=== PATIENT | male | born 1965 | race African-American/Black ===

== ENCOUNTER 2016-11-27 14:42 | Inpatient (IN) | payer SELFPAY ==
[2016-11-27 14:51] VITALS: BMI 27.3
[2016-11-27] MEDS ORDERED: KETOROLAC TROMETHAMINE 60 MG/2 ML VIAL IM ONE (16:33)
--- NOTE | 2016-11-27 16:37 | PDOC ---
History of Present Illness - General Chief Complaint: Pain Stated Complaint: PAIN Time Seen by Provider: 11/27/16 16:15 History Source: Patient Exam Limitations: No Limitations - History of Present Illness Initial Comments: 11/27/16 16:35 Patient is a 51-year-old male, history of GERD only takes occasional Zantac, presents with left flank pain. Patient reports he woke up with the pain on 11/22/2016, patient reports pain is stabbing, denies any urinary complaints, no bowel or bladder difficulty, no saddle anesthesia, no neurosensory deficits. Denies hematuria, no trauma. Past Medical History: GERD, Mother history renal disease. Allergies: No known allergies Medications: Zantac Family History: Non-contributory Social History: Denies smoking, alcohol use, or IVDU Vital signs on arrival are notable for pulse of 96. PCP: None, last seen 1 year prior, name unknown. Review of Systems GENERAL/CONSTITUTIONAL: No fever or chills. No weakness. No weight change. HEAD, EYES, EARS, NOSE AND THROAT: No change in vision. No ear pain or discharge. No sore throat. CARDIOVASCULAR: No chest pain or shortness of breath. RESPIRATORY: No cough, wheezing, or hemoptysis. GASTROINTESTINAL: No nausea, vomiting, diarrhea or constipation. No rectal bleeding. GENITOURINARY: No dysuria, frequency, or change in urination. MUSCULOSKELETAL: No joint or muscle swelling or pain. No neck or back pain. Left flank pain SKIN: No rash or easy bruising. NEUROLOGIC: No headache, vertigo, loss of consciousness, or loss of sensation. ENDOCRINE: No increased thirst. No abnormal weight change. HEMATOLOGIC/LYMPHATIC: No anemia, easy bleeding, or history of blood clots. ALLERGIC/IMMUNOLOGIC: No hives or skin allergy. No latex allergy. Physical Exam: GENERAL: The patient is awake, alert, and fully oriented, in no acute distress. EYES: Pupils equal, round and reactive to light, extraocular movements intact, sclera anicteric, conjunctiva clear. ENT: Ears normal, nares patent, oropharynx clear without exudates. Moist mucous membranes. No uvula deviation NECK: Normal range of motion, supple without lymphadenopathy, JVD, or masses. LUNGS: Breath sounds equal, clear to auscultation bilaterally. No wheezes, and no crackles. HEART: Regular rate and rhythm, normal S1 and S2 without murmur, rub or gallop. ABDOMEN: Soft, nontender, normoactive bowel sounds. No guarding, no rebound. No masses. No bruising or abrasions MUSCULOSKELETAL: Normal range of motion, no edema. No clubbing or cyanosis. No cords, erythema, or tenderness. Left CVA tenderness with fist palpation. NEUROLOGICAL: Cranial nerves II through XII grossly intact. Normal speech, normal gait. SKIN: Warm, Dry, normal turgor, no rashes or lesions noted. 11/27/16 18:53 11/27/16 19:30 Past History - Past Medical History Allergies/Adverse Reactions: Allergies Allergy/AdvReac Type Severity Reaction Status Date / Time No Known Allergies Allergy Verified 11/27/16 14:51 Home Medications: Ambulatory Orders Ranitidine HCl [Zantac] 150 mg PO DAILY 11/27/16 - Suicide/Smoking/Psychosocial Hx Smoking History: Never smoked Have you smoked in the past 12 months: No Information on smoking cessation initiated: No Substance Use Type: None *Physical Exam - Vital Signs Last Vital Signs Temp Pulse Resp BP Pulse Ox 99.0 F 99 H 18 92/64 100 11/27/16 14:49 11/27/16 14:49 11/27/16 14:49 11/27/16 14:49 11/27/16 14:49 ED Treatment Course - LABORATORY CBC & Chemistry Diagram: 12/01/16 18:30 12/01/16 06:10 Medical Decision Making - Medical Decision Making 11/27/16 19:31 A/P: Patient here for evaluation of left flank pain. Low-grade fever of 99, patient reports pain is increased in intensity in the last 24 hours. No nausea vomiting. No hematuria. Plan: CBC, CMP, urinalysis, urine culture Laboratory Results - last 24 hr 11/27/16 11/27/16 11/27/16 16:41 16:41 16:41 WBC 24.3 H RBC 5.05 Hgb 14.1 Hct 42.1 MCV 83.3 MCH 27.9 MCHC 33.5 RDW 14.3 Plt Count 222 MPV 9.4 Total Counted 100 Neutrophils % No Result Required. Neutrophils % (Manual) 81 Band Neuts % (Manual) 13 H Lymphocytes % No Result Required. Lymphocytes % (Manual) 3 L Monocytes % (Manual) 2 L Platelet Estimate Adequate RBC Morphology Appears normal Sodium 127 L Potassium 4.1 Chloride 83 L Carbon Dioxide 26 Anion Gap 18 H BUN 100 H Creatinine 6.7 H Creat Clearance w eGFR 8.77 Random Glucose 105 Calcium 9.2 Total Bilirubin 1.4 H AST 38 H ALT 39 Alkaline Phosphatase 70 Total Protein 7.6 Albumin 3.2 L Urine Color Yellow Urine Appearance Cloudy Urine pH 5.0 Urine Protein 1+ H Urine Glucose (UA) Negative Urine Ketones Negative Urine Blood 2+ H Urine Nitrite Negative Urine Bilirubin Negative Urine Urobilinogen Negative Urine RBC 2 Urine WBC 3 Urine Bacteria Rare Urine Mucus Rare Patient with elevated WBCs with a left shift. BUN and creatinine significantly elevated 100/6.7 , sodium is 127. Patient with blood +2 in urine. Renal spiral CT ordered. After reviewing labs, Patient sent to main emergency department for higher level of care report given to Dr. Barnes and Dr. Franklin. Patient transferred via wheelchair placed on stretcher with no difficulty. Patient found drinking soda told to maintain nothing by mouth status awaiting M.D. evaluation. 12/01/16 19:36 *DC/Admit/Observation/Transfer Diagnosis at time of Disposition: or with dr. gan, Perforated bowel
[2016-11-27] MEDS ORDERED: KETOROLAC TROMETHAMINE 60 MG/2 ML VIAL ONE (16:45)
[2016-11-27 17:07] LABS: MCH 27.9 pg (25.7-33.7); MCHC 33.5 g/dl (32.0-35.9); MEAN CELL VOLUME 83.3 fl (80-96); MEAN PLT VOLUME 9.4 fl (7.5-11.1); PLATELET COUNT 222 K/MM3 (134-434); RDW 14.3 % (11.9-15.9); WHITE BLOOD COUNT 24.3 K/mm3 (4.0-10.0)
[2016-11-27 17:25] LABS: URINE APPEARANCE CLOUDY; URINE BILIRUBIN NEGATIVE (NEGATIVE); URINE BLOOD 2+ (NEGATIVE); URINE COLOR YELLOW; URINE GLUCOSE (UA) NEGATIVE (NEGATIVE); URINE KETONE NEGATIVE (NEGATIVE); URINE NITRITE NEGATIVE (NEGATIVE); URINE UROBILINOGEN NEGATIVE mg/dL (0.2-1.0)
[2016-11-27 17:26] LABS: URINE PROTEIN 1+ (NEGATIVE)
[2016-11-27 17:27] LABS: URINE RBC 2 /hpf (0-3); URINE WBC 3 /hpf (3-5)
[2016-11-27 17:28] LABS: URINE BACTERIA RARE /hpf (NONE SEEN); URINE MUCUS RARE
[2016-11-27 17:36] LABS: ALBUMIN 3.2 g/dl (3.4-5.0); ALK PHOS 70 U/L (45-117); ANION GAP 18 (8-16); BILIRUBIN,TOTAL 1.4 mg/dL (0.2-1.0); CALCIUM 9.2 mg/dL (8.5-10.1); CO2 26 mmol/L (21-32); CREATININE 6.7 mg/dL (0.7-1.3); GLUCOSE,RANDOM 105 mg/dL (74-106); SGOT/AST 38 U/L (15-37); SGPT/ALT 39 U/L (12-78); TOT PROT 7.6 g/dl (6.4-8.2)
[2016-11-27 18:11] LABS: PLATELET ESTIMATE ADEQUATE (NORMAL)
[2016-11-27 18:12] LABS: METAMYELOCYTE 1 % (0-2); TOTAL CELLS COUNTED 100
[2016-11-27] MEDS ORDERED: SODIUM CHLORIDE 0.9% 1000 ML INFUS.BAG IV ONE (19:48)
--- NOTE | 2016-11-27 19:48 | PDOC ---
*Physical Exam - Vital Signs Last Vital Signs Temp Pulse Resp BP Pulse Ox 99.0 F 99 H 18 92/64 100 11/27/16 14:49 11/27/16 14:49 11/27/16 14:49 11/27/16 14:49 11/27/16 14:49 - Physical Exam General Appearance: Yes: Nourished, Appropriately Dressed. No: Apparent Distress HEENT: positive: Normal Voice, Hearing Grossly Normal Respiratory/Chest: positive: Lungs Clear, Normal Breath Sounds. negative: Chest Tender, Crackles, Rales, Rhonchi, Stridor, Wheezing Cardiovascular: positive: Regular Rhythm, Regular Rate, S1, S2. negative: Diastolic Murmur, Systolic Murmur Gastrointestinal/Abdominal: positive: Flat, Soft. negative: Tender, Distended, Guarding, Rebound, Tenderness Musculoskeletal: positive: CVA Tenderness, CVA Tenderness (L). negative: CVA Tenderness (R) Extremity: positive: Normal Inspection, Normal Range of Motion, Pelvis Stable. negative: Swelling, Calf Tenderness Integumentary: positive: Dry, Warm. negative: Clammy, Diaphoresis Neurologic: positive: Fully Oriented, Alert, Normal Mood/Affect, Normal Response , Motor Strength 5/5, Respond to painful stimul ED Treatment Course - LABORATORY CBC & Chemistry Diagram: 11/30/16 05:00 11/30/16 05:00 - ADDITIONAL ORDERS Additional order review: Laboratory Results 11/27/16 11/27/16 16:41 16:41 Sodium 127 L Potassium 4.1 Chloride 83 L Carbon Dioxide 26 Anion Gap 18 H BUN 100 H Creatinine 6.7 H Creat Clearance w eGFR 8.77 Random Glucose 105 Calcium 9.2 Total Bilirubin 1.4 H AST 38 H ALT 39 Alkaline Phosphatase 70 Total Protein 7.6 Albumin 3.2 L Urine Color Yellow Urine Appearance Cloudy Urine pH 5.0 Urine Protein 1+ H Urine Glucose (UA) Negative Urine Ketones Negative Urine Blood 2+ H Urine Nitrite Negative Urine Bilirubin Negative Urine Urobilinogen Negative Urine RBC 2 Urine WBC 3 Urine Bacteria Rare Urine Mucus Rare 11/27/16 16:41 RBC 5.05 MCV 83.3 MCHC 33.5 RDW 14.3 MPV 9.4 Neutrophils % No Result Required. Lymphocytes % No Result Required. - RADIOLOGY Radiology Studies Ordered: Category Date Time Status CHEST PA & LAT [RAD] Stat Radiology 11/27/16 19:36 Ordered - Medications Given in the ED: ED Medications Discontinued Medications Generic Name Dose Route Start Last Admin Trade Name Sadie PRN Reason Stop Dose Admin Ketorolac Tromethamine 60 mg 11/27/16 16:33 11/27/16 16:49 Toradol Injection - IM 11/27/16 16:34 60 mg ONCE ONE Administration Medical Decision Making - Medical Decision Making 11/27/16 19:43 Patient signed out from Maureen [email or web address] NP. The patient is a 51M with no PMH who presents with 5 days of L flank pain. The pain has gradually worsened, does not radiate, and has not gotten better or worse with anything. The patient states he had a bout of fever with severe diaphoresis a "few" days ago. He denies any current fever, chills, nausea, vomiting. 11/27/16 22:17 CT showed extraluminal air in L retroperitoneum. Dr. Gan, gen surg, seeing patient currently. ICU accepts admission. Hospitalist team paged. *DC/Admit/Observation/Transfer Diagnosis at time of Disposition: or with dr. gan, Perforation of intestine
[2016-11-27] MEDS ORDERED: PIPERACILLIN/TAZOB 2.25 GM/50 ML PREMIX BAG IVPB ONE (19:51)
[2016-11-27] MEDS ORDERED: VANCOMYCIN 1 GRAM (PRE-DOCKED) 250 ML IVPB ONE (20:20)
[2016-11-27 20:37] LABS: URINE LEUK ESTERASE Negative (NEGATIVE)
--- NOTE | 2016-11-27 21:25 | PDOC ---
*Physical Exam - Vital Signs Last Vital Signs Temp Pulse Resp BP Pulse Ox 99.0 F 82 18 101/69 98 11/27/16 14:49 11/27/16 21:21 11/27/16 21:21 11/27/16 21:21 11/27/16 21:21 - Physical Exam Comments: 11/27/16 21:35 The patient was examined by [[employer] Andolino] under my direct supervision. I personally evaluated the patient. I concur with the above findings and the plan of care. Patient's 51-year-old male who presented to the ER with atraumatic left -sided flank pain for the past 6 days. Initial evaluation patient was noted to be borderline hypotensive with mild to moderate left flank tenderness to palpation. Patient had received IM Toradol in [facility] prior to my evaluation. Physical exam reveals no scleral icterus, mucous membranes are dry; there is no JVD. Lungs are clear; heart exam reveals no murmurs rubs or gallops; abdominal exam reveals mild focal left upper quadrant tenderness and there is no guarding or rebound. Mild to moderate left CVA tenderness is noted. There is no petechial rash. CBC reveals significant leukocytosis with bandemia. CMP reveals moderate hyponatremia, with evidence of acute renal insufficiency with BUN of 100 and creatinine of 6.7. Urinalysis reveals no evidence of pyuria. CT of abdomen and pelvis reveals a large amount of trapped retroperitoneal air on the left likely related to a colonic diverticula perforation. A discussed the case with Dr. Powell of surgery. Patient will be taken to the OR for exploratory laparotomy and possible resection with colostomy. Blood and urine cultures been obtained. Broad-spectrum antibiotic therapy has been administered. Frankel catheter has been placed for measurements of ins and outs. Patient's currently fluid resuscitated. Will admit to the ICU. ED Treatment Course - LABORATORY CBC & Chemistry Diagram: 11/27/16 16:41 11/27/16 16:41 - ADDITIONAL ORDERS Additional order review: Laboratory Results 11/27/16 11/27/16 11/27/16 20:20 19:43 16:41 Sodium 127 L Potassium 4.1 Chloride 83 L Carbon Dioxide 26 Anion Gap 18 H BUN 100 H Creatinine 6.7 H Creat Clearance w eGFR 8.77 Random Glucose 105 Lactic Acid 1.1 Calcium 9.2 Total Bilirubin 1.4 H AST 38 H ALT 39 Alkaline Phosphatase 70 Total Protein 7.6 Albumin 3.2 L Lipase 70 L Urine Color Urine Appearance Urine pH Ur Specific [place] Urine Protein Urine Glucose (UA) Urine Ketones Urine Blood Urine Nitrite Urine Bilirubin Urine Urobilinogen Ur Leukocyte Esterase Urine RBC Urine WBC Urine Bacteria Urine Mucus 11/27/16 16:41 Sodium Potassium Chloride Carbon Dioxide Anion Gap BUN Creatinine Creat Clearance w eGFR Random Glucose Lactic Acid Calcium Total Bilirubin AST ALT Alkaline Phosphatase Total Protein Albumin Lipase Urine Color Yellow Urine Appearance Cloudy Urine pH 5.0 Ur Specific [place] 1.020 Urine Protein 1+ H Urine Glucose (UA) Negative Urine Ketones Negative Urine Blood 2+ H Urine Nitrite Negative Urine Bilirubin Negative Urine Urobilinogen Negative Ur Leukocyte Esterase Negative Urine RBC 2 Urine WBC 3 Urine Bacteria Rare Urine Mucus Rare 11/27/16 16:41 RBC 5.05 MCV 83.3 MCHC 33.5 RDW 14.3 MPV 9.4 Neutrophils % No Result Required. Lymphocytes % No Result Required. - RADIOLOGY Radiology Studies Ordered: Category Date Time Status CHEST X-RAY PORTABLE* [RAD] Stat Radiology 11/27/16 21:18 Ordered - Medications Given in the ED: ED Medications Discontinued Medications Generic Name Dose Route Start Last Admin Trade Name Freq PRN Reason Stop Dose Admin Ketorolac Tromethamine 60 mg 11/27/16 16:33 11/27/16 16:49 Toradol Injection - IM 11/27/16 16:34 60 mg ONCE ONE Administration Piperacillin/Tazobactam/Dextrose 2.25 gm 11/27/16 19:51 11/27/16 21:13 Zosyn 2.25gm Ivpb (Premix) IVPB 11/27/16 19:52 2.25 gm ONCE ONE Administration Sodium Chloride 500 ml 11/27/16 19:48 11/27/16 20:01 Normal Saline - IV 11/27/16 19:49 500 ml ONCE ONE Administration *DC/Admit/Observation/Transfer Diagnosis at time of Disposition: or with dr. gan
[2016-11-27 21:45] LABS: INR 1.28 (0.82-1.09); PROTHROMBIN TIME (PATIENT) 14.5 SEC (9.98-11.88)
[2016-11-27] MEDS ORDERED: VANCOMYCIN 1,000 MG in DEXTROSE 5%-WATER - 250 ML IVPB SCH (22:00)
[2016-11-27 22:12] LABS: HIV 1 & 2 AB NEGATIVE; HIV 1 AGp24 NEGATIVE
[2016-11-27] MEDS ORDERED: SODIUM CHLORIDE 1,000 ML IV STA (22:16)
[2016-11-27] MEDS ORDERED: DESFLURANE GAS 240 ML BOTTLE IH ONE (22:57)
--- NOTE | 2016-11-27 22:59 | CONSULT ---
Consult Consult Specialty:: Surgery Reason for Consultation:: Perforated viscus - History of Present Illness History of Present Illness: 51 male present for abdominal pain Greatest pain on left side/flank Pain x 1 week Denies fevers/chills WBC [address]- free air tracking along left side/retroperitoneum consistent with likely perforated colon - History Source History Provided By: Patient, Family Member, Medical Record Limitations to Obtaining History: No Limitations - Smoking History Smoking history: Never smoked Have you smoked in the past 12 months: No Home Medications - Allergies Allergies/Adverse Reactions: Allergies Allergy/AdvReac Type Severity Reaction Status Date / Time No Known Allergies Allergy Verified 11/27/16 14:51 - Home Medications Home Medications: Ambulatory Orders Ranitidine HCl [Zantac] 150 mg PO DAILY 11/27/16 Family Disease History - Family Disease History Family History: Denies Review of Systems - Review of Systems Constitutional: denies: Chills, Fever Neck: reports: No Symptoms Cardiovascular: denies: Chest Pain Respiratory: denies: Cough Gastrointestinal: reports: Abdominal Pain. denies: Melena, Vomiting Genitourinary: reports: No Symptoms Neurological: denies: Change in LOC Pain Intensity: 5 Physical Exam Vital Signs: Vital Signs Temperature 99.0 F 11/27/16 14:49 Pulse Rate 82 11/27/16 21:21 Respiratory Rate 18 11/27/16 21:21 Blood Pressure 101/69 11/27/16 21:21 O2 Sat by Pulse Oximetry (%) 98 11/27/16 21:21 Constitutional: Yes: Calm HENT: Yes: WNL Neck: Yes: Supple Cardiovascular: Yes: Regular Rate and Rhythm Respiratory: Yes: CTA Bilaterally Gastrointestinal: Yes: Soft, Tenderness, Tenderness, Rebound (Local left sided guarding). No: Distention Extremities: Yes: WNL Neurological: Yes: Alert, Oriented Labs: CBC, BMP 11/27/16 16:41 11/27/16 16:41 Imaging - Results Cat Scan: Image Reviewed Problem List - Problems (1) Perforated abdominal viscus Code(s): UGD8253 - (2) Septic shock Code(s): A41.9 - SEPSIS, UNSPECIFIED ORGANISM R65.21 - SEVERE SEPSIS WITH SEPTIC SHOCK (3) Acute renal failure Code(s): N17.9 - ACUTE KIDNEY FAILURE, UNSPECIFIED Qualifiers: Acute renal failure type: unspecified Qualified Code(s): N17.9 - Acute kidney failure, unspecified; N17.9 - Acute kidney failure, unspecified; N17.9 - Acute kidney failure, unspecified Assessment/Plan 51 male with likely perforated left sided colon diverticulitis In acute renal failure NPO IV fluids Antibiotics Discussed with him and his family Based on the findings, he will need and exploratory laparotomy, possible bowel resection possible ostomy Explained risks and benefits including sepsis, shock and Understands and agrees Will proceed emergently
[2016-11-27] MEDS ORDERED: LIDOCAINE HCL/PF 2% SDV 5ML VIAL ONE (23:00)
[2016-11-27] MEDS ORDERED: ROCURONIUM BROMIDE 50 MG/5 ML VIAL ONE (23:01)
[2016-11-27] MEDS ORDERED: SUCCINYLCHOLINE CHLORIDE 200 MG/10 ML VIAL ONE (23:01)
[2016-11-27] MEDS ORDERED: PROPOFOL 20 ML ONE (23:01)
[2016-11-27] MEDS ORDERED: AMPICILLIN NA/SULBACTAM NA 1.5 GM VIAL IVPB ONE (23:15)
[2016-11-27] MEDS ORDERED: DEXAMETHASONE SOD PHOSPHATE 4 MG/1 ML VIAL ONE (23:58)
[2016-11-27] MEDS ORDERED: KETOROLAC TROMETHAMINE 30 MG/1 ML VIAL ONE (23:58)
[2016-11-27] MEDS ORDERED: ONDANSETRON 4 MG/2 ML VIAL ONE (23:58)
[2016-11-27] MEDS ORDERED: NEOSTIGMINE METHYLSULFATE 0.5 MG/ML - 10 ML MDV ONE (23:58)
[2016-11-27] MEDS ORDERED: AMPICILLIN NA/SULBACTAM NA 1.5 GM VIAL ONE (23:59)
[2016-11-27] MEDS ORDERED: GLYCOPYRROLATE 0.2 MG/1 ML VIAL ONE ×2 (23:59)
[2016-11-28] MEDS ORDERED: ROCURONIUM BROMIDE 50 MG/5 ML VIAL ONE (00:20)
[2016-11-28] MEDS ORDERED: ONDANSETRON 4 MG/2 ML VIAL IVPUSH PRN (01:25)
[2016-11-28] MEDS ORDERED: PROMETHAZINE HCL 25 MG/1 ML VIAL IVPUSH PRN (01:25)
[2016-11-28] MEDS ORDERED: HYDROmorphone *PCA* 10MG/50ML DISP.SYRIN PCA SCH (01:30)
--- NOTE | 2016-11-28 01:33 | OP ---
Operative Note - Note: Operative Date: 11/28/16 Pre-Operative Diagnosis: Perforated viscus Operation: Exploratory laparotomy, splenic flexure mobilization, extended left hemicolectomy, diverting transverse colostomy, abdominal washout Findings: Perforated descending colon with retroperitoneal abscess cavity Post-Operative Diagnosis: Other (Perforated descending colon with abscess cavity ) Surgeon: Nolan Powell Anesthesia: General Specimens Removed: Left colon Estimated Blood Loss (mls): 50 Drains & Tubes with Location: KEYA, ostomy Operative Report Dictated: Yes
[2016-11-28] MEDS ORDERED: ONDANSETRON 4 MG/2 ML VIAL IVPB PRN ×2 (01:43→02:11)
[2016-11-28] MEDS ORDERED: SODIUM CHLORIDE 1,000 ML IV SCH ×3 (01:45→08:34)
[2016-11-28] MEDS ORDERED: HYDROmorphone *PCA* 10MG/50ML DISP.SYRIN PCA ONE (01:52)
[2016-11-28] MEDS ORDERED: METRONIDAZOLE 500 MG PREMIXED 100 ML IVPB SCH ×3 (02:00→10:00)
[2016-11-28 02:31] LABS: BASOPHIL 0.3 % (0-2.0); MCH 27.7 pg (25.7-33.7); MEAN CELL VOLUME 83.8 fl (80-96); MEAN PLT VOLUME 10.7 fl (7.5-11.1); NEUTROPHILS 92.5 % (42.8-82.8); PLATELET COUNT 173 K/MM3 (134-434); RDW 14.3 % (11.9-15.9); WHITE BLOOD COUNT 14.2 K/mm3 (4.0-10.0)
[2016-11-28 02:57] LABS: ANION GAP 17 (8-16); CALCIUM 7.6 mg/dL (8.5-10.1); CO2 22 mmol/L (21-32); CREATININE 6.3 mg/dL (0.7-1.3); GLUCOSE,RANDOM 124 mg/dL (74-106)
[2016-11-28] MEDS: HYDROmorphone *PCA* 10MG/50ML DISP.SYRIN PCA SCH (04:14)
--- NOTE | 2016-11-28 04:15 | CONSULT ---
Consult - text type - Consultation Consultation Note: PULM/CCM Pt seen and examined in the ICU CC:abd pain, s/p exlap with hemicoloectomy, colostomy HPI: 51 y/o man with minimal PMHX of GERD on OTC zantac p/w 48+ hr hx of L abd and flank pain without n/v/d, or other sick prodrome. In ED was normotensive, low grade temp. Labs notable for leukocytosis 24 with 13% bandemia, PAYAM w/ Cr 6/ 100. CTAP showed likely perforated colon. Taken for emergent surgery with Dr Powell now POD 0 after Exploratory laparotomy, splenic flexure mobilization, extended left hemicolectomy, diverting transverse colostomy, abdominal washout. Pt did well intra-operatively, was extubated in PACU and admitted to ICU for continued care. In ICU pt drowsy but arousable, in minimal pain, with good UOP. Repeat labs showing decreased WBC, slightly downtrending Cr, and slightly rising BUN. Hemodyamics stable, receiving IVF. On LVQ and Flagyl. Comfortable on MARKER SHIPMENTS. PMHX: Gerd PSH: none SOC: non contrib Family hx: Mother with Kidney disease Home meds: zantac Ambulatory Orders Ranitidine HCl [Zantac] 150 mg PO DAILY 11/27/16 Smoking History Smoking history Never smoked Active Medications Hydromorphone HCl (Dilaudid Nuclear Physicist -) 10 mg MARKER SHIPMENTS MARKER SHIPMENTS DIAN PRN Reason: Protocol Stop: 12/05/16 01:25 Last Admin: 11/28/16 04:14 Dose: Not Given Metronidazole (Flagyl 500mg Premixed Ivpb -) 100 mls @ 100 mls/hr IVPB Q8H-IV DIAN Levofloxacin (Levaquin 250 Mg Premixed Ivpb -) 50 mls @ 100 mls/hr IVPB Q2D@ 0800 DIAN Sodium Chloride (Normal Saline -) 1,000 mls @ 150 mls/hr IV ASDIR DIAN Last Admin: 11/28/16 04:15 Dose: Not Given Ondansetron HCl (Zofran Injection) 4 mg IVPB Q4H PRN PRN Reason: NAUSEA AND/OR VOMITING Vital Signs Temp 97.8 F 11/28/16 03:20 Pulse 102 H 11/28/16 04:00 Resp 24 11/28/16 04:00 BP 114/80 11/28/16 04:00 Pulse Ox 100 11/28/16 03:05 Intake & Output 11/27/16 11/27/16 11/28/16 11:59 23:59 11:59 Intake Total 3900 450 Output Total 2150 50 520 Balance -2150 3850 -70 Weight 79.379 kg Intake: IV 2000 450 Other 1900 Output: Gastric Drainage 200 Drainage 105 Urine 200 50 200 Frankel 50 Estimated Blood Loss 50 15 Other 190 Other: Height 5 ft 7 in Body Mass Index (BMI) 27.3 CBCD WBC 14.2 K/mm3 (4.0-10.0) H D 11/28/16 01:50 RBC 4.64 M/mm3 (4.00-5.60) 11/28/16 01:50 Hgb 12.8 GM/dL (11.7-16.9) 11/28/16 01:50 Hct 38.8 % (35.4-49) 11/28/16 01:50 MCV 83.8 fl (80-96) 11/28/16 01:50 MCHC 33.0 g/dl (32.0-35.9) 11/28/16 01:50 RDW 14.3 % (11.9-15.9) 11/28/16 01:50 Plt Count 173 K/MM3 (134-434) D 11/28/16 01:50 MPV 10.7 fl (7.5-11.1) D 11/28/16 01:50 CMP Sodium 134 mmol/L (136-145) L 11/28/16 01:50 Potassium 3.7 mmol/L (3.5-5.1) 11/28/16 01:50 Chloride 95 mmol/L (98-107) L D 11/28/16 01:50 Carbon Dioxide 22 mmol/L (21-32) 11/28/16 01:50 Anion Gap 17 (8-16) H 11/28/16 01:50 BUN 107 mg/dL (7-18) H* 11/28/16 01:50 Creatinine 6.3 mg/dL (0.7-1.3) H 11/28/16 01:50 Creat Clearance w eGFR 8.77 (>60) 11/27/16 16:41 Calcium 7.6 mg/dL (8.5-10.1) L 11/28/16 01:50 Total Bilirubin 1.4 mg/dL (0.2-1.0) H 11/27/16 16:41 AST 38 U/L (15-37) H 11/27/16 16:41 ALT 39 U/L (12-78) 11/27/16 16:41 Alkaline Phosphatase 70 U/L (45-117) 11/27/16 16:41 Total Protein 7.6 g/dl (6.4-8.2) 11/27/16 16:41 Albumin 3.2 g/dl (3.4-5.0) L 11/27/16 16:41 CTAP: image reviewed CXR: no focal infitrate ROS: 10 pt review of systems negative except as per HPI. PE: Gen: well nourished, non toxic appearing man sleeping HEENT: NCAT PULM: clear anterior CV: RRR, no m/r/g apppreciated ABD: midline surg wound dressed CDI, R KEYA with minimal out put, L colostomy minimal output mostly blood no stool. quiet abd pain EXT: w/w/p Neuro: arouse briefly, non focal exam A/ 51 y/o man p/w abd pain, PAYAM found to have free air in abd now POD #0 after Exploratory laparotomy, splenic flexure mobilization, extended left hemicolectomy, diverting transverse colostomy, abdominal washout with Dr Powell P/ -cont fluid resusitation with NS at 150 hr -cont broad spectrum abd coverage with LVQ and flagyl -monitor for indications for STAFFING MGR, is making adequate Urine and K wnl -pain control with MARKER SHIPMENTS -advance diet as per surgery -monitor output -SCD and PPI for prophylaxis Randall King ACNP [id number]
[2016-11-28 06:13] LABS: BASOPHIL 1.2 % (0-2.0); EOSINOPHIL 0.1 % (0-4.5); MCH 27.9 pg (25.7-33.7); MCHC 33.2 g/dl (32.0-35.9); MEAN CELL VOLUME 84.1 fl (80-96); MEAN PLT VOLUME 10.3 fl (7.5-11.1); NEUTROPHILS 89.9 % (42.8-82.8); PLATELET COUNT 198 K/MM3 (134-434); RDW 14.3 % (11.9-15.9); WHITE BLOOD COUNT 11.4 K/mm3 (4.0-10.0)
[2016-11-28 06:43] LABS: ALBUMIN 2.1 g/dl (3.4-5.0); ALK PHOS 51 U/L (45-117); ANION GAP 15 (8-16); BILIRUBIN,TOTAL 1.5 mg/dL (0.2-1.0); CALCIUM 7.7 mg/dL (8.5-10.1); CO2 22 mmol/L (21-32); CREATININE 6.5 mg/dL (0.7-1.3); GLUCOSE,RANDOM 133 mg/dL (74-106); SGOT/AST 27 U/L (15-37); SGPT/ALT 32 U/L (12-78); TOT PROT 5.3 g/dl (6.4-8.2)
[2016-11-28] MEDS ORDERED: LEVOFLOXACIN 500 MG IVPB 100 ML IVPB SCH (08:00)
--- NOTE | 2016-11-28 09:09 | HP ---
CHIEF COMPLAINT: left flank pain PCP: none HISTORY OF PRESENT ILLNESS: This is a 51 year old male with a a history of GERD, who presents to the emergency room with sharp, non radiating, left sided flank pain that started on Tuesday. Patient states that when the pain started last week, he was sitting in a wooden chair watching the game. He got up to walk around which aggravated this pain. Patient tried warm baths to relieve pain, which did not help. Last night the pain was 10/0 which provoked him coming to the ER. Denies any associated symptoms including fever, chills, n, v, d, dysuria, hematuria. In the ER patient was borderline hypotensive, tachycardic. CBC evident for leukocytosis , 24 wbc. Elevated BUN/Cr; 100/6.7. CT abdomen revealed free air left retroperitonem. Recent Travel: no PAST MEDICAL HISTORY: GERD PAST SURGICAL HISTORY: no Social History: Smoking:no Alcohol:no Drugs: no Family History: Allergies No Known Allergies Allergy (Verified 11/27/16 14:51) HOME MEDICATIONS: Home Medications Medication Instructions Recorded Ranitidine HCl [Zantac] 150 mg PO DAILY 11/27/16 REVIEW OF SYSTEMS CONSTITUTIONAL: Absent: fever, chills, diaphoresis, generalized weakness, malaise, loss of appetite, weight change HEENT: Absent: rhinorrhea, nasal congestion, throat pain, throat swelling, difficulty swallowing, mouth swelling, ear pain, eye pain, visual changes CARDIOVASCULAR: Absent: chest pain, syncope, palpitations, irregular heart rate, lightheadedness , peripheral edema RESPIRATORY: Absent: cough, shortness of breath, dyspnea with exertion, orthopnea, wheezing, stridor, hemoptysis GASTROINTESTINAL: Absent: abdominal pain, abdominal distension, nausea, vomiting, diarrhea, constipation, melena, hematochezia GENITOURINARY: Absent: dysuria, frequency, urgency, hesitancy, hematuria, flank pain, genital pain MUSCULOSKELETAL: Positive: left flank pain Absent: myalgia, arthralgia, joint swelling, back pain, neck pain SKIN: Absent: rash, itching, pallor HEMATOLOGIC/IMMUNOLOGIC: Absent: easy bleeding, easy bruising, lymphadenopathy, frequent infections ENDOCRINE: Absent: unexplained weight gain, unexplained weight loss, heat intolerance, cold intolerance NEUROLOGIC: Absent: headache, focal weakness or paresthesias, dizziness, unsteady gait, seizure, mental status changes, bladder or bowel incontinence PSYCHIATRIC: Absent: anxiety, depression, suicidal or homicidal ideation, hallucinations. PHYSICAL EXAMINATION Vital Signs - 24 hr 11/28/16 11/28/16 11/28/16 01:19 01:35 01:50 Temperature 98.5 F Pulse Rate 94 H 87 85 Respiratory 16 18 18 Rate Blood Pressure 144/66 137/78 126/76 O2 Sat by Pulse 100 100 100 Oximetry (%) 11/28/16 11/28/16 11/28/16 02:00 02:05 02:20 Temperature Pulse Rate 82 82 89 Respiratory 18 18 18 Rate Blood Pressure 129/79 129/79 134/76 O2 Sat by Pulse 99 99 Oximetry (%) 11/28/16 11/28/16 11/28/16 02:30 02:35 02:50 Temperature Pulse Rate 91 H 91 H 99 H Respiratory 18 18 18 Rate Blood Pressure 132/75 132/75 122/78 O2 Sat by Pulse 97 100 Oximetry (%) 11/28/16 11/28/16 11/28/16 03:00 03:05 03:20 Temperature 97.8 F Pulse Rate 94 H 94 H 89 Respiratory 18 18 18 Rate Blood Pressure 135/76 135/76 125/76 O2 Sat by Pulse 100 Oximetry (%) 11/28/16 11/28/16 11/28/16 04:00 04:30 05:00 Temperature 97.8 F Pulse Rate 100 H 100 H 104 H Respiratory 16 14 14 Rate Blood Pressure 114/70 117/78 108/74 O2 Sat by Pulse 100 Oximetry (%) 11/28/16 06:00 Temperature 97.4 F L Pulse Rate 104 H Respiratory 14 Rate Blood Pressure 98/45 O2 Sat by Pulse Oximetry (%) GENERAL: Awake, alert, and fully oriented, in no acute distress. HEAD: Normal with no signs of trauma. EYES: Pupils equal, round and reactive to light, extraocular movements intact, sclera anicteric, conjunctiva clear. No lid lag. EARS, NOSE, THROAT: Ears normal, nares patent, oropharynx clear without exudates. Moist mucous membranes. NECK: Normal range of motion, supple without lymphadenopathy, JVD, or masses. LUNGS: Breath sounds equal, clear to auscultation bilaterally. No wheezes, and no crackles. No accessory muscle use. HEART: Regular rate and rhythm, normal S1 and S2 without murmur, rub or gallop. ABDOMEN: Soft, nontender, not distended, normoactive bowel sounds, incision clean, dry, intact, no erythema, edema; drain, with serosangiunous fluid 50 ml MUSCULOSKELETAL: Normal range of motion at all joints. No bony deformities or tenderness. No CVA tenderness. UPPER EXTREMITIES: 2+ pulses, warm, well-perfused. No cyanosis. No clubbing. No peripheral edema. LOWER EXTREMITIES: 2+ pulses, warm, well-perfused. No calf tenderness. No peripheral edema. NEUROLOGICAL: Cranial nerves II-XII intact. Normal speech. PSYCHIATRIC: Cooperative. Good eye contact. Appropriate mood and affect. SKIN: Warm, dry, normal turgor, no rashes or lesions noted, normal capillary refill. Laboratory Results - last 24 hr 11/27/16 11/28/16 11/28/16 23:15 01:50 01:50 WBC 14.2 H D RBC 4.64 Hgb 12.8 Hct 38.8 MCV 83.8 MCH 27.7 MCHC 33.0 RDW 14.3 Plt Count 173 D MPV 10.7 D Neutrophils % 92.5 H Lymphocytes % 1.6 L Monocytes % 5.6 Eosinophils % 0.0 Basophils % 0.3 Sodium 134 L Potassium 3.7 Chloride 95 L D Carbon Dioxide 22 Anion Gap 17 H BUN 107 H* Creatinine 6.3 H Creat Clearance w eGFR Random Glucose 124 H Calcium 7.6 L Total Bilirubin AST ALT Alkaline Phosphatase Total Protein Albumin Blood Type O POSITIVE Antibody Screen Cancelled Crossmatch IS Only See Detail Spec Expiration Date Cancelled 11/28/16 11/28/16 05:10 05:10 WBC 11.4 H RBC 4.37 Hgb 12.2 Hct 36.7 MCV 84.1 MCH 27.9 MCHC 33.2 RDW 14.3 Plt Count 198 MPV 10.3 Neutrophils % 89.9 H Lymphocytes % 1.9 L Monocytes % 6.9 Eosinophils % 0.1 D Basophils % 1.2 D Sodium 132 L Potassium 4.5 D Chloride 95 L Carbon Dioxide 22 Anion Gap 15 BUN 108 H* Creatinine 6.5 H Creat Clearance w eGFR 9.08 Random Glucose 133 H Calcium 7.7 L Total Bilirubin 1.5 H AST 27 D ALT 32 Alkaline Phosphatase 51 D Total Protein 5.3 L D Albumin 2.1 L D Blood Type Antibody Screen Crossmatch IS Only Spec Expiration Date Current Medications Generic Name Dose Route Start Last Admin Trade Name Freq PRN Reason Stop Dose Admin Chlorhexidine Gluconate 1 applic 11/28/16 22:00 Hibiclens For Decolonization - TP HS DIAN Hydromorphone HCl 10 mg 11/28/16 02:11 11/28/16 04:14 Dilaudid Press Clipper - TRAFFIC MAINTENANCE SUPERVISOR 12/05/16 01:25 Not Given TRAFFIC MAINTENANCE SUPERVISOR DIAN Protocol Levofloxacin 50 mls @ 100 mls/hr 11/29/16 08:00 Levaquin 250 Mg Premixed Ivpb - IVPB Q2D@0800 DIAN Metronidazole 100 mls @ 100 mls/hr 11/28/16 06:45 11/28/16 07:22 Flagyl 500mg Premixed Ivpb - IVPB 100 mls/hr Q8H-IV DIAN Administration Sodium Chloride 1,000 mls @ 200 mls/hr 11/28/16 08:34 Normal Saline - IV 11/29/16 07:10 ASDIR DIAN Pantoprazole Sodium 100 mls @ 200 mls/hr 11/28/16 13:00 Protonix 40mg Ivpb (Pre-Docked) IVPB DAILY DIAN Mupirocin 1 applic 11/28/16 10:00 Bactroban Ointment (For Decolonization) - NS 12/03/16 09:59 BID DIAN Ondansetron HCl 4 mg 11/28/16 02:11 Zofran Injection IVPB Q4H PRN NAUSEA AND/OR VOMITING ASSESSMENT/PLAN: This is a 51 year old male with a past medical history of GERD presents with left flank pain admitted for abdominal perforation. #Septic shock secondary to Perforated descending colon with retroperitoneal abscess cavity -POD #1 left hemicolectomy ; with transverse colostomy -Pain control -Aggressive IVF hydration -IV antibiotics; -patient put on levo/flagyl; although due to kidney injury; will consult ID for broad spectrum antibiotics; less nephrotoxic #PAYAM: -Aggressive fluid hydration -trend creatinine; no HD for now -CT abdomen negative for hydro' acute etiology -avoid nephrotoxic agents FEN: Fluids: NS 150mlshr Electrolytes: corrected Ca 9.2 VTE prophylaxis: scds GI prophylaxis: protonix Disposition: cont ICU monitoring Visit type - Emergency Visit Emergency Visit: Yes ED Registration Date: 11/27/16 Care time: The patient presented to the Emergency Department on the above date and was hospitalized for further evaluation of their emergent condition. - New Patient This patient is new to me today: Yes Date on this admission: 11/28/16 - Critical Care Critical Care patient: Yes Total Critical Care Time (in minutes): 40 Critical Care Statement: The care of this patient involved high complexity decision making to prevent further life threatening deterioration of the patient 's condition and/or to evaluate & treat vital organ system(s) failure or risk of failure.
[2016-11-28] MEDS ORDERED: PANTOPRAZOLE 40 MG TABLET (FP) PO SCH (10:00)
[2016-11-28] MEDS ORDERED: FLU VACCINE QUAD 60 MCG/0.5 ML (MDV 17-18) IM ONE (10:00)
[2016-11-28] MEDS: MUPIROCIN 2% TOPICAL OINTMENT FOR DECOLONIZATION NS SCH ×2 (10:00→21:16)
--- NOTE | 2016-11-28 11:00 | OP ---
DATE OF OPERATION: 11/27/2016 SURGEON: Garrett Powell MD PREOPERATIVE DIAGNOSIS: Perforated viscus. POSTOPERATIVE DIAGNOSIS: Perforated descending colon with retroperitoneal abscess cavity. PROCEDURE PERFORMED: Exploratory laparotomy, splenic flexure mobilization, extended left hemicolectomy, diverting transverse colostomy, and abdominal washout. SPECIMEN: Left colon. ESTIMATED BLOOD LOSS: 50 mL. DRAINS: KEYA and ostomy. ANESTHESIA: GET. REASON FOR PROCEDURE: The patient is a 51-year-old gentleman who presented to the ER because of abdominal pain. He stated that he was having left-sided abdominal pain for approximately 1 week. He was found to have a white blood cell count which was elevated to 21, and was in acute renal failure, with a creatinine of 6.7. A CT of the abdomen was performed, which demonstrated air in the left retroperitoneum, which was likely consistent with a perforated left colon from diverticulitis, per the radiologist's report to the ER. Because of this, he was consented for an exploratory laparotomy, possible bowel resection, possible ostomy. RISKS AND BENEFITS: The risks and benefits of the procedure were explained. These included bleeding, infection, hernia, abscess cavity, injury to surrounding abdominal structures (including the ureter, small bowel, colon, kidney, liver, spleen, bladder), vessel injury, nerve injury, prolonged ostomy (including ostomy for life), staple line dehiscence, fascial dehiscence, wound dehiscence, evisceration, ID, DVT, PE, ostomy prolapse, sepsis and as some of the complications. He understood and signed informed consent. DESCRIPTION OF PROCEDURE: The patient was placed supine on the operating room table. The patient underwent general endotracheal intubation by Anesthesia. A Frankel catheter had been previously placed in the emergency room. An NG tube was also placed by Anesthesia. The abdomen was prepped and draped in the usual sterile fashion. A time-out was performed. A midline incision was made from above the umbilicus down to the level of the pubis. The skin and subcutaneous tissue was dissected down to the level of the fascia. The fascia was divided in its midline and opened. An umbilical hernia was also noted upon opening. Entrance into the abdominal cavity was obtained also through the hernia defect. The small bowel was eviscerated and the entirety of the abdominal cavity was inspected. The small bowel was noted to be fully intact. The right colon and transverse colon were noted to be fully intact. The descending colon was noted to have inflammatory changes, and there was a foul smell coming from the left pericolic gutter/retroperitoneal space. The splenic flexure was then mobilized along the white line of Toldt, freeing the splenic flexure medially. The white line of Toldt was dissected continuing in a distal fashion so that the remainder of the descending colon and sigmoid could be mobilized medially. On inspection of the colon, it was noted that an area in the descending colon had an area that appeared to have previously perforated. The colon was dissected beyond this point, making sure to keep the ureter within vision. Beyond the level of the perforation of the descending colon, the distal colon was mobilized and a window created in its mesentery. The colon at this level was stapled using a QUINCY stapler with blue load x2. Again, the ureter was noted to be within vision throughout the entirely of the dissection and noted to be fully intact throughout the surgery. The mesentery of the colon was then ligated using the LigaSure device, until a level beyond all inflammatory changes. This was in the level of the distal transverse colon. At this point a window was created in the mesentery of the transverse colon at this level and transected using a QUINCY stapler with blue load x2. The bowel was sent off the field. Again, the bowel was inspected and noted to have areas of inflammatory changes and perforation. The remainder of the bowel again was inspected and no other perforations were noted. The abdomen was copiously irrigated and suctioned until clear. In the retroperitoneal space, there were noted to be pockets of foul-smelling purulence, consistent with a left retroperitoneal abscess cavity. Because of this, after copious irrigation and suction was performed, a 19-Romansh round KEYA drain was placed within the left pericolic gutter. This was exteriorized in the left lower quadrant and sutured in place. The NG tube was palpated and noted to be within the stomach. Hemostasis was noted. The transverse colon was exteriorized in the left upper quadrant, after the skin was opened and the area dissected down through the anterior fascia, rectus muscle and posterior fascia. The bowel was exteriorized through that site. Again, further copious irrigation and suction were performed until clear. All bowel was then placed back within the abdominal cavity. The fascia was closed using two number 1 looped PDS sutures and secured. The wound was covered with a towel and the ostomy was matured. The staple line was excised using Bovie cautery. The ostomy was secured circumferentially using multiple 3-0 Vicryl sutures. An ostomy appliance was then placed. The midline wound was then packed with Iodoform dressing. Sterile dressings were applied. The patient tolerated the procedure well and was sent to the recovery room in guarded condition. Antibiotics were continued. The description of the procedure was explained to both the patient and his family. GARRETT POWELL M.D. SARIAH/[id number]
--- NOTE | 2016-11-28 11:04 | EKG ---
Test Reason : Blood Pressure : / mmHG Vent. Rate : 085 BPM Atrial Rate : 085 BPM P-R Int : 148 ms QRS Dur : 080 ms QT Int : 356 ms P-R-T Axes : 063 064 026 degrees QTc Int : 423 ms SINUS RHYTHM WITH PREMATURE ATRIAL COMPLEXES WITH ABERRANT CONDUCTION OTHERWISE NORMAL ECG NO PREVIOUS ECGS AVAILABLE Confirmed by LIBRA SAUCEDO MD ([id number]) on 11/28/2016 11:03:46 AM Referred By: Confirmed By:LIBRA SAUCEDO MD
[2016-11-28] MEDS: PANTOPRAZOLE SODIUM 100 ML IVPB SCH (13:00)
--- NOTE | 2016-11-28 15:29 | PN ---
Teaching Attending Note Name of Resident: Bri Delacruz ATTENDING PHYSICIAN STATEMENT I saw and evaluated the patient. I reviewed the resident's note and discussed the case with the resident. I agree with the resident's findings and plan as documented. SUBJECTIVE: OBJECTIVE: ASSESSMENT AND PLAN: 51 y/o male without any PMH admitted for perforated abdomen patient is s/p cholectomy, patient was noted to Have PAYAM plan: abdominal perforation s/p surgery - pain management - surgery follow up PAYAM: - aggressive fluid hydration - strict i/o renal evaluation if the teacher aide clerical is not trending down. sepsis: - c/w antibiotics - c/w fluids - patient is hemodynamically stable
--- NOTE | 2016-11-28 15:50 | CONSULT ---
Consult Consult Specialty:: Nephrology Reason for Consultation:: PAYAM - History of Present Illness Chief Complaint: left flank pain History of Present Illness: Pt is a 51 year old male who presented to the ER with left flank pain that lasted for about 5 days. He complained of decrease PO intake and loss of appetite. He was found to be hypotensive. He had a ct scan that showed air in the retroperitoneal area. He was taken to the OR for a perforated viscus. He is now awake and alert. I was called to evaluate him for PAYAM. He denies history of CKD. He says his mother has kidney disease. He denies nsaid use. He has a lang and is now starting to make urine. His blood pressure is improved. He denies shortness of breath or palpitations. He takes zantac at times for GERD. He does not follow with a PMD. - History Source History Provided By: Patient, Medical Record - Past Medical History Gastrointestinal: Yes: GERD - Smoking History Smoking history: Never smoked Have you smoked in the past 12 months: No Home Medications - Allergies Allergies/Adverse Reactions: Allergies Allergy/AdvReac Type Severity Reaction Status Date / Time No Known Allergies Allergy Verified 11/27/16 14:51 - Home Medications Home Medications: Ambulatory Orders Ranitidine HCl [Zantac] 150 mg PO DAILY 11/27/16 Family Disease History - Family Disease History Family Disease History: Other: Mother (kidney disease) Review of Systems - Review of Systems Constitutional: denies: Chills, Fever Eyes: reports: No Symptoms HENT: reports: No Symptoms Neck: reports: No Symptoms Cardiovascular: reports: No Symptoms Respiratory: reports: No Symptoms Gastrointestinal: reports: Other (s/p surgery) Genitourinary: reports: Other (lang placed) Integumentary: reports: No Symptoms Neurological: reports: No Symptoms Endocrine: reports: No Symptoms Hematology/Lymphatic: reports: No Symptoms Psychiatric: reports: No Symptoms Physical Exam Vital Signs: Vital Signs Temperature 97.4 F L 11/28/16 06:00 Pulse Rate 104 H 11/28/16 06:00 Respiratory Rate 14 11/28/16 06:00 Blood Pressure 98/45 11/28/16 06:00 O2 Sat by Pulse Oximetry (%) 100 11/28/16 04:00 Constitutional: Yes: Calm Eyes: Yes: Conjunctiva Clear HENT: Yes: Atraumatic Cardiovascular: Yes: S1, S2 Respiratory: Yes: CTA Bilaterally Gastrointestinal: Yes: Other (dressing in place) Renal/: Yes: Lang Present Musculoskeletal: Yes: WNL Edema: No Wound/Incision: Yes: Dressing Dry and Intact Neurological: Yes: Oriented Psychiatric: Yes: Oriented Labs: CBC, BMP 11/28/16 05:10 11/28/16 05:10 Laboratory Tests 11/27/16 11/27/16 11/27/16 16:41 16:41 16:41 WBC 24.3 H PT with INR INR Sodium Potassium Chloride Carbon Dioxide Anion Gap BUN 100 H Creatinine 6.7 H Creat Clearance w eGFR Lactic Acid Calcium Total Bilirubin Urine Protein 1+ H Urine Blood 2+ H HIV 1&2 Antibody Screen HIV P24 Antigen 11/27/16 11/27/16 11/27/16 19:43 21:15 21:15 WBC PT with INR 14.50 H INR 1.28 H Sodium Potassium Chloride Carbon Dioxide Anion Gap BUN Creatinine Creat Clearance w eGFR Lactic Acid 1.1 Calcium Total Bilirubin Urine Protein Urine Blood HIV 1&2 Antibody Screen Negative HIV P24 Antigen Negative 11/28/16 11/28/16 11/28/16 01:50 01:50 05:10 WBC 14.2 H D 11.4 H PT with INR INR Sodium 134 L Potassium 3.7 Chloride 95 L D Carbon Dioxide 22 Anion Gap 17 H BUN Creatinine 6.3 H Creat Clearance w eGFR Lactic Acid Calcium Total Bilirubin Urine Protein Urine Blood HIV 1&2 Antibody Screen HIV P24 Antigen 11/28/16 05:10 WBC PT with INR INR Sodium 132 L Potassium 4.5 D Chloride 95 L Carbon Dioxide 22 Anion Gap 15 BUN 108 H* Creatinine 6.5 H Creat Clearance w eGFR 9.08 Lactic Acid Calcium 7.7 L Total Bilirubin 1.5 H Urine Protein Urine Blood HIV 1&2 Antibody Screen HIV P24 Antigen Imaging - Results Chest X-ray: Report Reviewed Cat Scan: Report Reviewed Assessment/Plan Current Medications Generic Name Dose Route Start Last Admin Trade Name Freq PRN Reason Stop Dose Admin Chlorhexidine Gluconate 1 applic 11/28/16 22:00 Hibiclens For Decolonization - TP HS DIAN Hydromorphone HCl 10 mg 11/28/16 02:11 11/28/16 04:14 Dilaudid Radiology Asst - OPTICAL DESIGNER 12/05/16 01:25 Not Given OPTICAL DESIGNER DIAN Protocol Levofloxacin 50 mls @ 100 mls/hr 11/29/16 08:00 Levaquin 250 Mg Premixed Ivpb - IVPB Q2D@0800 DIAN Metronidazole 100 mls @ 100 mls/hr 11/28/16 06:45 11/28/16 07:22 Flagyl 500mg Premixed Ivpb - IVPB 100 mls/hr Q8H-IV DIAN Administration Sodium Chloride 1,000 mls @ 200 mls/hr 11/28/16 08:34 Normal Saline - IV 11/29/16 07:10 ASDIR DIAN Pantoprazole Sodium 100 mls @ 200 mls/hr 11/28/16 13:00 Protonix 40mg Ivpb (Pre-Docked) IVPB DAILY DIAN Mupirocin 1 applic 11/28/16 10:00 Bactroban Ointment (For Decolonization) - NS 12/03/16 09:59 BID DIAN Ondansetron HCl 4 mg 11/28/16 02:11 Zofran Injection IVPB Q4H PRN NAUSEA AND/OR VOMITING Impression 1. PAYAM 2. nephrolithiasis 3. perforated viscus 4. sepsis 5. hypotension Plan - bp is improved - cont with NS - check renal ultrasound - check urine lytes and purification supervisor - repeat ua - pt does not follow with a pmd and there are no outpt labs to review - target MAP 65 - will send prelim renal workup - likely ATN from hypotension and sepsis Dr Gardner
--- NOTE | 2016-11-28 17:57 | CON.ID ---
Consult Consult Specialty:: INFECTIOUS DISEASE Reason for Consultation:: Sepsis, perforated colon - History of Present Illness Chief Complaint: Lt sided abd pain History of Present Illness: Pt seen and examined. Chart/lab and imaging result reviewed. This is a 51 y.o. male with history of GERD for which he takes Zantac presented with c/o Lt sided abd/flank pain which began 6 days ago. Pt was taking Alleve for the pain but it became progressively worse. Had was having subjective fevers/sweating. In the ER he was found to be hypotensive with leukocytosis ([id number]) and with acute renal failure. CT of the abdomen revealed free air in the left peritoneum. Pt underwent an exploratory laparotomy, Lt hemicolectomy, diverting transverse colostomy for perforated descending colon. Noted to have a left retroperitoneal abscess cavity. KEYA drain was placed. Currently patient is in the ICU without distress. Leukocytosis resolved on empiric antibiotics. Currently denies pain, is afebrile and fully responsive. - History Source History Provided By: Patient Limitations to Obtaining History: No Limitations - Past Medical History SURGICAL TECHNOLOGY INSTRUCTOR: No: Alzheimer's, CVA, Dementia, Migraine, Multiple Sclerosis, Peripheral Neuropathy, Parkinson's, Seizure, Syncope, TIA, Vertigo, Other Cardio/Vascular: No: AFIB, Aneurysm, Aortic Insufficiency, Aortic Stenosis, CAD , CHF, Deep Vein Thrombosis, HTN, Hyperlipdemia, MD, Mitral Insufficiency, Mitral Stenosis, Murmur, Pulmonary Hypertension, Other Pulmonary: No: Asthma, Bronchitis, Cancer, COPD, O2 Dependent, Pneumonia, Previously Intubated, Pulmonary Embolus, Pulmonary Fibrosis, Sleep Apnea, Other Gastrointestinal: Yes: GERD Hepatobiliary: No: Cirrhosis, Cholelithiasis, Cholecystitis, Choledocholithiasis , Hepatitis A, Hepatitis B, Hepatitis C, Other Renal/: No: Renal Failure, Renal Inusuff, BPH, Cancer, Hematuria, Hemodialysis , Neurogenic Bladder, Renal Calculi, UTI, Other Heme/Onc: No: Anemia, B12 Deficiency, Bleeding Disorder, Cancer, Current Chemotherapy, Current Radiation Therapy, Hemochromatosis, Hypercoaguable State, Myeloproliferative Synd, Sickle Cell Disease, Sickle Cell Trait, Thrombocytopenia, Other Infectious Disease: No: AIDS, C-Diff, Herpes Zoster, HIV, MRSA, STD's, Tuberculosis, VREF, Other Psych: No: Addictions, Anxiety, Bipolar, Depression, Panic, Psychosis, Schizophrenia, Other Musculoskeletal: No: Bursitis, Chronic low back pain, Hemiparesis, Hemiplegia, Osteoarthritis, Paraplegia, Other Rheumatology: No: Fibromyalgia, Gout, Lupus, Rheumatoid Arthritis, Sarcoidosis, Vasculitis, Other Endocrine: No: [place]'s Disease, Fifi's Disease, Diabetes Insipidus, Diabetes Mellitus, Hyperparathyroidism, Hyperthyroidism, Hypothyroidism, Osteopenia, SIADH, Other Dermatology: No: Basal Cell, Cellulitis, Eczema, Melanoma, Psoriasis, Squamous Cell, Other - Past Surgical History Past Surgical History: No: None, AAA Repair, AICD, Amputation, Appendectomy, Arthrosocopy, AV Fistula/Graft, Bariatric Surgery, Breast Biopsy, Bypass, CABG, Carotid Endarterectomy, Cataract Removal, Cholecystectomy, Colectomy, Colonoscopy, Colostomy, Craniotomy, , Cystectomy, Hernia Repair, Hysterectomy, Ileal Conduit, Ileosotomy, Joint Replacement, Kidney Transplant, Laminectomy, Liver Transplant, Mastectomy, Nephrectomy, Oopherectomy, Orchiectomy, Permanent Pacemaker, Prostatectomy, Splenectomy, Stent, Thoracotomy , TURP, Tonsillectomy, Tubal Ligation, Upper Endoscopy, Valve Replacement, Vasectomy, Vein Stripping/Ligation - Alcohol/Substance Use Hx Alcohol Use: No (socially) History of Substance Use: reports: Marijuana (occasional) - Smoking History Smoking history: Never smoked Have you smoked in the past 12 months: No - Social History Usual Living Arrangement: Other (with brother) History of Recent Travel: No Home Medications - Allergies Allergies/Adverse Reactions: Allergies Allergy/AdvReac Type Severity Reaction Status Date / Time No Known Allergies Allergy Verified 11/27/16 14:51 - Home Medications Home Medications: Ambulatory Orders Ranitidine HCl [Zantac] 150 mg PO DAILY 11/27/16 Family Disease History - Family Disease History Family Disease History: Other: Mother (kidney disease) Review of Systems - Review of Systems Constitutional: reports: No Symptoms Eyes: reports: No Symptoms HENT: reports: No Symptoms Neck: reports: No Symptoms Cardiovascular: reports: No Symptoms Respiratory: reports: No Symptoms Gastrointestinal: reports: Abdominal Pain (prior to surgery) Genitourinary: reports: No Symptoms Musculoskeletal: reports: No Symptoms Integumentary: reports: No Symptoms Neurological: reports: No Symptoms Endocrine: reports: No Symptoms Hematology/Lymphatic: reports: No Symptoms Psychiatric: reports: No Symptoms Physical Exam Vital Signs: Vital Signs Temperature 97.4 F L 11/28/16 06:00 Pulse Rate 104 H 11/28/16 06:00 Respiratory Rate 14 11/28/16 06:00 Blood Pressure 98/45 11/28/16 06:00 O2 Sat by Pulse Oximetry (%) 100 11/28/16 04:00 Constitutional: Yes: No Distress, Calm Eyes: Yes: WNL HENT: Yes: Atraumatic Neck: Yes: Supple Cardiovascular: Yes: Regular Rate and Rhythm Respiratory: Yes: Regular Gastrointestinal: Yes: Other (Lt abd KEYA draining sanguinous fluid, + ostomy, dressing intact) Renal/: Yes: [place] Present Musculoskeletal: Yes: WNL Extremities: Yes: WNL Edema: No Integumentary: Yes: WNL Wound/Incision: Yes: Dressing Dry and Intact Neurological: Yes: Alert, Oriented Psychiatric: Yes: Alert, Oriented Labs: CBC, BMP 11/28/16 05:10 11/28/16 05:10 Microbiology 11/27/16 Unknown Peritoneal Fluid Gram Stain - Final Laboratory Tests 11/27/16 11/27/16 11/27/16 16:41 16:41 16:41 WBC 24.3 H RBC 5.05 Hgb 14.1 Hct 42.1 MCV 83.3 MCH 27.9 MCHC 33.5 RDW 14.3 Plt Count 222 MPV 9.4 Total Counted 100 Neutrophils % No Result Required. Neutrophils % (Manual) 81 Band Neuts % (Manual) 13 H Lymphocytes % No Result Required. Lymphocytes % (Manual) 3 L Monocytes % Monocytes % (Manual) 2 L Eosinophils % Basophils % Platelet Estimate Adequate RBC Morphology Appears normal PT with INR INR Sodium 127 L Potassium 4.1 Chloride 83 L Carbon Dioxide 26 Anion Gap 18 H BUN 100 H Creatinine 6.7 H Creat Clearance w eGFR 8.77 Random Glucose 105 Lactic Acid Calcium 9.2 Total Bilirubin 1.4 H AST 38 H ALT 39 Alkaline Phosphatase 70 Total Protein 7.6 Albumin 3.2 L Lipase Urine Color Yellow Urine Appearance Cloudy Urine pH 5.0 Ur Specific [place] 1.020 Urine Protein 1+ H Urine Glucose (UA) Negative Urine Ketones Negative Urine Blood 2+ H Urine Nitrite Negative Urine Bilirubin Negative Urine Urobilinogen Negative Ur Leukocyte Esterase Negative Urine RBC 2 Urine WBC 3 Urine Bacteria Rare Urine Mucus Rare HIV 1&2 Antibody Screen HIV P24 Antigen Blood Type Antibody Screen Crossmatch IS Only Spec Expiration Date 11/27/16 11/27/16 11/27/16 19:43 19:43 20:20 WBC RBC Hgb Hct MCV MCH MCHC RDW Plt Count MPV Total Counted Neutrophils % Neutrophils % (Manual) Band Neuts % (Manual) Lymphocytes % Lymphocytes % (Manual) Monocytes % Monocytes % (Manual) Eosinophils % Basophils % Platelet Estimate RBC Morphology PT with INR INR Sodium Potassium Chloride Carbon Dioxide Anion Gap BUN Creatinine Creat Clearance w eGFR Random Glucose Lactic Acid 1.1 Calcium Total Bilirubin AST ALT Alkaline Phosphatase Total Protein Albumin Lipase 70 L Urine Color Urine Appearance Urine pH Ur Specific [place] Urine Protein Urine Glucose (UA) Urine Ketones Urine Blood Urine Nitrite Urine Bilirubin Urine Urobilinogen Ur Leukocyte Esterase Urine RBC Urine WBC Urine Bacteria Urine Mucus HIV 1&2 Antibody Screen HIV P24 Antigen Blood Type O POSITIVE Antibody Screen Negative Crossmatch IS Only Spec Expiration Date 11/27/16 11/27/16 11/27/16 21:15 21:15 23:15 WBC RBC Hgb Hct MCV MCH MCHC RDW Plt Count MPV Total Counted Neutrophils % Neutrophils % (Manual) Band Neuts % (Manual) Lymphocytes % Lymphocytes % (Manual) Monocytes % Monocytes % (Manual) Eosinophils % Basophils % Platelet Estimate RBC Morphology PT with INR 14.50 H INR 1.28 H Sodium Potassium Chloride Carbon Dioxide Anion Gap BUN Creatinine Creat Clearance w eGFR Random Glucose Lactic Acid Calcium Total Bilirubin AST ALT Alkaline Phosphatase Total Protein Albumin Lipase Urine Color Urine Appearance Urine pH Ur Specific [place] Urine Protein Urine Glucose (UA) Urine Ketones Urine Blood Urine Nitrite Urine Bilirubin Urine Urobilinogen Ur Leukocyte Esterase Urine RBC Urine WBC Urine Bacteria Urine Mucus HIV 1&2 Antibody Screen Negative HIV P24 Antigen Negative Blood Type O POSITIVE Antibody Screen Cancelled Crossmatch IS Only See Detail Spec Expiration Date Cancelled 11/28/16 11/28/16 11/28/16 01:50 01:50 05:10 WBC 14.2 H D 11.4 H RBC 4.64 4.37 Hgb 12.8 12.2 Hct 38.8 36.7 MCV 83.8 84.1 MCH 27.7 27.9 MCHC 33.0 33.2 RDW 14.3 14.3 Plt Count 173 D 198 MPV 10.7 D 10.3 Total Counted Neutrophils % 92.5 H 89.9 H Neutrophils % (Manual) Band Neuts % (Manual) Lymphocytes % 1.6 L 1.9 L Lymphocytes % (Manual) Monocytes % 5.6 6.9 Monocytes % (Manual) Eosinophils % 0.0 0.1 D Basophils % 0.3 1.2 D Platelet Estimate RBC Morphology PT with INR INR Sodium 134 L Potassium 3.7 Chloride 95 L D Carbon Dioxide 22 Anion Gap 17 H BUN 107 H* Creatinine 6.3 H Creat Clearance w eGFR Random Glucose 124 H Lactic Acid Calcium 7.6 L Total Bilirubin AST ALT Alkaline Phosphatase Total Protein Albumin Lipase Urine Color Urine Appearance Urine pH Ur Specific [place] Urine Protein Urine Glucose (UA) Urine Ketones Urine Blood Urine Nitrite Urine Bilirubin Urine Urobilinogen Ur Leukocyte Esterase Urine RBC Urine WBC Urine Bacteria Urine Mucus HIV 1&2 Antibody Screen HIV P24 Antigen Blood Type Antibody Screen Crossmatch IS Only Spec Expiration Date 11/28/16 05:10 WBC RBC Hgb Hct MCV MCH MCHC RDW Plt Count MPV Total Counted Neutrophils % Neutrophils % (Manual) Band Neuts % (Manual) Lymphocytes % Lymphocytes % (Manual) Monocytes % Monocytes % (Manual) Eosinophils % Basophils % Platelet Estimate RBC Morphology PT with INR INR Sodium 132 L Potassium 4.5 D Chloride 95 L Carbon Dioxide 22 Anion Gap 15 BUN 108 H* Creatinine 6.5 H Creat Clearance w eGFR 9.08 Random Glucose 133 H Lactic Acid Calcium 7.7 L Total Bilirubin 1.5 H AST 27 D ALT 32 Alkaline Phosphatase 51 D Total Protein 5.3 L D Albumin 2.1 L D Lipase Urine Color Urine Appearance Urine pH Ur Specific [place] Urine Protein Urine Glucose (UA) Urine Ketones Urine Blood Urine Nitrite Urine Bilirubin Urine Urobilinogen Ur Leukocyte Esterase Urine RBC Urine WBC Urine Bacteria Urine Mucus HIV 1&2 Antibody Screen HIV P24 Antigen Blood Type Antibody Screen Crossmatch IS Only Spec Expiration Date Imaging - Results Cat Scan: Report Reviewed Problem List - Problems (1) Acute renal failure Code(s): N17.9 - ACUTE KIDNEY FAILURE, UNSPECIFIED Qualifiers: Acute renal failure type: unspecified Qualified Code(s): N17.9 - Acute kidney failure, unspecified; N17.9 - Acute kidney failure, unspecified; N17.9 - Acute kidney failure, unspecified (2) Perforated abdominal viscus Code(s): CAY7431 - (3) Septic shock Code(s): A41.9 - SEPSIS, UNSPECIFIED ORGANISM R65.21 - SEVERE SEPSIS WITH SEPTIC SHOCK (4) Intra-abdominal abscess Code(s): K65.1 - PERITONEAL ABSCESS Assessment/Plan Pt is s/p Ex-laparotomy, ostomy, KEYA drain placement -- start Zosyn 2.25G IV Q8h, d/c Levaquin/Flagyl -- follow up Blood, Urine and intra-abdominal culture results -- continue monitor vitals, cbc and renal function -- rest of care per ICU -- d/w surgery cc time: 40 min
[2016-11-28] MEDS: PIPERACILLIN/TAZOB 2.25 GM 50 ML IVPB SCH (19:00)
[2016-11-28 20:30] LABS: URINE APPEARANCE CLOUDY; URINE BILIRUBIN NEGATIVE (NEGATIVE); URINE BLOOD 2+ (NEGATIVE); URINE COLOR YELLOW; URINE GLUCOSE (UA) NEGATIVE (NEGATIVE); URINE KETONE NEGATIVE (NEGATIVE); URINE NITRITE NEGATIVE (NEGATIVE); URINE PROTEIN NEGATIVE (NEGATIVE)
[2016-11-28 20:32] LABS: URINE BACTERIA RARE /hpf (NONE SEEN); URINE MUCUS RARE; URINE RBC 2 /hpf (0-3); URINE WBC 5 /hpf (3-5)
--- NOTE | 2016-11-28 21:36 | PN ---
Progress Note (short form) - Note Progress Note: POD 1 Awake, alert, oriented Extubated post op Pain controlled Vital Signs Period Temp Pulse Resp BP Sys/[place] Pulse Ox Last 24 Hr 97.4 F-98.5 F 74-104 11-24 98-144/45-87 97-100 Abd soft, dressing in place, KEYA serosanguionous, ostomy viable CBC,CMP WBC 11.4 K/mm3 (4.0-10.0) H 11/28/16 05:10 RBC 4.37 M/mm3 (4.00-5.60) 11/28/16 05:10 Hgb 12.2 GM/dL (11.7-16.9) 11/28/16 05:10 Hct 36.7 % (35.4-49) 11/28/16 05:10 MCV 84.1 fl (80-96) 11/28/16 05:10 MCH 27.9 pg (25.7-33.7) 11/28/16 05:10 MCHC 33.2 g/dl (32.0-35.9) 11/28/16 05:10 RDW 14.3 % (11.9-15.9) 11/28/16 05:10 Plt Count 198 K/MM3 (134-434) 11/28/16 05:10 MPV 10.3 fl (7.5-11.1) 11/28/16 05:10 Total Counted 100 11/27/16 16:41 Neutrophils % 89.9 % (42.8-82.8) H 11/28/16 05:10 Neutrophils % (Manual) 81 % (42.8-82.8) 11/27/16 16:41 Band Neuts % (Manual) 13 % (0-10) H 11/27/16 16:41 Lymphocytes % 1.9 % (8-40) L 11/28/16 05:10 Lymphocytes % (Manual) 3 % (8-40) L 11/27/16 16:41 Monocytes % 6.9 % (3.8-10.2) 11/28/16 05:10 Monocytes % (Manual) 2 % (3.8-10.2) L 11/27/16 16:41 Eosinophils % 0.1 % (0-4.5) D 11/28/16 05:10 Basophils % 1.2 % (0-2.0) D 11/28/16 05:10 Platelet Estimate Adequate (NORMAL) 11/27/16 16:41 RBC Morphology Appears normal 11/27/16 16:41 Sodium 132 mmol/L (136-145) L 11/28/16 05:10 Potassium 4.5 mmol/L (3.5-5.1) D 11/28/16 05:10 Chloride 95 mmol/L (98-107) L 11/28/16 05:10 Carbon Dioxide 22 mmol/L (21-32) 11/28/16 05:10 Anion Gap 15 (8-16) 11/28/16 05:10 BUN 108 mg/dL (7-18) H* 11/28/16 05:10 Creatinine 6.5 mg/dL (0.7-1.3) H 11/28/16 05:10 Creat Clearance w eGFR 9.08 (>60) 11/28/16 05:10 Random Glucose 133 mg/dL (74-106) H 11/28/16 05:10 Lactic Acid 1.1 mmol/L (0.4-2.0) 11/27/16 19:43 Calcium 7.7 mg/dL (8.5-10.1) L 11/28/16 05:10 Total Bilirubin 1.5 mg/dL (0.2-1.0) H 11/28/16 05:10 AST 27 U/L (15-37) D 11/28/16 05:10 ALT 32 U/L (12-78) 11/28/16 05:10 Alkaline Phosphatase 51 U/L (45-117) D 11/28/16 05:10 Total Protein 5.3 g/dl (6.4-8.2) L D 11/28/16 05:10 Albumin 2.1 g/dl (3.4-5.0) L D 11/28/16 05:10 Lipase 70 U/L (73-393) L 11/27/16 20:20 WBC significantly improved Antibiotics per ID OOB NG tube to suction Nephrology following for elevated Cr Problem List - Problems (1) Perforated abdominal viscus Code(s): [id number] - (2) Septic shock Code(s): A41.9 - SEPSIS, UNSPECIFIED ORGANISM R65.21 - SEVERE SEPSIS WITH SEPTIC SHOCK (3) Acute renal failure Code(s): N17.9 - ACUTE KIDNEY FAILURE, UNSPECIFIED Qualifiers: Acute renal failure type: unspecified Qualified Code(s): N17.9 - Acute kidney failure, unspecified; N17.9 - Acute kidney failure, unspecified; N17.9 - Acute kidney failure, unspecified
[2016-11-28] MEDS ORDERED: CHLORHEXIDINE GLUCONATE 4% CLEANSER FOR DECOLONIZATION TP SCH (22:00)
[2016-11-28 22:09] LABS: URINE LEUK ESTERASE Negative (NEGATIVE)
[2016-11-29 00:44] LABS: SODIUM,RANDOM URINE 6 MMOL/L
[2016-11-29] MEDS: PIPERACILLIN/TAZOB 2.25 GM 50 ML IVPB SCH ×3 (02:32→18:42)
[2016-11-29] MEDS: HYDROmorphone *PCA* 10MG/50ML DISP.SYRIN PCA SCH (03:59)
[2016-11-29 06:03] LABS: BASOPHIL 0.1 % (0-2.0); EOSINOPHIL 0.1 % (0-4.5); MCHC 33.9 g/dl (32.0-35.9); MEAN CELL VOLUME 82.6 fl (80-96); MEAN PLT VOLUME 10.2 fl (7.5-11.1); NEUTROPHILS 85.6 % (42.8-82.8); PLATELET COUNT 169 K/MM3 (134-434); RDW 14.4 % (11.9-15.9); WHITE BLOOD COUNT 12.8 K/mm3 (4.0-10.0)
[2016-11-29 06:38] LABS: ALBUMIN 1.6 g/dl (3.4-5.0); ANION GAP 11 (8-16); CALCIUM 7.6 mg/dL (8.5-10.1); CO2 22 mmol/L (21-32); CREATININE 4.6 mg/dL (0.7-1.3); GLUCOSE,RANDOM 97 mg/dL (74-106); MAGNESIUM 2.8 mg/dL (1.8-2.4); PHOSPHOROUS 5.8 mg/dL (2.5-4.9); SGOT/AST 41 U/L (15-37); SGPT/ALT 49 U/L (12-78)
[2016-11-29 06:41] LABS: ALK PHOS 41 U/L (45-117); TOT PROT 4.5 g/dl (6.4-8.2)
--- NOTE | 2016-11-29 07:12 | PN ---
Physical Exam: SUBJECTIVE: Patient seen and examined by me this AM - POD2. No major overnight events. Pt hemodynamically stable, afebrile. No complaints. Pain well controlled on dilaudid CROOK OPERATOR - BUN/Cr markedly elevated on presentation 108/6.5 -> now 114/4.6. Fluids restarted at 100cc/hr d51/2ns. - HgB 12.2 -> 8.5 overnight. F/u PM CBC 8.6. Likely dilutional, however will trend CBCs and monitor for occult bleed. - Good UOP last 24 hrs (1280ml). - WBC increased from 11.4 -> 12.8 w/ left shift. Pt currently receiving zosyn for abx coverage. - OOB today to chair. Ostomy w/ minimal drainage, +flatus. Can remove NG tube and start on clears once feculent drainage noted. OBJECTIVE: Vital Signs Intake & Output 11/26/16 11/27/16 11/28/16 11/29/16 23:59 23:59 23:59 23:59 Intake Total 3900 800 2450 Output Total 2200 1280 1845 Balance 1700 -480 605 Weight 79.379 kg 76.476 kg 77.111 kg Period Temp Pulse Resp BP Sys/[place] Pulse Ox Last 24 Hr 97.6 F-98.7 F 74-97 11-25 97-120/49-87 100-100 GENERAL: The patient is awake, alert, and fully oriented, in no acute distress, laying in bed comfortably HEAD: Normal with no signs of trauma. NG tube noted, EYES: PERRL, extraocular movements intact, sclera anicteric, conjunctiva clear. No ptosis. ENT: Ears normal, nares patent, oropharynx clear without exudates, moist mucous membranes. NECK: Trachea midline, supple. LUNGS: Breath sounds equal, clear to auscultation bilaterally, no wheezes, no crackles, no accessory muscle use. HEART: Regular rate and rhythm, S1, S2 without murmur, rub or gallop. ABDOMEN: Midline laparotomy incision noted, dressing c/d/i w/ KEYA drain in place , draining serosanguinous fluid. No significant erythema, edema or purulent drainage noted. L-sided ostomy pink w/ slight herniated bowel, patent, w/ minimal drainage. Hypoactive bowel sounds. Non-distended, no rebound tenderness. EXTREMITIES: 2+ pulses, warm, well-perfused, no edema. NEUROLOGICAL: Cranial nerves II through XII grossly intact. Normal speech, gait not observed. Laboratory Results - last 24 hr CBC, BMP 11/29/16 05:00 11/29/16 05:00 11/28/16 11/28/16 11/28/16 19:00 19:00 19:00 WBC RBC Hgb Hct MCV MCH MCHC RDW Plt Count MPV Neutrophils % Lymphocytes % Monocytes % Eosinophils % Basophils % Sodium Potassium Chloride Carbon Dioxide Anion Gap BUN Creatinine Creat Clearance w eGFR Random Glucose Calcium Phosphorus Magnesium Total Bilirubin AST ALT Alkaline Phosphatase Total Protein Albumin Urine Color Yellow Urine Appearance Cloudy Urine pH 5.0 Ur Specific [place] 1.015 Urine Protein Negative Urine Glucose (UA) Negative Urine Ketones Negative Urine Blood 2+ H Urine Nitrite Negative Urine Bilirubin Negative Urine Urobilinogen 2.0 Ur Leukocyte Esterase Negative Urine RBC 2 Urine WBC 5 Ur Epithelial Cells Rare Urine Bacteria Rare Urine Mucus Rare Ur Random Sodium 6 Ur Random Potassium 39.0 Ur Random Chloride < 10 Urine Creatinine 120.0 11/29/16 11/29/16 05:00 05:00 WBC 12.8 H RBC 3.03 L D Hgb 8.5 L D Hct 25.0 L D MCV 82.6 MCH 28.0 MCHC 33.9 RDW 14.4 Plt Count 169 MPV 10.2 Neutrophils % 85.6 H Lymphocytes % 1.8 L Monocytes % 12.4 H Eosinophils % 0.1 Basophils % 0.1 Sodium 139 Potassium 4.1 Chloride 106 D Carbon Dioxide 22 Anion Gap 11 BUN 114 H* Creatinine 4.6 H D Creat Clearance w eGFR 13.54 Random Glucose 97 D Calcium 7.6 L Phosphorus 5.8 H Magnesium 2.8 H Total Bilirubin 1.0 D AST 41 H D ALT 49 D Alkaline Phosphatase 41 L Total Protein 4.5 L Albumin 1.6 L D Urine Color Urine Appearance Urine pH Ur Specific [place] Urine Protein Urine Glucose (UA) Urine Ketones Urine Blood Urine Nitrite Urine Bilirubin Urine Urobilinogen Ur Leukocyte Esterase Urine RBC Urine WBC Ur Epithelial Cells Urine Bacteria Urine Mucus Ur Random Sodium Ur Random Potassium Ur Random Chloride Urine Creatinine Active Medications Generic Name Dose Route Start Last Admin Trade Name Freq PRN Reason Stop Dose Admin Chlorhexidine Gluconate 1 applic 11/28/16 22:00 11/28/16 21:17 Hibiclens For Decolonization - TP 1 applic HS DIAN Administration Hydromorphone HCl 10 mg 11/28/16 02:11 11/29/16 03:59 Dilaudid Java Groovy Developer - CROOK OPERATOR 12/05/16 01:25 Not Given CROOK OPERATOR DIAN Protocol Pantoprazole Sodium 100 mls @ 200 mls/hr 11/28/16 13:00 11/28/16 13:00 Protonix 40mg Ivpb (Pre-Docked) IVPB 200 mls/hr DAILY DIAN Administration Piperacillin/Tazobactam/Dextrose 50 mls @ 100 mls/hr 11/28/16 18:00 11/29/16 02 :32 Zosyn 2.25gm Ivpb (Premix) IVPB 100 mls/hr Q8H-IV DIAN Administration Mupirocin 1 applic 11/28/16 10:00 11/28/16 21:16 Bactroban Ointment (For Decolonization) - NS 12/03/16 09:59 1 applic BID DIAN Administration Ondansetron HCl 4 mg 11/28/16 02:11 Zofran Injection IVPB Q4H PRN NAUSEA AND/OR VOMITING Microbiology 11/27/16 19:43 Blood - Peripheral Venous Blood Culture - Preliminary NO GROWTH OBTAINED AFTER 24 HOURS, INCUBATION TO CONTINUE FOR 4 DAYS. 11/27/16 19:43 Blood - Peripheral Venous Blood Culture - Preliminary NO GROWTH OBTAINED AFTER 24 HOURS, INCUBATION TO CONTINUE FOR 4 DAYS. 11/27/16 Unknown Peritoneal Fluid Gram Stain - Final Recent Imaging: CXR (11/27) - Clear lung patel, prominent mediastinum. No signs of pneumo, acute pathology. CT Abdomen/pelvis (11/27) - Notable findings included RP air in LUQ. BL nephrolithiasis. Renal U/S (11/28) - BL Echogenic cortex indicative of acute pathology. BL calculi. No evidence of hydronephrosis. Fatty liver vs. parenchyma dz/neoplasm noted. ASSESSMENT/PLAN: 51 yo man w/ pmh of GERD who presented with one week of progressive LLQ/L flank pain, now POD2 s/p left hemicolectomy and traverse diverting ostomy for acute bowel perforation. Pt is hemodynamically stable and afebrile, w/ good pain control and UOP, currently receiving Zosyn for abx coverage. BUN/Cr markedly elevated to 108/6.5 on admission, now 114/4.6 w/ IVF fluid support, most likely pre-renal due fluid loss/depletion of intravascular volume. Plan for continued IVF, continued abx coverage and transition to PO clears upon return of bowel function. Pt will go to floors today given clinical improvement. ID/Renal following. #Neuro - Pain control w/ dilaudid CROOK OPERATOR - Transition to PO pain meds per surgical team #Pulm -O2 2L NC PRN. Titrate to >94% - Incentive spirometry #ID - Zosyn for abx coverage per ID team - f/u all cultures - ID recs appreciated #Renal BUN/Cr 108/6.5 -> 114/4.6. Prerenal azotemia secondary to volume loss. Urine lytes 6 - Strict Is&Os. Maintain lang per surgical team - Daily BMPs, monitor lytes - IVFs #Heme 10/16 AM 8.5 HgB -> 8.6 PM Anemia likely dilutional w/ fluid loss from surgery - F/u FOBT - Trend H/H. Transfuse at <7 - Serial CBCs - Hold AC per surgical team #Endo -ACHS -ISS #GI - Continue NG tube - NPO - Monitor ostomy site for stool - Transition to clears and d/c NG tube once ostomy output noted. #FEN -Fluids: 100cc D5W1/2NS -Electrolytes: Daily BMPs, Trend BUN/Cr -Nutrition: NPO. Start clears once ostomy output noted. #PPX -SCDs for DVT ppx #Dispo - Dispo to floors given clinical improvement. Nadir Santos, PGY1 Plan discussed with attending, Dr. Chowdhury Visit type - Emergency Visit Emergency Visit: No - New Patient This patient is new to me today: Yes Date on this admission: 11/29/16 - Critical Care Critical Care patient: Yes Total Critical Care Time (in minutes): 35 Critical Care Statement: The care of this patient involved high complexity decision making to prevent further life threatening deterioration of the patient 's condition and/or to evaluate & treat vital organ system(s) failure or risk of failure.
--- NOTE | 2016-11-29 07:25 | PN ---
Progress Note, Physician Chief Complaint: SP EX LAP FOR PERFORATED BOWEL POST OP DAY ONE History of Present Illness: PATIENT RECEIVED GENERAL ANESTHESIA FOR THE SURGERY, WAS EXTUBATED AND IS NOW ON MEDICAL SCHEDULER FOR POST OP PAIN CONTROL - Current Medication List Current Medications: Active Medications Chlorhexidine Gluconate (Hibiclens For Decolonization -) 1 applic TP HS [facility] Last Admin: 11/28/16 21:17 Dose: 1 applic Hydromorphone HCl (Dilaudid Animal Keeper Head -) 10 mg MEDICAL SCHEDULER MEDICAL SCHEDULER DIAN PRN Reason: Protocol Stop: 12/05/16 01:25 Last Admin: 11/29/16 03:59 Dose: Not Given Pantoprazole Sodium (Protonix 40mg Ivpb (Pre-Docked)) 100 mls @ 200 mls/hr IVPB DAILY [facility] Last Admin: 11/28/16 13:00 Dose: 200 mls/hr Piperacillin/Tazobactam/Dextrose (Zosyn 2.25gm Ivpb (Premix)) 50 mls @ 100 mls/ hr IVPB Q8H-IV [facility] Last Admin: 11/29/16 02:32 Dose: 100 mls/hr Mupirocin (Bactroban Ointment (For Decolonization) -) 1 applic NS BID [facility] Stop: 12/03/16 09:59 Last Admin: 11/28/16 21:16 Dose: 1 applic Ondansetron HCl (Zofran Injection) 4 mg IVPB Q4H PRN PRN Reason: NAUSEA AND/OR VOMITING - Objective Vital Signs: Vital Signs Temperature 98.3 F 11/29/16 06:00 Pulse Rate 87 11/29/16 06:00 Respiratory Rate 25 H 11/29/16 06:00 Blood Pressure 120/74 11/29/16 06:00 O2 Sat by Pulse Oximetry (%) 100 11/28/16 19:59 Constitutional: Yes: Well Nourished Cardiovascular: Yes: WNL Respiratory: Yes: WNL Gastrointestinal: Yes: Distention Labs: CBC, BMP 11/29/16 05:00 11/29/16 05:00 INR, PTT INR 1.28 (0.82-1.09) H 11/27/16 21:15 Assessment/Plan PATIENT REPORTS NOT USING THE MEDICAL SCHEDULER MUCH BECAUSE OF MINIMAL PAIN. STILL HAS NG TUBE IN PLACE, WILL CONTINUE MEDICAL SCHEDULER UNTIL TUBE COMES OUT. DEPT OF ANESTHESIA WILL CONTINUE TO FOLLOW
[2016-11-29] MEDS ORDERED: LEVOFLOXACIN 250 MG IVPB 50 ML IVPB SCH (08:00)
[2016-11-29] MEDS ORDERED: PT OWN MED DRAWER 7, Y5N ONE (08:07)
[2016-11-29] MEDS: MUPIROCIN 2% TOPICAL OINTMENT FOR DECOLONIZATION NS SCH ×2 (10:30→21:19)
[2016-11-29] MEDS: PANTOPRAZOLE SODIUM 100 ML IVPB SCH (10:30)
[2016-11-29] MEDS ORDERED: DEXTROSE 5%-0.45% SALINE 1,000 ML IV SCH (11:30)
--- NOTE | 2016-11-29 11:59 | PN ---
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
[2016-11-29 13:15] LABS: MCH 27.1 pg (25.7-33.7); MCHC 32.6 g/dl (32.0-35.9); MEAN CELL VOLUME 83.2 fl (80-96); MEAN PLT VOLUME 9.4 fl (7.5-11.1); PLATELET COUNT 195 K/MM3 (134-434); RDW 14.5 % (11.9-15.9); WHITE BLOOD COUNT 14.5 K/mm3 (4.0-10.0)
--- NOTE | 2016-11-29 13:18 | PN ---
Teaching Attending Note Name of Resident: Nadir Santos ATTENDING PHYSICIAN STATEMENT I saw and evaluated the patient. I reviewed the resident's note and discussed the case with the resident. I agree with the resident's findings and plan as documented. SUBJECTIVE: Patient seen and examined in the ICU. Abdominal pain is better. No occult bleeding noted. No CP or SOB. Anemia noted. Intake & Output 11/26/16 11/27/16 11/28/16 11/29/16 23:59 23:59 23:59 23:59 Intake Total 3900 800 2450 Output Total 2200 1280 1845 Balance 1700 -480 605 Weight 175 lb 168 lb 9.6 oz 170 lb Last Vital Signs Temp Pulse Resp BP Pulse Ox 97.9 F 85 19 118/69 100 11/29/16 10:00 11/29/16 12:00 11/29/16 12:00 11/29/16 12:00 11/29/16 10:00 Active Medications Chlorhexidine Gluconate (Hibiclens For Decolonization -) 1 applic TP HS [facility] Last Admin: 11/28/16 21:17 Dose: 1 applic Hydromorphone HCl (Dilaudid Rehab Rn -) 10 mg LOG LOADER HELPER LOG LOADER HELPER DIAN PRN Reason: Protocol Stop: 12/05/16 01:25 Last Admin: 11/29/16 03:59 Dose: Not Given Pantoprazole Sodium (Protonix 40mg Ivpb (Pre-Docked)) 100 mls @ 200 mls/hr IVPB DAILY [facility] Last Admin: 11/29/16 10:30 Dose: 200 mls/hr Piperacillin/Tazobactam/Dextrose (Zosyn 2.25gm Ivpb (Premix)) 50 mls @ 100 mls/ hr IVPB Q8H-IV [facility] Last Admin: 11/29/16 10:29 Dose: 100 mls/hr Dextrose/Sodium Chloride (D5-1/2ns -) 1,000 mls @ 100 mls/hr IV ASDIR DIAN Mupirocin (Bactroban Ointment (For Decolonization) -) 1 applic NS BID [facility] Stop: 12/03/16 09:59 Last Admin: 11/29/16 10:30 Dose: 1 applic Ondansetron HCl (Zofran Injection) 4 mg IVPB Q4H PRN PRN Reason: NAUSEA AND/OR VOMITING GEN: Awake and alert, NAD HEENT: NCAT PULM: clear anterior CV: RRR, no m/r/g apppreciated ABD: midline surgical scar, Right KEYA with minimal output, Left colostomy minimal output mostly blood no stool. EXT: w/w/p Neuro: Awake and alert, non-focal Laboratory Results - last 24 hr 11/28/16 11/28/16 11/28/16 19:00 19:00 19:00 WBC RBC Hgb Hct MCV MCH MCHC RDW Plt Count MPV Neutrophils % Lymphocytes % Monocytes % Eosinophils % Basophils % Sodium Potassium Chloride Carbon Dioxide Anion Gap BUN Creatinine Creat Clearance w eGFR Random Glucose Calcium Phosphorus Magnesium Total Bilirubin AST ALT Alkaline Phosphatase Total Protein Albumin Urine Color Yellow Urine Appearance Cloudy Urine pH 5.0 Ur Specific [place] 1.015 Urine Protein Negative Urine Glucose (UA) Negative Urine Ketones Negative Urine Blood 2+ H Urine Nitrite Negative Urine Bilirubin Negative Urine Urobilinogen 2.0 Ur Leukocyte Esterase Negative Urine RBC 2 Urine WBC 5 Ur Epithelial Cells Rare Urine Bacteria Rare Urine Mucus Rare Ur Random Sodium 6 Ur Random Potassium 39.0 Ur Random Chloride < 10 Urine Creatinine 120.0 11/29/16 11/29/16 11/29/16 05:00 05:00 12:55 WBC 12.8 H 14.5 H RBC 3.03 L D 3.18 L Hgb 8.5 L D 8.6 L Hct 25.0 L D 26.4 L MCV 82.6 83.2 MCH 28.0 27.1 MCHC 33.9 32.6 RDW 14.4 14.5 Plt Count 169 195 MPV 10.2 9.4 Neutrophils % 85.6 H Lymphocytes % 1.8 L Monocytes % 12.4 H Eosinophils % 0.1 Basophils % 0.1 Sodium 139 Potassium 4.1 Chloride 106 D Carbon Dioxide 22 Anion Gap 11 BUN 114 H* Creatinine 4.6 H D Creat Clearance w eGFR 13.54 Random Glucose 97 D Calcium 7.6 L Phosphorus 5.8 H Magnesium 2.8 H Total Bilirubin 1.0 D AST 41 H D ALT 49 D Alkaline Phosphatase 41 L Total Protein 4.5 L Albumin 1.6 L D Urine Color Urine Appearance Urine pH Ur Specific [place] Urine Protein Urine Glucose (UA) Urine Ketones Urine Blood Urine Nitrite Urine Bilirubin Urine Urobilinogen Ur Leukocyte Esterase Urine RBC Urine WBC Ur Epithelial Cells Urine Bacteria Urine Mucus Ur Random Sodium Ur Random Potassium Ur Random Chloride Urine Creatinine IMP: POD #1 Exploratory laparotomy, splenic flexure mobilization, extended left hemicolectomy, diverting transverse colostomy, abdominal washout PAYAM Acute Anemia : likely due to surgery and aggressive volume resuscitation PLAN: IVF Strict I&O O2 as needed Incentive Spirometry Pain control PO when OK with surgery Follow CBC Mechanical VTE prophylaxis Dr Chowdhury Critical care time spent in reviewing chart, evaluating patient and formulating plan 35 minutes.
--- NOTE | 2016-11-29 13:30 | PN ---
Progress Note (short form) - Note Progress Note: In ICU Alert and oriented Pain controlled NG tube in place Vital Signs Period Temp Pulse Resp BP Sys/Medina Pulse Ox Last 24 Hr 97.9 F-98.7 F 74-88 11-25 97-127/49-87 100-100 Abd soft, dressing dry, ostomy pink, Pato serosanguinous CBC, BMP 11/29/16 12:55 11/29/16 05:00 Await ostomy output to remove NG and start clears Trend H/H; if continues to trend downward may require transfusion OOB Dressing care Antibiotics Problem List - Problems (1) Perforated abdominal viscus Code(s): KTM5794 - (2) Septic shock Code(s): A41.9 - SEPSIS, UNSPECIFIED ORGANISM R65.21 - SEVERE SEPSIS WITH SEPTIC SHOCK (3) Acute renal failure Code(s): N17.9 - ACUTE KIDNEY FAILURE, UNSPECIFIED Qualifiers: Acute renal failure type: unspecified Qualified Code(s): N17.9 - Acute kidney failure, unspecified; N17.9 - Acute kidney failure, unspecified; N17.9 - Acute kidney failure, unspecified
--- NOTE | 2016-11-29 13:45 | PN ---
Progress Note, Physician History of Present Illness: Pt seen and examined at bedside. He is awake and alert. He denies abdominal pain. He denies shortness of breath. - Current Medication List Current Medications: Active Medications Chlorhexidine Gluconate (Hibiclens For Decolonization -) 1 applic TP HS [facility] Last Admin: 11/28/16 21:17 Dose: 1 applic Hydromorphone HCl (Dilaudid Shipsmith -) 10 mg COLLEGE RECRUITER COLLEGE RECRUITER DIAN PRN Reason: Protocol Stop: 12/05/16 01:25 Last Admin: 11/29/16 03:59 Dose: Not Given Pantoprazole Sodium (Protonix 40mg Ivpb (Pre-Docked)) 100 mls @ 200 mls/hr IVPB DAILY [facility] Last Admin: 11/29/16 10:30 Dose: 200 mls/hr Piperacillin/Tazobactam/Dextrose (Zosyn 2.25gm Ivpb (Premix)) 50 mls @ 100 mls/ hr IVPB Q8H-IV [facility] Last Admin: 11/29/16 10:29 Dose: 100 mls/hr Dextrose/Sodium Chloride (D5-1/2ns -) 1,000 mls @ 100 mls/hr IV ASDIR DIAN Mupirocin (Bactroban Ointment (For Decolonization) -) 1 applic NS BID [facility] Stop: 12/03/16 09:59 Last Admin: 11/29/16 10:30 Dose: 1 applic Ondansetron HCl (Zofran Injection) 4 mg IVPB Q4H PRN PRN Reason: NAUSEA AND/OR VOMITING - Objective Vital Signs: Vital Signs Temperature 97.9 F 11/29/16 10:00 Pulse Rate 85 11/29/16 12:00 Respiratory Rate 19 11/29/16 12:00 Blood Pressure 118/69 11/29/16 12:00 O2 Sat by Pulse Oximetry (%) 100 11/29/16 10:00 Constitutional: Yes: Calm Eyes: Yes: Conjunctiva Clear HENT: Yes: Atraumatic Neck: Yes: Supple Cardiovascular: Yes: S1, S2 Respiratory: Yes: CTA Bilaterally Gastrointestinal: Yes: Other (dressing in place, dov drain, ng tube) Genitourinary: Yes: Frankel Present Musculoskeletal: Yes: WNL Edema: No Neurological: Yes: Oriented Psychiatric: Yes: Oriented Labs: CBC, BMP 11/29/16 12:55 11/29/16 05:00 INR, PTT INR 1.28 (0.82-1.09) H 11/27/16 21:15 - ....Imaging Ultrasound: Report Reviewed (echogenic kidneys) Problem List - Problems (1) Acute renal failure Code(s): N17.9 - ACUTE KIDNEY FAILURE, UNSPECIFIED Qualifiers: Acute renal failure type: unspecified Qualified Code(s): N17.9 - Acute kidney failure, unspecified; N17.9 - Acute kidney failure, unspecified; N17.9 - Acute kidney failure, unspecified (2) Perforated abdominal viscus Code(s): [id number] - (3) Septic shock Code(s): A41.9 - SEPSIS, UNSPECIFIED ORGANISM R65.21 - SEVERE SEPSIS WITH SEPTIC SHOCK Assessment/Plan Current Medications Generic Name Dose Route Start Last Admin Trade Name Freq PRN Reason Stop Dose Admin Chlorhexidine Gluconate 1 applic 11/28/16 22:00 11/28/16 21:17 Hibiclens For Decolonization - TP 1 applic HS [facility] Administration Hydromorphone HCl 10 mg 11/28/16 02:11 11/29/16 03:59 Dilaudid Shipsmith - COLLEGE RECRUITER 12/05/16 01:25 Not Given COLLEGE RECRUITER DIAN Protocol Pantoprazole Sodium 100 mls @ 200 mls/hr 11/28/16 13:00 11/29/16 10:30 Protonix 40mg Ivpb (Pre-Docked) IVPB 200 mls/hr DAILY [facility] Administration Piperacillin/Tazobactam/Dextrose 50 mls @ 100 mls/hr 11/28/16 18:00 11/29/16 10 :29 Zosyn 2.25gm Ivpb (Premix) IVPB 100 mls/hr Q8H-IV [facility] Administration Dextrose/Sodium Chloride 1,000 mls @ 100 mls/hr 11/29/16 11:30 D5-1/2ns - IV ASDIR DIAN Mupirocin 1 applic 11/28/16 10:00 11/29/16 10:30 Bactroban Ointment (For Decolonization) - NS 12/03/16 09:59 1 applic BID [facility] Administration Ondansetron HCl 4 mg 11/28/16 02:11 Zofran Injection IVPB Q4H PRN NAUSEA AND/OR VOMITING Impression 1. PAYAM 2. nephrolithiasis 3. perforated viscus 4. sepsis 5. hypotension 6. anemia 7. possible CKD Plan - renal function is improving - bun is rising and hg has fell by over 3 grams, evaluate for GI bleed - repeat labs in am - kidneys appears echogenic on ultrasound, will start renal workup - target MAP 65 - cont fluids - discussed with ICU team - discussed with medical team - likely ATN from hypotension and sepsis Dr Gardner
--- NOTE | 2016-11-29 14:32 | PN ---
Progress Note, Physician History of Present Illness: patient feels much bettert no complaints with ng tube colostomy in place - Current Medication List Current Medications: Active Medications Chlorhexidine Gluconate (Hibiclens For Decolonization -) 1 applic TP HS [facility] Last Admin: 11/28/16 21:17 Dose: 1 applic Hydromorphone HCl (Dilaudid Aircraft Dispatcher -) 10 mg TROMMEL TENDER TROMMEL TENDER DIAN PRN Reason: Protocol Stop: 12/05/16 01:25 Last Admin: 11/29/16 03:59 Dose: Not Given Pantoprazole Sodium (Protonix 40mg Ivpb (Pre-Docked)) 100 mls @ 200 mls/hr IVPB DAILY [facility] Last Admin: 11/29/16 10:30 Dose: 200 mls/hr Piperacillin/Tazobactam/Dextrose (Zosyn 2.25gm Ivpb (Premix)) 50 mls @ 100 mls/ hr IVPB Q8H-IV [facility] Last Admin: 11/29/16 10:29 Dose: 100 mls/hr Dextrose/Sodium Chloride (D5-1/2ns -) 1,000 mls @ 100 mls/hr IV ASDIR DIAN Mupirocin (Bactroban Ointment (For Decolonization) -) 1 applic NS BID [facility] Stop: 12/03/16 09:59 Last Admin: 11/29/16 10:30 Dose: 1 applic Ondansetron HCl (Zofran Injection) 4 mg IVPB Q4H PRN PRN Reason: NAUSEA AND/OR VOMITING - Objective Vital Signs: Vital Signs Temperature 97.9 F 11/29/16 10:00 Pulse Rate 85 11/29/16 12:00 Respiratory Rate 19 11/29/16 12:00 Blood Pressure 118/69 11/29/16 12:00 O2 Sat by Pulse Oximetry (%) 100 11/29/16 10:00 Constitutional: Yes: No Distress, Calm Eyes: Yes: Conjunctiva Clear Cardiovascular: Yes: Regular Rate and Rhythm Respiratory: Yes: Regular, CTA Bilaterally Gastrointestinal: Yes: Soft, Other (absent bowel sounds colostomy in place ng tube in place) Genitourinary: Yes: Frankel Present Musculoskeletal: Yes: WNL Extremities: Yes: WNL Neurological: Yes: Alert, Oriented Psychiatric: Yes: Alert, Oriented Labs: CBC, BMP 11/29/16 12:55 11/29/16 05:00 INR, PTT INR 1.28 (0.82-1.09) H 11/27/16 21:15 Assessment/Plan POD #1 Exploratory laparotomy, splenic flexure mobilization, extended left hemicolectomy, diverting transverse colostomy, abdominal washout PAYAM Problem List - Problems (1) Acute renal failure Code(s): N17.9 - ACUTE KIDNEY FAILURE, UNSPECIFIED Qualifiers: Acute renal failure type: unspecified Qualified Code(s): N17.9 - Acute kidney failure, unspecified; N17.9 - Acute kidney failure, unspecified; N17.9 - Acute kidney failure, unspecified (2) Perforated abdominal viscus Code(s): [id number] - (3) Septic shock Code(s): A41.9 - SEPSIS, UNSPECIFIED ORGANISM R65.21 - SEVERE SEPSIS WITH SEPTIC SHOCK plan continue hydration monitor i and o continue abx ng tube suction rest as per icu cc time 40 min
--- NOTE | 2016-11-29 15:27 | PN ---
Physical Exam: SUBJECTIVE: Patient seen and examined in ICU. He feels well, he has no acute complaints. Would like to sit in chair. Denies fever, dizziness, lightheadedness Events: - Acute drop hgb 12->8.5 - Passing gas, no stool - Cr improved, BUN rising OBJECTIVE: Vital Signs Period Temp Pulse Resp BP Sys/Medina Pulse Ox Last 24 Hr 97.9 F-98.7 F 74-88 11-25 97-127/49-87 100-100 PE Neuro: alert, awake, cn 2-12intact HEENT: NGT green output Pulm: CTA bilaterally CV: s1 s2 rrr no mrg Abd: + r colostomy with jose red outpt, left KEYA drain with serous outpt : lang with yellow urine, + sediment noted Ext: no le edema, warm Laboratory Results - last 24 hr 11/28/16 11/28/16 11/28/16 19:00 19:00 19:00 WBC RBC Hgb Hct MCV MCH MCHC RDW Plt Count MPV Neutrophils % Lymphocytes % Monocytes % Eosinophils % Basophils % Sodium Potassium Chloride Carbon Dioxide Anion Gap BUN Creatinine Creat Clearance w eGFR Random Glucose Calcium Phosphorus Magnesium Total Bilirubin AST ALT Alkaline Phosphatase Total Protein Albumin Urine Color Yellow Urine Appearance Cloudy Urine pH 5.0 Ur Specific [place] 1.015 Urine Protein Negative Urine Glucose (UA) Negative Urine Ketones Negative Urine Blood 2+ H Urine Nitrite Negative Urine Bilirubin Negative Urine Urobilinogen 2.0 Ur Leukocyte Esterase Negative Urine RBC 2 Urine WBC 5 Ur Epithelial Cells Rare Urine Bacteria Rare Urine Mucus Rare Ur Random Sodium 6 Ur Random Potassium 39.0 Ur Random Chloride < 10 Urine Creatinine 120.0 11/29/16 11/29/16 11/29/16 05:00 05:00 12:55 WBC 12.8 H 14.5 H RBC 3.03 L D 3.18 L Hgb 8.5 L D 8.6 L Hct 25.0 L D 26.4 L MCV 82.6 83.2 MCH 28.0 27.1 MCHC 33.9 32.6 RDW 14.4 14.5 Plt Count 169 195 MPV 10.2 9.4 Neutrophils % 85.6 H Lymphocytes % 1.8 L Monocytes % 12.4 H Eosinophils % 0.1 Basophils % 0.1 Sodium 139 Potassium 4.1 Chloride 106 D Carbon Dioxide 22 Anion Gap 11 BUN 114 H* Creatinine 4.6 H D Creat Clearance w eGFR 13.54 Random Glucose 97 D Calcium 7.6 L Phosphorus 5.8 H Magnesium 2.8 H Total Bilirubin 1.0 D AST 41 H D ALT 49 D Alkaline Phosphatase 41 L Total Protein 4.5 L Albumin 1.6 L D Urine Color Urine Appearance Urine pH Ur Specific [place] Urine Protein Urine Glucose (UA) Urine Ketones Urine Blood Urine Nitrite Urine Bilirubin Urine Urobilinogen Ur Leukocyte Esterase Urine RBC Urine WBC Ur Epithelial Cells Urine Bacteria Urine Mucus Ur Random Sodium Ur Random Potassium Ur Random Chloride Urine Creatinine Active Medications Generic Name Dose Route Start Last Admin Trade Name Freq PRN Reason Stop Dose Admin Chlorhexidine Gluconate 1 applic 11/28/16 22:00 11/28/16 21:17 Hibiclens For Decolonization - TP 1 applic HS [facility] Administration Hydromorphone HCl 10 mg 11/28/16 02:11 11/29/16 03:59 Dilaudid Healthcare Prof - [place] 12/05/16 01:25 Not Given [place] DIAN Protocol Pantoprazole Sodium 100 mls @ 200 mls/hr 11/28/16 13:00 11/29/16 10:30 Protonix 40mg Ivpb (Pre-Docked) IVPB 200 mls/hr DAILY [facility] Administration Piperacillin/Tazobactam/Dextrose 50 mls @ 100 mls/hr 11/28/16 18:00 11/29/16 10 :29 Zosyn 2.25gm Ivpb (Premix) IVPB 100 mls/hr Q8H-IV [facility] Administration Dextrose/Sodium Chloride 1,000 mls @ 100 mls/hr 11/29/16 11:30 D5-1/2ns - IV ASDIR DIAN Mupirocin 1 applic 11/28/16 10:00 11/29/16 10:30 Bactroban Ointment (For Decolonization) - NS 12/03/16 09:59 1 applic BID [facility] Administration Ondansetron HCl 4 mg 11/28/16 02:11 Zofran Injection IVPB Q4H PRN NAUSEA AND/OR VOMITING Assessment: 51 year old male with pmhx GERD admitted with left flank pain found to have abdominal perforation. Plan: 1. Septic shock d/t perforated descending colon with retroperitoneal abscess cavity - s/p Left hemicolectomy, with transverse colostomy abdominal washout - Continue zosyn (renal dose) - IVF d5 1/2 NS 100cc/hr 2. PAYAM on ?CKD - Cr improving - Likely due to shock vs CKD echogenic kidneys on US - Continue IVF as above - Renal work up sent - Avoid nephrotoxic agents - Maintain MAP >65 - No need for DRAPERY INSTALLER per nephrology 3. Acute blood loss anemia - Likely due to surgery and dilutional from volume resuscitation - Repeat PM hgb stable - Will monitor, if continues to drop will for transfuse hgb <8 - Discussed with surgery, no need for additional imaging at this time - When stool presents obtain FOB 4. Nutrition - NPO, once stool seen, can pull NGT and start clears 5. PPX - SCDs Visit type - Emergency Visit Emergency Visit: Yes ED Registration Date: 11/27/16 Care time: The patient presented to the Emergency Department on the above date and was hospitalized for further evaluation of their emergent condition. - New Patient This patient is new to me today: Yes Date on this admission: 11/29/16 - Critical Care Critical Care patient: No
[2016-11-29] MEDS ORDERED: oxyCODONE HCL 5 MG TABLET PO PRN (17:51)
[2016-11-29] MEDS ORDERED: ACETAMINOPHEN 325 MG TABLET (FP) PO PRN (17:51)
[2016-11-29] MEDS ORDERED: ONDANSETRON 4 MG/2 ML VIAL IVPB PRN (19:19)
[2016-11-29 20:00] LABS: MCH 27.7 pg (25.7-33.7); MCHC 33.6 g/dl (32.0-35.9); MEAN CELL VOLUME 82.4 fl (80-96); MEAN PLT VOLUME 9.5 fl (7.5-11.1); PLATELET COUNT 219 K/MM3 (134-434); RDW 14.7 % (11.9-15.9); WHITE BLOOD COUNT 14.6 K/mm3 (4.0-10.0)
[2016-11-29] MEDS: DEXTROSE 5%-0.45% SALINE 1,000 ML IV SCH (21:19)
[2016-11-29 21:35] LABS: PLATELET COMMENT2 NO CLOTTING DETECTED; PLATELET COMMENT3 FEW LARGE PLTS; PLATELET ESTIMATE ADEQUATE (NORMAL); TOTAL CELLS COUNTED 100
[2016-11-29 21:37] LABS: ANISOCYTOSIS 1+; HYPOCHROMIA 1+; SCHISTOCYTES 1+
[2016-11-29] MEDS ORDERED: CHLORHEXIDINE GLUCONATE 4% CLEANSER FOR DECOLONIZATION TP SCH (22:00)
[2016-11-30] MEDS: PIPERACILLIN/TAZOB 2.25 GM 50 ML IVPB SCH ×3 (01:04→18:18)
[2016-11-30] MEDS ORDERED: PIPERACILLIN/TAZOB 2.25 GM 50 ML IVPB SCH (02:00)
[2016-11-30 06:01] LABS: MCHC 33.9 g/dl (32.0-35.9); MEAN CELL VOLUME 82.7 fl (80-96); MEAN PLT VOLUME 9.6 fl (7.5-11.1); PLATELET COUNT 203 K/MM3 (134-434); RDW 14.6 % (11.9-15.9); WHITE BLOOD COUNT 15.1 K/mm3 (4.0-10.0)
[2016-11-30 06:37] LABS: ALBUMIN 1.7 g/dl (3.4-5.0); ANION GAP 8 (8-16); CALCIUM 7.3 mg/dL (8.5-10.1); CO2 25 mmol/L (21-32); GLUCOSE,RANDOM 108 mg/dL (74-106); MAGNESIUM 2.7 mg/dL (1.8-2.4)
[2016-11-30 06:41] LABS: ALK PHOS 54 U/L (45-117); BILIRUBIN,TOTAL 1.1 mg/dL (0.2-1.0); CREATININE 2.2 mg/dL (0.7-1.3); PHOSPHOROUS 2.1 mg/dL (2.5-4.9); SGOT/AST 40 U/L (15-37); SGPT/ALT 52 U/L (12-78); TOT PROT 4.6 g/dl (6.4-8.2)
--- NOTE | 2016-11-30 07:13 | PN ---
Physical Exam: SUBJECTIVE: Patient seen and examined by me this AM - No acute events overnight. Pt denies any fever/chills, N/V, CP, palpitations, SOB, peripheral edema - HgB continues to downtrend from 8.5 -> 7.4. KEYA drain with jose blood, oozing around incision site requiring multiple dressing changes. Still with blood from ostomy site. Pt ordered for 1 unit of pRBCs. Will require stat abdominal imaging to rule-out bleed/collection w/ possible return to OR for correction. - Cr downtrending from 4.6 to 2.2. - Peritoneal fluid + for lactose fermenting GNR. WBC uptrending 15.1 -> 18.5. Currently on Zosyn for coverage. OBJECTIVE: Vital Signs Intake & Output 11/27/16 11/28/16 11/29/16 11/30/16 23:59 23:59 23:59 23:59 Intake Total 3900 800 3000 2250 Output Total 2200 1280 3795 2320 Balance 1700 -480 -795 -70 Weight 79.379 kg 76.476 kg 77.111 kg Period Temp Pulse Resp BP Sys/Medina Pulse Ox Last 24 Hr 97.2 F-99.1 F 69-87 15-24 118-144/52-81 100-100 GENERAL: The patient is awake, alert, and fully oriented, in no acute distress, laying in bed comfortably HEAD: Normal with no signs of trauma. EYES: PERRL, extraocular movements intact, sclera anicteric, conjunctiva clear. No ptosis. ENT: Ears normal, nares patent, oropharynx clear without exudates, moist mucous membranes. NECK: Trachea midline, supple, No JVD noted. LUNGS: Breath sounds equal, clear to auscultation bilaterally, no wheezes, no crackles, no accessory muscle use. HEART: Regular rate and rhythm, S1, S2 without murmur, rub or gallop. ABDOMEN: Midline laparotomy incision noted, dressing c/d/i w/ KEYA drain in place , draining minimal jose blood. Still w/ no significant erythema, edema or purulent drainage noted. L-sided ostomy pink w/ slight herniated bowel, patent, w/ minimal drainage of dark red blood. Normoactive bowel sounds. Non-distended, no rebound tenderness. EXTREMITIES: 2+ pulses, warm, well-perfused, no edema. NEUROLOGICAL: Cranial nerves II through XII grossly intact. Normal speech, gait not observed. Laboratory Results - last 24 hr CBC, BMP 11/30/16 05:00 11/30/16 05:00 11/29/16 11/29/16 11/30/16 12:55 19:30 05:00 WBC 14.5 H 14.6 H 15.1 H RBC 3.18 L 3.06 L 2.63 L Hgb 8.6 L 8.5 L 7.4 L D Hct 26.4 L 25.2 L 21.7 L MCV 83.2 82.4 82.7 MCH 27.1 27.7 28.0 MCHC 32.6 33.6 33.9 RDW 14.5 14.7 14.6 Plt Count 195 219 203 MPV 9.4 9.5 9.6 Total Counted 100 Neutrophils % No Result Required. No Result Required. Neutrophils % (Manual) 73 Band Neuts % (Manual) 10 D Lymphocytes % No Result Required. No Result Required. Lymphocytes % (Manual) 4 L D Monocytes % (Manual) 13 H D Hypochromia 1+ Platelet Estimate Adequate Platelet Comment No clotting detected Anisocytosis 1+ Schistocytes 1+ Sodium Potassium Chloride Carbon Dioxide Anion Gap BUN Creatinine Creat Clearance w eGFR Random Glucose Calcium Phosphorus Magnesium Total Bilirubin AST ALT Alkaline Phosphatase Total Protein Albumin 11/30/16 05:00 WBC RBC Hgb Hct MCV MCH MCHC RDW Plt Count MPV Total Counted Neutrophils % Neutrophils % (Manual) Band Neuts % (Manual) Lymphocytes % Lymphocytes % (Manual) Monocytes % (Manual) Hypochromia Platelet Estimate Platelet Comment Anisocytosis Schistocytes Sodium 141 Potassium 3.7 Chloride 108 H Carbon Dioxide 25 Anion Gap 8 BUN 64 H D Creatinine 2.2 H D Creat Clearance w eGFR 31.71 Random Glucose 108 H Calcium 7.3 L Phosphorus 2.1 L D Magnesium 2.7 H Total Bilirubin 1.1 H AST 40 H ALT 52 Alkaline Phosphatase 54 D Total Protein 4.6 L Albumin 1.7 L Active Medications Generic Name Dose Route Start Last Admin Trade Name Freq PRN Reason Stop Dose Admin Acetaminophen 650 mg 11/29/16 17:51 Tylenol - PO 12/02/16 17:50 Q4H PRN PAIN Chlorhexidine Gluconate 1 applic 11/29/16 22:00 11/29/16 21:19 Hibiclens For Decolonization - TP 1 applic HS [facility] Administration Dextrose/Sodium Chloride 1,000 mls @ 100 mls/hr 11/29/16 19:19 11/29/16 21:19 D5-1/2ns - IV Not Given ASDIR DIAN Pantoprazole Sodium 100 mls @ 200 mls/hr 11/30/16 10:00 Protonix 40mg Ivpb (Pre-Docked) IVPB DAILY [facility] Piperacillin/Tazobactam/Dextrose 50 mls @ 100 mls/hr 11/30/16 02:00 11/30/16 01 :04 Zosyn 2.25gm Ivpb (Premix) IVPB 100 mls/hr Q8H-IV [facility] Administration Mupirocin 1 applic 11/29/16 22:00 11/29/16 21:19 Bactroban Ointment (For Decolonization) - NS 12/03/16 09:59 1 applic BID [facility] Administration Ondansetron HCl 4 mg 11/29/16 19:19 Zofran Injection IVPB Q4H PRN NAUSEA AND/OR VOMITING Oxycodone HCl 10 mg 11/29/16 17:51 Roxicodone - PO Q4H PRN PAIN Microbiology 11/27/16 19:43 Blood - Peripheral Venous Blood Culture - Preliminary NO GROWTH OBTAINED AFTER 48 HOURS, INCUBATION TO CONTINUE FOR 3 DAYS. 11/27/16 19:43 Blood - Peripheral Venous Blood Culture - Preliminary NO GROWTH OBTAINED AFTER 48 HOURS, INCUBATION TO CONTINUE FOR 3 DAYS. 11/27/16 Unknown Peritoneal Fluid Gram Stain - Final 11/27/16 Unknown Peritoneal Fluid Body Fluid Culture - Preliminary Lactose Fermenting Neg Bacilli Lactose Fermenting Neg Bacilli#2 11/27/16 16:41 Urine - Urine Clean Catch Urine Culture - Final NO GROWTH OBTAINED Recent Imaging: CXR (11/27) - Clear lung patel, prominent mediastinum. No signs of pneumo, acute pathology. CT Abdomen/pelvis (11/27) - Notable findings included RP air in LUQ. BL nephrolithiasis. Renal U/S (11/28) - BL Echogenic cortex indicative of acute pathology. BL calculi. No evidence of hydronephrosis. Fatty liver vs. parenchyma dz/neoplasm noted. ASSESSMENT/PLAN: 51 yo man w/ pmh of GERD who presented with one week of progressive LLQ/L flank pain, now POD2 s/p left hemicolectomy and traverse diverting ostomy for acute bowel perforation. Pt remains hemodynamically stable, afebrile, however now w/ increasing WBC count to 18.5. HgB continues to drop 7.4 and corrected to 8.6 after receiving one unit of blood in AM. BUN/Cr improving. Plan for abdominal imaging to rule out possible post-op intra-abdominal collection/bleed. Will continue current abx regimen for now, given peritoneal culture results. ID/ Renal following. #Neuro - Oxycodone 10mg q4h PO prn for pain control - Tylenol 650 mg PO for fever/pain #Pulm -O2 2L NC PRN. Titrate to >94% - Incentive spirometry #ID - WBC count uptrending 15.1-> 18.5 - Continue Zosyn for abx coverage per ID team for now - Peritoneal cultures w/ E.coli /Klebsiella - ID recs greatly appreciated #Renal BUN/Cr 114/4.6-> 64/2.2. Improving Prerenal azotemia secondary to volume loss. - HypoK, hypo mag this AM. Repleted - Possible platelet dysfunction given uremia. PM dose of DDAVP given - F/u AM coag panel - Strict Is&Os. Maintain lang per surgical team - Daily BMPs, monitor lytes - IVFs #Heme 10/17 AM 7.5 HgB -> 8.6 PM Possible post-surgical bleed given jose blood from ostomy, KEYA drain - DDAVP 20 mcg - Trend H/H. Transfuse at <7 - F/u abdominal CT w/ PO contrast - Serial CBCs - Hold AC per surgical team #Endo -ACHS -ISS #GI - Clears - Monitor ostomy site for stool - NG tube d/c'ed #FEN -Fluids: 100cc D5W1/2NS -Electrolytes: Daily BMPs, Trend BUN/Cr -Nutrition: Started on clears #PPX -SCDs for DVT ppx #Dispo - Can go to floors given clinical improvement. Nadir Santos, PGY1 Plan discussed with attending, Dr. Chowdhury Visit type - Emergency Visit Emergency Visit: No - New Patient This patient is new to me today: No - Critical Care Critical Care patient: Yes Total Critical Care Time (in minutes): 35 Critical Care Statement: The care of this patient involved high complexity decision making to prevent further life threatening deterioration of the patient 's condition and/or to evaluate & treat vital organ system(s) failure or risk of failure.
[2016-11-30] MEDS: MUPIROCIN 2% TOPICAL OINTMENT FOR DECOLONIZATION NS SCH ×2 (09:29→21:30)
--- NOTE | 2016-11-30 09:34 | PN ---
Progress Note (short form) - Note Progress Note: Anesthesia/Pain Pt seen and examined S:alert and awake,comfortable O: Vital Signs Temperature 98.8 F 11/30/16 08:00 Pulse Rate 88 11/30/16 08:00 Respiratory Rate 18 11/30/16 08:56 Blood Pressure 113/73 11/30/16 08:00 O2 Sat by Pulse Oximetry (%) 98 11/30/16 08:56 CBC, BMP 11/30/16 05:00 11/30/16 05:00 A/P: s/p exploratory laparotomy Anemia s/p transfusion [employer] d/renato Doing well post op Continue current care Roman Bentley MD
[2016-11-30 10:00] LABS: BASOPHIL (MANUAL) 1 % (0-2.0); METAMYELOCYTE 2 % (0-2); MYELOCYTE 2 % (0-2); PLATELET ESTIMATE ADEQUATE (NORMAL); TARGET CELLS 4+; TOTAL CELLS COUNTED 100; TOXIC GRANULATION 4+
[2016-11-30] MEDS ORDERED: NAPH,MB-DB/K PH,MBDB POWDER PACKET PO SCH (10:00)
[2016-11-30] MEDS ORDERED: PANTOPRAZOLE SODIUM 100 ML IVPB SCH (10:00)
[2016-11-30 10:01] LABS: TEAR DROP CELLS 1+
--- NOTE | 2016-11-30 10:06 | PN ---
Progress Note, Physician History of Present Illness: patient stable drop in h and h no complaints osteomy not fning receiving 1 unit of blood - Current Medication List Current Medications: Active Medications Acetaminophen (Tylenol -) 650 mg PO Q4H PRN PRN Reason: PAIN Stop: 12/02/16 17:50 Chlorhexidine Gluconate (Hibiclens For Decolonization -) 1 applic TP HS [facility] Last Admin: 11/29/16 21:19 Dose: 1 applic Dextrose/Sodium Chloride (D5-1/2ns -) 1,000 mls @ 100 mls/hr IV ASDIR [facility] Last Admin: 11/29/16 21:19 Dose: Not Given Pantoprazole Sodium (Protonix 40mg Ivpb (Pre-Docked)) 100 mls @ 200 mls/hr IVPB DAILY [facility] Last Admin: 11/30/16 09:33 Dose: 200 mls/hr Piperacillin/Tazobactam/Dextrose (Zosyn 2.25gm Ivpb (Premix)) 50 mls @ 100 mls/ hr IVPB Q8H-IV [facility] Last Admin: 11/30/16 09:27 Dose: 100 mls/hr Mupirocin (Bactroban Ointment (For Decolonization) -) 1 applic NS BID [facility] Stop: 12/03/16 09:59 Last Admin: 11/30/16 09:29 Dose: 1 applic Ondansetron HCl (Zofran Injection) 4 mg IVPB Q4H PRN PRN Reason: NAUSEA AND/OR VOMITING Oxycodone HCl (Roxicodone -) 10 mg PO Q4H PRN PRN Reason: PAIN Potassium Phos/Sodium Phos (Phos-Nak Packet -) 1 packet PO BID [facility] - Objective Vital Signs: Vital Signs Temperature 98.8 F 11/30/16 08:00 Pulse Rate 86 11/30/16 09:46 Respiratory Rate 18 11/30/16 09:46 Blood Pressure 104/56 11/30/16 09:46 O2 Sat by Pulse Oximetry (%) 98 11/30/16 08:56 Constitutional: Yes: No Distress, Calm Cardiovascular: Yes: Regular Rate and Rhythm Respiratory: Yes: Regular, CTA Bilaterally Gastrointestinal: Yes: Soft, Other (colostomy in place) Musculoskeletal: Yes: WNL Extremities: Yes: WNL Neurological: Yes: Alert, Oriented Psychiatric: Yes: Alert Labs: CBC, BMP 11/30/16 05:00 11/30/16 05:00 INR, PTT INR 1.28 (0.82-1.09) H 11/27/16 21:15 Assessment/Plan POD #1 Exploratory laparotomy, splenic flexure mobilization, extended left hemicolectomy, diverting transverse colostomy, abdominal washout PAYAM Problem List - Problems (1) Acute renal failure Code(s): N17.9 - ACUTE KIDNEY FAILURE, UNSPECIFIED Qualifiers: Acute renal failure type: unspecified Qualified Code(s): N17.9 - Acute kidney failure, unspecified; N17.9 - Acute kidney failure, unspecified; N17.9 - Acute kidney failure, unspecified (2) Perforated abdominal viscus Code(s): WSJ6306 - (3) Septic shock Code(s): A41.9 - SEPSIS, UNSPECIFIED ORGANISM R65.21 - SEVERE SEPSIS WITH SEPTIC SHOCK plan continue hydration monitor i and o continue abx ng tube suction ct scan to see if there is any bleeding monitor h and h rest as per icu cc time 40 min
--- NOTE | 2016-11-30 11:28 | PN ---
Progress Note (short form) - Note Progress Note: Awake Pain controlled On clears and tolerating Vital Signs Period Temp Pulse Resp BP Sys/Medina Pulse Ox Last 24 Hr 97.2 F-99.1 F 69-88 15-24 104-144/52-81 98-100 Abd soft, NT, ND, wound clean/packed; Pato serosanguinous; ostomy edematous, pink CBC, BMP 11/30/16 05:00 11/30/16 05:00 Being transfused PRBC for H/H 7.4/21.7 Serial H/H Antibiotics If WBC continues to increase may need CT A/P to look for a collection OOB/Ambulate Physical therapy ordered Dressing changes Problem List - Problems (1) Perforated abdominal viscus Code(s): [id number] - (2) Septic shock Code(s): A41.9 - SEPSIS, UNSPECIFIED ORGANISM R65.21 - SEVERE SEPSIS WITH SEPTIC SHOCK (3) Acute renal failure Code(s): N17.9 - ACUTE KIDNEY FAILURE, UNSPECIFIED Qualifiers: Acute renal failure type: unspecified Qualified Code(s): N17.9 - Acute kidney failure, unspecified; N17.9 - Acute kidney failure, unspecified; N17.9 - Acute kidney failure, unspecified
--- NOTE | 2016-11-30 11:39 | PN ---
Physical Exam: SUBJECTIVE: Patient seen and examined in ICU. He feels tired, however would really like to walk around Events: - Hgb 7.4, transfuse 1unit prbc - NGT pulled OBJECTIVE: Vital Signs Period Temp Pulse Resp BP Sys/Medina Pulse Ox Last 24 Hr 97.2 F-99.1 F 69-88 15-24 104-144/52-81 98-100 PE Neuro: alert, awake, cn 2-12intact HEENT: arcus senilis Pulm: CTA bilaterally CV: s1 s2 rrr no mrg Abd: + r colostomy with jose red outpt, left KEYA drain with jose red outpt, surrounding incision mild drainage, mid line incision packed : lang with yellow urine, + sediment noted Ext: no le edema, warm Laboratory Results - last 24 hr 11/30/16 11/30/16 11/30/16 05:00 05:00 05:00 WBC 15.1 H RBC 2.63 L Hgb 7.4 L D Hct 21.7 L MCV 82.7 MCH 28.0 MCHC 33.9 RDW 14.6 Plt Count 203 MPV 9.6 Total Counted 100 Neutrophils % No Result Required. Neutrophils % (Manual) 88 H D Band Neuts % (Manual) Lymphocytes % No Result Required. Lymphocytes % (Manual) 2 L D Monocytes % (Manual) 5 Basophils % (Manual) 1 Myelocytes % (Man) 2 Hypochromia Toxic Granulation 4+ Platelet Estimate Adequate Platelet Comment Anisocytosis Target Cells 4+ Tear Drop Cells 1+ Fragmented RBCs 2+ Schistocytes Sodium 141 Potassium 3.7 Chloride 108 H Carbon Dioxide 25 Anion Gap 8 BUN 64 H D Creatinine 2.2 H D Creat Clearance w eGFR 31.71 Random Glucose 108 H Hemoglobin A1c % 5.4 Calcium 7.3 L Phosphorus 2.1 L D Magnesium 2.7 H Total Bilirubin 1.1 H AST 40 H ALT 52 Alkaline Phosphatase 54 D Total Protein 4.6 L Albumin 1.7 L Blood Type Antibody Screen Crossmatch Crossmatch IS Only Spec Expiration Date Active Medications Generic Name Dose Route Start Last Admin Trade Name Freq PRN Reason Stop Dose Admin Acetaminophen 650 mg 11/29/16 17:51 Tylenol - PO 12/02/16 17:50 Q4H PRN PAIN Chlorhexidine Gluconate 1 applic 11/29/16 22:00 11/29/16 21:19 Hibiclens For Decolonization - TP 1 applic HS [facility] Administration Dextrose/Sodium Chloride 1,000 mls @ 100 mls/hr 11/29/16 19:19 11/29/16 21:19 D5-1/2ns - IV Not Given ASDIR [facility] Pantoprazole Sodium 100 mls @ 200 mls/hr 11/30/16 10:00 11/30/16 09:33 Protonix 40mg Ivpb (Pre-Docked) IVPB 200 mls/hr DAILY [facility] Administration Piperacillin/Tazobactam/Dextrose 50 mls @ 100 mls/hr 11/30/16 02:00 11/30/16 09 :27 Zosyn 2.25gm Ivpb (Premix) IVPB 100 mls/hr Q8H-IV [facility] Administration Mupirocin 1 applic 11/29/16 22:00 11/30/16 09:29 Bactroban Ointment (For Decolonization) - NS 12/03/16 09:59 1 applic BID [facility] Administration Ondansetron HCl 4 mg 11/29/16 19:19 Zofran Injection IVPB Q4H PRN NAUSEA AND/OR VOMITING Oxycodone HCl 10 mg 11/29/16 17:51 Roxicodone - PO Q4H PRN PAIN Potassium Phos/Sodium Phos 1 packet 11/30/16 10:00 11/30/16 10:47 Phos-Nak Packet - PO 1 packet BID [facility] Administration Assessment: 51 year old male with pmhx GERD admitted with left flank pain found to have abdominal perforation. Plan: 1. Septic shock d/t perforated descending colon with retroperitoneal abscess cavity - s/p Left hemicolectomy, with transverse colostomy abdominal washout - Continue zosyn (renal dose) - If wbc continues to drop repeat CTAP po contrast - IVF d5 1/2 NS 100cc/hr 2. PAYAM on ?CKD - Cr down trending - Likely due to shock vs CKD echogenic kidneys on US - Continue IVF as above - Renal work up sent - Avoid nephrotoxic agents - Maintain MAP >65 - No need for TRANSMISSION REPAIRER per nephrology 3. Acute blood loss anemia - Transfuse 1uprbc now - Check post infusion cbc - When stool presents obtain FOB 4. Nutrition - NPO for now, tolerated jello this AM 5. PPX - SCDs, hold chemical AC 6. Hypophosphatemia - Kphos pkts - Check phos level in AM Visit type - Emergency Visit Emergency Visit: Yes ED Registration Date: 11/27/16 Care time: The patient presented to the Emergency Department on the above date and was hospitalized for further evaluation of their emergent condition. - New Patient This patient is new to me today: No - Critical Care Critical Care patient: No
--- NOTE | 2016-11-30 12:12 | PN ---
Teaching Attending Note Name of Resident: Nadir Santos ATTENDING PHYSICIAN STATEMENT I saw and evaluated the patient. I reviewed the resident's note and discussed the case with the resident. I agree with the resident's findings and plan as documented. SUBJECTIVE: Patient seen and examined in the ICU. Abdominal pain is better. Oozing from the KEYA drain and Ostomy. No CP or SOB. Receiving 1 unit of pRBCs. Intake & Output 11/27/16 11/28/16 11/29/16 11/30/16 23:59 23:59 23:59 23:59 Intake Total 3900 800 3000 2250 Output Total 2200 1280 3795 2320 Balance 1700 -480 -795 -70 Weight 175 lb 168 lb 9.6 oz 170 lb Last Vital Signs Temp Pulse Resp BP Pulse Ox 98.4 F 86 18 104/56 98 11/30/16 09:46 11/30/16 09:46 11/30/16 09:46 11/30/16 09:46 11/30/16 08:56 Active Medications Acetaminophen (Tylenol -) 650 mg PO Q4H PRN PRN Reason: PAIN Stop: 12/02/16 17:50 Chlorhexidine Gluconate (Hibiclens For Decolonization -) 1 applic TP HS [facility] Last Admin: 11/29/16 21:19 Dose: 1 applic Dextrose/Sodium Chloride (D5-1/2ns -) 1,000 mls @ 100 mls/hr IV ASDIR [facility] Last Admin: 11/29/16 21:19 Dose: Not Given Pantoprazole Sodium (Protonix 40mg Ivpb (Pre-Docked)) 100 mls @ 200 mls/hr IVPB DAILY [facility] Last Admin: 11/30/16 09:33 Dose: 200 mls/hr Piperacillin/Tazobactam/Dextrose (Zosyn 2.25gm Ivpb (Premix)) 50 mls @ 100 mls/ hr IVPB Q8H-IV [facility] Last Admin: 11/30/16 09:27 Dose: 100 mls/hr Mupirocin (Bactroban Ointment (For Decolonization) -) 1 applic NS BID [facility] Stop: 12/03/16 09:59 Last Admin: 11/30/16 09:29 Dose: 1 applic Ondansetron HCl (Zofran Injection) 4 mg IVPB Q4H PRN PRN Reason: NAUSEA AND/OR VOMITING Oxycodone HCl (Roxicodone -) 10 mg PO Q4H PRN PRN Reason: PAIN Potassium Phos/Sodium Phos (Phos-Nak Packet -) 1 packet PO BID [facility] Last Admin: 11/30/16 10:47 Dose: 1 packet GEN: Awake and alert, NAD HEENT: NCAT PULM: clear anterior CV: RRR, no m/r/g apppreciated ABD: midline surgical scar, Right KEYA with minimal output, Left colostomy (+) sanguinous . EXT: w/w/p Neuro: Awake and alert, non-focal Laboratory Results - last 24 hr 11/27/16 11/29/16 11/29/16 23:15 12:55 19:30 WBC 14.5 H 14.6 H RBC 3.18 L 3.06 L Hgb 8.6 L 8.5 L Hct 26.4 L 25.2 L MCV 83.2 82.4 MCH 27.1 27.7 MCHC 32.6 33.6 RDW 14.5 14.7 Plt Count 195 219 MPV 9.4 9.5 Total Counted 100 Neutrophils % No Result Required. Neutrophils % (Manual) 73 Band Neuts % (Manual) 10 D Lymphocytes % No Result Required. Lymphocytes % (Manual) 4 L D Monocytes % (Manual) 13 H D Basophils % (Manual) Myelocytes % (Man) Hypochromia 1+ Toxic Granulation Platelet Estimate Adequate Platelet Comment No clotting detected Anisocytosis 1+ Target Cells Tear Drop Cells Fragmented RBCs Schistocytes 1+ Sodium Potassium Chloride Carbon Dioxide Anion Gap BUN Creatinine Creat Clearance w eGFR Random Glucose Hemoglobin A1c % Calcium Phosphorus Magnesium Total Bilirubin AST ALT Alkaline Phosphatase Total Protein Albumin Blood Type O POSITIVE Antibody Screen Cancelled Crossmatch See Detail Crossmatch IS Only See Detail Spec Expiration Date Cancelled 11/30/16 11/30/16 11/30/16 05:00 05:00 05:00 WBC 15.1 H RBC 2.63 L Hgb 7.4 L D Hct 21.7 L MCV 82.7 MCH 28.0 MCHC 33.9 RDW 14.6 Plt Count 203 MPV 9.6 Total Counted 100 Neutrophils % No Result Required. Neutrophils % (Manual) 88 H D Band Neuts % (Manual) Lymphocytes % No Result Required. Lymphocytes % (Manual) 2 L D Monocytes % (Manual) 5 Basophils % (Manual) 1 Myelocytes % (Man) 2 Hypochromia Toxic Granulation 4+ Platelet Estimate Adequate Platelet Comment Anisocytosis Target Cells 4+ Tear Drop Cells 1+ Fragmented RBCs 2+ Schistocytes Sodium 141 Potassium 3.7 Chloride 108 H Carbon Dioxide 25 Anion Gap 8 BUN 64 H D Creatinine 2.2 H D Creat Clearance w eGFR 31.71 Random Glucose 108 H Hemoglobin A1c % 5.4 Calcium 7.3 L Phosphorus 2.1 L D Magnesium 2.7 H Total Bilirubin 1.1 H AST 40 H ALT 52 Alkaline Phosphatase 54 D Total Protein 4.6 L Albumin 1.7 L Blood Type Antibody Screen Crossmatch Crossmatch IS Only Spec Expiration Date IMP: POD #2 Exploratory laparotomy, splenic flexure mobilization, extended left hemicolectomy, diverting transverse colostomy, abdominal washout PAYAM Acute Anemia : likely due to surgery and aggressive volume resuscitation (?) Platelet dysfunction from uremia PLAN: IVF Strict I&O O2 as needed Incentive Spirometry Pain control PO when OK with surgery Follow CBC Mechanical VTE prophylaxis Trial of DDAVP Dr Chowdhury Critical care time spent in reviewing chart, evaluating patient and formulating plan 35 minutes.
[2016-11-30] MEDS: DEXTROSE 5%-0.45% SALINE 1,000 ML IV SCH ×2 (12:36→19:30)
[2016-11-30 13:08] LABS: MCHC 33.5 g/dl (32.0-35.9); MEAN CELL VOLUME 83.5 fl (80-96); MEAN PLT VOLUME 9.4 fl (7.5-11.1); PLATELET COUNT 210 K/MM3 (134-434); RDW 14.8 % (11.9-15.9); WHITE BLOOD COUNT 18.5 K/mm3 (4.0-10.0)
[2016-11-30 13:39] LABS: INR 1.3 (0.82-1.09); PROTHROMBIN TIME (PATIENT) 14.7 SEC (9.98-11.88)
[2016-11-30 13:42] LABS: ACTIVATED PTT 25.4 SECONDS (26.9-34.4)
[2016-11-30] MEDS ORDERED: DESMOPRESSIN ACETATE 4 MCG/ML AMP IVPB ONE (14:30)
[2016-11-30 15:01] LABS: MYELOCYTE 1 % (0-2); PLATELET ESTIMATE ADEQUATE (NORMAL); TOTAL CELLS COUNTED 100
[2016-11-30] MEDS ORDERED: DESMOPRESSIN ACETATE 20 MCG in SODIUM CHLORIDE 50 ML IVPB ONE (15:15)
--- NOTE | 2016-11-30 17:14 | PN ---
Progress Note, Physician History of Present Illness: Pt seen and examined at bedside. NG tube removed. He is awake and alert. - Current Medication List Current Medications: Active Medications Acetaminophen (Tylenol -) 650 mg PO Q4H PRN PRN Reason: PAIN Stop: 12/02/16 17:50 Chlorhexidine Gluconate (Hibiclens For Decolonization -) 1 applic TP HS [facility] Last Admin: 11/29/16 21:19 Dose: 1 applic Dextrose/Sodium Chloride (D5-1/2ns -) 1,000 mls @ 100 mls/hr IV ASDIR [facility] Last Admin: 11/30/16 12:36 Dose: 100 mls/hr Pantoprazole Sodium (Protonix 40mg Ivpb (Pre-Docked)) 100 mls @ 200 mls/hr IVPB DAILY [facility] Last Admin: 11/30/16 09:33 Dose: 200 mls/hr Piperacillin/Tazobactam/Dextrose (Zosyn 2.25gm Ivpb (Premix)) 50 mls @ 100 mls/ hr IVPB Q8H-IV [facility] Last Admin: 11/30/16 09:27 Dose: 100 mls/hr Mupirocin (Bactroban Ointment (For Decolonization) -) 1 applic NS BID [facility] Stop: 12/03/16 09:59 Last Admin: 11/30/16 09:29 Dose: 1 applic Ondansetron HCl (Zofran Injection) 4 mg IVPB Q4H PRN PRN Reason: NAUSEA AND/OR VOMITING Oxycodone HCl (Roxicodone -) 10 mg PO Q4H PRN PRN Reason: PAIN Potassium Phos/Sodium Phos (Phos-Nak Packet -) 1 packet PO BID [facility] Last Admin: 11/30/16 10:47 Dose: 1 packet - Objective Vital Signs: Vital Signs Temperature 98.4 F 11/30/16 09:46 Pulse Rate 88 11/30/16 12:36 Respiratory Rate 18 11/30/16 12:36 Blood Pressure 136/87 11/30/16 12:36 O2 Sat by Pulse Oximetry (%) 98 11/30/16 08:56 Constitutional: Yes: Calm Eyes: Yes: Conjunctiva Clear HENT: Yes: Atraumatic Cardiovascular: Yes: S1, S2 Respiratory: Yes: CTA Bilaterally Gastrointestinal: Yes: Normal Bowel Sounds, Soft, Other (dressing in place) Genitourinary: Yes: Frankel Present Musculoskeletal: Yes: WNL Extremities: Yes: WNL Edema: No Neurological: Yes: Oriented Psychiatric: Yes: Oriented Labs: CBC, BMP 11/30/16 12:40 11/30/16 05:00 INR, PTT INR 1.30 (0.82-1.09) H 11/30/16 12:40 Problem List - Problems (1) Acute renal failure Code(s): N17.9 - ACUTE KIDNEY FAILURE, UNSPECIFIED Qualifiers: Acute renal failure type: unspecified Qualified Code(s): N17.9 - Acute kidney failure, unspecified; N17.9 - Acute kidney failure, unspecified; N17.9 - Acute kidney failure, unspecified (2) Perforated abdominal viscus Code(s): [id number] - (3) Septic shock Code(s): A41.9 - SEPSIS, UNSPECIFIED ORGANISM R65.21 - SEVERE SEPSIS WITH SEPTIC SHOCK Assessment/Plan Current Medications Generic Name Dose Route Start Last Admin Trade Name Freq PRN Reason Stop Dose Admin Acetaminophen 650 mg 11/29/16 17:51 Tylenol - PO 12/02/16 17:50 Q4H PRN PAIN Chlorhexidine Gluconate 1 applic 11/29/16 22:00 11/29/16 21:19 Hibiclens For Decolonization - TP 1 applic HS [facility] Administration Dextrose/Sodium Chloride 1,000 mls @ 100 mls/hr 11/29/16 19:19 11/30/16 12:36 D5-1/2ns - IV 100 mls/hr ASDIR [facility] Administration Pantoprazole Sodium 100 mls @ 200 mls/hr 11/30/16 10:00 11/30/16 09:33 Protonix 40mg Ivpb (Pre-Docked) IVPB 200 mls/hr DAILY [facility] Administration Piperacillin/Tazobactam/Dextrose 50 mls @ 100 mls/hr 11/30/16 02:00 11/30/16 09 :27 Zosyn 2.25gm Ivpb (Premix) IVPB 100 mls/hr Q8H-IV [facility] Administration Mupirocin 1 applic 11/29/16 22:00 11/30/16 09:29 Bactroban Ointment (For Decolonization) - NS 12/03/16 09:59 1 applic BID [facility] Administration Ondansetron HCl 4 mg 11/29/16 19:19 Zofran Injection IVPB Q4H PRN NAUSEA AND/OR VOMITING Oxycodone HCl 10 mg 11/29/16 17:51 Roxicodone - PO Q4H PRN PAIN Potassium Phos/Sodium Phos 1 packet 11/30/16 10:00 11/30/16 10:47 Phos-Nak Packet - PO 1 packet BID [facility] Administration Laboratory Tests 11/30/16 11/30/16 05:00 05:00 TAYLOR M-Celio Pending CALI Screen Pending c-ANCA Pending Proteinase 3 (PR3) Pending p-ANCA Pending Atypical p-ANCA Pending Myeloperoxidase Ab Pending Double Strand DNA Ab Pending Glomerular Base Memb Ab Pending Hepatitis A Ab Total Pending Hep Bs Antigen Pending Hep Bs Antibody Pending Hep B Core Total Ab Pending Hepatitis C Antibody Pending Impression 1. PAYAM 2. nephrolithiasis 3. perforated viscus 4. sepsis 5. hypotension 6. anemia 7. possible CKD Plan - renal workup in progress - renal function improving - likely resolving atn - cont fluids - can start voiding trial tomorrow - monitor hg - discussed with ICU team - discussed with medical team - likely ATN from hypotension and sepsis Dr Gardner
[2016-11-30] MEDS ORDERED: ONDANSETRON 4 MG/2 ML VIAL IVPB PRN (19:29)
[2016-11-30] MEDS: CHLORHEXIDINE GLUCONATE 4% CLEANSER FOR DECOLONIZATION TP SCH (21:29)
[2016-11-30] MEDS: NAPH,MB-DB/K PH,MBDB POWDER PACKET PO SCH (21:29)
[2016-11-30] MEDS: ACETAMINOPHEN 325 MG TABLET (FP) PO PRN (21:36)
[2016-11-30] MEDS: oxyCODONE HCL 5 MG TABLET PO PRN (21:37)
[2016-12-01] MEDS: PIPERACILLIN/TAZOB 2.25 GM 50 ML IVPB SCH ×3 (02:04→17:56)
[2016-12-01 06:26] LABS: MCH 28.4 pg (25.7-33.7); MCHC 34.2 g/dl (32.0-35.9); MEAN CELL VOLUME 83.2 fl (80-96); MEAN PLT VOLUME 8.7 fl (7.5-11.1); PLATELET COUNT 225 K/MM3 (134-434); RDW 14.4 % (11.9-15.9)
[2016-12-01 06:57] LABS: ALBUMIN 1.7 g/dl (3.4-5.0); ANION GAP 7 (8-16); CALCIUM 7.8 mg/dL (8.5-10.1); CO2 27 mmol/L (21-32); GLUCOSE,RANDOM 101 mg/dL (74-106); MAGNESIUM 2.3 mg/dL (1.8-2.4)
[2016-12-01 07:02] LABS: ALK PHOS 60 U/L (45-117); BILIRUBIN,TOTAL 1.6 mg/dL (0.2-1.0); CREATININE 1.3 mg/dL (0.7-1.3); PHOSPHOROUS 2.3 mg/dL (2.5-4.9); SGOT/AST 23 U/L (15-37); SGPT/ALT 42 U/L (12-78); TOT PROT 4.5 g/dl (6.4-8.2)
--- NOTE | 2016-12-01 07:35 | PN ---
Progress Note (short form) - Note Progress Note: POD #3 Alert. Sitting in chair at bedside. C/o mild incisional tenderness. Pain controlled well via prn meds. Ostomy bag full of stool. States he is hungry. Denies n/v/f/c, CP, palpitations, dizziness, weak or SOB. Last Vital Signs Temp Pulse Resp BP Pulse Ox 99.2 F 88 20 106/55 98 12/01/16 06:00 12/01/16 06:00 12/01/16 06:00 12/01/16 06:00 11/30/16 20:13 CBC, BMP 12/01/16 06:10 12/01/16 06:10 Gen: alert. nad ABD: midline incision open. Deep fascia intact. Wound is clean. LLQ ostomy is viable (pink, protruding, producing) LE: soft. no calf tenderness bilat Problem List - Problems (1) Perforated abdominal viscus Assessment/Plan: POD #3 s/p Ex-lap, splenic flexure mobilization, extended left hemicolectomy, diverting transverse colostomy, abdominal washout. Leukocytosis --> cont to monitor WBC 17(18.5) f/u Abd CT to r/o intrabd collection Frankel dc'd Start clear liquid diet OOB and ambulate Incentive spirometer Dressing changed on rounds Code(s): [id number] -
--- NOTE | 2016-12-01 07:48 | PN ---
Physical Exam: SUBJECTIVE: Patient seen and examined by me this AM - No major overnight events. Pt complaining only of mild surgical site pain. Denies GOYAL, CP, palpitations, N/V, cough, LE edema - Ostomy w/ feculent fluid drainage. Minimal dark SS drainage from KEYA drain. No further oozing around KEYA drain. - WBC downtrending (17 today). Afebrile. - HgB continues to downtrend from 8.6 -> 7.9 - BUN/Cr downtrending from 64/2.2 -> 32/1.3 w/ hydration. - Went for abdominal CT yesterday to r/o collection. OBJECTIVE: Vital Signs Intake & Output 11/28/16 11/29/16 11/30/16 12/01/16 23:59 23:59 23:59 23:59 Intake Total 800 3000 4700 1150 Output Total 1280 3795 5200 630 Balance -480 -795 -500 520 Weight 76.476 kg 77.111 kg 76.204 kg Period Temp Pulse Resp BP Sys/Medina Pulse Ox Last 24 Hr 98.4 F-99.2 F 83-90 17-25 104-136/55-87 98-98 GENERAL: The patient is awake, alert, and fully oriented, in no acute distress, laying in bed comfortably HEAD: Normal with no signs of trauma. EYES: PERRL, extraocular movements intact, sclera anicteric, conjunctiva clear. ENT: Ears normal, nares patent, oropharynx clear without exudates, moist mucous membranes. NECK: Trachea midline, supple, No JVD noted. LUNGS: Breath sounds equal, clear to auscultation bilaterally, no wheezes, no crackles, no accessory muscle use. HEART: Regular rate and rhythm, S1, S2 without murmur, rub or gallop. ABDOMEN: Midline laparotomy incision noted, dressing c/d/i w/ KEYA drain in place , w/ dark serosanguinous fluid drainage. Still w/ no significant erythema, edema or purulent drainage noted. L-sided ostomy pink w/ slight herniated bowel , patent, now w/ ~100cc feculent fluid. Normoactive bowel sounds. Non-distended , no rebound tenderness. EXTREMITIES: 2+ pulses, warm, well-perfused, no edema. NEUROLOGICAL: Cranial nerves II through XII grossly intact. Normal speech, gait not observed. Laboratory Results - last 24 hr CBC, BMP 12/01/16 06:10 12/01/16 06:10 11/27/16 11/30/16 11/30/16 23:15 05:00 05:00 WBC RBC Hgb Hct MCV MCH MCHC RDW Plt Count MPV Total Counted Neutrophils % Neutrophils % (Manual) Lymphocytes % Lymphocytes % (Manual) Monocytes % (Manual) Eosinophils % (Manual) Basophils % (Manual) Myelocytes % (Man) Toxic Granulation Platelet Estimate Target Cells Tear Drop Cells Fragmented RBCs PT with INR INR PTT (Actin FS) Sodium Potassium Chloride Carbon Dioxide Anion Gap BUN Creatinine Creat Clearance w eGFR Random Glucose Hemoglobin A1c % Calcium Phosphorus Magnesium Total Bilirubin AST ALT Alkaline Phosphatase Total Protein Albumin Hepatitis A Ab Total Negative Hep Bs Antigen Negative Hep Bs Antibody Reactive Hep B Core Total Ab Negative Hepatitis C Antibody <0.1 Blood Type O POSITIVE Antibody Screen Cancelled Crossmatch See Detail Crossmatch IS Only See Detail Spec Expiration Date Cancelled 11/30/16 11/30/16 11/30/16 05:00 05:00 12:40 WBC 15.1 H RBC 2.63 L Hgb 7.4 L D Hct 21.7 L MCV 82.7 MCH 28.0 MCHC 33.9 RDW 14.6 Plt Count 203 MPV 9.6 Total Counted 100 Neutrophils % Neutrophils % (Manual) 88 H D Lymphocytes % Lymphocytes % (Manual) 2 L D Monocytes % (Manual) 5 Eosinophils % (Manual) Basophils % (Manual) 1 Myelocytes % (Man) 2 Toxic Granulation 4+ Platelet Estimate Adequate Target Cells 4+ Tear Drop Cells 1+ Fragmented RBCs 2+ PT with INR 14.70 H INR 1.30 H PTT (Actin FS) 25.4 L Sodium Potassium Chloride Carbon Dioxide Anion Gap BUN Creatinine Creat Clearance w eGFR Random Glucose Hemoglobin A1c % 5.4 Calcium Phosphorus Magnesium Total Bilirubin AST ALT Alkaline Phosphatase Total Protein Albumin Hepatitis A Ab Total Hep Bs Antigen Hep Bs Antibody Hep B Core Total Ab Hepatitis C Antibody Blood Type Antibody Screen Crossmatch Crossmatch IS Only Spec Expiration Date 11/30/16 12/01/16 12/01/16 12:40 06:10 06:10 WBC 18.5 H 17.0 H RBC 3.08 L 2.77 L Hgb 8.6 L D 7.9 L Hct 25.7 L D 23.0 L MCV 83.5 83.2 MCH 28.0 28.4 MCHC 33.5 34.2 RDW 14.8 14.4 Plt Count 210 225 MPV 9.4 8.7 Total Counted 100 Neutrophils % No Result Required. Neutrophils % (Manual) 94 H* Lymphocytes % No Result Required. Lymphocytes % (Manual) 3 L D Monocytes % (Manual) 1 L Eosinophils % (Manual) 1 Basophils % (Manual) Myelocytes % (Man) 1 D Toxic Granulation Platelet Estimate Adequate Target Cells Tear Drop Cells Fragmented RBCs PT with INR INR PTT (Actin FS) Sodium 142 Potassium 3.5 Chloride 108 H Carbon Dioxide 27 Anion Gap 7 L BUN 32 H D Creatinine 1.3 D Creat Clearance w eGFR 58.20 Random Glucose 101 Hemoglobin A1c % Calcium 7.8 L Phosphorus 2.3 L Magnesium 2.3 Total Bilirubin 1.6 H D AST 23 D ALT 42 Alkaline Phosphatase 60 Total Protein 4.5 L Albumin 1.7 L Hepatitis A Ab Total Hep Bs Antigen Hep Bs Antibody Hep B Core Total Ab Hepatitis C Antibody Blood Type Antibody Screen Crossmatch Crossmatch IS Only Spec Expiration Date Active Medications Generic Name Dose Route Start Last Admin Trade Name Freq PRN Reason Stop Dose Admin Acetaminophen 650 mg 11/30/16 19:29 11/30/16 21:36 Tylenol - PO 12/02/16 17:50 650 mg Q4H PRN Administration PAIN Chlorhexidine Gluconate 1 applic 11/30/16 22:00 11/30/16 21:29 Hibiclens For Decolonization - TP 1 applic HS DIAN Administration Dextrose/Sodium Chloride 1,000 mls @ 100 mls/hr 11/30/16 19:29 12/01/16 00:00 D5-1/2ns - IV 100 mls/hr ASDIR DIAN Administration Pantoprazole Sodium 100 mls @ 200 mls/hr 12/01/16 10:00 Protonix 40mg Ivpb (Pre-Docked) IVPB DAILY DIAN Piperacillin/Tazobactam/Dextrose 50 mls @ 100 mls/hr 12/01/16 02:00 12/01/16 02 :04 Zosyn 2.25gm Ivpb (Premix) IVPB 100 mls/hr Q8H-IV DIAN Administration Mupirocin 1 applic 11/30/16 22:00 11/30/16 21:30 Bactroban Ointment (For Decolonization) - NS 12/03/16 09:59 1 applic BID DIAN Administration Ondansetron HCl 4 mg 11/30/16 19:29 Zofran Injection IVPB Q4H PRN NAUSEA AND/OR VOMITING Oxycodone HCl 10 mg 11/30/16 19:29 11/30/16 21:37 Roxicodone - PO 10 mg Q4H PRN Administration PAIN Potassium Phos/Sodium Phos 1 packet 11/30/16 22:00 11/30/16 21:29 Phos-Nak Packet - PO 1 packet BID DIAN Administration Microbiology 11/27/16 19:43 Blood - Peripheral Venous Blood Culture - Preliminary NO GROWTH OBTAINED AFTER 72 HOURS, INCUBATION TO CONTINUE FOR 2 DAYS. 11/27/16 19:43 Blood - Peripheral Venous Blood Culture - Preliminary NO GROWTH OBTAINED AFTER 72 HOURS, INCUBATION TO CONTINUE FOR 2 DAYS. 11/27/16 Unknown Peritoneal Fluid Gram Stain - Final 11/27/16 Unknown Peritoneal Fluid Body Fluid Culture - Final Escherichia Coli Klebsiella Pneumoniae 11/27/16 Unknown Peritoneal Fluid Anaerobic Culture - Final NO ANAEROBES WERE ISOLATED 11/27/16 16:41 Urine - Urine Clean Catch Urine Culture - Final NO GROWTH OBTAINED Recent Imaging: CXR (11/27) - Clear lung patel, prominent mediastinum. No signs of pneumo, acute pathology. CT Abdomen/pelvis (11/27) - Notable findings included RP air in LUQ. BL nephrolithiasis. Renal U/S (11/28) - BL Echogenic cortex indicative of acute pathology. BL calculi. No evidence of hydronephrosis. Fatty liver vs. parenchyma dz/neoplasm noted. CT abdomen/pelvis (11/30) - Bibasilar atelectasis. No evidence of obstruction, abscess or fluid collection. ASSESSMENT/PLAN: 51 yo man w/ pmh of GERD who presented with one week of progressive LLQ/L flank pain, now POD2 s/p left hemicolectomy and traverse diverting ostomy for acute bowel perforation. Pt remains hemodynamically stable, afebrile, WBC downtrending from 18.5 -> 17. HgB continues downtrending from 8.6 -> 7.9. CT abdomen/pelvis yesterday negative for abscess/fluid collection. Plan for serial CBCs w/ standard transfusion thresholds and continue on Zosyn for abx coverage. Will transfer to floors today given clinical improvement. #Neuro - Oxycodone 10mg q4h PO prn for pain control - Tylenol 650 mg PO for fever/pain #Pulm -O2 2L NC PRN. Titrate to >94% - Incentive spirometry #ID - CT abdomen/pelvis negative for abscess/fluid collection - WBC count downtrending 18.5 -> 17 - Continue Zosyn for abx coverage per ID team for now - Peritoneal cultures w/ E.coli /Klebsiella - f/u stool cultures - ID rec appreciated #Renal Improving Prerenal azotemia secondary to volume loss. - BUN/CR 64/2.2 -> 32/1.3 - PM dose of DDAVP given yesterday - UOP ~5L yesterday - D/c lang. TOV - Daily BMPs, monitor lytes - PO fluids #Heme Possible post-surgical bleed given jose blood from ostomy, KEYA drain, now w/ SS drainage from KEYA - HgB 7.9 this AM. - INR 1.3, PTT 25 this AM - DDAVP 20 mcg - Trend H/H. Transfuse at <7 - Serial CBCs - Hold AC per surgical team #GI - Clears - Liquid stool from ostomy - Zofran 4mg PRN for N/V #FEN -Fluids: 65cc D5W1/2NS -Electrolytes: Daily BMPs, Trend BUN/Cr -Nutrition: Regular diet for dinner #PPX -SCDs for DVT ppx - PPI for GI ppx #Dispo - Transfer to floors today. Nadir Santos, PGY1 Plan discussed with attending, Dr. Chowdhury Visit type - Emergency Visit Emergency Visit: No - New Patient This patient is new to me today: No - Critical Care Critical Care patient: Yes Total Critical Care Time (in minutes): 35 Critical Care Statement: The care of this patient involved high complexity decision making to prevent further life threatening deterioration of the patient 's condition and/or to evaluate & treat vital organ system(s) failure or risk of failure.
[2016-12-01] MEDS ORDERED: PANTOPRAZOLE SODIUM 100 ML IVPB SCH (10:00)
[2016-12-01] MEDS: NAPH,MB-DB/K PH,MBDB POWDER PACKET PO SCH ×2 (10:18→21:47)
[2016-12-01] MEDS ORDERED: PT OWN MED DRAWER 7, Y5N ONE (10:22)
[2016-12-01] MEDS: oxyCODONE HCL 5 MG TABLET PO PRN (10:22)
[2016-12-01] MEDS: ACETAMINOPHEN 325 MG TABLET (FP) PO PRN (10:23)
[2016-12-01] MEDS: DEXTROSE 5%-0.45% SALINE 1,000 ML IV SCH ×2 (10:24)
[2016-12-01] MEDS: MUPIROCIN 2% TOPICAL OINTMENT FOR DECOLONIZATION NS SCH ×2 (10:34→21:43)
--- NOTE | 2016-12-01 11:06 | PN ---
Physical Exam: SUBJECTIVE: Patient seen and examined in ICU. He feels tired today but still wants to be active. Denies fever, chills. Hes tolerating clears. Events: - Frankel removed this AM OBJECTIVE: Vital Signs Period Temp Pulse Resp BP Sys/Mednia Pulse Ox Last 24 Hr 98.6 F-99.4 F 80-90 17-25 106-136/50-87 98 PE Neuro: alert, awake, cn 2-12intact HEENT: arcus senilis Pulm: basilar crackles otherwise clear CV: s1 s2 rrr no mrg Abd: + r colostomy, pink stoma now with feculent output and blood, left KEYA drain with sanguinous output, midline incision packed Ext: no le edema, warm Laboratory Results - last 24 hr 11/30/16 11/30/16 11/30/16 05:00 05:00 12:40 WBC RBC Hgb Hct MCV MCH MCHC RDW Plt Count MPV Total Counted Neutrophils % Neutrophils % (Manual) Lymphocytes % Lymphocytes % (Manual) Monocytes % (Manual) Eosinophils % (Manual) Myelocytes % (Man) Platelet Estimate PT with INR 14.70 H INR 1.30 H PTT (Actin FS) 25.4 L Sodium Potassium Chloride Carbon Dioxide Anion Gap BUN Creatinine Creat Clearance w eGFR Random Glucose Calcium Phosphorus Magnesium Total Bilirubin AST ALT Alkaline Phosphatase Total Protein Albumin Hepatitis A Ab Total Negative Hep Bs Antigen Negative Hep Bs Antibody Reactive Hep B Core Total Ab Negative Hepatitis C Antibody <0.1 11/30/16 12/01/16 12/01/16 12:40 06:10 06:10 WBC 18.5 H 17.0 H RBC 3.08 L 2.77 L Hgb 8.6 L D 7.9 L Hct 25.7 L D 23.0 L MCV 83.5 83.2 MCH 28.0 28.4 MCHC 33.5 34.2 RDW 14.8 14.4 Plt Count 210 225 MPV 9.4 8.7 Total Counted 100 Neutrophils % No Result Required. Neutrophils % (Manual) 94 H* Lymphocytes % No Result Required. Lymphocytes % (Manual) 3 L D Monocytes % (Manual) 1 L Eosinophils % (Manual) 1 Myelocytes % (Man) 1 D Platelet Estimate Adequate PT with INR INR PTT (Actin FS) Sodium 142 Potassium 3.5 Chloride 108 H Carbon Dioxide 27 Anion Gap 7 L BUN 32 H D Creatinine 1.3 D Creat Clearance w eGFR 58.20 Random Glucose 101 Calcium 7.8 L Phosphorus 2.3 L Magnesium 2.3 Total Bilirubin 1.6 H D AST 23 D ALT 42 Alkaline Phosphatase 60 Total Protein 4.5 L Albumin 1.7 L Hepatitis A Ab Total Hep Bs Antigen Hep Bs Antibody Hep B Core Total Ab Hepatitis C Antibody Active Medications Generic Name Dose Route Start Last Admin Trade Name Freq PRN Reason Stop Dose Admin Acetaminophen 650 mg 11/30/16 19:29 12/01/16 10:23 Tylenol - PO 12/02/16 17:50 650 mg Q4H PRN Administration PAIN Chlorhexidine Gluconate 1 applic 11/30/16 22:00 11/30/16 21:29 Hibiclens For Decolonization - TP 1 applic HS DIAN Administration Dextrose/Sodium Chloride 1,000 mls @ 100 mls/hr 11/30/16 19:29 12/01/16 10:24 D5-1/2ns - IV 100 mls/hr ASDIR DIAN Administration Pantoprazole Sodium 100 mls @ 200 mls/hr 12/01/16 10:00 12/01/16 10:17 Protonix 40mg Ivpb (Pre-Docked) IVPB 200 mls/hr DAILY DIAN Administration Piperacillin/Tazobactam/Dextrose 50 mls @ 100 mls/hr 12/01/16 02:00 12/01/16 10 :31 Zosyn 2.25gm Ivpb (Premix) IVPB 100 mls/hr Q8H-IV DIAN Administration Mupirocin 1 applic 11/30/16 22:00 12/01/16 10:34 Bactroban Ointment (For Decolonization) - NS 12/03/16 09:59 1 applic BID DIAN Administration Ondansetron HCl 4 mg 11/30/16 19:29 Zofran Injection IVPB Q4H PRN NAUSEA AND/OR VOMITING Oxycodone HCl 10 mg 11/30/16 19:29 12/01/16 10:22 Roxicodone - PO 10 mg Q4H PRN Administration PAIN Potassium Phos/Sodium Phos 1 packet 11/30/16 22:00 12/01/16 10:18 Phos-Nak Packet - PO 1 packet BID DIAN Administration Assessment: 51 year old male with pmhx GERD admitted with left flank pain found to have abdominal perforation. Plan: 1. Septic shock d/t perforated descending colon with retroperitoneal abscess cavity - s/p Left hemicolectomy, with transverse colostomy abdominal washout - Continue zosyn (renal dose) - CTAP shows no abscess or obstruction - Start clears 2. PAYAM on ?CKD - Cr wnl - Likely due to shock vs CKD echogenic kidneys on US - Decrease rate of fluids - Renal work up pending 3. Acute blood loss anemia - Mild drop in hgb today, serial cbc's - Transfused for hgb <8 - Transfused 1uprbc 11/30 - Check stool occult blood 4. Nutrition - Clears 5. PPX - SCDs, hold chemical AC for anemia 6. Hypophosphatemia - Improving - Continue Kphos pkts Visit type - Emergency Visit Emergency Visit: Yes ED Registration Date: 11/27/16 Care time: The patient presented to the Emergency Department on the above date and was hospitalized for further evaluation of their emergent condition. - New Patient This patient is new to me today: No - Critical Care Critical Care patient: No
--- NOTE | 2016-12-01 11:08 | PN ---
Teaching Attending Note Name of Resident: Nadir Santos ATTENDING PHYSICIAN STATEMENT I saw and evaluated the patient. I reviewed the resident's note and discussed the case with the resident. I agree with the resident's findings and plan as documented. SUBJECTIVE: Pt seen and examined in the ICU. Pain controlled. Denies nausea or vomiting. No fevers or chills. OBJECTIVE: Last Vital Signs Temp Pulse Resp BP Pulse Ox 99.4 F 80 20 134/81 98 12/01/16 10:00 12/01/16 10:00 12/01/16 10:00 12/01/16 10:00 11/30/16 20:13 Intake & Output 11/28/16 11/29/16 11/30/16 12/01/16 23:59 23:59 23:59 23:59 Intake Total 800 3000 4700 1550 Output Total 1280 3795 5200 1330 Balance -480 -795 -500 220 Weight 168 lb 9.6 oz 170 lb 168 lb Gen: NAD at rest Heart: RRR Lung: bibasilar rales Abd: soft, nontender, +ostomy pink, +KEYA drain with serosanguinous drainage Ext: no edema CBC, BMP 12/01/16 06:10 12/01/16 06:10 Active Medications Acetaminophen (Tylenol -) 650 mg PO Q4H PRN PRN Reason: PAIN Stop: 12/02/16 17:50 Last Admin: 12/01/16 10:23 Dose: 650 mg Chlorhexidine Gluconate (Hibiclens For Decolonization -) 1 applic TP HS [facility] Last Admin: 11/30/16 21:29 Dose: 1 applic Dextrose/Sodium Chloride (D5-1/2ns -) 1,000 mls @ 100 mls/hr IV ASDIR DIAN Last Admin: 12/01/16 10:24 Dose: 100 mls/hr Pantoprazole Sodium (Protonix 40mg Ivpb (Pre-Docked)) 100 mls @ 200 mls/hr IVPB DAILY [facility] Last Admin: 12/01/16 10:17 Dose: 200 mls/hr Piperacillin/Tazobactam/Dextrose (Zosyn 2.25gm Ivpb (Premix)) 50 mls @ 100 mls/ hr IVPB Q8H-IV DIAN Last Admin: 12/01/16 10:31 Dose: 100 mls/hr Mupirocin (Bactroban Ointment (For Decolonization) -) 1 applic NS BID DIAN Stop: 12/03/16 09:59 Last Admin: 12/01/16 10:34 Dose: 1 applic Ondansetron HCl (Zofran Injection) 4 mg IVPB Q4H PRN PRN Reason: NAUSEA AND/OR VOMITING Oxycodone HCl (Roxicodone -) 10 mg PO Q4H PRN PRN Reason: PAIN Last Admin: 12/01/16 10:22 Dose: 10 mg Potassium Phos/Sodium Phos (Phos-Nak Packet -) 1 packet PO BID [facility] Last Admin: 12/01/16 10:18 Dose: 1 packet ASSESSMENT AND PLAN: Perforated Descending Colon/Retroperitoneal Abscess s/p ex-lap/extended left hemicolectomy/diverting transverse colostomy/washout Septic Shock resolved Acute Kidney Injury improving Acute Blood Loss Anemia - pain control - incentive spirometry - continue antibiotics - IVF - monitor urine output, creatinine - monitor H/H - replete lytes - DVT prophylaxis - can monitor on floor
--- NOTE | 2016-12-01 12:39 | PN ---
Progress Note, Physician History of Present Illness: Pt seen and examined at bedside. He is awake and alert. Frankel was removed however he has not voided yet. - Current Medication List Current Medications: Active Medications Acetaminophen (Tylenol -) 650 mg PO Q4H PRN PRN Reason: PAIN Stop: 12/02/16 17:50 Last Admin: 12/01/16 10:23 Dose: 650 mg Chlorhexidine Gluconate (Hibiclens For Decolonization -) 1 applic TP HS DIAN Last Admin: 11/30/16 21:29 Dose: 1 applic Dextrose/Sodium Chloride (D5-1/2ns -) 1,000 mls @ 100 mls/hr IV ASDIR DIAN Last Admin: 12/01/16 10:24 Dose: 100 mls/hr Piperacillin/Tazobactam/Dextrose (Zosyn 2.25gm Ivpb (Premix)) 50 mls @ 100 mls/ hr IVPB Q8H-IV DIAN Last Admin: 12/01/16 10:31 Dose: 100 mls/hr Mupirocin (Bactroban Ointment (For Decolonization) -) 1 applic NS BID DIAN Stop: 12/03/16 09:59 Last Admin: 12/01/16 10:34 Dose: 1 applic Ondansetron HCl (Zofran Injection) 4 mg IVPB Q4H PRN PRN Reason: NAUSEA AND/OR VOMITING Oxycodone HCl (Roxicodone -) 10 mg PO Q4H PRN PRN Reason: PAIN Last Admin: 12/01/16 10:22 Dose: 10 mg Pantoprazole Sodium (Protonix Iv) 40 mg IVPUSH DAILY [facility] Potassium Phos/Sodium Phos (Phos-Nak Packet -) 1 packet PO BID [facility] Last Admin: 12/01/16 10:18 Dose: 1 packet - Objective Vital Signs: Vital Signs Temperature 99.4 F 12/01/16 10:00 Pulse Rate 80 12/01/16 10:00 Respiratory Rate 20 12/01/16 10:00 Blood Pressure 134/81 12/01/16 10:00 O2 Sat by Pulse Oximetry (%) 97 12/01/16 09:00 Constitutional: Yes: Calm Eyes: Yes: Conjunctiva Clear HENT: Yes: Atraumatic Neck: Yes: Supple Cardiovascular: Yes: S1, S2 Respiratory: Yes: CTA Bilaterally Gastrointestinal: Yes: Other (dov drain) Musculoskeletal: Yes: WNL Edema: No Neurological: Yes: Oriented Psychiatric: Yes: Oriented Labs: CBC, BMP 12/01/16 06:10 12/01/16 06:10 INR, PTT INR 1.30 (0.82-1.09) H 11/30/16 12:40 Problem List - Problems (1) Acute renal failure Code(s): N17.9 - ACUTE KIDNEY FAILURE, UNSPECIFIED Qualifiers: Acute renal failure type: unspecified Qualified Code(s): N17.9 - Acute kidney failure, unspecified; N17.9 - Acute kidney failure, unspecified; N17.9 - Acute kidney failure, unspecified (2) Perforated abdominal viscus Code(s): [id number] - (3) Septic shock Code(s): A41.9 - SEPSIS, UNSPECIFIED ORGANISM R65.21 - SEVERE SEPSIS WITH SEPTIC SHOCK Assessment/Plan Current Medications Generic Name Dose Route Start Last Admin Trade Name Freq PRN Reason Stop Dose Admin Acetaminophen 650 mg 11/30/16 19:29 12/01/16 10:23 Tylenol - PO 12/02/16 17:50 650 mg Q4H PRN Administration PAIN Chlorhexidine Gluconate 1 applic 11/30/16 22:00 11/30/16 21:29 Hibiclens For Decolonization - TP 1 applic HS DIAN Administration Dextrose/Sodium Chloride 1,000 mls @ 100 mls/hr 11/30/16 19:29 12/01/16 10:24 D5-1/2ns - IV 100 mls/hr ASDIR DIAN Administration Piperacillin/Tazobactam/Dextrose 50 mls @ 100 mls/hr 12/01/16 02:00 12/01/16 10 :31 Zosyn 2.25gm Ivpb (Premix) IVPB 100 mls/hr Q8H-IV DIAN Administration Mupirocin 1 applic 11/30/16 22:00 12/01/16 10:34 Bactroban Ointment (For Decolonization) - NS 12/03/16 09:59 1 applic BID DIAN Administration Ondansetron HCl 4 mg 11/30/16 19:29 Zofran Injection IVPB Q4H PRN NAUSEA AND/OR VOMITING Oxycodone HCl 10 mg 11/30/16 19:29 10/18/17 10:22 Roxicodone - PO 10 mg Q4H PRN Administration PAIN Pantoprazole Sodium 40 mg 12/02/16 10:00 Protonix Iv IVPUSH DAILY DIAN Potassium Phos/Sodium Phos 1 packet 11/30/16 22:00 12/01/16 10:18 Phos-Nak Packet - PO 1 packet BID DIAN Administration Laboratory Tests 11/30/16 11/30/16 05:00 05:00 TAYLOR M-Celio Pending CALI Screen Pending c-ANCA Pending Proteinase 3 (PR3) Pending p-ANCA Pending Atypical p-ANCA Pending Myeloperoxidase Ab Pending Double Strand DNA Ab Pending Glomerular Base Memb Ab Pending Hepatitis A Ab Total Negative Hep Bs Antigen Negative Hep Bs Antibody Reactive Hep B Core Total Ab Negative Hepatitis C Antibody <0.1 Impression 1. PAYAM 2. nephrolithiasis 3. perforated viscus 4. sepsis 5. hypotension 6. anemia 7. possible CKD Plan - renal function is improving - can decrease rate of fluids - repeat labs in am - renal workup in progress - voiding trial - monitor hg - discussed with medical team - likely ATN from hypotension and sepsis Dr Gardner
[2016-12-01] MEDS ORDERED: DEXTROSE 5%-0.45% SALINE 1,000 ML IV SCH (12:41)
--- NOTE | 2016-12-01 15:06 | PN ---
Progress Note, Physician History of Present Illness: patient stable still drop in h and h clinically patient stable - Current Medication List Current Medications: Active Medications Acetaminophen (Tylenol -) 650 mg PO Q4H PRN PRN Reason: PAIN Stop: 12/02/16 17:50 Last Admin: 12/01/16 10:23 Dose: 650 mg Chlorhexidine Gluconate (Hibiclens For Decolonization -) 1 applic TP HS DIAN Last Admin: 11/30/16 21:29 Dose: 1 applic Piperacillin/Tazobactam/Dextrose (Zosyn 2.25gm Ivpb (Premix)) 50 mls @ 100 mls/ hr IVPB Q8H-IV DIAN Last Admin: 12/01/16 10:31 Dose: 100 mls/hr Dextrose/Sodium Chloride (D5-1/2ns -) 1,000 mls @ 65 mls/hr IV ASDIR DIAN Mupirocin (Bactroban Ointment (For Decolonization) -) 1 applic NS BID DIAN Stop: 12/03/16 09:59 Last Admin: 12/01/16 10:34 Dose: 1 applic Ondansetron HCl (Zofran Injection) 4 mg IVPB Q4H PRN PRN Reason: NAUSEA AND/OR VOMITING Oxycodone HCl (Roxicodone -) 10 mg PO Q4H PRN PRN Reason: PAIN Last Admin: 12/01/16 10:22 Dose: 10 mg Pantoprazole Sodium (Protonix Iv) 40 mg IVPUSH DAILY DIAN Potassium Phos/Sodium Phos (Phos-Nak Packet -) 1 packet PO BID DIAN Last Admin: 12/01/16 10:18 Dose: 1 packet - Objective Vital Signs: Vital Signs Temperature 99.4 F 12/01/16 10:00 Pulse Rate 82 12/01/16 12:00 Respiratory Rate 20 12/01/16 12:00 Blood Pressure 129/78 12/01/16 12:00 O2 Sat by Pulse Oximetry (%) 97 12/01/16 09:00 Constitutional: Yes: No Distress, Calm Cardiovascular: Yes: Regular Rate and Rhythm Respiratory: Yes: Regular, CTA Bilaterally Gastrointestinal: Yes: Soft, Other (colostomy in place) Musculoskeletal: Yes: WNL Extremities: Yes: WNL Neurological: Yes: Alert, Oriented Psychiatric: Yes: Alert, Oriented Labs: CBC, BMP 12/01/16 06:10 12/01/16 06:10 INR, PTT INR 1.30 (0.82-1.09) H 11/30/16 12:40 Assessment/Plan POD #1 Exploratory laparotomy, splenic flexure mobilization, extended left hemicolectomy, diverting transverse colostomy, abdominal washout PAYAM Problem List - Problems (1) Acute renal failure Code(s): N17.9 - ACUTE KIDNEY FAILURE, UNSPECIFIED Qualifiers: Acute renal failure type: unspecified Qualified Code(s): N17.9 - Acute kidney failure, unspecified; N17.9 - Acute kidney failure, unspecified; N17.9 - Acute kidney failure, unspecified (2) Perforated abdominal viscus Code(s): [id number] - (3) Septic shock Code(s): A41.9 - SEPSIS, UNSPECIFIED ORGANISM R65.21 - SEVERE SEPSIS WITH SEPTIC SHOCK plan continue hydration continue abx ct scan results noted monitor h and h rest as per icu cc time 40 min
--- NOTE | 2016-12-01 18:37 | PN ---
Progress Note (short form) - Note Progress Note: No complaints CT A/P showed no collection Pain controlled Vital Signs Period Temp Pulse Resp BP Sys/Medina Pulse Ox Last 24 Hr 98.3 F-99.4 F 76-89 15-25 106-139/50-86 97-98 Abd soft, wound granulating, KEYA serosanguinous Ostomy pink with stool in bag CBC, BMP 12/01/16 06:10 12/01/16 06:10 Antibiotics Ambulate Regular diet Wound care Transfuse if needed Dr Em to cover while I am away until December 06 Patient made aware Problem List - Problems (1) Perforated abdominal viscus Code(s): [id number] - (2) Septic shock Code(s): A41.9 - SEPSIS, UNSPECIFIED ORGANISM R65.21 - SEVERE SEPSIS WITH SEPTIC SHOCK (3) Acute renal failure Code(s): N17.9 - ACUTE KIDNEY FAILURE, UNSPECIFIED Qualifiers: Acute renal failure type: unspecified Qualified Code(s): N17.9 - Acute kidney failure, unspecified; N17.9 - Acute kidney failure, unspecified; N17.9 - Acute kidney failure, unspecified
[2016-12-01 18:54] LABS: MCH 28.2 pg (25.7-33.7); MCHC 33.8 g/dl (32.0-35.9); MEAN CELL VOLUME 83.4 fl (80-96); MEAN PLT VOLUME 8.7 fl (7.5-11.1); PLATELET COUNT 269 K/MM3 (134-434); RDW 14.7 % (11.9-15.9); WHITE BLOOD COUNT 19.5 K/mm3 (4.0-10.0)
[2016-12-01] MEDS: CHLORHEXIDINE GLUCONATE 4% CLEANSER FOR DECOLONIZATION TP SCH (21:44)
[2016-12-02 00:06] LABS: A/G RATIO 0.9 (0.7-1.7); ALBUMIN 2.1 g/dL (2.9-4.4); GLOBULIN, TOTAL 2.4 g/dL (2.2-3.9); M-SPIKE Not Observed g/dL (Not Observed); TOTAL PROTEIN 4.5 g/dL (6.0-8.5)
[2016-12-02] MEDS: PIPERACILLIN/TAZOB 2.25 GM 50 ML IVPB SCH (03:11)
[2016-12-02 06:20] LABS: MCH 27.6 pg (25.7-33.7); MCHC 32.8 g/dl (32.0-35.9); MEAN CELL VOLUME 84.1 fl (80-96); MEAN PLT VOLUME 9.2 fl (7.5-11.1); PLATELET COUNT 276 K/MM3 (134-434); RDW 15.1 % (11.9-15.9); WHITE BLOOD COUNT 21.1 K/mm3 (4.0-10.0)
[2016-12-02 06:56] LABS: ANION GAP 9 (8-16); CALCIUM 7.6 mg/dL (8.5-10.1); CO2 27 mmol/L (21-32); CREATININE 1.2 mg/dL (0.7-1.3); GLUCOSE,RANDOM 105 mg/dL (74-106); PHOSPHOROUS 2.1 mg/dL (2.5-4.9)
--- NOTE | 2016-12-02 07:30 | PN ---
Physical Exam: SUBJECTIVE: Patient seen and examined by me this AM -No major overnight events. Pt complaining of abdominal distension. Significant stool output from ostomy site. Trace serosanguinous drainage from KEYA drain. Pt ambulating well, tolerating regular diet. Denies GOYAL/dizziness, CP, palpitations , N/V, cough, LE edema - WBC uptrending 19.5 -> 21. Afebrile. May require reculture and abx adjustment per ID. - Good UOP 2.5L yesterday. BUN/Cr normalized. HgB stable 8.5 -> 8.1 - Still for transfer to [facility] [place] OBJECTIVE: Vital Signs Intake & Output 11/29/16 11/30/16 12/01/16 12/02/16 23:59 23:59 23:59 23:59 Intake Total 3000 4700 1950 765 Output Total 3795 5200 2555 500 Balance -795 -500 -605 265 Weight 77.111 kg 76.204 kg 73.164 kg Period Temp Pulse Resp BP Sys/Medina Pulse Ox Last 24 Hr 98.2 F-99.4 F 76-93 15-25 113-151/50-86 97 GENERAL: The patient is awake, alert, and fully oriented, in no acute distress, laying in bed comfortably HEAD: Normal with no signs of trauma. EYES: PERRL, extraocular movements intact, sclera anicteric, conjunctiva clear. ENT: Ears normal, nares patent, oropharynx clear without exudates, moist mucous membranes. NECK: Trachea midline, supple, No JVD noted. LUNGS: Decreased lung sounds at bases, no wheezes, no crackles, no accessory muscle use. HEART: Regular rate and rhythm, S1, S2 without murmur, rub or gallop. ABDOMEN: Midline laparotomy incision noted, dressing c/d/i w/ KEYA drain in place , trace . Still w/ no significant erythema, edema or purulent drainage noted. L- sided ostomy pink w/ slight herniated bowel, patent, now copious stool output. Normoactive bowel sounds. Non-distended, no rebound tenderness. EXTREMITIES: 2+ pulses, warm, well-perfused, no edema. NEUROLOGICAL: Cranial nerves II through XII grossly intact. Normal speech, gait not observed. Laboratory Results - last 24 hr CBC, BMP 12/02/16 05:10 12/02/16 05:10 11/27/16 11/30/16 12/01/16 23:15 05:00 18:30 WBC 19.5 H RBC 3.02 L Hgb 8.5 L Hct 25.2 L MCV 83.4 MCH 28.2 MCHC 33.8 RDW 14.7 Plt Count 269 MPV 8.7 Neutrophils % Lymphocytes % Sodium Potassium Chloride Carbon Dioxide Anion Gap BUN Creatinine Random Glucose Calcium Phosphorus Magnesium Prot Electrophoresis Serum Total Protein 4.5 L Albumin 2.1 L Globulin 2.4 Albumin/Globulin Ratio 0.9 Oslln-3-Gbocnomkw 0.4 Crgxi-2-Rnsxhbpcz 1.0 Beta Globulins 0.7 Gamma Globulins 0.4 TAYLOR M-Celio Not observed CALI Screen Negative Double Strand DNA Ab <1 Hepatitis A Ab Total Negative Hep Bs Antigen Negative Hep Bs Antibody Reactive Hep B Core Total Ab Negative Blood Type O POSITIVE Crossmatch IS Only See Detail 12/02/16 12/02/16 05:10 05:10 WBC 21.1 H RBC 2.95 L Hgb 8.1 L Hct 24.8 L MCV 84.1 MCH 27.6 MCHC 32.8 RDW 15.1 Plt Count 276 MPV 9.2 Neutrophils % No Result Required. Lymphocytes % No Result Required. Sodium 139 Potassium 3.4 L Chloride 103 Carbon Dioxide 27 Anion Gap 9 BUN 20 H D Creatinine 1.2 Random Glucose 105 Calcium 7.6 L Phosphorus 2.1 L Magnesium 2.0 Prot Electrophoresis Serum Total Protein Albumin Globulin Albumin/Globulin Ratio Joqyo-5-Dxhkuzoxo Nlprd-3-Utpfslsyx Beta Globulins Gamma Globulins TAYLOR M-Celio CALI Screen Double Strand DNA Ab Hepatitis A Ab Total Hep Bs Antigen Hep Bs Antibody Hep B Core Total Ab Blood Type Crossmatch IS Only Active Medications Generic Name Dose Route Start Last Admin Trade Name Freq PRN Reason Stop Dose Admin Acetaminophen 650 mg 11/30/16 19:29 12/02/16 00:00 Tylenol - PO 12/02/16 17:50 650 mg Q4H PRN Administration PAIN Chlorhexidine Gluconate 1 applic 11/30/16 22:00 12/01/16 21:44 Hibiclens For Decolonization - TP 1 applic HS DIAN Administration Piperacillin/Tazobactam/Dextrose 50 mls @ 100 mls/hr 12/01/16 02:00 12/02/16 03 :11 Zosyn 2.25gm Ivpb (Premix) IVPB 100 mls/hr Q8H-IV DIAN Administration Dextrose/Sodium Chloride 1,000 mls @ 65 mls/hr 12/01/16 12:41 12/01/16 14:00 D5-1/2ns - IV 65 mls/hr ASDIR DIAN Administration Mupirocin 1 applic 11/30/16 22:00 12/01/16 21:43 Bactroban Ointment (For Decolonization) - NS 12/03/16 09:59 1 applic BID DIAN Administration Ondansetron HCl 4 mg 11/30/16 19:29 Zofran Injection IVPB Q4H PRN NAUSEA AND/OR VOMITING Oxycodone HCl 10 mg 11/30/16 19:29 12/02/16 00:00 Roxicodone - PO 10 mg Q4H PRN Administration PAIN Pantoprazole Sodium 40 mg 12/02/16 10:00 Protonix Iv IVPUSH DAILY DIAN Potassium Phos/Sodium Phos 1 packet 11/30/16 22:00 12/01/16 21:47 Phos-Nak Packet - PO 1 packet BID DIAN Administration Microbiology 11/27/16 19:43 Blood - Peripheral Venous Blood Culture - Preliminary NO GROWTH OBTAINED AFTER 96 HOURS, INCUBATION TO CONTINUE FOR 1 DAYS. 11/27/16 19:43 Blood - Peripheral Venous Blood Culture - Preliminary NO GROWTH OBTAINED AFTER 96 HOURS, INCUBATION TO CONTINUE FOR 1 DAYS. 11/27/16 Unknown Peritoneal Fluid Gram Stain - Final 11/27/16 Unknown Peritoneal Fluid Body Fluid Culture - Final Escherichia Coli Klebsiella Pneumoniae 11/27/16 Unknown Peritoneal Fluid Anaerobic Culture - Final NO ANAEROBES WERE ISOLATED 11/27/16 16:41 Urine - Urine Clean Catch Urine Culture - Final NO GROWTH OBTAINED Recent Imaging: CXR (11/27) - Clear lung patel, prominent mediastinum. No signs of pneumo, acute pathology. CT Abdomen/pelvis (11/27) - Notable findings included RP air in LUQ. BL nephrolithiasis. Renal U/S (11/28) - BL Echogenic cortex indicative of acute pathology. BL calculi. No evidence of hydronephrosis. Fatty liver vs. parenchyma dz/neoplasm noted. CT abdomen/pelvis (11/30) - Bibasilar atelectasis. No evidence of obstruction, abscess or fluid collection. ASSESSMENT/PLAN: 51 yo man w/ pmh of GERD who presented with one week of progressive LLQ/L flank pain, now POD2 s/p left hemicolectomy and traverse diverting ostomy for acute bowel perforation. Pt remains hemodynamically stable, afebrile, w/ good ostomy output and no further significant sanguinous drainage from KEYA drain. WBC count uptrending from 19.5 -> 21.1, currently receiving zosyn per ID team for peritoneal coverage. May require freed culture and adjustment of abx course per sensitivities. Still for transfer to floors. #Neuro - Oxycodone 10mg q4h PO prn for pain control - Tylenol 650 mg PO for fever/pain #Pulm -O2 2L NC PRN. Titrate to >94% - Incentive spirometry #ID - CT abdomen/pelvis negative for abscess/fluid collection - WBC count uptrending 19.5 -> 21 - Freed-culture - Consider expanding abx coverage per sensitivities. Currently receiving zosyn. - Peritoneal cultures w/ E.coli /Klebsiella - f/u stool cultures - ID rec appreciated #Renal Improving Prerenal azotemia secondary to volume loss. - BUN/CR normalized to 15/1.1 - UOP ~2.5L. Frankel d/c'ed - Daily BMPs, monitor lytes - PO fluids #Heme - HgB 8.1 this AM - Trend H/H. Transfuse at <7 - Serial CBCs - Hold AC per surgical team #GI - Regular diet - Copious stool output from ostomy - Zofran 4mg PRN for N/V #FEN -Fluids: 65cc D5W1/2NS -Electrolytes: Daily BMPs, Trend BUN/Cr -Nutrition: Regular diet #PPX -SCDs for DVT ppx - PPI for GI ppx #Dispo - Still for transfer to floors today. Nadir Santos, PGY1 Plan discussed with attending, Dr. Chowdhury Visit type - Emergency Visit Emergency Visit: No - New Patient This patient is new to me today: Yes Date on this admission: 12/02/16 - Critical Care Critical Care patient: Yes Total Critical Care Time (in minutes): 35 Critical Care Statement: The care of this patient involved high complexity decision making to prevent further life threatening deterioration of the patient 's condition and/or to evaluate & treat vital organ system(s) failure or risk of failure.
[2016-12-02] MEDS: oxyCODONE HCL 5 MG TABLET PO PRN ×4 (08:01→20:36)
[2016-12-02] MEDS: ACETAMINOPHEN 325 MG TABLET (FP) PO PRN ×2 (08:03)
[2016-12-02] MEDS: KCL 10 MEQ IVPB 100 ML IVPB SCH ×2 (08:05→12:33)
[2016-12-02] MEDS ORDERED: oxyCODONE HCL 5 MG TABLET PO PRN (08:07)
[2016-12-02] MEDS ORDERED: ACETAMINOPHEN 325 MG TABLET (FP) PO PRN ×2 (08:07→13:35)
[2016-12-02] MEDS ORDERED: ONDANSETRON 4 MG/2 ML VIAL IVPB PRN ×2 (08:07→13:35)
[2016-12-02] MEDS ORDERED: DEXTROSE 5%-0.45% SALINE 1,000 ML IV SCH ×3 (08:07→15:17)
[2016-12-02 08:38] LABS: METAMYELOCYTE 1 % (0-2); MYELOCYTE 1 % (0-2); TOTAL CELLS COUNTED 100
[2016-12-02 08:39] LABS: PLATELET ESTIMATE ADEQUATE (NORMAL)
[2016-12-02] MEDS ORDERED: POTASSIUM CHLORIDE ORAL LIQUID 20 MEQ/15 ML PO ONE (09:00)
[2016-12-02] MEDS ORDERED: NAPH,MB-DB/K PH,MBDB POWDER PACKET PO SCH ×2 (10:00→22:00)
[2016-12-02] MEDS ORDERED: PIPERACILLIN/TAZOB 2.25 GM 50 ML IVPB SCH ×2 (10:00→18:00)
[2016-12-02] MEDS ORDERED: MUPIROCIN 2% TOPICAL OINTMENT FOR DECOLONIZATION NS SCH (10:00)
[2016-12-02] MEDS ORDERED: PANTOPRAZOLE SODIUM 40 MG VIAL IVPUSH SCH ×2 (10:00)
--- NOTE | 2016-12-02 10:21 | PATH ---
Surgical Pathology Report Patient Name: SOFIA JUÁREZ [facility]. Rec. #: [id number] /Age/Gender: 1965 (Age: 51) / M Account: [id number] Location: ICU [facility] Taken: 11/27/2016 Received: 11/29/2016 Reported: 12/02/2016 Physicians: Nolan Powell M.D. Specimen(s) Received A: TRANSVERSE DESCENDING COLON B: COLOSTOMY STAPLE LINE Clinical History Perforated viscus Final Diagnosis A. COLON, TRANSVERSE AND DESCENDING, SEGMENTAL RESECTION: DIVERTICULOSIS AND DIVERTICULITIS WITH PERFORATION AND ASSOCIATED SEROSAL INFLAMMATION. B. COLON, STAPLE LINE, EXCISION: PORTIONS OF UNREMARKABLE COLONIC WALL WITH ATTACHED STAPLE LINE. Electronically Signed Raman Pizarro M.D. Gross Description A. Received in formalin labeled "transverse and descending colon," is a 16 cm in length colon with 2 stapled mucosal margins and moderate attached pericolonic adipose tissue. The serosa is pedersen-castro with focal exudate. No definite rupture site is identified grossly. The mucosa is pedersen with normal folds. No mucosal masses are identified. Sectioning reveals multifocal diverticula. Flag Decorator sections are submitted in 7 cassettes as follows: 0-6-sulwdveyowzu stapled mucosal margin; 0-8-cvkydqyxtzk B. Received in formalin labeled "colostomy staple line," is a 4.3 x 0.5 x 0.3 cm staple line with minimal attached soft tissue. Flag Decorator tissue is submitted in one cassette. 11/30/201611/30/2016
--- NOTE | 2016-12-02 12:18 | PN ---
Progress Note (short form) - Note Progress Note: Subjective: The patient was seen and examined at the bedside, he has no complaints at this time. Current Medications Generic Name Dose Route Start Last Admin Trade Name Freq PRN Reason Stop Dose Admin Acetaminophen 650 mg 12/02/16 08:07 Tylenol - PO 12/02/16 17:50 Q4H PRN PAIN Chlorhexidine Gluconate 1 applic 12/02/16 22:00 Hibiclens For Decolonization - TP HS DIAN Dextrose/Sodium Chloride 1,000 mls @ 65 mls/hr 12/02/16 08:07 D5-1/2ns - IV ASDIR DIAN Piperacillin/Tazobactam/Dextrose 50 mls @ 100 mls/hr 12/02/16 10:00 12/02/16 09 :18 Zosyn 2.25gm Ivpb (Premix) IVPB 100 mls/hr Q8H-IV DIAN Administration Mupirocin 1 applic 12/02/16 10:00 12/02/16 09:19 Bactroban Ointment (For Decolonization) - NS 12/03/16 09:59 1 applic BID DIAN Administration Ondansetron HCl 4 mg 12/02/16 08:07 Zofran Injection IVPB Q4H PRN NAUSEA AND/OR VOMITING Oxycodone HCl 10 mg 12/02/16 08:07 Roxicodone - PO Q4H PRN PAIN Pantoprazole Sodium 40 mg 12/02/16 10:00 12/02/16 09:17 Protonix Iv IVPUSH 40 mg DAILY DIAN Administration Objective: Vital Signs Period Temp Pulse Resp BP Sys/Medina Pulse Ox Last 24 Hr 98.2 F-99.2 F 76-93 16-25 123-151/77-86 99 Physical Exam: General: NAD, A&Ox3 Lungs: CTA bilaterally Heart: RRR, S1S2 Abd: Midline dressing with dried serosangenous fluid. LUQ ostomy with brown watery fecal content Ext: Warm, well-perfused. 2+ DP/PT bilaterally Neuro: CN 2-12 intact CBCD WBC 21.1 K/mm3 (4.0-10.0) H 12/02/16 05:10 RBC 2.95 M/mm3 (4.00-5.60) L 12/02/16 05:10 Hgb 8.1 GM/dL (11.7-16.9) L 12/02/16 05:10 Hct 24.8 % (35.4-49) L 12/02/16 05:10 MCV 84.1 fl (80-96) 12/02/16 05:10 MCHC 32.8 g/dl (32.0-35.9) 12/02/16 05:10 RDW 15.1 % (11.9-15.9) 12/02/16 05:10 Plt Count 276 K/MM3 (134-434) 12/02/16 05:10 MPV 9.2 fl (7.5-11.1) 12/02/16 05:10 CMP Sodium 139 mmol/L (136-145) 12/02/16 05:10 Potassium 3.4 mmol/L (3.5-5.1) L 12/02/16 05:10 Chloride 103 mmol/L (98-107) 12/02/16 05:10 Carbon Dioxide 27 mmol/L (21-32) 12/02/16 05:10 Anion Gap 9 (8-16) 12/02/16 05:10 BUN 20 mg/dL (7-18) H D 12/02/16 05:10 Creatinine 1.2 mg/dL (0.7-1.3) 12/02/16 05:10 Creat Clearance w eGFR 58.20 (>60) 12/01/16 06:10 Random Glucose 105 mg/dL (74-106) 12/02/16 05:10 Calcium 7.6 mg/dL (8.5-10.1) L 12/02/16 05:10 Total Bilirubin 1.6 mg/dL (0.2-1.0) H D 12/01/16 06:10 AST 23 U/L (15-37) D 12/01/16 06:10 ALT 42 U/L (12-78) 12/01/16 06:10 Alkaline Phosphatase 60 U/L (45-117) 12/01/16 06:10 Total Protein 4.5 g/dl (6.4-8.2) L 12/01/16 06:10 Albumin 1.7 g/dl (3.4-5.0) L 12/01/16 06:10 Microbiology 11/27/16 19:43 Blood - Peripheral Venous Blood Culture - Preliminary NO GROWTH OBTAINED AFTER 96 HOURS, INCUBATION TO CONTINUE FOR 1 DAYS. 11/27/16 19:43 Blood - Peripheral Venous Blood Culture - Preliminary NO GROWTH OBTAINED AFTER 96 HOURS, INCUBATION TO CONTINUE FOR 1 DAYS. 11/27/16 Unknown Peritoneal Fluid Gram Stain - Final 11/27/16 Unknown Peritoneal Fluid Body Fluid Culture - Final Escherichia Coli Klebsiella Pneumoniae 11/27/16 Unknown Peritoneal Fluid Anaerobic Culture - Final NO ANAEROBES WERE ISOLATED 11/27/16 16:41 Urine - Urine Clean Catch Urine Culture - Final NO GROWTH OBTAINED Assessment: Thi sis a 51 year old male with PMHx of GERD who presented to the ED with left flank pain and was found to have an abdominal perforation. Plan: 1. Septic shock d/t perforated descending colon with retroperitoneal abscess cavity - S/p Left hemicolectomy, with diverting transverse colostomy, abdominal washout on 11/28/16 - Continue zosyn (renal dose) (11/17- ) - WBC trending up, CTAP 11/30 shows no abscess or obstruction - Diet advanced, tolerating regular - Appreciate surgery consult - Appreciate ID consult 2. PAYAM on ?CKD - Cr wnl - Decreased rate of fluids - Voiding well, lang removed yesterday - Appreciate nephrology consult 3. Acute blood loss anemia - Hgb stable, 8.1 today - Transfused for hgb <8 - Transfused 1uprbc 11/30 - Check stool occult blood 4. F/E/N: - Hypophosphatemia: replete - Hypokalemia: replete - Regular diet - Monitor electrolytes 5. Prophylaxis: - SCDs bilaterally 6. Dispo: - Requires continued inpatient care CODE STATUS: FULL CODE Visit type - Emergency Visit Emergency Visit: Yes ED Registration Date: 11/27/16 Care time: The patient presented to the Emergency Department on the above date and was hospitalized for further evaluation of their emergent condition. - New Patient This patient is new to me today: Yes Date on this admission: 12/02/16 - Critical Care Critical Care patient: No
[2016-12-02 12:33] LABS: ANION GAP 7 (8-16); CALCIUM 7.9 mg/dL (8.5-10.1); CO2 27 mmol/L (21-32); CREATININE 1.1 mg/dL (0.7-1.3); GLUCOSE,RANDOM 96 mg/dL (74-106)
--- NOTE | 2016-12-02 12:47 | PN ---
Teaching Attending Note Name of Resident: Nadir Santos ATTENDING PHYSICIAN STATEMENT I saw and evaluated the patient. I reviewed the resident's note and discussed the case with the resident. I agree with the resident's findings and plan as documented. SUBJECTIVE: Patient seen and examined in the ICU. Pain controlled. Denies nausea or vomiting. No fevers or chills. Tolerating some PO intake. OBJECTIVE: Intake & Output 11/29/16 11/30/16 12/01/16 12/02/16 23:59 23:59 23:59 23:59 Intake Total 3000 4700 1950 765 Output Total 3795 5200 2555 500 Balance -795 -500 -605 265 Weight 170 lb 168 lb 161 lb 4.8 oz Last Vital Signs Temp Pulse Resp BP Pulse Ox 98.2 F 78 20 123/85 99 12/02/16 10:00 12/02/16 10:00 12/02/16 10:00 12/02/16 10:00 12/02/16 09:00 Active Medications Acetaminophen (Tylenol -) 650 mg PO Q4H PRN PRN Reason: PAIN Stop: 12/02/16 17:50 Chlorhexidine Gluconate (Hibiclens For Decolonization -) 1 applic TP HS DIAN Dextrose/Sodium Chloride (D5-1/2ns -) 1,000 mls @ 65 mls/hr IV ASDIR DIAN Piperacillin/Tazobactam/Dextrose (Zosyn 2.25gm Ivpb (Premix)) 50 mls @ 100 mls/ hr IVPB Q8H-IV DIAN Last Admin: 12/02/16 09:18 Dose: 100 mls/hr Mupirocin (Bactroban Ointment (For Decolonization) -) 1 applic NS BID [facility] Stop: 12/03/16 09:59 Last Admin: 12/02/16 09:19 Dose: 1 applic Ondansetron HCl (Zofran Injection) 4 mg IVPB Q4H PRN PRN Reason: NAUSEA AND/OR VOMITING Oxycodone HCl (Roxicodone -) 10 mg PO Q4H PRN PRN Reason: PAIN Pantoprazole Sodium (Protonix Iv) 40 mg IVPUSH DAILY [facility] Last Admin: 12/02/16 09:17 Dose: 40 mg Potassium Phos/Sodium Phos (Phos-Nak Packet -) 1 packet PO BID DIAN Gen: NAD at rest Heart: RRR Lung: bibasilar rales Abd: soft, nontender, +ostomy pink, +KEYA drain with serosanguinous drainage Ext: no edema Laboratory Results - last 24 hr 11/27/16 11/30/16 12/01/16 23:15 05:00 18:30 WBC 19.5 H RBC 3.02 L Hgb 8.5 L Hct 25.2 L MCV 83.4 MCH 28.2 MCHC 33.8 RDW 14.7 Plt Count 269 MPV 8.7 Total Counted Neutrophils % Neutrophils % (Manual) Lymphocytes % Lymphocytes % (Manual) Monocytes % (Manual) Myelocytes % (Man) Platelet Estimate Sodium Potassium Chloride Carbon Dioxide Anion Gap BUN Creatinine Random Glucose Calcium Phosphorus Magnesium Prot Electrophoresis Serum Total Protein 4.5 L Albumin 2.1 L Globulin 2.4 Albumin/Globulin Ratio 0.9 Uugbv-4-Cxztdsgrg 0.4 Prxft-8-Gmvwpdmcv 1.0 Beta Globulins 0.7 Gamma Globulins 0.4 Stool Occult Blood TAYLOR M-Celio Not observed CALI Screen Negative Double Strand DNA Ab <1 Glomerular Base Memb Ab 3 Hepatitis A Ab Total Negative Hep Bs Antigen Negative Hep Bs Antibody Reactive Hep B Core Total Ab Negative Blood Type O POSITIVE Crossmatch IS Only See Detail 12/02/16 12/02/16 12/02/16 05:10 05:10 09:57 WBC 21.1 H RBC 2.95 L Hgb 8.1 L Hct 24.8 L MCV 84.1 MCH 27.6 MCHC 32.8 RDW 15.1 Plt Count 276 MPV 9.2 Total Counted 100 Neutrophils % No Result Required. Neutrophils % (Manual) 86 H Lymphocytes % No Result Required. Lymphocytes % (Manual) 5 L D Monocytes % (Manual) 7 D Myelocytes % (Man) 1 Platelet Estimate Adequate Sodium 139 Potassium 3.4 L Chloride 103 Carbon Dioxide 27 Anion Gap 9 BUN 20 H D Creatinine 1.2 Random Glucose 105 Calcium 7.6 L Phosphorus 2.1 L Magnesium 2.0 Prot Electrophoresis Serum Total Protein Albumin Globulin Albumin/Globulin Ratio Uoxdv-2-Nqapzthly Awisv-1-Sycimcvnn Beta Globulins Gamma Globulins Stool Occult Blood Positive TAYLOR M-Celio CALI Screen Double Strand DNA Ab Glomerular Base Memb Ab Hepatitis A Ab Total Hep Bs Antigen Hep Bs Antibody Hep B Core Total Ab Blood Type Crossmatch IS Only 12/02/16 11:58 WBC RBC Hgb Hct MCV MCH MCHC RDW Plt Count MPV Total Counted Neutrophils % Neutrophils % (Manual) Lymphocytes % Lymphocytes % (Manual) Monocytes % (Manual) Myelocytes % (Man) Platelet Estimate Sodium 137 Potassium 3.4 L Chloride 103 Carbon Dioxide 27 Anion Gap 7 L BUN 15 D Creatinine 1.1 Random Glucose 96 Calcium 7.9 L Phosphorus Magnesium Prot Electrophoresis Serum Total Protein Albumin Globulin Albumin/Globulin Ratio Lgjyr-6-Pbtepiqgm Hkcfz-9-Zqcczxoka Beta Globulins Gamma Globulins Stool Occult Blood TAYLOR M-Celio CALI Screen Double Strand DNA Ab Glomerular Base Memb Ab Hepatitis A Ab Total Hep Bs Antigen Hep Bs Antibody Hep B Core Total Ab Blood Type Crossmatch IS Only ASSESSMENT AND PLAN: Perforated Descending Colon/Retroperitoneal Abscess s/p ex-lap/extended left hemicolectomy/diverting transverse colostomy/washout Septic Shock resolved Acute Kidney Injury improving Acute Blood Loss Anemia - pain control - incentive spirometry - ABX - PO as tolerated - monitor urine output, creatinine - monitor H/H - replete lytes - DVT prophylaxis - Floor Dr Chowdhury
--- NOTE | 2016-12-02 15:17 | PN ---
Progress Note, Physician History of Present Illness: Pt seen and examined at bedside. He is awake and alert. He is tolerating his diet so far. - Current Medication List Current Medications: Active Medications Acetaminophen (Tylenol -) 650 mg PO Q4H PRN PRN Reason: PAIN Stop: 12/02/16 17:50 Last Admin: 12/02/16 14:46 Dose: 650 mg Chlorhexidine Gluconate (Hibiclens For Decolonization -) 1 applic TP HS DIAN Dextrose/Sodium Chloride (D5-1/2ns -) 1,000 mls @ 65 mls/hr IV ASDIR DIAN Piperacillin/Tazobactam/Dextrose (Zosyn 2.25gm Ivpb (Premix)) 50 mls @ 100 mls/ hr IVPB Q8H-IV DIAN Mupirocin (Bactroban Ointment (For Decolonization) -) 1 applic NS BID DIAN Stop: 12/03/16 09:59 Ondansetron HCl (Zofran Injection) 4 mg IVPB Q4H PRN PRN Reason: NAUSEA AND/OR VOMITING Oxycodone HCl (Roxicodone -) 10 mg PO Q4H PRN PRN Reason: PAIN Last Admin: 12/02/16 14:45 Dose: 10 mg Pantoprazole Sodium (Protonix Iv) 40 mg IVPUSH DAILY DIAN Potassium Phos/Sodium Phos (Phos-Nak Packet -) 1 packet PO BID DIAN - Objective Vital Signs: Vital Signs Temperature 98.2 F 12/02/16 10:00 Pulse Rate 75 12/02/16 12:00 Respiratory Rate 20 12/02/16 12:00 Blood Pressure 146/87 12/02/16 12:00 O2 Sat by Pulse Oximetry (%) 99 12/02/16 09:00 Constitutional: Yes: Calm Eyes: Yes: Conjunctiva Clear HENT: Yes: Atraumatic Neck: Yes: Supple Cardiovascular: Yes: S1, S2 Respiratory: Yes: CTA Bilaterally Gastrointestinal: Yes: Normal Bowel Sounds, Soft, Other (dressing in place) Genitourinary: Yes: WNL Musculoskeletal: Yes: WNL Edema: No Neurological: Yes: Oriented Psychiatric: Yes: Oriented Labs: CBC, BMP 12/02/16 05:10 12/02/16 11:58 INR, PTT INR 1.30 (0.82-1.09) H 11/30/16 12:40 Problem List - Problems (1) Acute renal failure Code(s): N17.9 - ACUTE KIDNEY FAILURE, UNSPECIFIED Qualifiers: Acute renal failure type: unspecified Qualified Code(s): N17.9 - Acute kidney failure, unspecified; N17.9 - Acute kidney failure, unspecified; N17.9 - Acute kidney failure, unspecified (2) Perforated abdominal viscus Code(s): ISH8057 - (3) Septic shock Code(s): A41.9 - SEPSIS, UNSPECIFIED ORGANISM R65.21 - SEVERE SEPSIS WITH SEPTIC SHOCK Assessment/Plan Current Medications Generic Name Dose Route Start Last Admin Trade Name Freq PRN Reason Stop Dose Admin Acetaminophen 650 mg 12/02/16 13:35 12/02/16 14:46 Tylenol - PO 12/02/16 17:50 650 mg Q4H PRN Administration PAIN Chlorhexidine Gluconate 1 applic 12/02/16 22:00 Hibiclens For Decolonization - TP HS DIAN Dextrose/Sodium Chloride 1,000 mls @ 65 mls/hr 12/02/16 13:35 D5-1/2ns - IV ASDIR DIAN Piperacillin/Tazobactam/Dextrose 50 mls @ 100 mls/hr 12/02/16 18:00 Zosyn 2.25gm Ivpb (Premix) IVPB Q8H-IV DIAN Mupirocin 1 applic 12/02/16 22:00 Bactroban Ointment (For Decolonization) - NS 12/03/16 09:59 BID DIAN Ondansetron HCl 4 mg 12/02/16 13:35 Zofran Injection IVPB Q4H PRN NAUSEA AND/OR VOMITING Oxycodone HCl 10 mg 12/02/16 13:35 12/02/16 14:45 Roxicodone - PO 10 mg Q4H PRN Administration PAIN Pantoprazole Sodium 40 mg 12/03/16 10:00 Protonix Iv IVPUSH DAILY DIAN Potassium Phos/Sodium Phos 1 packet 12/02/16 22:00 Phos-Nak Packet - PO BID DIAN Laboratory Tests 11/30/16 05:00 CALI Screen Negative c-ANCA Pending Proteinase 3 (PR3) Pending p-ANCA Pending Atypical p-ANCA Pending Myeloperoxidase Ab Pending Double Strand DNA Ab <1 Glomerular Base Memb Ab 3 Impression 1. PAYAM 2. nephrolithiasis 3. perforated viscus 4. sepsis 5. hypotension 6. anemia 7. possible CKD Plan - renal function stabilizing - decrease fluids further - repeat labs in am - replace potassium - check mag - monitor hg - likely ATN from hypotension and sepsis Dr Gardner
--- NOTE | 2016-12-02 17:40 | PN ---
Progress Note, Physician History of Present Illness: patient stable no issues doing well - Current Medication List Current Medications: Active Medications Acetaminophen (Tylenol -) 650 mg PO Q4H PRN PRN Reason: PAIN Stop: 12/02/16 17:50 Last Admin: 12/02/16 14:46 Dose: 650 mg Chlorhexidine Gluconate (Hibiclens For Decolonization -) 1 applic TP HS DIAN Piperacillin/Tazobactam/Dextrose (Zosyn 2.25gm Ivpb (Premix)) 50 mls @ 100 mls/ hr IVPB Q8H-IV DIAN Dextrose/Sodium Chloride (D5-1/2ns -) 1,000 mls @ 42 mls/hr IV ASDIR DIAN Mupirocin (Bactroban Ointment (For Decolonization) -) 1 applic NS BID DIAN Stop: 12/03/16 09:59 Ondansetron HCl (Zofran Injection) 4 mg IVPB Q4H PRN PRN Reason: NAUSEA AND/OR VOMITING Oxycodone HCl (Roxicodone -) 10 mg PO Q4H PRN PRN Reason: PAIN Last Admin: 12/02/16 14:45 Dose: 10 mg Pantoprazole Sodium (Protonix Iv) 40 mg IVPUSH DAILY DIAN Potassium Phos/Sodium Phos (Phos-Nak Packet -) 1 packet PO BID DIAN - Objective Vital Signs: Vital Signs Temperature 98.9 F 12/02/16 14:00 Pulse Rate 90 12/02/16 16:10 Respiratory Rate 20 12/02/16 16:10 Blood Pressure 123/76 12/02/16 16:10 O2 Sat by Pulse Oximetry (%) 99 12/02/16 09:00 Constitutional: Yes: No Distress, Calm HENT: Yes: Atraumatic Neck: Yes: Supple, Trachea Midline Cardiovascular: Yes: Regular Rate and Rhythm Respiratory: Yes: Regular, CTA Bilaterally Gastrointestinal: Yes: Normal Bowel Sounds, Soft, Other (colostomy fning well) Musculoskeletal: Yes: WNL Extremities: Yes: WNL Neurological: Yes: Alert, Oriented Psychiatric: Yes: Alert, Oriented Labs: CBC, BMP 12/02/16 05:10 12/02/16 11:58 INR, PTT INR 1.30 (0.82-1.09) H 11/30/16 12:40 Assessment/Plan POD #1 Exploratory laparotomy, splenic flexure mobilization, extended left hemicolectomy, diverting transverse colostomy, abdominal washout PAYAM Problem List - Problems (1) Acute renal failure Code(s): N17.9 - ACUTE KIDNEY FAILURE, UNSPECIFIED Qualifiers: Acute renal failure type: unspecified Qualified Code(s): N17.9 - Acute kidney failure, unspecified; N17.9 - Acute kidney failure, unspecified; N17.9 - Acute kidney failure, unspecified (2) Perforated abdominal viscus Code(s): GRR2800 - (3) Septic shock Code(s): A41.9 - SEPSIS, UNSPECIFIED ORGANISM R65.21 - SEVERE SEPSIS WITH SEPTIC SHOCK plan continue hydration will stop abx monitor h and h rest as per icu cc time 40 min
[2016-12-02] MEDS: MUPIROCIN 2% TOPICAL OINTMENT FOR DECOLONIZATION NS SCH (20:35)
[2016-12-02] MEDS: PIPERACILLIN/TAZOB 3.375 GM 50 ML IVPB SCH (20:35)
[2016-12-02] MEDS: CHLORHEXIDINE GLUCONATE 4% CLEANSER FOR DECOLONIZATION TP SCH (20:36)
[2016-12-02] MEDS: NAPH,MB-DB/K PH,MBDB POWDER PACKET PO SCH (20:37)
[2016-12-02] MEDS ORDERED: CHLORHEXIDINE GLUCONATE 4% CLEANSER FOR DECOLONIZATION TP SCH (22:00)
[2016-12-03 00:07] LABS: C-ANCA <1:20 titer (Neg:<1:20); MYELOPEROXIDASE ANTIBODY <9.0 U/mL (0.0-9.0); P-ANCA <1:20 titer (Neg:<1:20); PROTEINASE-3 ANTIBODY <3.5 U/mL (0.0-3.5)
[2016-12-03] MEDS: oxyCODONE HCL 5 MG TABLET PO PRN ×5 (01:36→22:21)
[2016-12-03] MEDS: CHLORHEXIDINE GLUCONATE 4% CLEANSER FOR DECOLONIZATION TP SCH ×2 (03:44→21:05)
[2016-12-03] MEDS: NAPH,MB-DB/K PH,MBDB POWDER PACKET PO SCH ×3 (03:44→21:09)
[2016-12-03] MEDS: MUPIROCIN 2% TOPICAL OINTMENT FOR DECOLONIZATION NS SCH (03:44)
[2016-12-03] MEDS: PIPERACILLIN/TAZOB 3.375 GM 50 ML IVPB SCH ×4 (03:45→21:09)
[2016-12-03 06:00] LABS: MCH 28.4 pg (25.7-33.7); MCHC 33.7 g/dl (32.0-35.9); MEAN CELL VOLUME 84.1 fl (80-96); MEAN PLT VOLUME 8.7 fl (7.5-11.1); PLATELET COUNT 323 K/MM3 (134-434); RDW 14.8 % (11.9-15.9); WHITE BLOOD COUNT 21.4 K/mm3 (4.0-10.0)
[2016-12-03 06:53] LABS: ALBUMIN 1.7 g/dl (3.4-5.0); ALK PHOS 65 U/L (45-117); ANION GAP 6 (8-16); BILIRUBIN,TOTAL 1.1 mg/dL (0.2-1.0); CALCIUM 7.6 mg/dL (8.5-10.1); CO2 30 mmol/L (21-32); CREATININE 1.1 mg/dL (0.7-1.3); GLUCOSE,RANDOM 80 mg/dL (74-106); MAGNESIUM 1.8 mg/dL (1.8-2.4); PHOSPHOROUS 2.1 mg/dL (2.5-4.9); SGOT/AST 20 U/L (15-37); SGPT/ALT 35 U/L (12-78); TOT PROT 4.7 g/dl (6.4-8.2)
--- NOTE | 2016-12-03 07:29 | PN ---
Physical Exam: SUBJECTIVE: Patient seen and examined by me this AM - Still w/ elevated WBC count 21. HgB stable at 8.6. - Pt only complaining of mild surgical site soreness. Denies any fevers/chills, GOYAL/dizziness, SOB/dyspnea, N/V, abdominal pain, LE edema. Afebrile. No major overnight events. - Per ID, will continue Zosyn for now. If clinical condition worsens, repeat abdominal CT scan. - Minimal SS drainage from KEYA drain. Good stool output from ostomy site. - Still for transfer to floors today. OBJECTIVE: Vital Signs Intake & Output 11/30/16 12/01/16 12/02/16 12/03/16 23:59 23:59 23:59 23:59 Intake Total 4700 1950 1565 100 Output Total 5200 2555 1820 Balance -500 -605 -255 100 Weight 76.204 kg 73.164 kg Period Temp Pulse Resp BP Sys/Medina Pulse Ox Last 24 Hr 98.2 F-99.0 F 75-102 12-20 116-146/76-92 96-99 GENERAL: The patient is awake, alert, and fully oriented, in no acute distress, laying in bed comfortably HEAD: NCAT NECK: Trachea midline, supple, No JVD noted. LUNGS: CTABL, no wheezes, no crackles, no accessory muscle use. HEART: Regular rate and rhythm, S1, S2 without murmur, rub or gallop. ABDOMEN: Midline laparotomy incision noted, dressings c/d/i. KEYA bulb in place, w / minimal erythema/drainage, minimal SS drainage 5cc in bulb. L-sided ostomy pink w/ slight herniated bowel, patent, liquid stool noted in bag. Normoactive bowel sounds. Non-distended, no rebound tenderness. Mild tenderness near laparatomy site. EXTREMITIES: 2+ pulses, warm, well-perfused, no edema. NEUROLOGICAL: Cranial nerves II through XII grossly intact. Normal speech, gait not observed. Laboratory Results - last 24 hr CBC, BMP 12/03/16 05:00 12/03/16 05:00 11/30/16 12/02/16 12/02/16 05:00 05:10 09:57 WBC 21.1 H RBC 2.95 L Hgb 8.1 L Hct 24.8 L MCV 84.1 MCH 27.6 MCHC 32.8 RDW 15.1 Plt Count 276 MPV 9.2 Total Counted 100 Neutrophils % Neutrophils % (Manual) 86 H Lymphocytes % Lymphocytes % (Manual) 5 L D Monocytes % (Manual) 7 D Myelocytes % (Man) 1 Platelet Estimate Adequate Sodium Potassium Chloride Carbon Dioxide Anion Gap BUN Creatinine Creat Clearance w eGFR Random Glucose Calcium Phosphorus Magnesium Total Bilirubin AST ALT Alkaline Phosphatase Prot Electrophoresis Serum Total Protein 4.5 L Total Protein Albumin 2.1 L Globulin 2.4 Albumin/Globulin Ratio 0.9 Pzqjc-4-Tcsvmdhud 0.4 Ajoxo-1-Dctbfkdij 1.0 Beta Globulins 0.7 Gamma Globulins 0.4 Stool Occult Blood Positive TAYLOR M-Celio Not observed CALI Screen Negative c-ANCA <1:20 Proteinase 3 (PR3) <3.5 p-ANCA <1:20 Atypical p-ANCA <1:20 Myeloperoxidase Ab <9.0 Double Strand DNA Ab <1 Glomerular Base Memb Ab 3 Hepatitis A Ab Total Negative Hep Bs Antigen Negative Hep Bs Antibody Reactive Hep B Core Total Ab Negative 12/02/16 12/03/16 12/03/16 11:58 05:00 05:00 WBC 21.4 H RBC 3.05 L Hgb 8.6 L Hct 25.6 L MCV 84.1 MCH 28.4 MCHC 33.7 RDW 14.8 Plt Count 323 MPV 8.7 Total Counted Neutrophils % No Result Required. Neutrophils % (Manual) Lymphocytes % No Result Required. Lymphocytes % (Manual) Monocytes % (Manual) Myelocytes % (Man) Platelet Estimate Sodium 137 138 Potassium 3.4 L 4.4 D Chloride 103 102 Carbon Dioxide 27 30 Anion Gap 7 L 6 L BUN 15 D 11 D Creatinine 1.1 1.1 Creat Clearance w eGFR > 60 Random Glucose 96 80 Calcium 7.9 L 7.6 L Phosphorus 2.1 L Magnesium 1.8 Total Bilirubin 1.1 H D AST 20 ALT 35 Alkaline Phosphatase 65 Prot Electrophoresis Serum Total Protein Total Protein 4.7 L Albumin 1.7 L Globulin Albumin/Globulin Ratio Taobi-1-Whtovnkhb Foigd-6-Ezddxsfoe Beta Globulins Gamma Globulins Stool Occult Blood TAYLOR M-Celio CALI Screen c-ANCA Proteinase 3 (PR3) p-ANCA Atypical p-ANCA Myeloperoxidase Ab Double Strand DNA Ab Glomerular Base Memb Ab Hepatitis A Ab Total Hep Bs Antigen Hep Bs Antibody Hep B Core Total Ab Active Medications Generic Name Dose Route Start Last Admin Trade Name Freq PRN Reason Stop Dose Admin Chlorhexidine Gluconate 1 applic 12/02/16 22:00 12/03/16 03:44 Hibiclens For Decolonization - TP Not Given HS DIAN Dextrose/Sodium Chloride 1,000 mls @ 42 mls/hr 12/02/16 15:17 12/02/16 17:50 D5-1/2ns - IV Not Given ASDIR DIAN Piperacillin/Tazobactam/Dextrose 50 mls @ 100 mls/hr 12/02/16 21:00 12/03/16 03 :45 Zosyn 3.375gm Ivpb (Premix) IVPB 100 mls/hr Q6H-IV [facility] Administration Protocol Mupirocin 1 applic 12/02/16 22:00 12/03/16 03:44 Bactroban Ointment (For Decolonization) - NS 12/03/16 09:59 Not Given BID DIAN Ondansetron HCl 4 mg 12/02/16 13:35 Zofran Injection IVPB Q4H PRN NAUSEA AND/OR VOMITING Oxycodone HCl 10 mg 12/02/16 13:35 12/03/16 06:00 Roxicodone - PO 10 mg Q4H PRN Administration PAIN Pantoprazole Sodium 40 mg 12/03/16 10:00 Protonix Iv IVPUSH DAILY [facility] Potassium Phos/Sodium Phos 1 packet 12/02/16 22:00 12/03/16 03:44 Phos-Nak Packet - PO Not Given BID [facility] Microbiology 11/27/16 19:43 Blood - Peripheral Venous Blood Culture - Final NO GROWTH AFTER 5 DAYS INCUBATION 11/27/16 19:43 Blood - Peripheral Venous Blood Culture - Final NO GROWTH AFTER 5 DAYS INCUBATION 11/27/16 Unknown Peritoneal Fluid Gram Stain - Final 11/27/16 Unknown Peritoneal Fluid Body Fluid Culture - Final Escherichia Coli Klebsiella Pneumoniae 11/27/16 Unknown Peritoneal Fluid Anaerobic Culture - Final NO ANAEROBES WERE ISOLATED 11/27/16 16:41 Urine - Urine Clean Catch Urine Culture - Final NO GROWTH OBTAINED Recent Imaging: CXR (11/27) - Clear lung patel, prominent mediastinum. No signs of pneumo, acute pathology. CT Abdomen/pelvis (11/27) - Notable findings included RP air in LUQ. BL nephrolithiasis. Renal U/S (11/28) - BL Echogenic cortex indicative of acute pathology. BL calculi. No evidence of hydronephrosis. Fatty liver vs. parenchyma dz/neoplasm noted. CT abdomen/pelvis (11/30) - Bibasilar atelectasis. No evidence of obstruction, abscess or fluid collection. ASSESSMENT/PLAN: 51 yo man w/ pmh of GERD who presented with one week of progressive LLQ/L flank pain, now POD2 s/p left hemicolectomy and traverse diverting ostomy for acute bowel perforation. Pt continues to remain hemodynamically stable, afebrile, w/ good ostomy output and minimal SS drainage from KEYA drain. WBC persistently elevated at ~21, currently receiving zosyn per ID team. If infectious status worsens, send for f/u abdominal CT. Still for transfer to floors. #Neuro - Oxycodone 10mg q4h PO prn for pain control - Tylenol 650 mg PO for fever/pain #Pulm -O2 2L NC PRN. Titrate to >94% - Incentive spirometry #ID - CT abdomen/pelvis negative for abscess/fluid collection. Consider repeat CT scan if clinical status worsens - WBC count 21 this AM - Zavaleta-culture if febrile - Consider expanding abx coverage per sensitivities. Currently receiving zosyn. - Peritoneal cultures w/ E.coli /Klebsiella - f/u stool cultures - ID rec appreciated #Renal Resolved PAYAM, Cr normalized - BUN/Cr normalized 11.1 - Daily BMPs, monitor lytes - PO fluids #Heme - HgB 8.6 this AM - Trend H/H. Transfuse at <7 - Consider restarting AC, but will defer to surgical team #GI - Regular diet - Good stool output for ostomy site - Zofran 4mg PRN for N/V #FEN -Fluids: 42cc D5W1/2NS -Electrolytes: Daily BMPs, Trend BUN/Cr -Nutrition: Regular diet #PPX -SCDs for DVT ppx - PPI for GI ppx #Dispo - Still for transfer to floors today. Nadir Santos, PGY1 Plan discussed with attending, Dr. Chowdhury Visit type - Emergency Visit Emergency Visit: No - New Patient This patient is new to me today: No - Critical Care Critical Care patient: Yes Total Critical Care Time (in minutes): 35 Critical Care Statement: The care of this patient involved high complexity decision making to prevent further life threatening deterioration of the patient 's condition and/or to evaluate & treat vital organ system(s) failure or risk of failure.
[2016-12-03 08:53] LABS: METAMYELOCYTE 1 % (0-2); PLATELET ESTIMATE ADEQUATE (NORMAL); TOTAL CELLS COUNTED 100
[2016-12-03] MEDS ORDERED: PANTOPRAZOLE SODIUM 40 MG VIAL IVPUSH SCH (10:00)
--- NOTE | 2016-12-03 11:12 | PN ---
Teaching Attending Note Name of Resident: Nadir Santos ATTENDING PHYSICIAN STATEMENT I saw and evaluated the patient. I reviewed the resident's note and discussed the case with the resident. I agree with the resident's findings and plan as documented. SUBJECTIVE: Patient seen and examined in the ICU. Pain controlled. Denies nausea or vomiting. No fevers or chills. Tolerating PO intake. No significant change in WBC. OBJECTIVE: Intake & Output 11/30/16 12/01/16 12/02/16 12/03/16 23:59 23:59 23:59 23:59 Intake Total 4700 1950 1565 100 Output Total 5200 2555 1820 Balance -500 -605 -255 100 Weight 168 lb 161 lb 4.8 oz Last Vital Signs Temp Pulse Resp BP Pulse Ox 98.6 F 80 20 123/83 96 12/03/16 10:00 12/03/16 10:00 12/03/16 10:00 12/03/16 10:00 12/03/16 07:43 Active Medications Chlorhexidine Gluconate (Hibiclens For Decolonization -) 1 applic TP HS [facility] Last Admin: 12/03/16 03:44 Dose: Not Given Dextrose/Sodium Chloride (D5-1/2ns -) 1,000 mls @ 42 mls/hr IV ASDIR [facility] Last Admin: 12/02/16 17:50 Dose: Not Given Piperacillin/Tazobactam/Dextrose (Zosyn 3.375gm Ivpb (Premix)) 50 mls @ 100 mls /hr IVPB Q6H-IV DIAN PRN Reason: Protocol Last Admin: 12/03/16 10:00 Dose: 100 mls/hr Ondansetron HCl (Zofran Injection) 4 mg IVPB Q4H PRN PRN Reason: NAUSEA AND/OR VOMITING Oxycodone HCl (Roxicodone -) 10 mg PO Q4H PRN PRN Reason: PAIN Last Admin: 12/03/16 06:00 Dose: 10 mg Pantoprazole Sodium (Protonix Iv) 40 mg IVPUSH DAILY [facility] Last Admin: 12/03/16 10:03 Dose: 40 mg Potassium Phos/Sodium Phos (Phos-Nak Packet -) 1 packet PO BID [facility] Last Admin: 12/03/16 10:00 Dose: 1 packet Gen: NAD at rest Heart: RRR Lung: bibasilar rales Abd: soft, nontender, +ostomy pink, +KEYA drain with serosanguinous drainage Ext: no edema Laboratory Results - last 24 hr 11/27/16 11/30/16 12/01/16 23:15 05:00 18:30 WBC 19.5 H RBC 3.02 L Hgb 8.5 L Hct 25.2 L MCV 83.4 MCH 28.2 MCHC 33.8 RDW 14.7 Plt Count 269 MPV 8.7 Total Counted Neutrophils % Neutrophils % (Manual) Lymphocytes % Lymphocytes % (Manual) Monocytes % (Manual) Myelocytes % (Man) Platelet Estimate Sodium Potassium Chloride Carbon Dioxide Anion Gap BUN Creatinine Random Glucose Calcium Phosphorus Magnesium Prot Electrophoresis Serum Total Protein 4.5 L Albumin 2.1 L Globulin 2.4 Albumin/Globulin Ratio 0.9 Mblvg-5-Zgilihkxr 0.4 Xpxex-2-Jnllxmarn 1.0 Beta Globulins 0.7 Gamma Globulins 0.4 Stool Occult Blood TAYLOR M-Celio Not observed CALI Screen Negative Double Strand DNA Ab <1 Glomerular Base Memb Ab 3 Hepatitis A Ab Total Negative Hep Bs Antigen Negative Hep Bs Antibody Reactive Hep B Core Total Ab Negative Blood Type O POSITIVE Crossmatch IS Only See Detail 12/02/16 12/02/16 12/02/16 05:10 05:10 09:57 WBC 21.1 H RBC 2.95 L Hgb 8.1 L Hct 24.8 L MCV 84.1 MCH 27.6 MCHC 32.8 RDW 15.1 Plt Count 276 MPV 9.2 Total Counted 100 Neutrophils % No Result Required. Neutrophils % (Manual) 86 H Lymphocytes % No Result Required. Lymphocytes % (Manual) 5 L D Monocytes % (Manual) 7 D Myelocytes % (Man) 1 Platelet Estimate Adequate Sodium 139 Potassium 3.4 L Chloride 103 Carbon Dioxide 27 Anion Gap 9 BUN 20 H D Creatinine 1.2 Random Glucose 105 Calcium 7.6 L Phosphorus 2.1 L Magnesium 2.0 Prot Electrophoresis Serum Total Protein Albumin Globulin Albumin/Globulin Ratio Pfzhm-9-Eogwgleur Lwqhx-5-Zohikvxhj Beta Globulins Gamma Globulins Stool Occult Blood Positive TAYLOR M-Celio CALI Screen Double Strand DNA Ab Glomerular Base Memb Ab Hepatitis A Ab Total Hep Bs Antigen Hep Bs Antibody Hep B Core Total Ab Blood Type Crossmatch IS Only 12/02/16 11:58 WBC RBC Hgb Hct MCV MCH MCHC RDW Plt Count MPV Total Counted Neutrophils % Neutrophils % (Manual) Lymphocytes % Lymphocytes % (Manual) Monocytes % (Manual) Myelocytes % (Man) Platelet Estimate Sodium 137 Potassium 3.4 L Chloride 103 Carbon Dioxide 27 Anion Gap 7 L BUN 15 D Creatinine 1.1 Random Glucose 96 Calcium 7.9 L Phosphorus Magnesium Prot Electrophoresis Serum Total Protein Albumin Globulin Albumin/Globulin Ratio Bmqji-3-Yauxfpoea Yqpnf-7-Aggqjhcbx Beta Globulins Gamma Globulins Stool Occult Blood TAYLOR M-Celio CALI Screen Double Strand DNA Ab Glomerular Base Memb Ab Hepatitis A Ab Total Hep Bs Antigen Hep Bs Antibody Hep B Core Total Ab Blood Type Crossmatch IS Only ASSESSMENT AND PLAN: Perforated Descending Colon/Retroperitoneal Abscess s/p ex-lap/extended left hemicolectomy/diverting transverse colostomy/washout Septic Shock resolved Acute Kidney Injury improving Acute Blood Loss Anemia - pain control - incentive spirometry - ABX per ID - PO as tolerated - monitor urine output, creatinine - monitor H/H - DVT prophylaxis - Floor Dr Chowdhury
--- NOTE | 2016-12-03 14:36 | PN ---
Progress Note, Physician History of Present Illness: Pt seen and examined at bedside. He is awake and alert. He denies shortness of breath. - Current Medication List Current Medications: Active Medications Chlorhexidine Gluconate (Hibiclens For Decolonization -) 1 applic TP HS [facility] Last Admin: 12/03/16 03:44 Dose: Not Given Piperacillin/Tazobactam/Dextrose (Zosyn 3.375gm Ivpb (Premix)) 50 mls @ 100 mls /hr IVPB Q6H-IV DIAN PRN Reason: Protocol Last Admin: 12/03/16 10:00 Dose: 100 mls/hr Ondansetron HCl (Zofran Injection) 4 mg IVPB Q4H PRN PRN Reason: NAUSEA AND/OR VOMITING Oxycodone HCl (Roxicodone -) 10 mg PO Q4H PRN PRN Reason: PAIN Last Admin: 12/03/16 12:55 Dose: 10 mg Pantoprazole Sodium (Protonix Iv) 40 mg IVPUSH DAILY [facility] Last Admin: 12/03/16 10:03 Dose: 40 mg Potassium Phos/Sodium Phos (Phos-Nak Packet -) 1 packet PO BID DIAN Last Admin: 12/03/16 10:00 Dose: 1 packet - Objective Vital Signs: Vital Signs Temperature 98.6 F 12/03/16 10:00 Pulse Rate 80 12/03/16 10:00 Respiratory Rate 20 12/03/16 10:00 Blood Pressure 123/83 12/03/16 10:00 O2 Sat by Pulse Oximetry (%) 96 12/03/16 07:43 Constitutional: Yes: Calm Eyes: Yes: Conjunctiva Clear HENT: Yes: Atraumatic Neck: Yes: Supple Cardiovascular: Yes: S1, S2 Respiratory: Yes: CTA Bilaterally Gastrointestinal: Yes: Soft, Other (dov drain) Genitourinary: Yes: WNL Musculoskeletal: Yes: WNL Edema: No Neurological: Yes: Oriented Psychiatric: Yes: Oriented Labs: CBC, BMP 12/03/16 05:00 12/03/16 05:00 INR, PTT INR 1.30 (0.82-1.09) H 11/30/16 12:40 Problem List - Problems (1) Acute renal failure Code(s): N17.9 - ACUTE KIDNEY FAILURE, UNSPECIFIED Qualifiers: Acute renal failure type: unspecified Qualified Code(s): N17.9 - Acute kidney failure, unspecified; N17.9 - Acute kidney failure, unspecified; N17.9 - Acute kidney failure, unspecified (2) Perforated abdominal viscus Code(s): [id number] - (3) Septic shock Code(s): A41.9 - SEPSIS, UNSPECIFIED ORGANISM R65.21 - SEVERE SEPSIS WITH SEPTIC SHOCK Assessment/Plan Current Medications Generic Name Dose Route Start Last Admin Trade Name Freq PRN Reason Stop Dose Admin Chlorhexidine Gluconate 1 applic 12/02/16 22:00 12/03/16 03:44 Hibiclens For Decolonization - TP Not Given HS DIAN Piperacillin/Tazobactam/Dextrose 50 mls @ 100 mls/hr 12/02/16 21:00 12/03/16 10 :00 Zosyn 3.375gm Ivpb (Premix) IVPB 100 mls/hr Q6H-IV DIAN Administration Protocol Ondansetron HCl 4 mg 12/02/16 13:35 Zofran Injection IVPB Q4H PRN NAUSEA AND/OR VOMITING Oxycodone HCl 10 mg 12/02/16 13:35 12/03/16 12:55 Roxicodone - PO 10 mg Q4H PRN Administration PAIN Pantoprazole Sodium 40 mg 12/03/16 10:00 12/03/16 10:03 Protonix Iv IVPUSH 40 mg DAILY DIAN Administration Potassium Phos/Sodium Phos 1 packet 12/02/16 22:00 12/03/16 10:00 Phos-Nak Packet - PO 1 packet BID DIAN Administration Laboratory Tests 11/30/16 05:00 TAYLOR M-Celio Not observed CALI Screen Negative c-ANCA <1:20 Proteinase 3 (PR3) <3.5 p-ANCA <1:20 Atypical p-ANCA <1:20 Myeloperoxidase Ab <9.0 Double Strand DNA Ab <1 Glomerular Base Memb Ab 3 Laboratory Tests 12/03/16 05:00 Potassium 4.4 D Magnesium 1.8 Impression 1. PAYAM 2. nephrolithiasis 3. perforated viscus 4. sepsis 5. hypotension 6. anemia 7. possible CKD Plan - renal workup negative so far - renal function is improving - potassium level is improved - monitor hg - likely ATN from hypotension and sepsis Dr Gardner
[2016-12-03] MEDS ORDERED: ONDANSETRON 4 MG/2 ML VIAL IVPB PRN (14:47)
--- NOTE | 2016-12-03 15:51 | PN ---
Progress Note, Physician History of Present Illness: patient stable no issues doing well - Current Medication List Current Medications: Active Medications Chlorhexidine Gluconate (Hibiclens For Decolonization -) 1 applic TP HS DIAN Piperacillin/Tazobactam/Dextrose (Zosyn 3.375gm Ivpb (Premix)) 50 mls @ 100 mls /hr IVPB Q6H-IV DIAN PRN Reason: Protocol Ondansetron HCl (Zofran Injection) 4 mg IVPB Q4H PRN PRN Reason: NAUSEA AND/OR VOMITING Oxycodone HCl (Roxicodone -) 10 mg PO Q4H PRN PRN Reason: PAIN Pantoprazole Sodium (Protonix Iv) 40 mg IVPUSH DAILY DI[facility] Potassium Phos/Sodium Phos (Phos-Nak Packet -) 1 packet PO BID DIAN - Objective Vital Signs: Vital Signs Temperature 98.6 F 12/03/16 14:00 Pulse Rate 78 12/03/16 14:00 Respiratory Rate 20 12/03/16 14:00 Blood Pressure 130/75 12/03/16 14:00 O2 Sat by Pulse Oximetry (%) 96 12/03/16 07:43 Constitutional: Yes: No Distress, Calm Cardiovascular: Yes: Regular Rate and Rhythm Respiratory: Yes: Regular, CTA Bilaterally Gastrointestinal: Yes: Soft, Other (colostomy in place) Musculoskeletal: Yes: WNL Extremities: Yes: WNL Neurological: Yes: Alert, Oriented Psychiatric: Yes: Alert, Oriented Labs: CBC, BMP 12/03/16 05:00 12/03/16 05:00 INR, PTT INR 1.30 (0.82-1.09) H 11/30/16 12:40 Assessment/Plan POD #1 Exploratory laparotomy, splenic flexure mobilization, extended left hemicolectomy, diverting transverse colostomy, abdominal washout PAYAM Problem List - Problems (1) Acute renal failure Code(s): N17.9 - ACUTE KIDNEY FAILURE, UNSPECIFIED Qualifiers: Acute renal failure type: unspecified Qualified Code(s): N17.9 - Acute kidney failure, unspecified; N17.9 - Acute kidney failure, unspecified; N17.9 - Acute kidney failure, unspecified (2) Perforated abdominal viscus Code(s): [id number] - (3) Septic shock Code(s): A41.9 - SEPSIS, UNSPECIFIED ORGANISM R65.21 - SEVERE SEPSIS WITH SEPTIC SHOCK plan continue hydration continue abx close monitoring of wbc monitor h and h rest as per icu cc time 40 min
--- NOTE | 2016-12-03 16:32 | PN ---
Progress Note (short form) - Note Progress Note: Subjective: The patient was seen and examined at the bedside, he has no complaints at this time. He reports ambulating around the room Current Medications Generic Name Dose Route Start Last Admin Trade Name Freq PRN Reason Stop Dose Admin Chlorhexidine Gluconate 1 applic 12/03/16 22:00 Hibiclens For Decolonization - TP HS DIAN Piperacillin/Tazobactam/Dextrose 50 mls @ 100 mls/hr 12/03/16 15:00 Zosyn 3.375gm Ivpb (Premix) IVPB Q6H-IV DIAN Protocol Ondansetron HCl 4 mg 12/03/16 14:47 Zofran Injection IVPB Q4H PRN NAUSEA AND/OR VOMITING Oxycodone HCl 10 mg 12/03/16 14:47 Roxicodone - PO Q4H PRN PAIN Pantoprazole Sodium 40 mg 12/04/16 10:00 Protonix Iv IVPUSH DAILY DIAN Potassium Phos/Sodium Phos 1 packet 12/03/16 22:00 Phos-Nak Packet - PO BID DIAN Objective: Vital Signs Period Temp Pulse Resp BP Sys/Medina Pulse Ox Last 24 Hr 98.2 F-99.0 F 78-102 12-20 116-139/75-91 96-96 Physical Exam: General: NAD, A&Ox3 Lungs: CTA bilaterally Heart: RRR, S1S2 Abd: Midline dressing c/d/i with KEYA drain with serosangenous fluid. LUQ ostomy with brown liquid Ext: Warm, well-perfused. 2+ DP/PT bilaterally Neuro: CN 2-12 intact CBCD WBC 21.4 K/mm3 (4.0-10.0) H 12/03/16 05:00 RBC 3.05 M/mm3 (4.00-5.60) L 12/03/16 05:00 Hgb 8.6 GM/dL (11.7-16.9) L 12/03/16 05:00 Hct 25.6 % (35.4-49) L 12/03/16 05:00 MCV 84.1 fl (80-96) 12/03/16 05:00 MCHC 33.7 g/dl (32.0-35.9) 12/03/16 05:00 RDW 14.8 % (11.9-15.9) 12/03/16 05:00 Plt Count 323 K/MM3 (134-434) 12/03/16 05:00 MPV 8.7 fl (7.5-11.1) 12/03/16 05:00 CMP Sodium 138 mmol/L (136-145) 12/03/16 05:00 Potassium 4.4 mmol/L (3.5-5.1) D 12/03/16 05:00 Chloride 102 mmol/L (98-107) 12/03/16 05:00 Carbon Dioxide 30 mmol/L (21-32) 12/03/16 05:00 Anion Gap 6 (8-16) L 12/03/16 05:00 BUN 11 mg/dL (7-18) D 12/03/16 05:00 Creatinine 1.1 mg/dL (0.7-1.3) 12/03/16 05:00 Creat Clearance w eGFR > 60 (>60) 12/03/16 05:00 Random Glucose 80 mg/dL (74-106) 12/03/16 05:00 Calcium 7.6 mg/dL (8.5-10.1) L 12/03/16 05:00 Total Bilirubin 1.1 mg/dL (0.2-1.0) H D 12/03/16 05:00 AST 20 U/L (15-37) 12/03/16 05:00 ALT 35 U/L (12-78) 12/03/16 05:00 Alkaline Phosphatase 65 U/L (45-117) 12/03/16 05:00 Total Protein 4.7 g/dl (6.4-8.2) L 12/03/16 05:00 Albumin 1.7 g/dl (3.4-5.0) L 12/03/16 05:00 Microbiology 12/02/16 09:57 Stool Salmonella/Shigella Culture - Preliminary NO ENTERIC PATHOGENS, 24 HOURS, ON PRIMARY PLATES 12/02/16 09:57 Stool Yersinia Culture - Preliminary NO ENTERIC PATHOGENS, 24 HOURS, ON PRIMARY PLATES 12/02/16 09:57 Stool Vibrio Culture - Final NO GROWTH OF VIBRIO SPECIES OBTAINED 12/02/16 09:57 Stool Escherichia coli 0157 Culture - Final NO GROWTH OF E COLI 0157 OBTAINED 11/27/16 19:43 Blood - Peripheral Venous Blood Culture - Final NO GROWTH AFTER 5 DAYS INCUBATION 11/27/16 19:43 Blood - Peripheral Venous Blood Culture - Final NO GROWTH AFTER 5 DAYS INCUBATION 11/27/16 Unknown Peritoneal Fluid Gram Stain - Final 11/27/16 Unknown Peritoneal Fluid Body Fluid Culture - Final Escherichia Coli Klebsiella Pneumoniae 11/27/16 Unknown Peritoneal Fluid Anaerobic Culture - Final NO ANAEROBES WERE ISOLATED 11/27/16 16:41 Urine - Urine Clean Catch Urine Culture - Final NO GROWTH OBTAINED Assessment: Thi sis a 51 year old male with PMHx of GERD who presented to the ED with left flank pain and was found to have an abdominal perforation. Plan: 1. Septic shock d/t perforated descending colon with retroperitoneal abscess cavity - S/p Left hemicolectomy, with diverting transverse colostomy, abdominal washout on 11/28/16 - Continue zosyn (renal dose) (11/17- ) - WBC stable, CTAP 11/30 shows no abscess or obstruction - Diet advanced, tolerating regular - Appreciate surgery consult - Appreciate ID consult 2. PAYAM on possible CKD - Cr wnl - Patient voiding - Appreciate nephrology consult 3. Acute blood loss anemia - Hgb stable, 8.1 today - Transfused for hgb <8 - Transfused 1uprbc 11/30 - Check stool occult blood 4. F/E/N: - Hypophosphatemia: replete - Regular diet - Monitor electrolytes 5. Prophylaxis: - SCDs bilaterally 6. Dispo: - Requires continued inpatient care CODE STATUS: FULL CODE Visit type - Emergency Visit Emergency Visit: Yes ED Registration Date: 11/27/16 Care time: The patient presented to the Emergency Department on the above date and was hospitalized for further evaluation of their emergent condition. - New Patient This patient is new to me today: No - Critical Care Critical Care patient: No
[2016-12-04] MEDS: PIPERACILLIN/TAZOB 3.375 GM 50 ML IVPB SCH ×4 (02:00→21:10)
[2016-12-04] MEDS: oxyCODONE HCL 5 MG TABLET PO PRN ×5 (02:04→20:34)
[2016-12-04 08:39] LABS: MCH 27.7 pg (25.7-33.7); MCHC 32.6 g/dl (32.0-35.9); MEAN CELL VOLUME 84.8 fl (80-96); MEAN PLT VOLUME 8.3 fl (7.5-11.1); PLATELET COUNT 387 K/MM3 (134-434); RDW 15.1 % (11.9-15.9); WHITE BLOOD COUNT 22.6 K/mm3 (4.0-10.0)
[2016-12-04 09:19] LABS: ALBUMIN 1.8 g/dl (3.4-5.0); ALK PHOS 61 U/L (45-117); ANION GAP 7 (8-16); BILIRUBIN,TOTAL 1.1 mg/dL (0.2-1.0); CO2 28 mmol/L (21-32); GLUCOSE,RANDOM 93 mg/dL (74-106); SGOT/AST 19 U/L (15-37); SGPT/ALT 31 U/L (12-78); TOT PROT 5.1 g/dl (6.4-8.2)
[2016-12-04] MEDS: NAPH,MB-DB/K PH,MBDB POWDER PACKET PO SCH ×2 (10:14→21:10)
[2016-12-04] MEDS: PANTOPRAZOLE SODIUM 40 MG VIAL IVPUSH SCH (11:31)
--- NOTE | 2016-12-04 12:27 | PN ---
Progress Note (short form) - Note Progress Note: RENAL pt awake and alert comfortable urinating well Last Vital Signs Temp Pulse Resp BP Pulse Ox 98.4 F 85 20 121/75 96 12/04/16 05:02 12/04/16 05:02 12/04/16 05:02 12/04/16 05:02 12/03/16 20:10 lungs clear cvs s1s2 rr abd soft, has a colostomy bag ext no edema neuro a+ox3 CBC, BMP 12/04/16 07:30 12/04/16 07:30 Impression 1. PAYAM 2. nephrolithiasis 3. perforated viscus 4. sepsis 5. hypotension 6. anemia 7. possible CKD Plan avoid nephrotoxins and hypotension hematuria will need to be evaluated. Perhaps its just from nephrolithiasisi MV
--- NOTE | 2016-12-04 12:49 | PN ---
Progress Note (short form) - Note Progress Note: Subjective: The patient was seen and examined at the bedside, he has no complaints at this time. Current Medications Generic Name Dose Route Start Last Admin Trade Name Freq PRN Reason Stop Dose Admin Chlorhexidine Gluconate 1 applic 12/03/16 22:00 12/03/16 21:05 Hibiclens For Decolonization - TP Not Given HS DIAN Piperacillin/Tazobactam/Dextrose 50 mls @ 100 mls/hr 12/03/16 15:00 12/04/16 10 :14 Zosyn 3.375gm Ivpb (Premix) IVPB 100 mls/hr Q6H-IV DIAN Administration Protocol Ondansetron HCl 4 mg 12/03/16 14:47 Zofran Injection IVPB Q4H PRN NAUSEA AND/OR VOMITING Oxycodone HCl 10 mg 12/03/16 14:47 12/04/16 11:34 Roxicodone - PO 10 mg Q4H PRN Administration PAIN Pantoprazole Sodium 40 mg 12/04/16 10:00 12/04/16 11:31 Protonix Iv IVPUSH 40 mg DAILY DIAN Administration Potassium Phos/Sodium Phos 1 packet 12/03/16 22:00 12/04/16 10:14 Phos-Nak Packet - PO 1 packet BID DIAN Administration Objective: Vital Signs Period Temp Pulse Resp BP Sys/Medina Pulse Ox Last 24 Hr 97.3 F-98.8 F 78-103 18-20 121-155/75-87 96-96 Physical Exam: General: NAD, A&Ox3 Lungs: CTA bilaterally Heart: RRR, S1S2 Abd: Midline dressing c/d/i with KEYA drain with scant amount of dark, bloody fluid. LUQ ostomy with brown liquid Ext: Warm, well-perfused. 2+ DP/PT bilaterally Neuro: CN 2-12 intact CBCD WBC 22.6 K/mm3 (4.0-10.0) H 12/04/16 07:30 RBC 3.25 M/mm3 (4.00-5.60) L 12/04/16 07:30 Hgb 9.0 GM/dL (11.7-16.9) L 12/04/16 07:30 Hct 27.5 % (35.4-49) L 12/04/16 07:30 MCV 84.8 fl (80-96) 12/04/16 07:30 MCHC 32.6 g/dl (32.0-35.9) 12/04/16 07:30 RDW 15.1 % (11.9-15.9) 12/04/16 07:30 Plt Count 387 K/MM3 (134-434) 12/04/16 07:30 MPV 8.3 fl (7.5-11.1) 12/04/16 07:30 CMP Sodium 138 mmol/L (136-145) 12/04/16 07:30 Potassium 4.2 mmol/L (3.5-5.1) 12/04/16 07:30 Chloride 103 mmol/L (98-107) 12/04/16 07:30 Carbon Dioxide 28 mmol/L (21-32) 12/04/16 07:30 Anion Gap 7 (8-16) L 12/04/16 07:30 BUN 11 mg/dL (7-18) 12/04/16 07:30 Creatinine 1.0 mg/dL (0.7-1.3) 12/04/16 07:30 Creat Clearance w eGFR > 60 (>60) 12/04/16 07:30 Random Glucose 93 mg/dL (74-106) 12/04/16 07:30 Calcium 8.0 mg/dL (8.5-10.1) L 12/04/16 07:30 Total Bilirubin 1.1 mg/dL (0.2-1.0) H 12/04/16 07:30 AST 19 U/L (15-37) 12/04/16 07:30 ALT 31 U/L (12-78) 12/04/16 07:30 Alkaline Phosphatase 61 U/L (45-117) 12/04/16 07:30 Total Protein 5.1 g/dl (6.4-8.2) L 12/04/16 07:30 Albumin 1.8 g/dl (3.4-5.0) L 12/04/16 07:30 Microbiology 12/02/16 09:57 Stool Salmonella/Shigella Culture - Final NO GROWTH OF SALMONELLA OR SHIGELLA SPECIES OBTAINED 12/02/16 09:57 Stool Campylobacter Culture - Final NO GROWTH OF CAMPYLOBACTER SPECIES OBTAINED 12/02/16 09:57 Stool Yersinia Culture - Final NO GROWTH OF YERSINIA SPECIES OBTAINED 12/02/16 09:57 Stool Vibrio Culture - Final NO GROWTH OF VIBRIO SPECIES OBTAINED 12/02/16 09:57 Stool Escherichia coli 0157 Culture - Final NO GROWTH OF E COLI 0157 OBTAINED 11/27/16 19:43 Blood - Peripheral Venous Blood Culture - Final NO GROWTH AFTER 5 DAYS INCUBATION 11/27/16 19:43 Blood - Peripheral Venous Blood Culture - Final NO GROWTH AFTER 5 DAYS INCUBATION 11/27/16 Unknown Peritoneal Fluid Gram Stain - Final 11/27/16 Unknown Peritoneal Fluid Body Fluid Culture - Final Escherichia Coli Klebsiella Pneumoniae 11/27/16 Unknown Peritoneal Fluid Anaerobic Culture - Final NO ANAEROBES WERE ISOLATED 11/27/16 16:41 Urine - Urine Clean Catch Urine Culture - Final NO GROWTH OBTAINED Assessment: Thi sis a 51 year old male with PMHx of GERD who presented to the ED with left flank pain and was found to have an abdominal perforation. Plan: 1. Septic shock d/t perforated descending colon with retroperitoneal abscess cavity - S/p Left hemicolectomy, with diverting transverse colostomy, abdominal washout on 11/28/16 - Continue zosyn (renal dose) (11/17- ) - WBC elevated, but stable, CTAP 11/30 shows no abscess or obstruction - Diet advanced, tolerating regular - Appreciate surgery consult - Appreciate ID consult 2. PAYAM - Resolved - Patient voiding well - Appreciate nephrology consult 3. Acute blood loss anemia - Hgb stable - Transfused for hgb <8 - Transfused 1uprbc 11/30 - Check stool occult blood 4. F/E/N: - Hypophosphatemia: check level today - Regular diet - Monitor electrolytes 5. Prophylaxis: - SCDs bilaterally 6. Dispo: - Requires continued inpatient care CODE STATUS: FULL CODE Visit type - Emergency Visit Emergency Visit: Yes ED Registration Date: 11/27/16 Care time: The patient presented to the Emergency Department on the above date and was hospitalized for further evaluation of their emergent condition. - New Patient This patient is new to me today: No - Critical Care Critical Care patient: No
--- NOTE | 2016-12-04 13:54 | PN ---
Progress Note, Physician - Current Medication List Current Medications: Active Medications Chlorhexidine Gluconate (Hibiclens For Decolonization -) 1 applic TP HS [facility] Last Admin: 12/03/16 21:05 Dose: Not Given Piperacillin/Tazobactam/Dextrose (Zosyn 3.375gm Ivpb (Premix)) 50 mls @ 100 mls /hr IVPB Q6H-IV DIAN PRN Reason: Protocol Last Admin: 12/04/16 10:14 Dose: 100 mls/hr Ondansetron HCl (Zofran Injection) 4 mg IVPB Q4H PRN PRN Reason: NAUSEA AND/OR VOMITING Oxycodone HCl (Roxicodone -) 10 mg PO Q4H PRN PRN Reason: PAIN Last Admin: 12/04/16 11:34 Dose: 10 mg Pantoprazole Sodium (Protonix Iv) 40 mg IVPUSH DAILY [facility] Last Admin: 12/04/16 11:31 Dose: 40 mg Potassium Phos/Sodium Phos (Phos-Nak Packet -) 1 packet PO BID DIAN Last Admin: 12/04/16 10:14 Dose: 1 packet - Objective Vital Signs: Vital Signs Temperature 97.3 F L 12/04/16 10:00 Pulse Rate 86 12/04/16 10:00 Respiratory Rate 18 12/04/16 10:00 Blood Pressure 123/77 12/04/16 10:00 O2 Sat by Pulse Oximetry (%) 96 12/03/16 20:10 Labs: CBC, BMP 12/04/16 07:30 12/04/16 07:30 INR, PTT INR 1.30 (0.82-1.09) H 11/30/16 12:40 Assessment/Plan Covering for Dr. Powell. Notified today of this patient . Patient is s/p drainage of retroperitoneal abscess from colonic perforation , with a diverting transverse colostomy. He was operated on 11/28/2016. Patient is comfortable. He has no complaints. Dressing changed and packing is removed. Wound is clean. Colostomy is functioning, He is tolerating diet. Wbc is [place] [id number]. Impression : S/p perforated colonic diverticulitis, with retroperitoneal abscess. Drainage and diverting colostomy done. drain is in place. Continue antibiotics. Follow up abdominal CT scan ordered. Patient is informed.
--- NOTE | 2016-12-04 14:16 | PN ---
Progress Note, Physician History of Present Illness: patient stable no issues doing well wbc still climbing - Current Medication List Current Medications: Active Medications Chlorhexidine Gluconate (Hibiclens For Decolonization -) 1 applic TP HS [facility] Last Admin: 12/03/16 21:05 Dose: Not Given Piperacillin/Tazobactam/Dextrose (Zosyn 3.375gm Ivpb (Premix)) 50 mls @ 100 mls /hr IVPB Q6H-IV DIAN PRN Reason: Protocol Last Admin: 12/04/16 10:14 Dose: 100 mls/hr Ondansetron HCl (Zofran Injection) 4 mg IVPB Q4H PRN PRN Reason: NAUSEA AND/OR VOMITING Oxycodone HCl (Roxicodone -) 10 mg PO Q4H PRN PRN Reason: PAIN Last Admin: 12/04/16 11:34 Dose: 10 mg Pantoprazole Sodium (Protonix Iv) 40 mg IVPUSH DAILY [facility] Last Admin: 12/04/16 11:31 Dose: 40 mg Potassium Phos/Sodium Phos (Phos-Nak Packet -) 1 packet PO BID [facility] Last Admin: 12/04/16 10:14 Dose: 1 packet - Objective Vital Signs: Vital Signs Temperature 97.3 F L 12/04/16 10:00 Pulse Rate 86 12/04/16 10:00 Respiratory Rate 18 12/04/16 10:00 Blood Pressure 123/77 12/04/16 10:00 O2 Sat by Pulse Oximetry (%) 96 12/03/16 20:10 Constitutional: Yes: No Distress, Calm Cardiovascular: Yes: Regular Rate and Rhythm Respiratory: Yes: Regular, CTA Bilaterally Gastrointestinal: Yes: Normal Bowel Sounds, Soft, Other (fning colostomy) Musculoskeletal: Yes: WNL Extremities: Yes: WNL Wound/Incision: Yes: Dressing Removed Neurological: Yes: Alert, Oriented Psychiatric: Yes: Alert, Oriented Labs: CBC, BMP 12/04/16 07:30 12/04/16 07:30 INR, PTT INR 1.30 (0.82-1.09) H 11/30/16 12:40 Assessment/Plan POD #1 Exploratory laparotomy, splenic flexure mobilization, extended left hemicolectomy, diverting transverse colostomy, abdominal washout PAYAM Problem List - Problems (1) Acute renal failure Code(s): N17.9 - ACUTE KIDNEY FAILURE, UNSPECIFIED Qualifiers: Acute renal failure type: unspecified Qualified Code(s): N17.9 - Acute kidney failure, unspecified; N17.9 - Acute kidney failure, unspecified; N17.9 - Acute kidney failure, unspecified (2) Perforated abdominal viscus Code(s): GUY1924 - (3) Septic shock Code(s): A41.9 - SEPSIS, UNSPECIFIED ORGANISM R65.21 - SEVERE SEPSIS WITH SEPTIC SHOCK plan continue hydration continue abx wbc still trending up should repeat imaging studies rest as per primary
[2016-12-04 21:10] LABS: PHOSPHOROUS 2.4 mg/dL (2.5-4.9)
[2016-12-04] MEDS: CHLORHEXIDINE GLUCONATE 4% CLEANSER FOR DECOLONIZATION TP SCH (21:10)
[2016-12-05] MEDS: oxyCODONE HCL 5 MG TABLET PO PRN ×4 (00:39→18:41)
[2016-12-05] MEDS: PIPERACILLIN/TAZOB 3.375 GM 50 ML IVPB SCH ×4 (02:09→21:36)
[2016-12-05 08:43] LABS: MCH 28.2 pg (25.7-33.7); MCHC 33.5 g/dl (32.0-35.9); MEAN CELL VOLUME 84.1 fl (80-96); MEAN PLT VOLUME 7.7 fl (7.5-11.1); PLATELET COUNT 438 K/MM3 (134-434); RDW 14.9 % (11.9-15.9); WHITE BLOOD COUNT 21.2 K/mm3 (4.0-10.0)
[2016-12-05 09:21] LABS: ALBUMIN 1.9 g/dl (3.4-5.0); ANION GAP 6 (8-16); CALCIUM 8.2 mg/dL (8.5-10.1); CO2 29 mmol/L (21-32); GLUCOSE,RANDOM 76 mg/dL (74-106)
[2016-12-05 09:24] LABS: ALK PHOS 63 U/L (45-117); BILIRUBIN,TOTAL 1.1 mg/dL (0.2-1.0); CREATININE 1.1 mg/dL (0.7-1.3); PHOSPHOROUS 2.6 mg/dL (2.5-4.9); SGOT/AST 20 U/L (15-37); SGPT/ALT 37 U/L (12-78); TOT PROT 5.2 g/dl (6.4-8.2)
[2016-12-05] MEDS: NAPH,MB-DB/K PH,MBDB POWDER PACKET PO SCH ×2 (09:57→21:43)
[2016-12-05] MEDS: PANTOPRAZOLE SODIUM 40 MG VIAL IVPUSH SCH (09:58)
--- NOTE | 2016-12-05 12:07 | PN ---
Progress Note (short form) - Note Progress Note: Subjective: The patient was seen and examined at the bedside, he has no complaints at this time. WBC stable at 21.2 today Current Medications Generic Name Dose Route Start Last Admin Trade Name Freq PRN Reason Stop Dose Admin Chlorhexidine Gluconate 1 applic 12/03/16 22:00 12/04/16 21:10 Hibiclens For Decolonization - TP Not Given HS DIAN Piperacillin/Tazobactam/Dextrose 50 mls @ 100 mls/hr 12/03/16 15:00 12/05/16 10 :28 Zosyn 3.375gm Ivpb (Premix) IVPB 100 mls/hr Q6H-IV DIAN Administration Protocol Ondansetron HCl 4 mg 12/03/16 14:47 Zofran Injection IVPB Q4H PRN NAUSEA AND/OR VOMITING Oxycodone HCl 10 mg 12/03/16 14:47 12/05/16 04:54 Roxicodone - PO 10 mg Q4H PRN Administration PAIN Pantoprazole Sodium 40 mg 12/04/16 10:00 12/05/16 09:58 Protonix Iv IVPUSH 40 mg DAILY DIAN Administration Potassium Phos/Sodium Phos 1 packet 12/03/16 22:00 12/05/16 09:57 Phos-Nak Packet - PO 1 packet BID DIAN Administration Objective: Vital Signs Period Temp Pulse Resp BP Sys/Medina Pulse Ox Last 24 Hr 98.1 F-99 F 89-99 18-20 121-133/75-84 96 Physical Exam: General: NAD, A&Ox3 Lungs: CTA bilaterally Heart: RRR, S1S2 Abd: Midline dressing with inferior portion dried blood. KEYA drain with scant amount of dark, bloody fluid. LUQ ostomy with brown liquid Ext: Warm, well-perfused. 2+ DP/PT bilaterally Neuro: CN 2-12 intact CBCD WBC 21.2 K/mm3 (4.0-10.0) H 12/05/16 08:35 RBC 3.08 M/mm3 (4.00-5.60) L 12/05/16 08:35 Hgb 8.7 GM/dL (11.7-16.9) L 12/05/16 08:35 Hct 25.9 % (35.4-49) L 12/05/16 08:35 MCV 84.1 fl (80-96) 12/05/16 08:35 MCHC 33.5 g/dl (32.0-35.9) 12/05/16 08:35 RDW 14.9 % (11.9-15.9) 12/05/16 08:35 Plt Count 438 K/MM3 (134-434) H 12/05/16 08:35 MPV 7.7 fl (7.5-11.1) 12/05/16 08:35 CMP Sodium 136 mmol/L (136-145) 12/05/16 08:35 Potassium 4.2 mmol/L (3.5-5.1) 12/05/16 08:35 Chloride 101 mmol/L (98-107) 12/05/16 08:35 Carbon Dioxide 29 mmol/L (21-32) 12/05/16 08:35 Anion Gap 6 (8-16) L 12/05/16 08:35 BUN 9 mg/dL (7-18) 12/05/16 08:35 Creatinine 1.1 mg/dL (0.7-1.3) 12/05/16 08:35 Creat Clearance w eGFR > 60 (>60) 12/05/16 08:35 Random Glucose 76 mg/dL (74-106) 12/05/16 08:35 Calcium 8.2 mg/dL (8.5-10.1) L 12/05/16 08:35 Total Bilirubin 1.1 mg/dL (0.2-1.0) H 12/05/16 08:35 AST 20 U/L (15-37) 12/05/16 08:35 ALT 37 U/L (12-78) 12/05/16 08:35 Alkaline Phosphatase 63 U/L (45-117) 12/05/16 08:35 Total Protein 5.2 g/dl (6.4-8.2) L 12/05/16 08:35 Albumin 1.9 g/dl (3.4-5.0) L 12/05/16 08:35 Microbiology 12/02/16 09:57 Stool Salmonella/Shigella Culture - Final NO GROWTH OF SALMONELLA OR SHIGELLA SPECIES OBTAINED 12/02/16 09:57 Stool Campylobacter Culture - Final NO GROWTH OF CAMPYLOBACTER SPECIES OBTAINED 12/02/16 09:57 Stool Yersinia Culture - Final NO GROWTH OF YERSINIA SPECIES OBTAINED 12/02/16 09:57 Stool Vibrio Culture - Final NO GROWTH OF VIBRIO SPECIES OBTAINED 12/02/16 09:57 Stool Escherichia coli 0157 Culture - Final NO GROWTH OF E COLI 0157 OBTAINED 11/27/16 19:43 Blood - Peripheral Venous Blood Culture - Final NO GROWTH AFTER 5 DAYS INCUBATION 11/27/16 19:43 Blood - Peripheral Venous Blood Culture - Final NO GROWTH AFTER 5 DAYS INCUBATION 11/27/16 Unknown Peritoneal Fluid Gram Stain - Final 11/27/16 Unknown Peritoneal Fluid Body Fluid Culture - Final Escherichia Coli Klebsiella Pneumoniae 11/27/16 Unknown Peritoneal Fluid Anaerobic Culture - Final NO ANAEROBES WERE ISOLATED 11/27/16 16:41 Urine - Urine Clean Catch Urine Culture - Final NO GROWTH OBTAINED Assessment: This is a 51 year old male with PMHx of GERD who presented to the ED with left flank pain and was found to have an abdominal perforation. Plan: 1. Septic shock d/t perforated descending colon with retroperitoneal abscess cavity - S/p Left hemicolectomy, with diverting transverse colostomy, abdominal washout on 11/28/16 - Continue zosyn (renal dose) (11/17- ) - WBC elevated, but stable, CTAP 11/30 shows no abscess or obstruction - Per ID and surgery, will repeat CTAP on 12/06 with contrast - Appreciate surgery consult - Appreciate ID consult 2. PAYAM - Resolved - Appreciate nephrology consult 3. Acute blood loss anemia - Hgb stable - Transfused for hgb <8 - Transfused 1uprbc 11/30 - Check stool occult blood 4. F/E/N: - Hypophosphatemia: check level today - Regular diet - Monitor electrolytes 5. Prophylaxis: - SCDs bilaterally 6. Dispo: - Requires continued inpatient care CODE STATUS: FULL CODE Visit type - Emergency Visit Emergency Visit: Yes ED Registration Date: 11/27/16 Care time: The patient presented to the Emergency Department on the above date and was hospitalized for further evaluation of their emergent condition. - New Patient This patient is new to me today: No - Critical Care Critical Care patient: No
--- NOTE | 2016-12-05 12:52 | PN ---
Progress Note, Physician History of Present Illness: patient stable no issues doing well wbc marginally low - Current Medication List Current Medications: Active Medications Chlorhexidine Gluconate (Hibiclens For Decolonization -) 1 applic TP HS [facility] Last Admin: 12/04/16 21:10 Dose: Not Given Piperacillin/Tazobactam/Dextrose (Zosyn 3.375gm Ivpb (Premix)) 50 mls @ 100 mls /hr IVPB Q6H-IV DIAN PRN Reason: Protocol Last Admin: 12/05/16 10:28 Dose: 100 mls/hr Ondansetron HCl (Zofran Injection) 4 mg IVPB Q4H PRN PRN Reason: NAUSEA AND/OR VOMITING Oxycodone HCl (Roxicodone -) 10 mg PO Q4H PRN PRN Reason: PAIN Last Admin: 12/05/16 12:01 Dose: 10 mg Pantoprazole Sodium (Protonix Iv) 40 mg IVPUSH DAILY [facility] Last Admin: 12/05/16 09:58 Dose: 40 mg Potassium Phos/Sodium Phos (Phos-Nak Packet -) 1 packet PO BID [facility] Last Admin: 12/05/16 09:57 Dose: 1 packet - Objective Vital Signs: Vital Signs Temperature 99 F 12/05/16 06:00 Pulse Rate 90 12/05/16 06:00 Respiratory Rate 18 12/05/16 06:00 Blood Pressure 133/80 12/05/16 06:00 O2 Sat by Pulse Oximetry (%) 96 12/04/16 21:00 Constitutional: Yes: No Distress, Calm HENT: Yes: Atraumatic Cardiovascular: Yes: Regular Rate and Rhythm Respiratory: Yes: Regular, CTA Bilaterally Gastrointestinal: Yes: Normal Bowel Sounds, Soft Musculoskeletal: Yes: WNL Extremities: Yes: WNL Neurological: Yes: Alert, Oriented Psychiatric: Yes: Alert Labs: CBC, BMP 12/05/16 08:35 12/05/16 08:35 INR, PTT INR 1.30 (0.82-1.09) H 11/30/16 12:40 Assessment/Plan Exploratory laparotomy, splenic flexure mobilization, extended left hemicolectomy, diverting transverse colostomy, abdominal washout PAYAM Problem List - Problems (1) Acute renal failure Code(s): N17.9 - ACUTE KIDNEY FAILURE, UNSPECIFIED Qualifiers: Acute renal failure type: unspecified Qualified Code(s): N17.9 - Acute kidney failure, unspecified; N17.9 - Acute kidney failure, unspecified; N17.9 - Acute kidney failure, unspecified (2) Perforated abdominal viscus Code(s): NMB0504 - (3) Septic shock Code(s): A41.9 - SEPSIS, UNSPECIFIED ORGANISM R65.21 - SEVERE SEPSIS WITH SEPTIC SHOCK plan continue abx monitor wbc if wbc does not decrease then ct of the abd rest as per surgery
[2016-12-05] MEDS: CHLORHEXIDINE GLUCONATE 4% CLEANSER FOR DECOLONIZATION TP SCH (21:32)
[2016-12-06] MEDS: oxyCODONE HCL 5 MG TABLET PO PRN ×3 (00:30→23:25)
[2016-12-06] MEDS: PIPERACILLIN/TAZOB 3.375 GM 50 ML IVPB SCH ×4 (02:14→21:12)
[2016-12-06 08:04] LABS: BASOPHIL 0.4 % (0-2.0); EOSINOPHIL 1.1 % (0-4.5); MCH 27.6 pg (25.7-33.7); MCHC 33.1 g/dl (32.0-35.9); MEAN CELL VOLUME 83.2 fl (80-96); MEAN PLT VOLUME 7.3 fl (7.5-11.1); PLATELET COUNT 452 K/MM3 (134-434); RDW 14.6 % (11.9-15.9); WHITE BLOOD COUNT 22.7 K/mm3 (4.0-10.0)
[2016-12-06 08:35] LABS: ALBUMIN 1.8 g/dl (3.4-5.0); ANION GAP 6 (8-16); CALCIUM 8.2 mg/dL (8.5-10.1); CO2 28 mmol/L (21-32); GLUCOSE,RANDOM 82 mg/dL (74-106)
[2016-12-06 08:38] LABS: ALK PHOS 58 U/L (45-117); BILIRUBIN,TOTAL 1.3 mg/dL (0.2-1.0); SGOT/AST 19 U/L (15-37); SGPT/ALT 34 U/L (12-78); TOT PROT 5.1 g/dl (6.4-8.2)
[2016-12-06] MEDS ORDERED: PT OWN MED DRAWER 7, Y5N ONE (09:06)
[2016-12-06] MEDS: NAPH,MB-DB/K PH,MBDB POWDER PACKET PO SCH ×2 (09:19→21:12)
[2016-12-06] MEDS: PANTOPRAZOLE SODIUM 40 MG VIAL IVPUSH SCH (09:19)
--- NOTE | 2016-12-06 11:23 | PN ---
Progress Note, Physician History of Present Illness: Pt seen and examined at bedside. He is awake and alert. He denies shortness of breath. He is tolerating appetite. - Current Medication List Current Medications: Active Medications Piperacillin/Tazobactam/Dextrose (Zosyn 3.375gm Ivpb (Premix)) 50 mls @ 100 mls /hr IVPB Q6H-IV DIAN PRN Reason: Protocol Last Admin: 12/06/16 09:19 Dose: 100 mls/hr Ondansetron HCl (Zofran Injection) 4 mg IVPB Q4H PRN PRN Reason: NAUSEA AND/OR VOMITING Oxycodone HCl (Roxicodone -) 10 mg PO Q4H PRN PRN Reason: PAIN Last Admin: 12/06/16 09:47 Dose: 10 mg Pantoprazole Sodium (Protonix Iv) 40 mg IVPUSH DAILY [facility] Last Admin: 12/06/16 09:19 Dose: 40 mg Potassium Phos/Sodium Phos (Phos-Nak Packet -) 1 packet PO BID DIAN Last Admin: 12/06/16 09:19 Dose: 1 packet - Objective Vital Signs: Vital Signs Temperature 98.6 F 12/06/16 08:00 Pulse Rate 82 12/06/16 08:00 Respiratory Rate 18 12/06/16 08:00 Blood Pressure 139/80 12/06/16 08:00 O2 Sat by Pulse Oximetry (%) 95 12/05/16 20:49 Constitutional: Yes: Calm Eyes: Yes: Conjunctiva Clear HENT: Yes: Atraumatic Neck: Yes: Supple Cardiovascular: Yes: S1, S2 Respiratory: Yes: CTA Bilaterally Gastrointestinal: Yes: Soft, Other (dov drain) Genitourinary: Yes: WNL Musculoskeletal: Yes: WNL Edema: No Neurological: Yes: Oriented Psychiatric: Yes: Oriented Labs: CBC, BMP 12/06/16 07:35 12/06/16 07:35 INR, PTT INR 1.30 (0.82-1.09) H 11/30/16 12:40 Problem List - Problems (1) Acute renal failure Code(s): N17.9 - ACUTE KIDNEY FAILURE, UNSPECIFIED Qualifiers: Acute renal failure type: unspecified Qualified Code(s): N17.9 - Acute kidney failure, unspecified; N17.9 - Acute kidney failure, unspecified; N17.9 - Acute kidney failure, unspecified (2) Perforated abdominal viscus Code(s): [id number] - (3) Septic shock Code(s): A41.9 - SEPSIS, UNSPECIFIED ORGANISM R65.21 - SEVERE SEPSIS WITH SEPTIC SHOCK Assessment/Plan Current Medications Generic Name Dose Route Start Last Admin Trade Name Freq PRN Reason Stop Dose Admin Piperacillin/Tazobactam/Dextrose 50 mls @ 100 mls/hr 12/03/16 15:00 12/06/16 09 :19 Zosyn 3.375gm Ivpb (Premix) IVPB 100 mls/hr Q6H-IV DIAN Administration Protocol Ondansetron HCl 4 mg 12/03/16 14:47 Zofran Injection IVPB Q4H PRN NAUSEA AND/OR VOMITING Oxycodone HCl 10 mg 12/03/16 14:47 12/06/16 09:47 Roxicodone - PO 10 mg Q4H PRN Administration PAIN Pantoprazole Sodium 40 mg 12/04/16 10:00 12/06/16 09:19 Protonix Iv IVPUSH 40 mg DAILY DIAN Administration Potassium Phos/Sodium Phos 1 packet 12/03/16 22:00 12/06/16 09:19 Phos-Nak Packet - PO 1 packet BID DIAN Administration Laboratory Tests 11/28/16 11/30/16 11/30/16 19:00 05:00 05:00 Urine Color Yellow Urine Appearance Cloudy Urine pH 5.0 Ur Specific [place] 1.015 Urine Protein Negative Urine Glucose (UA) Negative Urine Ketones Negative Urine Blood 2+ H TAYLOR M-Celio Not observed CALI Screen Negative c-ANCA <1:20 Proteinase 3 (PR3) <3.5 p-ANCA <1:20 Atypical p-ANCA <1:20 Myeloperoxidase Ab <9.0 Double Strand DNA Ab <1 Glomerular Base Memb Ab 3 Hepatitis A Ab Total Negative Hep Bs Antigen Negative Hep Bs Antibody Reactive Hep B Core Total Ab Negative Hepatitis C Antibody <0.1 Impression 1. PAYAM 2. nephrolithiasis 3. perforated viscus 4. sepsis 5. hypotension 6. anemia 7. possible CKD 8. microscopic hematuria Plan - renal function stable - workup negative so far - repeat ua to evaluate hematuria - may need urology eval after discharge and once more stable - monitor hg - likely ATN from hypotension and sepsis Dr Gardner
--- NOTE | 2016-12-06 14:37 | PN ---
Progress Note (short form) - Note Progress Note: No pain Tolerating regular diet Ostomy functioning with gas and stool WBC has been rising CT ordered by Dr Em Vital Signs Period Temp Pulse Resp BP Sys/Medina Pulse Ox Last 24 Hr 98.2 F-98.8 F 82-91 17-20 122-148/73-81 95-98 Abd soft, midline wound packed, granulating Ostomy + gas/stool CBC, BMP 12/06/16 07:35 12/06/16 07:35 CT A/P- multiple intraabdominal collections Antibiotics Interventional radiology for drainage of collections Problem List - Problems (1) Perforated abdominal viscus Code(s): [id number] - (2) Septic shock Code(s): A41.9 - SEPSIS, UNSPECIFIED ORGANISM R65.21 - SEVERE SEPSIS WITH SEPTIC SHOCK (3) Acute renal failure Code(s): N17.9 - ACUTE KIDNEY FAILURE, UNSPECIFIED Qualifiers: Acute renal failure type: unspecified Qualified Code(s): N17.9 - Acute kidney failure, unspecified; N17.9 - Acute kidney failure, unspecified; N17.9 - Acute kidney failure, unspecified
--- NOTE | 2016-12-06 16:07 | PN ---
Physical Exam: SUBJECTIVE: Patient seen and examined at the bedside. Seen ambulating in room, denies shortness of breath or abdominal pain. Denies chest pain. OBJECTIVE: CT abd/pelvis reviewed, intra-abdominal fluid collections as noted on imaging below Tolerating diet, no nausea or vomiting WBC elevated at 22.7 Vital Signs Period Temp Pulse Resp BP Sys/Medina Pulse Ox Last 24 Hr 98.2 F-98.8 F 82-91 17-20 122-148/73-81 95-98 GENERAL: The patient is awake, alert, and fully oriented, in no acute distress. HEAD: Normal with no signs of trauma. EYES: PERRL, extraocular movements intact, sclera anicteric, conjunctiva clear. No ptosis. ENT: Ears normal, nares patent, oropharynx clear without exudates, moist mucous membranes. NECK: Trachea midline, full range of motion, supple. HEART: Regular rate and rhythm ABDOMEN: Midline dressing c/d/i. KEYA drain with scant amt of dark bloody drainage. LUQ ostomy with liquid brown stool. EXTREMITIES: no edema. NEUROLOGICAL: Normal speech, steady gait PSYCH: Normal mood, normal affect. SKIN: Warm, dry, normal turgor, no rashes or lesions noted Laboratory Results - last 24 hr 12/06/16 12/06/16 07:35 07:35 WBC 22.7 H RBC 2.93 L Hgb 8.1 L Hct 24.4 L MCV 83.2 MCH 27.6 MCHC 33.1 RDW 14.6 Plt Count 452 H MPV 7.3 L Neutrophils % 92.0 H Lymphocytes % 2.1 L Monocytes % 4.4 Eosinophils % 1.1 D Basophils % 0.4 D Sodium 138 Potassium 4.4 Chloride 104 Carbon Dioxide 28 Anion Gap 6 L BUN 10 Creatinine 1.0 Creat Clearance w eGFR > 60 Random Glucose 82 Calcium 8.2 L Total Bilirubin 1.3 H AST 19 ALT 34 Alkaline Phosphatase 58 Total Protein 5.1 L Albumin 1.8 L Active Medications Generic Name Dose Route Start Last Admin Trade Name Freq PRN Reason Stop Dose Admin Piperacillin/Tazobactam/Dextrose 50 mls @ 100 mls/hr 12/03/16 15:00 12/06/16 09 :19 Zosyn 3.375gm Ivpb (Premix) IVPB 100 mls/hr Q6H-IV DIAN Administration Protocol Ondansetron HCl 4 mg 12/03/16 14:47 Zofran Injection IVPB Q4H PRN NAUSEA AND/OR VOMITING Pantoprazole Sodium 40 mg 12/04/16 10:00 12/06/16 09:19 Protonix Iv IVPUSH 40 mg DAILY DIAN Administration Potassium Phos/Sodium Phos 1 packet 12/03/16 22:00 12/06/16 09:19 Phos-Nak Packet - PO 1 packet BID DIAN Administration ASSESSMENT/PLAN: Patient is a 51 year old male with a history of GERD. He presented to the ED on 11/27/2016 with a sharp, non radiating, left sided flank pain. In the ER patient was hypotensive, tachycardic. CBC was evident for leukocytosis: 24 wbc. Elevated BUN/Cr; 100/6.7. He was found to have an abdominal perforation. Imaging: CT/Abdomen/Pelvis with contrast: Since prior study, there are several well circumscribed fluid collections: These include: (1) a lower pelvic collection measuring 7.3 x 7.6 x 5.3cm (2) a left flank collection lateral to drainage catheter which measures 10.8x 3.5 x 10.1cm and (3) collection medial to the drainage catheter which measures approximately 5.0x 4.6x 8.1cm. These collections are suspicious for abscess. ID: Septic shock secondary to a perforated descending colon with retroperitoneal abscess cavity, acute He is s/p left hemicolectomy, diverting transverse colostomy and abdominal washout on 11/28/16 On Zosyn 3.375 gm q6 WBC continues to bump up, CT scan 12/06 shows three (3) small fluid collections as noted above Surgery aware, notes reviewed. Patient will need IR intervention for drainage of small abscess Discussed findings with ID. Renal: Acute Kidney Injury, resolved Monitor labs, nephrology following Hematology: Anemia, acute/low stable 8.1/24/4 hmg/hct, monitor CBC Asymptomatic on exam Monitor KEYA drainage CBC in a.m. F.E.N. Fluids: tolerating PO Electrolytes: monitor labs Nutrition: regular diet Prophylaxis: DVT: SCDS, hmg/hct low, bleeding risk: defer a/c for now GI: Protonix 40mg daily push Disposition. Requires inpatient hospitalization. full code. Visit type - Emergency Visit Emergency Visit: Yes ED Registration Date: 11/27/16 Care time: The patient presented to the Emergency Department on the above date and was hospitalized for further evaluation of their emergent condition. - New Patient This patient is new to me today: Yes Date on this admission: 12/06/16 - Critical Care Critical Care patient: No - Discharge Referral Referred to [facility] No
--- NOTE | 2016-12-06 16:22 | PN ---
Progress Note, Physician History of Present Illness: patient stable no issues doing well ct scan result noted - Current Medication List Current Medications: Active Medications Piperacillin/Tazobactam/Dextrose (Zosyn 3.375gm Ivpb (Premix)) 50 mls @ 100 mls /hr IVPB Q6H-IV DIAN PRN Reason: Protocol Last Admin: 12/06/16 09:19 Dose: 100 mls/hr Ondansetron HCl (Zofran Injection) 4 mg IVPB Q4H PRN PRN Reason: NAUSEA AND/OR VOMITING Pantoprazole Sodium (Protonix Iv) 40 mg IVPUSH DAILY [facility] Last Admin: 12/06/16 09:19 Dose: 40 mg Potassium Phos/Sodium Phos (Phos-Nak Packet -) 1 packet PO BID [facility] Last Admin: 12/06/16 09:19 Dose: 1 packet - Objective Vital Signs: Vital Signs Temperature 98.5 F 12/06/16 14:20 Pulse Rate 91 H 12/06/16 14:20 Respiratory Rate 17 12/06/16 14:20 Blood Pressure 148/81 12/06/16 14:20 O2 Sat by Pulse Oximetry (%) 98 12/06/16 09:00 Constitutional: Yes: No Distress, Calm Cardiovascular: Yes: Regular Rate and Rhythm Respiratory: Yes: Regular, CTA Bilaterally Gastrointestinal: Yes: Normal Bowel Sounds, Soft, Other (colostomy working) Musculoskeletal: Yes: WNL Extremities: Yes: WNL Wound/Incision: Yes: Dressing Dry and Intact Neurological: Yes: Alert, Oriented Labs: CBC, BMP 12/06/16 07:35 12/06/16 07:35 INR, PTT INR 1.30 (0.82-1.09) H 11/30/16 12:40 - ....Imaging Cat Scan: Report Reviewed, Image Reviewed Assessment/Plan Exploratory laparotomy, splenic flexure mobilization, extended left hemicolectomy, diverting transverse colostomy, abdominal washout PAYAM Problem List - Problems (1) Acute renal failure Code(s): N17.9 - ACUTE KIDNEY FAILURE, UNSPECIFIED Qualifiers: Acute renal failure type: unspecified Qualified Code(s): N17.9 - Acute kidney failure, unspecified; N17.9 - Acute kidney failure, unspecified; N17.9 - Acute kidney failure, unspecified (2) Perforated abdominal viscus Code(s): [id number] - (3) Septic shock Code(s): A41.9 - SEPSIS, UNSPECIFIED ORGANISM R65.21 - SEVERE SEPSIS WITH SEPTIC SHOCK plan patient needs drainage of the collection continue abx
[2016-12-07] MEDS: PIPERACILLIN/TAZOB 3.375 GM 50 ML IVPB SCH ×4 (02:35→21:18)
[2016-12-07] MEDS ORDERED: ACETAMINOPHEN 325 MG TABLET (FP) PO PRN (07:33)
[2016-12-07 08:47] LABS: BASOPHIL 0.3 % (0-2.0); EOSINOPHIL 0.6 % (0-4.5); MCH 27.6 pg (25.7-33.7); MCHC 32.9 g/dl (32.0-35.9); MEAN CELL VOLUME 83.9 fl (80-96); MEAN PLT VOLUME 7.2 fl (7.5-11.1); NEUTROPHILS 91.9 % (42.8-82.8); PLATELET COUNT 536 K/MM3 (134-434); RDW 15.1 % (11.9-15.9); WHITE BLOOD COUNT 21.6 K/mm3 (4.0-10.0)
[2016-12-07 09:12] LABS: ALK PHOS 57 U/L (45-117); ANION GAP 10 (8-16); BILIRUBIN,TOTAL 0.9 mg/dL (0.2-1.0); CALCIUM 8.2 mg/dL (8.5-10.1); CO2 26 mmol/L (21-32); GLUCOSE,RANDOM 86 mg/dL (74-106); SGOT/AST 18 U/L (15-37); SGPT/ALT 30 U/L (12-78); TOT PROT 5.4 g/dl (6.4-8.2)
[2016-12-07] MEDS: NAPH,MB-DB/K PH,MBDB POWDER PACKET PO SCH ×2 (09:24→21:17)
[2016-12-07] MEDS: oxyCODONE HCL 5 MG TABLET PO PRN ×2 (11:43→16:52)
--- NOTE | 2016-12-07 15:56 | PN ---
Progress Note (short form) - Note Progress Note: S/P drainage of intraabdominal collections No pain On diet Vital Signs Period Temp Pulse Resp BP Sys/Medina Pulse Ox Last 24 Hr 98.3 F-99.5 F 80-100 18-29 125-146/65-91 96-100 Abd soft, wound clean, packed Ostomy + stool CBC WBC 21.6 K/mm3 (4.0-10.0) H 12/07/16 08:40 RBC 3.02 M/mm3 (4.00-5.60) L 12/07/16 08:40 Hgb 8.3 GM/dL (11.7-16.9) L 12/07/16 08:40 Hct 25.3 % (35.4-49) L 12/07/16 08:40 MCV 83.9 fl (80-96) 12/07/16 08:40 MCH 27.6 pg (25.7-33.7) 12/07/16 08:40 MCHC 32.9 g/dl (32.0-35.9) 12/07/16 08:40 RDW 15.1 % (11.9-15.9) 12/07/16 08:40 Plt Count 536 K/MM3 (134-434) H 12/07/16 08:40 MPV 7.2 fl (7.5-11.1) L 12/07/16 08:40 Total Counted 100 12/03/16 05:00 Neutrophils % 91.9 % (42.8-82.8) H 12/07/16 08:40 Neutrophils % (Manual) 97 % (42.8-82.8) H* 12/03/16 05:00 Band Neuts % (Manual) 10 % (0-10) D 11/29/16 19:30 Lymphocytes % 2.8 % (8-40) L D 12/07/16 08:40 Lymphocytes % (Manual) 5 % (8-40) L D 12/02/16 05:10 Monocytes % 4.4 % (3.8-10.2) 12/07/16 08:40 Monocytes % (Manual) 2 % (3.8-10.2) L 12/03/16 05:00 Eosinophils % 0.6 % (0-4.5) 12/07/16 08:40 Eosinophils % (Manual) 1 % (0-4.5) 11/30/16 12:40 Basophils % 0.3 % (0-2.0) 12/07/16 08:40 Basophils % (Manual) 1 % (0-2.0) 11/30/16 05:00 Myelocytes % (Man) 1 % (0-2) 12/02/16 05:10 Hypochromia 1+ 11/29/16 19:30 Toxic Granulation 4+ 11/30/16 05:00 Platelet Estimate Adequate (NORMAL) 12/03/16 05:00 Platelet Comment No clumping noted 11/29/16 19:30 Platelet Comment No clotting detected 11/29/16 19:30 RBC Morphology Appears normal 11/27/16 16:41 Anisocytosis 1+ 11/29/16 19:30 Target Cells 4+ 11/30/16 05:00 Tear Drop Cells 1+ 11/30/16 05:00 Fragmented RBCs 2+ 11/30/16 05:00 Schistocytes 1+ 11/29/16 19:30 CMP Sodium 139 mmol/L (136-145) 12/07/16 08:40 Potassium 4.6 mmol/L (3.5-5.1) 12/07/16 08:40 Chloride 103 mmol/L (98-107) 12/07/16 08:40 Carbon Dioxide 26 mmol/L (21-32) 12/07/16 08:40 Anion Gap 10 (8-16) 12/07/16 08:40 BUN 11 mg/dL (7-18) 12/07/16 08:40 Creatinine 1.0 mg/dL (0.7-1.3) 12/07/16 08:40 Creat Clearance w eGFR > 60 (>60) 12/07/16 08:40 Random Glucose 86 mg/dL (74-106) 12/07/16 08:40 Hemoglobin A1c % 5.4 % (4.8-6.0) 11/30/16 05:00 Lactic Acid 1.1 mmol/L (0.4-2.0) 11/27/16 19:43 Calcium 8.2 mg/dL (8.5-10.1) L 12/07/16 08:40 Phosphorus 2.6 mg/dL (2.5-4.9) 12/05/16 08:35 Magnesium 1.8 mg/dL (1.8-2.4) 12/03/16 05:00 Total Bilirubin 0.9 mg/dL (0.2-1.0) D 12/07/16 08:40 AST 18 U/L (15-37) 12/07/16 08:40 ALT 30 U/L (12-78) 12/07/16 08:40 Alkaline Phosphatase 57 U/L (45-117) 12/07/16 08:40 Prot Electrophoresis (.) 11/30/16 05:00 Serum Total Protein 4.5 g/dL (6.0-8.5) L 11/30/16 05:00 Total Protein 5.4 g/dl (6.4-8.2) L 12/07/16 08:40 Albumin 2.0 g/dl (3.4-5.0) L 12/07/16 08:40 Globulin 2.4 g/dL (2.2-3.9) 11/30/16 05:00 Albumin/Globulin Ratio 0.9 (0.7-1.7) 11/30/16 05:00 Ecpbi-5-Caawlzwaq 0.4 gm/dL (0.0-0.4) 11/30/16 05:00 Nlisj-2-Sfkzaanrk 1.0 gm/dL (0.4-1.0) 11/30/16 05:00 Beta Globulins 0.7 gm/dL (0.7-1.3) 11/30/16 05:00 Gamma Globulins 0.4 gm/dL (0.4-1.8) 11/30/16 05:00 Lipase 70 U/L (73-393) L 11/27/16 20:20 Antibiotics per ID OOB D/C rectal tube F/U KEYA drains CBC in am Problem List - Problems (1) Perforated abdominal viscus Code(s): [id number] - (2) Septic shock Code(s): A41.9 - SEPSIS, UNSPECIFIED ORGANISM R65.21 - SEVERE SEPSIS WITH SEPTIC SHOCK (3) Acute renal failure Code(s): N17.9 - ACUTE KIDNEY FAILURE, UNSPECIFIED Qualifiers: Acute renal failure type: unspecified Qualified Code(s): N17.9 - Acute kidney failure, unspecified; N17.9 - Acute kidney failure, unspecified; N17.9 - Acute kidney failure, unspecified
--- NOTE | 2016-12-07 16:49 | PN ---
Physical Exam: SUBJECTIVE: Patient seen and examined at the bedside. Denies any discomfort at the surgical site. OBJECTIVE: S/P drainage of intra-abdominal collections today with KEYA bulb placement Rectal tube applied yesterday, discontinued today Patient ambulating, verbalizes some intermittent pain relieved with pain meds. Vital Signs Period Temp Pulse Resp BP Sys/Medina Pulse Ox Last 24 Hr 98.3 F-99.5 F 80-100 18-29 125-146/65-91 96-100 GENERAL: The patient is awake, alert, and fully oriented, in no acute distress. HEAD: Normal with no signs of trauma. EYES: PERRL, extraocular movements intact, sclera anicteric, conjunctiva clear. No ptosis. ENT: Ears normal, nares patent, oropharynx clear without exudates, moist mucous membranes. NECK: Trachea midline, full range of motion, supple. HEART: Regular rate and rhythm ABDOMEN: Midline dressing c/d/i. KEYA drain with scant amt of dark bloody drainage. LUQ ostomy with liquid brown stool. New KEYA drain for abscess that were drained today with scant amt of output EXTREMITIES: no edema. NEUROLOGICAL: Normal speech, steady gait PSYCH: Normal mood, normal affect. SKIN: Warm, dry, normal turgor, no rashes or lesions noted Laboratory Results - last 24 hr 12/07/16 12/07/16 08:40 08:40 WBC 21.6 H RBC 3.02 L Hgb 8.3 L Hct 25.3 L MCV 83.9 MCH 27.6 MCHC 32.9 RDW 15.1 Plt Count 536 H MPV 7.2 L Neutrophils % 91.9 H Lymphocytes % 2.8 L D Monocytes % 4.4 Eosinophils % 0.6 Basophils % 0.3 Sodium 139 Potassium 4.6 Chloride 103 Carbon Dioxide 26 Anion Gap 10 BUN 11 Creatinine 1.0 Creat Clearance w eGFR > 60 Random Glucose 86 Calcium 8.2 L Total Bilirubin 0.9 D AST 18 ALT 30 Alkaline Phosphatase 57 Total Protein 5.4 L Albumin 2.0 L Active Medications Generic Name Dose Route Start Last Admin Trade Name Freq PRN Reason Stop Dose Admin Acetaminophen 650 mg 12/07/16 07:33 Tylenol - PO Q6H PRN FEVER OR PAIN Piperacillin/Tazobactam/Dextrose 50 mls @ 100 mls/hr 12/03/16 15:00 12/07/16 09 :20 Zosyn 3.375gm Ivpb (Premix) IVPB 100 mls/hr Q6H-IV DIAN Administration Protocol Ondansetron HCl 4 mg 12/03/16 14:47 Zofran Injection IVPB Q4H PRN NAUSEA AND/OR VOMITING Oxycodone HCl 5 mg 12/06/16 21:51 12/07/16 11:43 Roxicodone - PO 5 mg Q4H PRN Administration PAIN Pantoprazole Sodium 40 mg 12/04/16 10:00 12/06/16 09:19 Protonix Iv IVPUSH 40 mg DAILY DIAN Administration Potassium Phos/Sodium Phos 1 packet 12/03/16 22:00 12/07/16 09:24 Phos-Nak Packet - PO Not Given BID DIAN ASSESSMENT/PLAN: Patient is a 51 year old male with a history of GERD. He presented to the ED on 11/27/2016 with a sharp, non radiating, left sided flank pain. In the ER patient was hypotensive, tachycardic. CBC was evident for leukocytosis: 24 wbc. Elevated BUN/Cr; 100/6.7. He was found to have an abdominal perforation. Patient is s/p left hemicolectomy, diverting transverse colostomy and abdominal washout on 11/28/16. Today he underwent drainage of the multiple abscess found on the CT scan with placement of a new KEYA drain. Imaging: CT/Abdomen/Pelvis with contrast: Since prior study, there are several well circumscribed fluid collections: These include: (1) a lower pelvic collection measuring 7.3 x 7.6 x 5.3cm (2) a left flank collection lateral to drainage catheter which measures 10.8x 3.5 x 10.1cm and (3) collection medial to the drainage catheter which measures approximately 5.0x 4.6x 8.1cm. These collections are suspicious for abscess. ID: Septic shock secondary to a perforated descending colon with retroperitoneal abscess cavity, acute On Zosyn 3.375 gm q6, remains afebrile, vital signs stable CT scan 12/06 shows three (3) small fluid collections as noted above Patient s/p IR intervention for drainage of small abscess today with KEYA bulb WBC trending down slightly, remains afebrile, vitals stable Monitor labs, vitals, continue to trend WBC Renal: Acute Kidney Injury, resolved Monitor labs, nephrology following Hematology: Anemia, acute/low stable 8.3/25.3: hmg/hct, monitor CBC Asymptomatic on exam Monitor KEYA drainages CBC in a.m. F.E.N. Fluids: tolerating PO Electrolytes: monitor labs Nutrition: regular diet Prophylaxis: DVT: SCDS, hmg/hct low, bleeding risk: defer a/c for now GI: Protonix 40mg daily push Disposition. Requires inpatient hospitalization. full code. Visit type - Emergency Visit Emergency Visit: Yes ED Registration Date: 11/27/16 Care time: The patient presented to the Emergency Department on the above date and was hospitalized for further evaluation of their emergent condition. - New Patient This patient is new to me today: No - Critical Care Critical Care patient: No - Discharge Referral Referred to [facility] No
--- NOTE | 2016-12-07 17:19 | PN ---
Progress Note, Physician History of Present Illness: stable collection drained - Current Medication List Current Medications: Active Medications Acetaminophen (Tylenol -) 650 mg PO Q6H PRN PRN Reason: FEVER OR PAIN Piperacillin/Tazobactam/Dextrose (Zosyn 3.375gm Ivpb (Premix)) 50 mls @ 100 mls /hr IVPB Q6H-IV DIAN PRN Reason: Protocol Last Admin: 12/07/16 16:52 Dose: 100 mls/hr Ondansetron HCl (Zofran Injection) 4 mg IVPB Q4H PRN PRN Reason: NAUSEA AND/OR VOMITING Oxycodone HCl (Roxicodone -) 5 mg PO Q4H PRN PRN Reason: PAIN Last Admin: 12/07/16 16:52 Dose: 5 mg Pantoprazole Sodium (Protonix Iv) 40 mg IVPUSH DAILY [facility] Last Admin: 12/06/16 09:19 Dose: 40 mg Potassium Phos/Sodium Phos (Phos-Nak Packet -) 1 packet PO BID [facility] Last Admin: 12/07/16 09:24 Dose: Not Given - Objective Vital Signs: Vital Signs Temperature 98.9 F 12/07/16 15:35 Pulse Rate 100 H 12/07/16 15:35 Respiratory Rate 18 12/07/16 15:35 Blood Pressure 135/78 12/07/16 15:35 O2 Sat by Pulse Oximetry (%) 100 12/07/16 11:06 Constitutional: Yes: No Distress, Calm Cardiovascular: Yes: Regular Rate and Rhythm Respiratory: Yes: Regular, CTA Bilaterally Gastrointestinal: Yes: Normal Bowel Sounds, Soft, Other (colostomy in place dov drain in place) Musculoskeletal: Yes: WNL Extremities: Yes: WNL Wound/Incision: Yes: Dressing Dry and Intact Neurological: Yes: Alert, Oriented Psychiatric: Yes: Alert, Oriented Labs: CBC, BMP 12/07/16 08:40 12/07/16 08:40 INR, PTT INR 1.30 (0.82-1.09) H 11/30/16 12:40 Assessment/Plan Exploratory laparotomy, splenic flexure mobilization, extended left hemicolectomy, diverting transverse colostomy, abdominal washout PAYAM Problem List - Problems (1) Acute renal failure Code(s): N17.9 - ACUTE KIDNEY FAILURE, UNSPECIFIED Qualifiers: Acute renal failure type: unspecified Qualified Code(s): N17.9 - Acute kidney failure, unspecified; N17.9 - Acute kidney failure, unspecified; N17.9 - Acute kidney failure, unspecified (2) Perforated abdominal viscus Code(s): [id number] - (3) Septic shock Code(s): A41.9 - SEPSIS, UNSPECIFIED ORGANISM R65.21 - SEVERE SEPSIS WITH SEPTIC SHOCK plan continue abx await for micro results
[2016-12-08] MEDS: PIPERACILLIN/TAZOB 3.375 GM 50 ML IVPB SCH ×4 (01:59→21:29)
[2016-12-08] MEDS: oxyCODONE HCL 5 MG TABLET PO PRN ×2 (07:18→19:58)
[2016-12-08 07:42] LABS: BASOPHIL 0.2 % (0-2.0); EOSINOPHIL 0.8 % (0-4.5); MCH 27.8 pg (25.7-33.7); MCHC 33.2 g/dl (32.0-35.9); MEAN CELL VOLUME 83.7 fl (80-96); MEAN PLT VOLUME 7.5 fl (7.5-11.1); NEUTROPHILS 89.6 % (42.8-82.8); PLATELET COUNT 539 K/MM3 (134-434); RDW 15.2 % (11.9-15.9); WHITE BLOOD COUNT 20.9 K/mm3 (4.0-10.0)
[2016-12-08 08:05] LABS: ALBUMIN 2.1 g/dl (3.4-5.0); ANION GAP 9 (8-16); CALCIUM 8.5 mg/dL (8.5-10.1); CO2 27 mmol/L (21-32); GLUCOSE,RANDOM 85 mg/dL (74-106); SGOT/AST 18 U/L (15-37); SGPT/ALT 31 U/L (12-78)
[2016-12-08 08:07] LABS: ALK PHOS 58 U/L (45-117); BILIRUBIN,TOTAL 1.1 mg/dL (0.2-1.0); CREATININE 1.1 mg/dL (0.7-1.3); TOT PROT 5.5 g/dl (6.4-8.2)
[2016-12-08] MEDS: PANTOPRAZOLE SODIUM 40 MG VIAL IVPUSH SCH (10:00)
[2016-12-08] MEDS: NAPH,MB-DB/K PH,MBDB POWDER PACKET PO SCH (10:48)
--- NOTE | 2016-12-08 11:19 | PN ---
Progress Note (short form) - Note Progress Note: No acute events On diet No pain Vital Signs Period Temp Pulse Resp BP Sys/Medina Pulse Ox Last 24 Hr 98.9 F-99.6 F 80-100 18-20 135-145/78-83 95 Abd soft, wound packed, granulating Ostomy + stool Pato x 2 - serosanguinous CBC, BMP 12/08/16 06:25 12/08/16 06:25 Serial CBC Follow up cultures Diet as tolerated Antibiotics per ID Problem List - Problems (1) Perforated abdominal viscus Code(s): [id number] - (2) Septic shock Code(s): A41.9 - SEPSIS, UNSPECIFIED ORGANISM R65.21 - SEVERE SEPSIS WITH SEPTIC SHOCK (3) Acute renal failure Code(s): N17.9 - ACUTE KIDNEY FAILURE, UNSPECIFIED Qualifiers: Acute renal failure type: unspecified Qualified Code(s): N17.9 - Acute kidney failure, unspecified; N17.9 - Acute kidney failure, unspecified; N17.9 - Acute kidney failure, unspecified
[2016-12-08] MEDS: PANTOPRAZOLE 40 MG TABLET (FP) PO SCH (13:17)
--- NOTE | 2016-12-08 16:32 | PN ---
Progress Note, Physician History of Present Illness: patient says he is feeling better still with high wbc - Current Medication List Current Medications: Active Medications Acetaminophen (Tylenol -) 650 mg PO Q6H PRN PRN Reason: FEVER OR PAIN Piperacillin/Tazobactam/Dextrose (Zosyn 3.375gm Ivpb (Premix)) 50 mls @ 100 mls /hr IVPB Q6H-IV DIAN PRN Reason: Protocol Last Admin: 12/08/16 16:06 Dose: 100 mls/hr Ondansetron HCl (Zofran Injection) 4 mg IVPB Q4H PRN PRN Reason: NAUSEA AND/OR VOMITING Oxycodone HCl (Roxicodone -) 5 mg PO Q4H PRN PRN Reason: PAIN Last Admin: 12/08/16 07:18 Dose: 5 mg Pantoprazole Sodium (Protonix -) 40 mg PO DAILY [facility] Last Admin: 12/08/16 13:17 Dose: 40 mg Potassium Phos/Sodium Phos (Phos-Nak Packet -) 1 packet PO BID [facility] Last Admin: 12/08/16 10:48 Dose: 1 packet - Objective Vital Signs: Vital Signs Temperature 98.8 F 12/08/16 15:18 Pulse Rate 86 12/08/16 15:18 Respiratory Rate 18 12/08/16 15:18 Blood Pressure 121/71 12/08/16 15:18 O2 Sat by Pulse Oximetry (%) 95 12/07/16 20:43 Constitutional: Yes: No Distress, Calm Eyes: Yes: Conjunctiva Clear, EOM Intact Cardiovascular: Yes: Regular Rate and Rhythm Respiratory: Yes: Regular, CTA Bilaterally Gastrointestinal: Yes: Normal Bowel Sounds, Other (colostomy in place dov drain in place x 2) Musculoskeletal: Yes: WNL Extremities: Yes: WNL Wound/Incision: Yes: Dressing Dry and Intact, Draining (dov x 2) Neurological: Yes: Alert, Oriented Psychiatric: Yes: Alert, Oriented Labs: CBC, BMP 12/08/16 06:25 12/08/16 06:25 INR, PTT INR 1.30 (0.82-1.09) H 11/30/16 12:40 Assessment/Plan Exploratory laparotomy, splenic flexure mobilization, extended left hemicolectomy, diverting transverse colostomy, abdominal washout PAYAM Problem List - Problems (1) Acute renal failure Code(s): N17.9 - ACUTE KIDNEY FAILURE, UNSPECIFIED Qualifiers: Acute renal failure type: unspecified Qualified Code(s): N17.9 - Acute kidney failure, unspecified; N17.9 - Acute kidney failure, unspecified; N17.9 - Acute kidney failure, unspecified (2) Perforated abdominal viscus Code(s): [id number] - (3) Septic shock Code(s): A41.9 - SEPSIS, UNSPECIFIED ORGANISM R65.21 - SEVERE SEPSIS WITH SEPTIC SHOCK plan continue abx await for micro results patient with serosang drainage wbc still high
--- NOTE | 2016-12-08 18:12 | PN ---
Physical Exam: SUBJECTIVE: Patient seen and examined. He states his LLQ drain is bleeding more than normal. He has no pain, denies dizziness, fever. OBJECTIVE: Vital Signs Period Temp Pulse Resp BP Sys/Medina Pulse Ox Last 24 Hr 98.4 F-99.6 F 80-100 15-20 121-145/71-83 95 PE Neuro: alert, awake, cn 2-12intact Pulm: CTAB CV: s1 s2 rrr no mrg Abd: midline incision packed, Ostomy + stool, RUQ sm. wound open stage 1, LLQ KEYA Drain with serosanguinous fluid and leaking around site, Left gluteal drain with jose red blood Ext: warm, no le edema Laboratory Results - last 24 hr 12/08/16 12/08/16 06:25 06:25 WBC 20.9 H RBC 3.00 L Hgb 8.4 L Hct 25.2 L MCV 83.7 MCH 27.8 MCHC 33.2 RDW 15.2 Plt Count 539 H MPV 7.5 Neutrophils % 89.6 H Lymphocytes % 4.0 L D Monocytes % 5.4 Eosinophils % 0.8 Basophils % 0.2 Sodium 138 Potassium 4.4 Chloride 102 Carbon Dioxide 27 Anion Gap 9 BUN 10 Creatinine 1.1 Creat Clearance w eGFR > 60 Random Glucose 85 Calcium 8.5 Total Bilirubin 1.1 H D AST 18 ALT 31 Alkaline Phosphatase 58 Total Protein 5.5 L Albumin 2.1 L Active Medications Generic Name Dose Route Start Last Admin Trade Name Freq PRN Reason Stop Dose Admin Acetaminophen 650 mg 12/07/16 07:33 Tylenol - PO Q6H PRN FEVER OR PAIN Piperacillin/Tazobactam/Dextrose 50 mls @ 100 mls/hr 12/03/16 15:00 12/08/16 16 :06 Zosyn 3.375gm Ivpb (Premix) IVPB 100 mls/hr Q6H-IV DIAN Administration Protocol Ondansetron HCl 4 mg 12/03/16 14:47 Zofran Injection IVPB Q4H PRN NAUSEA AND/OR VOMITING Oxycodone HCl 5 mg 12/06/16 21:51 12/08/16 07:18 Roxicodone - PO 5 mg Q4H PRN Administration PAIN Pantoprazole Sodium 40 mg 12/08/16 12:15 12/08/16 13:17 Protonix - PO 40 mg DAILY [facility] Administration Potassium Phos/Sodium Phos 1 packet 12/03/16 22:00 12/08/16 10:48 Phos-Nak Packet - PO 1 packet BID [facility] Administration Imaging: CT/Abdomen/Pelvis with contrast: Since prior study, there are several well circumscribed fluid collections: (1) a lower pelvic collection measuring 7.3 x 7.6 x 5.3cm (2) a left flank collection lateral to drainage catheter which measures 10.8x 3.5 x 10.1cm and (3) collection medial to the drainage catheter which measures approximately 5.0x 4.6x 8.1cm. These collections are suspicious for abscess. Assessment: 51 year old male with PMHx of GERD admitted with left flank pain and was found to have an abdominal perforation, s/p left hemicolectomy, diverting transverse colostomy and abdominal washout on 11/28/16, hospital course complicated by multiple fluid collections requiring IR drainage 12/07. Plan: 1. Multiple intraabdominal collections - s/p IR drainage w/ KEYA drain 12/07 - Cultures pending - Continue zosyn per ID - Surgery seeing 2. Septic shock d/t perforated descending colon with retroperitoneal abscess cavity - S/p Left hemicolectomy, with diverting transverse colostomy, abdominal washout on 11/28/16 - Continue zosyn (renal dose) (11/17- ) 3. PAYAM - Resolved 4. Acute blood loss anemia - Hgb stable - Transfused for hgb <8 Visit type - Emergency Visit Emergency Visit: Yes ED Registration Date: 11/27/16 Care time: The patient presented to the Emergency Department on the above date and was hospitalized for further evaluation of their emergent condition. - New Patient This patient is new to me today: No - Critical Care Critical Care patient: No
[2016-12-09] MEDS: PIPERACILLIN/TAZOB 3.375 GM 50 ML IVPB SCH ×4 (02:06→21:34)
[2016-12-09] MEDS: oxyCODONE HCL 5 MG TABLET PO PRN ×2 (05:48→20:11)
[2016-12-09 07:55] LABS: BASOPHIL 0.6 % (0-2.0); EOSINOPHIL 0.7 % (0-4.5); MCH 28.1 pg (25.7-33.7); MCHC 33.1 g/dl (32.0-35.9); MEAN CELL VOLUME 84.9 fl (80-96); MEAN PLT VOLUME 7.3 fl (7.5-11.1); NEUTROPHILS 87.8 % (42.8-82.8); PLATELET COUNT 615 K/MM3 (134-434); RDW 15.6 % (11.9-15.9); WHITE BLOOD COUNT 18.9 K/mm3 (4.0-10.0)
[2016-12-09] MEDS: PANTOPRAZOLE 40 MG TABLET (FP) PO SCH (10:57)
--- NOTE | 2016-12-09 13:28 | PN ---
Physical Exam: SUBJECTIVE: Patient seen and examined. He has no acute complaints. He does note his KEYA drain to LLQ has increased in outpt OBJECTIVE: Vital Signs Period Temp Pulse Resp BP Sys/Medina Pulse Ox Last 24 Hr 98.0 F-98.8 F 83-102 18-20 121-134/71-84 97-99 PE Neuro: alert, awake, cn 2-12intact Pulm: CTAB CV: s1 s2 rrr no mrg Abd: midline incision packed, Ostomy + stool, LLQ KEYA Drain with high sanguinous fluid, Left gluteus drain with jose red blood Ext: warm, no le edema Laboratory Results - last 24 hr 12/09/16 06:20 WBC 18.9 H RBC 3.20 L Hgb 9.0 L Hct 27.2 L MCV 84.9 MCH 28.1 MCHC 33.1 RDW 15.6 Plt Count 615 H MPV 7.3 L Neutrophils % 87.8 H Lymphocytes % 5.9 L D Monocytes % 5.0 Eosinophils % 0.7 Basophils % 0.6 Active Medications Generic Name Dose Route Start Last Admin Trade Name Freq PRN Reason Stop Dose Admin Acetaminophen 650 mg 12/07/16 07:33 Tylenol - PO Q6H PRN FEVER OR PAIN Piperacillin/Tazobactam/Dextrose 50 mls @ 100 mls/hr 12/03/16 15:00 12/09/16 10 :57 Zosyn 3.375gm Ivpb (Premix) IVPB 100 mls/hr Q6H-IV DIAN Administration Protocol Ondansetron HCl 4 mg 12/03/16 14:47 Zofran Injection IVPB Q4H PRN NAUSEA AND/OR VOMITING Oxycodone HCl 5 mg 12/06/16 21:51 12/09/16 05:48 Roxicodone - PO 5 mg Q4H PRN Administration PAIN Pantoprazole Sodium 40 mg 12/08/16 12:15 12/09/16 10:57 Protonix - PO 40 mg DAILY [facility] Administration Assessment: 51 year old male with PMHx of GERD admitted with left flank pain and was found to have an abdominal perforation, s/p left hemicolectomy, diverting transverse colostomy and abdominal washout on 11/28/16, hospital course complicated by multiple fluid collections requiring IR drainage 12/07. Plan: 1. Multiple intraabdominal collections - Leukocytosis down trending - s/p IR drainage w/ KEYA drain 12/07 - Awaiting final cx this far NGTD - Continue zosyn per ID - Surgery to eval drains 2. Septic shock d/t perforated descending colon with retroperitoneal abscess cavity - S/p Left hemicolectomy, with diverting transverse colostomy, abdominal washout on 11/28/16 - Continue zosyn (renal dose) (11/17- ) 3. PAYAM - Resolved 4. Acute blood loss anemia - Hgb stable - Transfused for hgb <8 5. Thrombocytosis - Likely reactive, r/o MPN - Send esr, retic count - Hematology consult Visit type - Emergency Visit Emergency Visit: Yes ED Registration Date: 11/27/16 Care time: The patient presented to the Emergency Department on the above date and was hospitalized for further evaluation of their emergent condition. - New Patient This patient is new to me today: No - Critical Care Critical Care patient: No
--- NOTE | 2016-12-09 15:46 | PN ---
Progress Note (short form) - Note Progress Note: No new events On diet No pain Vital Signs Period Temp Pulse Resp BP Sys/Medina Pulse Ox Last 24 Hr 98.0 F-98.6 F 83-102 18-20 122-134/75-84 97-99 Abd soft, wound clean, packed KEYA x 2 serosanguinous CBC, BMP 12/09/16 06:20 12/08/16 06:25 Antibiotics Wound care Serial CBC for WBC- currently improving slowly Problem List - Problems (1) Perforated abdominal viscus Code(s): [id number] - (2) Septic shock Code(s): A41.9 - SEPSIS, UNSPECIFIED ORGANISM R65.21 - SEVERE SEPSIS WITH SEPTIC SHOCK (3) Acute renal failure Code(s): N17.9 - ACUTE KIDNEY FAILURE, UNSPECIFIED Qualifiers: Acute renal failure type: unspecified Qualified Code(s): N17.9 - Acute kidney failure, unspecified; N17.9 - Acute kidney failure, unspecified; N17.9 - Acute kidney failure, unspecified
--- NOTE | 2016-12-09 16:00 | PN ---
Progress Note, Physician History of Present Illness: stable dov drain draining quite a bit seeping through the side - Current Medication List Current Medications: Active Medications Acetaminophen (Tylenol -) 650 mg PO Q6H PRN PRN Reason: FEVER OR PAIN Piperacillin/Tazobactam/Dextrose (Zosyn 3.375gm Ivpb (Premix)) 50 mls @ 100 mls /hr IVPB Q6H-IV DIAN PRN Reason: Protocol Last Admin: 12/09/16 10:57 Dose: 100 mls/hr Ondansetron HCl (Zofran Injection) 4 mg IVPB Q4H PRN PRN Reason: NAUSEA AND/OR VOMITING Oxycodone HCl (Roxicodone -) 5 mg PO Q4H PRN PRN Reason: PAIN Last Admin: 12/09/16 05:48 Dose: 5 mg Pantoprazole Sodium (Protonix -) 40 mg PO DAILY [facility] Last Admin: 12/09/16 10:57 Dose: 40 mg - Objective Vital Signs: Vital Signs Temperature 98.2 F 12/09/16 08:00 Pulse Rate 83 12/09/16 08:00 Respiratory Rate 18 12/09/16 08:00 Blood Pressure 134/75 12/09/16 08:00 O2 Sat by Pulse Oximetry (%) 99 12/09/16 09:00 Constitutional: Yes: No Distress, Calm Cardiovascular: Yes: Regular Rate and Rhythm Respiratory: Yes: Regular, CTA Bilaterally Gastrointestinal: Yes: Normal Bowel Sounds, Soft, Other (colostomy fning well dov drain in place) Musculoskeletal: Yes: WNL Extremities: Yes: WNL Neurological: Yes: Alert, Oriented Psychiatric: Yes: Alert, Oriented Labs: CBC, BMP 12/09/16 06:20 12/08/16 06:25 INR, PTT INR 1.30 (0.82-1.09) H 11/30/16 12:40 Assessment/Plan Exploratory laparotomy, splenic flexure mobilization, extended left hemicolectomy, diverting transverse colostomy, abdominal washout PAYAM Problem List - Problems (1) Acute renal failure Code(s): N17.9 - ACUTE KIDNEY FAILURE, UNSPECIFIED Qualifiers: Acute renal failure type: unspecified Qualified Code(s): N17.9 - Acute kidney failure, unspecified; N17.9 - Acute kidney failure, unspecified; N17.9 - Acute kidney failure, unspecified (2) Perforated abdominal viscus Code(s): [id number] - (3) Septic shock Code(s): A41.9 - SEPSIS, UNSPECIFIED ORGANISM R65.21 - SEVERE SEPSIS WITH SEPTIC SHOCK plan continue abx cx result noted wbc trending down continue to monitor rest as per primary
--- NOTE | 2016-12-09 22:40 | CONSULT ---
Consult - text type - Consultation Consultation Note: Pt seen and examined. Chart/lab and imaging result reviewed. This is a 51 y.o. male with history of GERD for which he takes Zantac presented with c/o Lt sided abd/flank pain . Pt was taking Alleve for the pain but it became progressively worse. Had was having subjective fevers/sweating. In the ER he was found to be hypotensive with leukocytosis (wbc-24K) and with acute renal failure. CT of the abdomen revealed free air in the left peritoneum. Pt underwent an exploratory laparotomy, Lt hemicolectomy, diverting transverse colostomy for perforated descending colon. Noted to have a left retroperitoneal abscess cavity. KEYA drain was placed. We have been consulted regarding thrombocytosis - History Source History Provided By: Patient Limitations to Obtaining History: No Limitations - Past Medical History GERD - Past Surgical History noone - Alcohol/Substance Use Hx Alcohol Use: (socially) History of Substance Use: reports: Marijuana (occasional) - Smoking History Smoking history: Never smoked - Social History Usual Living Arrangement: Other (with brother) Home Medications - Allergies Allergies/Adverse Reactions: Allergies Allergy/AdvReac Type Severity Reaction Status Date / Time No Known Allergies Allergy Verified 11/27/16 14:51 - Home Medications Home Medications: Ambulatory Orders Ranitidine HCl [Zantac] 150 mg PO DAILY 11/27/16 Physical Exam Vital Signs: AFVSS Constitutional: Yes: No Distress, Calm Eyes: Yes: WNL HENT: Yes: Atraumatic Neck: Yes: Supple Cardiovascular: Yes: Regular Rate and Rhythm Respiratory: Yes: Regular Gastrointestinal: Yes: Other (Lt abd KEYA draining sanguinous fluid, + ostomy, dressing intact) Musculoskeletal: Yes: WNL Extremities: Yes: WNL Neurological: Yes: Alert, Oriented Labs reviewed Assessment/Plan Pt is s/p Ex-laparotomy, ostomy, KEYA drain placement for perforated diverticulitis thrombocytosis most likely reactive post op. Unlikely primary myeloproliferative disorder Leukocytosis improving Anemia of chronic disease + /- blood loss will follow
[2016-12-10] MEDS: oxyCODONE HCL 5 MG TABLET PO PRN ×3 (00:25→18:38)
[2016-12-10] MEDS: PIPERACILLIN/TAZOB 3.375 GM 50 ML IVPB SCH ×4 (02:41→21:09)
[2016-12-10 07:41] LABS: INR 1.23 (0.82-1.09); PROTHROMBIN TIME (PATIENT) 13.9 SEC (9.98-11.88)
[2016-12-10 07:44] LABS: ACTIVATED PTT 28.2 SECONDS (26.9-34.4)
[2016-12-10 07:54] LABS: MCH 28.9 pg (25.7-33.7); MCHC 34.3 g/dl (32.0-35.9); MEAN CELL VOLUME 84.3 fl (80-96); MEAN PLT VOLUME 7.6 fl (7.5-11.1); PLATELET COUNT 680 K/MM3 (134-434); RDW 15.9 % (11.9-15.9); WHITE BLOOD COUNT 13.3 K/mm3 (4.0-10.0)
[2016-12-10] MEDS: PANTOPRAZOLE 40 MG TABLET (FP) PO SCH (10:24)
--- NOTE | 2016-12-10 13:42 | PN ---
Progress Note, Physician History of Present Illness: patient improving draining dov overall patient feels better wbc has dropped - Current Medication List Current Medications: Active Medications Acetaminophen (Tylenol -) 650 mg PO Q6H PRN PRN Reason: FEVER OR PAIN Piperacillin/Tazobactam/Dextrose (Zosyn 3.375gm Ivpb (Premix)) 50 mls @ 100 mls /hr IVPB Q6H-IV DIAN PRN Reason: Protocol Last Admin: 12/10/16 10:24 Dose: 100 mls/hr Ondansetron HCl (Zofran Injection) 4 mg IVPB Q4H PRN PRN Reason: NAUSEA AND/OR VOMITING Oxycodone HCl (Roxicodone -) 5 mg PO Q4H PRN PRN Reason: PAIN Last Admin: 12/10/16 10:23 Dose: 5 mg Pantoprazole Sodium (Protonix -) 40 mg PO DAILY [facility] Last Admin: 12/10/16 10:24 Dose: 40 mg - Objective Vital Signs: Vital Signs Temperature 98.7 F 12/10/16 06:00 Pulse Rate 78 12/10/16 06:00 Respiratory Rate 20 12/10/16 06:00 Blood Pressure 148/77 12/10/16 06:00 O2 Sat by Pulse Oximetry (%) 96 12/09/16 21:00 Constitutional: Yes: No Distress, Calm Cardiovascular: Yes: Regular Rate and Rhythm Respiratory: Yes: Regular, CTA Bilaterally Gastrointestinal: Yes: Normal Bowel Sounds, Soft, Other (colostomy, dov drain in place) Musculoskeletal: Yes: WNL Extremities: Yes: WNL Neurological: Yes: Alert, Oriented Psychiatric: Yes: Alert, Oriented Labs: CBC, BMP 12/10/16 06:00 12/08/16 06:25 INR, PTT INR 1.23 (0.82-1.09) H 12/10/16 06:00 Fibrinogen 564.0 mg/dL (238-498) H 12/10/16 06:00 Assessment/Plan Exploratory laparotomy, splenic flexure mobilization, extended left hemicolectomy, diverting transverse colostomy, abdominal washout PAYAM Problem List - Problems (1) Acute renal failure Code(s): N17.9 - ACUTE KIDNEY FAILURE, UNSPECIFIED Qualifiers: Acute renal failure type: unspecified Qualified Code(s): N17.9 - Acute kidney failure, unspecified; N17.9 - Acute kidney failure, unspecified; N17.9 - Acute kidney failure, unspecified (2) Perforated abdominal viscus Code(s): [id number] - (3) Septic shock Code(s): A41.9 - SEPSIS, UNSPECIFIED ORGANISM R65.21 - SEVERE SEPSIS WITH SEPTIC SHOCK plan continue abx cx result noted wbc trending down continue to monitor rest as per primary once wbc normal will deescalate abx
--- NOTE | 2016-12-10 14:09 | PN ---
Physical Exam: SUBJECTIVE: Patient seen and examined. He has no acute issues. He is having trouble sleeping. OBJECTIVE: Vital Signs Period Temp Pulse Resp BP Sys/Medina Pulse Ox Last 24 Hr 98.7 F-99.0 F 78-92 18-20 122-148/71-77 96 PE Neuro: alert, awake, cn 2-12intact Pulm: CTAB CV: s1 s2 rrr no mrg Abd: midline incision- pink healing well, Ostomy + stool, LLQ KEYA Drain sanguinous fluid- less outpt, Left gluteus drain with mild sanguinous blood Ext: warm, no le edema Laboratory Results - last 24 hr 12/10/16 12/10/16 12/10/16 06:00 06:00 06:00 WBC 13.3 H RBC 3.34 L Hgb 9.7 L Hct 28.2 L MCV 84.3 MCH 28.9 MCHC 34.3 RDW 15.9 Plt Count 680 H MPV 7.6 ESR 79 H Retic Count 4.57 H PT with INR 13.90 H INR 1.23 H PTT (Actin FS) 28.2 Fibrinogen 564.0 H C-Reactive Protein 12/10/16 06:00 C-Reactive Protein 3.1 H Active Medications Generic Name Dose Route Start Last Admin Trade Name Freq PRN Reason Stop Dose Admin Acetaminophen 650 mg 12/07/16 07:33 Tylenol - PO Q6H PRN FEVER OR PAIN Piperacillin/Tazobactam/Dextrose 50 mls @ 100 mls/hr 12/03/16 15:00 12/10/16 10 :24 Zosyn 3.375gm Ivpb (Premix) IVPB 100 mls/hr Q6H-IV DIAN Administration Protocol Ondansetron HCl 4 mg 12/03/16 14:47 Zofran Injection IVPB Q4H PRN NAUSEA AND/OR VOMITING Oxycodone HCl 5 mg 12/06/16 21:51 12/10/16 10:23 Roxicodone - PO 5 mg Q4H PRN Administration PAIN Pantoprazole Sodium 40 mg 12/08/16 12:15 12/10/16 10:24 Protonix - PO 40 mg DAILY [facility] Administration Microbiology 12/07/16 10:45 Gram Stain - Final Abscess Body Fluid Culture - Final NO GROWTH OF AEROBIC ORGANISMS AFTER 48 HOURS INCUBATION Anaerobic Culture - Final NO ANAEROBES WERE ISOLATED 12/06/16 15:00 Blood Culture - Preliminary Blood - Peripheral Venous NO GROWTH OBTAINED AFTER 72 HOURS, INCUBATION TO CONTINUE FOR 2 DAYS. 12/06/16 15:00 Blood Culture - Preliminary Blood - Peripheral Venous NO GROWTH OBTAINED AFTER 72 HOURS, INCUBATION TO CONTINUE FOR 2 DAYS. Assessment: 51 year old male with PMHx of GERD admitted with left flank pain and was found to have an abdominal perforation, s/p left hemicolectomy, diverting transverse colostomy and abdominal washout on 11/28/16, hospital course complicated by multiple fluid collections requiring IR drainage 12/07. Plan: 1. Multiple intra-abdominal collections - Leukocytosis improving - Cx no growth - Transition to PO once wbc wnl per ID - s/p IR drainage w/ KEYA drain 12/07 2. Septic shock d/t perforated descending colon with retroperitoneal abscess cavity - S/p Left hemicolectomy, with diverting transverse colostomy, abdominal washout on 11/28/16 - Continue zosyn (renal dose) (11/17- ) 3. PAYAM - Resolved 4. Acute blood loss anemia - Hgb stable - Transfused for hgb <8 5. Thrombocytosis - Likely reactive - Heme input appreciated Visit type - Emergency Visit Emergency Visit: Yes ED Registration Date: 11/27/16 Care time: The patient presented to the Emergency Department on the above date and was hospitalized for further evaluation of their emergent condition. - New Patient This patient is new to me today: No - Critical Care Critical Care patient: No
--- NOTE | 2016-12-10 16:06 | PN ---
Progress Note (short form) - Note Progress Note: No new events Tolerating diet No pain Vital Signs Period Temp Pulse Resp BP Sys/Medina Pulse Ox Last 24 Hr 98.7 F-99.0 F 78-92 18-20 122-148/71-77 96 Abd soft, wound clean Ostomy functioning KEYA x [address] CBC, BMP 12/10/16 06:00 12/08/16 06:25 Doing well VNS for midline wound Can discharge from surgical standpoint with JPs in place and with VNS Antibiotics per ID Will follow up in office and will get repeat CT A/P in 1-2 weeks Problem List - Problems (1) Perforated abdominal viscus Code(s): [id number] - (2) Septic shock Code(s): A41.9 - SEPSIS, UNSPECIFIED ORGANISM R65.21 - SEVERE SEPSIS WITH SEPTIC SHOCK (3) Acute renal failure Code(s): N17.9 - ACUTE KIDNEY FAILURE, UNSPECIFIED Qualifiers: Acute renal failure type: unspecified Qualified Code(s): N17.9 - Acute kidney failure, unspecified; N17.9 - Acute kidney failure, unspecified; N17.9 - Acute kidney failure, unspecified
[2016-12-10] MEDS: diphenhydrAMINE HCL 25 MG CAPSULE (FP) PO SCH (21:10)
[2016-12-11] MEDS: PIPERACILLIN/TAZOB 3.375 GM 50 ML IVPB SCH ×2 (02:43→10:24)
[2016-12-11] MEDS: oxyCODONE HCL 5 MG TABLET PO PRN (03:36)
[2016-12-11] MEDS: PANTOPRAZOLE 40 MG TABLET (FP) PO SCH (10:24)
--- NOTE | 2016-12-11 12:12 | PN ---
Progress Note, Physician History of Present Illness: Pt seen and examined. Chart,labs and imaging reviewed. Pt is alert, afebrile, now on regular diet. Has only occasional pain. No specific complaints. - Current Medication List Current Medications: Active Medications Acetaminophen (Tylenol -) 650 mg PO Q6H PRN PRN Reason: FEVER OR PAIN Diphenhydramine HCl (Benadryl -) 25 mg PO HS [facility] Last Admin: 12/10/16 21:10 Dose: 25 mg Piperacillin/Tazobactam/Dextrose (Zosyn 3.375gm Ivpb (Premix)) 50 mls @ 100 mls /hr IVPB Q6H-IV DIAN PRN Reason: Protocol Last Admin: 12/11/16 10:24 Dose: 100 mls/hr Ondansetron HCl (Zofran Injection) 4 mg IVPB Q4H PRN PRN Reason: NAUSEA AND/OR VOMITING Oxycodone HCl (Roxicodone -) 5 mg PO Q4H PRN PRN Reason: PAIN Last Admin: 12/11/16 03:36 Dose: 5 mg Pantoprazole Sodium (Protonix -) 40 mg PO DAILY [facility] Last Admin: 12/11/16 10:24 Dose: 40 mg - Objective Vital Signs: Vital Signs Temperature 98.9 F 12/11/16 09:15 Pulse Rate 89 12/11/16 09:15 Respiratory Rate 18 12/11/16 09:15 Blood Pressure 139/79 12/11/16 09:15 O2 Sat by Pulse Oximetry (%) 100 12/10/16 21:00 Constitutional: Yes: Well Nourished, No Distress Cardiovascular: Yes: Regular Rate and Rhythm Respiratory: Yes: CTA Bilaterally Gastrointestinal: Yes: Soft Genitourinary: Yes: WNL Extremities: Yes: WNL Wound/Incision: Yes: Other (Abdominal wound with gauze packing, drain with sanguinous output, no tenderness) Psychiatric: Yes: Alert, Oriented Labs: CBC, BMP 12/10/16 06:00 12/08/16 06:25 INR, PTT INR 1.23 (0.82-1.09) H 12/10/16 06:00 Fibrinogen 564.0 mg/dL (238-498) H 12/10/16 06:00 Problem List - Problems (1) Acute renal failure Code(s): N17.9 - ACUTE KIDNEY FAILURE, UNSPECIFIED Qualifiers: Acute renal failure type: unspecified Qualified Code(s): N17.9 - Acute kidney failure, unspecified; N17.9 - Acute kidney failure, unspecified; N17.9 - Acute kidney failure, unspecified (2) Perforated abdominal viscus Code(s): [id number] - (3) Septic shock Code(s): A41.9 - SEPSIS, UNSPECIFIED ORGANISM R65.21 - SEVERE SEPSIS WITH SEPTIC SHOCK (4) Intra-abdominal abscess Code(s): K65.1 - PERITONEAL ABSCESS Assessment/Plan Exploratory laparotomy/left hemicolectomy and diverting transverse colostomy, s/ p abdominal washout PAYAM Leukocytosis pt appears to be improving may switch to po levaquin and flagyl continue wound care monitor wbc
--- NOTE | 2016-12-11 12:43 | PN ---
Physical Exam: SUBJECTIVE: Patient seen and examined. He has no acute issues, his drains are less. He is ready to go home OBJECTIVE: Vital Signs Period Temp Pulse Resp BP Sys/Medina Pulse Ox Last 24 Hr 98.3 F-98.9 F 89-105 18-20 112-139/67-79 100 PE Neuro: alert, awake, cn 2-12intact Pulm: CTAB CV: s1 s2 rrr no mrg Abd: midline incision- pink healing well, Ostomy + stool, LLQ KEYA Drain mild sanguinous fluid- Left gluteus drain with scant sanguinous blood Ext: warm, no le edema Laboratory Results - last 24 hr 12/11/16 05:55 Ferritin 610.748 H Active Medications Generic Name Dose Route Start Last Admin Trade Name Freq PRN Reason Stop Dose Admin Acetaminophen 650 mg 12/07/16 07:33 Tylenol - PO Q6H PRN FEVER OR PAIN Diphenhydramine HCl 25 mg 12/10/16 22:00 12/10/16 21:10 Benadryl - PO 25 mg HS DIAN Administration Levofloxacin 750 mg 12/11/16 12:45 Levaquin - PO DAILY DIAN Metronidazole 500 mg 12/11/16 12:45 Flagyl - PO TID DIAN Ondansetron HCl 4 mg 12/03/16 14:47 Zofran Injection IVPB Q4H PRN NAUSEA AND/OR VOMITING Oxycodone HCl 5 mg 12/06/16 21:51 12/11/16 03:36 Roxicodone - PO 5 mg Q4H PRN Administration PAIN Pantoprazole Sodium 40 mg 12/08/16 12:15 12/11/16 10:24 Protonix - PO 40 mg DAILY DIAN Administration Assessment: 51 year old male with PMHx of GERD admitted with left flank pain and was found to have an abdominal perforation, s/p left hemicolectomy, diverting transverse colostomy and abdominal washout on 11/28/16, hospital course complicated by multiple fluid collections requiring IR drainage 12/07. Plan: 1. Multiple intra-abdominal collections - Follow orderd CBC - Stop zosyn - Start PO levaquin 750mg, flagly 500 tid x days, first dose now - Home with drains in tact and VNS with surgical follow up in 2 weeks - s/p IR drainage w/ KEYA drain 12/07 2. Septic shock d/t perforated descending colon with retroperitoneal abscess cavity - S/p Left hemicolectomy, with diverting transverse colostomy, abdominal washout on 11/28/16 - stop zosyn (renal dose) (11/17-12/11 ) 3. PAYAM - Resolved 4. Acute blood loss anemia - Hgb stable - Transfused for hgb <8 5. Thrombocytosis - Likely reactive - Heme input appreciated Visit type - Emergency Visit Emergency Visit: Yes ED Registration Date: 11/27/16 Care time: The patient presented to the Emergency Department on the above date and was hospitalized for further evaluation of their emergent condition. - New Patient This patient is new to me today: No - Critical Care Critical Care patient: No
[2016-12-11 15:38] LABS: BASOPHIL 0.7 % (0-2.0); EOSINOPHIL 1.8 % (0-4.5); MCH 28.9 pg (25.7-33.7); MCHC 33.9 g/dl (32.0-35.9); MEAN PLT VOLUME 7.4 fl (7.5-11.1); NEUTROPHILS 83.7 % (42.8-82.8); PLATELET COUNT 615 K/MM3 (134-434); WHITE BLOOD COUNT 11.3 K/mm3 (4.0-10.0)
[2016-12-11] MEDS: metroNIDAZOLE 250 MG TABLET PO SCH ×3 (15:59→22:23)
[2016-12-11] MEDS: LEVOFLOXACIN 250 MG TABLET (FP) PO SCH (16:00)
[2016-12-11] MEDS: diphenhydrAMINE HCL 25 MG CAPSULE (FP) PO SCH (22:23)
[2016-12-12] MEDS: metroNIDAZOLE 250 MG TABLET PO SCH ×2 (05:11→13:45)
[2016-12-12 06:07] VITALS: BP 140/80; PULSE 88; TEMP 98
[2016-12-12 06:36] LABS: SERUM IRON 27 ug/dL (38-169); TOTAL IRON BINDING CAPACITY 219 ug/dL (250-450); UIBC 192 ug/dL (111-343)
[2016-12-12 08:43] LABS: BASOPHIL 0.6 % (0-2.0); EOSINOPHIL 1.5 % (0-4.5); MCH 28.3 pg (25.7-33.7); MCHC 33.7 g/dl (32.0-35.9); MEAN CELL VOLUME 83.9 fl (80-96); MEAN PLT VOLUME 7.3 fl (7.5-11.1); NEUTROPHILS 82.6 % (42.8-82.8); PLATELET COUNT 623 K/MM3 (134-434); RDW 15.9 % (11.9-15.9); WHITE BLOOD COUNT 9.3 K/mm3 (4.0-10.0)
[2016-12-12] MEDS ORDERED: FERROUS SO4 325 MG TABLET (FP) PO SCH (10:00)
[2016-12-12] MEDS: LEVOFLOXACIN 250 MG TABLET (FP) PO SCH (10:14)
[2016-12-12] MEDS: PANTOPRAZOLE 40 MG TABLET (FP) PO SCH (10:14)
--- NOTE | 2016-12-12 10:52 | DS ---
Physical Exam: SUBJECTIVE: Patient seen and examined. Doing well, eating food, family at bedside, ready to go home OBJECTIVE: Vital Signs Period Temp Pulse Resp BP Sys/Medina Pulse Ox Last 24 Hr 98 F-98.6 F 85-105 18-20 136-147/72-80 98-99 PE Neuro: alert, awake, cn 2-12intact Pulm: CTAB CV: s1 s2 rrr no mrg Abd: midline incision- pink healing well, Ostomy + stool, LLQ KEYA Drain mild sanguinous fluid- Left gluteus drain with scant sanguinous blood Ext: warm, no le edema Laboratory Results - last 24 hr 12/11/16 12/11/16 12/12/16 05:55 13:30 07:34 WBC 11.3 H 9.3 RBC 3.20 L 3.38 L Hgb 9.2 L 9.6 L Hct 27.2 L 28.3 L MCV 85.0 83.9 MCH 28.9 28.3 MCHC 33.9 33.7 RDW 16.0 H 15.9 Plt Count 615 H 623 H MPV 7.4 L 7.3 L Neutrophils % 83.7 H 82.6 Lymphocytes % 7.1 L D 9.5 D Monocytes % 6.7 5.8 Eosinophils % 1.8 D 1.5 Basophils % 0.7 0.6 Iron 27 L TIBC 219 L Iron Saturation 12 L HOSPITAL COURSE: Date of Admission:11/27/16 Date of Discharge: 12/12/16 Minutes to complete discharge: 37 Discharge Summary Reason For Visit: PERFORATED ABDOMINAL VISCIS Current Active Problems Acute renal failure (Acute) Intra-abdominal abscess (Acute) Perforated abdominal viscus (Acute) Perforated bowel (Acute) Septic shock (Acute) Hospital Course: Initial Hospital Course: Briefly, this 51 year old male with minimal PMHX of GERD on OTC zantac admitted with 48hr hx of Left abd and flank pain without n/v/d, or other sick prodrome. CTAP showed likely perforated colon. Taken for emergent surgery with Dr Powell for Exploratory laparotomy, splenic flexure mobilization, extended left hemicolectomy, diverting transverse colostomy, abdominal washout. Subsequent Hospital Course/Progress Note/Discharge Summary by a/p: Assessment: 51 year old male s/p left hemicolectomy, diverting transverse colostomy and abdominal washout on 11/28/16, hospital course complicated by multiple fluid collections requiring IR drainage 12/07. Plan: 1. Multiple intra-abdominal collections - s/p IR drainage w/ KEYA drain 12/07 - s/p ~14 days zosyn, vanco - Home with PO levaquin 750mg, flagly 500 tid x 5days total - Home with KEYA drains x2 intact with surgical follow up in 2 weeks and repeat CTAP with Dr. Powell 2. Septic shock d/t perforated descending colon with retroperitoneal abscess cavity - S/p Left hemicolectomy, with diverting transverse colostomy, abdominal washout on 11/28/16 - s/p zosyn (11/17-12/11 ) 3. PAYAM - likely ATN from hypotension and sepsis - Resolved 4. Microscopic hematuria - Urology referral enclosed 4. Acute blood loss anemia - Hgb stable - Transfused uprbc 11/30 5. Thrombocytosis - Likely reactive Dispo: - Home with above meds and plan, instructed to call Financial dept for further insurance assistance [phone] - Pt aware and agrees to above plan Condition: Stable - Instructions Diet, Activity, Other Instructions: Please return to the ED for any new, persistent, or worsening symptoms. Follow up with the [facility]. Take antibiotics as directed and until completed Continue drain and colostomy bag management, Follow up with Dr. Powell in 1 week you will need a CTAP in 1-[address] [phone] You need to call before walking in and can go here for wound care and KEYA drain follow up Referrals: Nolan Powell MD [Staff Physician] - 2 Weeks Disposition: VNS/HOME HEALTH CARE - Home Medications Comprehensive Discharge Medication List: Ambulatory Orders Ranitidine HCl [Zantac] 150 mg PO DAILY 11/27/16 Levofloxacin [Levaquin] 750 mg PO DAILY #3 tab 12/12/16 Metronidazole [Flagyl -] 500 mg PO DAILY #12 tablet 12/12/16 This patient is new to me today: No Emergency Visit: Yes ED Registration Date: 11/27/16 Care time: The patient presented to the Emergency Department on the above date and was hospitalized for further evaluation of their emergent condition. Critical Care patient: No - Discharge Referral Referred to [facility] Med [facility] No
--- NOTE | 2016-12-14 09:09 | PATH ---
Surgical Pathology Report Patient Name: SOFIA JUÁREZ [facility]. Rec. #: [id number] /Age/Gender: 1965 (Age: 51) / M Account: [id number] Location: [address] [place] [address] Taken: 12/10/2016 Received: 12/10/2016 Reported: 12/14/2016 Physicians: Racheal Russo M.D. Specimen(s) Received PERIPHERAL BLOOD Clinical History None Provided Final Diagnosis PERIPHERAL BLOOD: FLOW CYTOMETRY performed and interpreted at [facility], [place], [place] ([id number]) shows the following: INTERPRETATION: GRANULOCYTOSIS WITH NO DISCRETE ATYPICAL FLOW CYTOMETRIC FINDINGS SEEN. Comment: Molecular studies are pending, and a report will follow. Electronically Signed Raman Pizarro M.D. Addendum Reported: 12/16/2016 Addendum Diagnosis PERIPHERAL BLOOD: Molecular Pathology Reports received from [facility] in [place], [place] ([id number] and [id number]) show the following: BCR/ABL GENE REARRANGEMENT (IS) ANALYSIS RESULTS: NEGATIVE BCR/ABL Major Breakpoints (b2a2 and b3a2): NOT DETECTED BCR/ABL Minor Breakpoint (e1a2): NOT DETECTED INTERPRETATION: No BCR-ABL translocation was detected in this sample. JAK2 [id number] MUTATION ANALYSIS BY PCR RESULTS: Only the wild-type JAK2 sequence was detected. INTERPRETATION: Negative for JAK2 (V617F) mutation Raman Pizarro M.D. Gross Description Received labelled with the patient's name are 2 lavender top tubes and 2 green top tubes of peripheral blood which are forwarded to [facility] for ancillary testing.
== END 2016-12-12 15:53 | disposition home health service (06) | DRG 710 ==
LOC: JER 14:42 → JICU 23:02 → J6S 12-03 15:00
PROVIDERS: ADMIT Internal Medicine; ATTEND Nurse Practitioner Acute Care
PROC: 0D1L0Z4 Bypass Transverse Colon to Cutaneous, Open Approach (ICD-10-PCS; 2016-11-27)
PROC: 3E1M38Z Irrigation of Peritoneal Cavity using Irrigating Substance, Percutaneous Approach (ICD-10-PCS; 2016-11-27)
PROC: 0W9G30Z Drainage of Peritoneal Cavity with Drainage Device, Percutaneous Approach (ICD-10-PCS; 2016-11-27)
PROC: 0DTG0ZZ Resection of Left Large Intestine, Open Approach (ICD-10-PCS; principal; 2016-11-27 22:59)
PROC: 30233N1 Transfusion of Nonautologous Red Blood Cells into Peripheral Vein, Percutaneous Approach (ICD-10-PCS; 2016-11-30)
PROC: 0W9G30Z Drainage of Peritoneal Cavity with Drainage Device, Percutaneous Approach (ICD-10-PCS; 2016-12-07)
DX: A41.89 Other specified sepsis (principal); R65.21 Severe sepsis with septic shock; K57.20 Diverticulitis of large intestine with perforation and abscess without bleeding; K68.19 Other retroperitoneal abscess; K76.0 Fatty (change of) liver, not elsewhere classified; N17.9 Acute kidney failure, unspecified; K42.9 Umbilical hernia without obstruction or gangrene; K21.9 Gastro-esophageal reflux disease without esophagitis; D72.828 Other elevated white blood cell count; I95.89 Other hypotension; N20.0 Calculus of kidney; F12.10 Cannabis abuse, uncomplicated; D62 Acute posthemorrhagic anemia; E87.6 Hypokalemia; E83.42 Hypomagnesemia; E83.39 Other disorders of phosphorus metabolism; D47.3 Essential (hemorrhagic) thrombocythemia; N18.9 Chronic kidney disease, unspecified; J98.11 Atelectasis
CPT/HCPCS: 36415; 36430; 49406; 71010-TC; 74176; 74176-TC; 74177-TC; 76098-TC; 76775-TC; 76856-TC; 80048; 80053; 81003; 81015; 82272; 82436; 82570; 82728; 83036; 83516; 83520; 83540; 83550; 83605; 83690; 83735; 84100; 84133; 84155; 84165; 84300; 85025; 85027; 85044; 85384; 85610; 85651; 85730; 86038; 86140; 86225; 86256; 86704; 86706; 86708; 86803; 86850; 86900; 86901; 86922; 87040; 87045; 87046; 87070; 87075; 87086; 87186; 87205; 87340; 87389; 87899; 88300-TC; 88304-TC; 88307-TC; 93005; 93010; 94760; 97116-GP; 97161-GP; 99285-25; C1729; C1769; J2597; P9038; P9058; Q9967

== ENCOUNTER 2018-02-27 08:00 | Inpatient (IN) | payer OTHER ==
[2018-02-24 07:55] VITALS: BMI 26.6
[2018-03-01] MEDS ORDERED: FLU VACCINE QUAD 60 MCG/0.5 ML (MDV 18-19) IM ONE (06:58)
[2018-03-01] MEDS ORDERED: ALVIMOPAN 12 MG CAP PO ONE ×2 (07:09→07:15)
[2018-03-01] MEDS ORDERED: ERTAPENEM SODIUM 1 GM VIAL ONE (07:09)
[2018-03-01] MEDS ORDERED: MIDAZOLAM HCL 2 MG/2 ML SINGLE DOSE VIAL ONE (07:25)
[2018-03-01] MEDS ORDERED: LIDOCAINE HCL/PF 2% SDV 5ML VIAL ONE ×2 (07:28→09:40)
[2018-03-01] MEDS ORDERED: PROPOFOL 20 ML ONE ×6 (07:28→13:03)
[2018-03-01] MEDS ORDERED: ROCURONIUM BROMIDE 50 MG/5 ML VIAL ONE ×2 (07:29→09:16)
[2018-03-01] MEDS ORDERED: SUCCINYLCHOLINE CHLORIDE 200 MG/10 ML VIAL ONE (07:29)
[2018-03-01] MEDS ORDERED: DEXAMETHASONE SOD PHOSPHATE 4 MG/1 ML VIAL ONE (07:30)
[2018-03-01] MEDS ORDERED: KETOROLAC TROMETHAMINE 30 MG/1 ML VIAL ONE ×2 (07:30→08:16)
[2018-03-01] MEDS ORDERED: ONDANSETRON 4 MG/2 ML VIAL IVPUSH PRN ×2 (07:51→14:36)
[2018-03-01] MEDS ORDERED: LACTATED RINGERS SOLUTION 1,000 ML IV SCH (08:00)
[2018-03-01] MEDS ORDERED: HYDROmorphone *PCA* 10MG/50ML DISP.SYRIN PCA SCH (08:00)
[2018-03-01] MEDS ORDERED: ceFAZolin SODIUM 1 GM VIAL IVPB ONE (08:29)
[2018-03-01] MEDS ORDERED: METOPROLOL TARTRATE 5 MG/5 ML VIAL ONE (08:48)
[2018-03-01] MEDS ORDERED: KETAMINE HCL 200 MG/20 ML VIAL ONE ×3 (09:11→12:32)
[2018-03-01] MEDS ORDERED: ePHEDrine SULFATE 50 MG/1 ML AMPULE ONE (12:39)
[2018-03-01] MEDS ORDERED: GLYCOPYRROLATE 0.2 MG/1 ML VIAL ONE (13:02)
[2018-03-01] MEDS ORDERED: LIDOCAINE HCL 4% TOPICAL SOLN (50 ML/BOTTLE) ONE (13:02)
[2018-03-01] MEDS ORDERED: NEOSTIGMINE METHYLSULFATE 0.5 MG/ML - 10 ML MDV ONE (13:02)
[2018-03-01] MEDS ORDERED: ACETAMINOPHEN 1000 MG/100 ML VIAL (NON FORMULARY) IVPB ONE ×2 (14:10→14:36)
--- NOTE | 2018-03-01 14:21 | HP ---
History & Physical Update - History History: No Change - Physical Physical: No Change - Assessment Assessment: No Change - Plan Plan: No Change (Printed out and placed in paper chart)
--- NOTE | 2018-03-01 14:22 | SURG ---
Surgery Intellectual Property Manager Note Intellectual Property Manager: Jesse Story PA-C Date of Service: 03/01/18 Diagnosis: Perforated diverticulitis Procedure: Jo Ann's Reversal I was present for the entirety of the operative procedure. For further detail, please refer to operative report. Visit type - Case Type Case Type: ED Admission - New patient This patient is new to me today: Yes Date on this admission: 03/01/18
--- NOTE | 2018-03-01 14:24 | OP ---
Operative Note - Note: Operative Date: 03/01/18 Pre-Operative Diagnosis: h/o perforated diverticulitis Operation: Jo Ann's Reversal Post-Operative Diagnosis: Same as Pre-op Surgeon: Michael Stratton Washing Machine Striper: Jesse Story (Mira Schmidt) Anesthesiologist/INFORMATION RECEPTIONIST: Denis Rebollar Anesthesia: General Specimens Removed: portion of colostomy & skin Estimated Blood Loss (mls): 100 Drains & Tubes with Location: RLQ KEYA Drains, Volume Out (mls): 400 (lang - clear) Fluid Volume Replaced (mls): 2,000 Operative Report Dictated: Yes
[2018-03-01] MEDS ORDERED: ERTAPENEM SODIUM 1 GM in SODIUM CHLORIDE 50 ML IVPB ONE (14:36)
[2018-03-01] MEDS ORDERED: LABETALOL HCL 5 MG/1 ML (100MG/20 ML VIAL) IVPUSH ONE ×2 (15:00→15:50)
[2018-03-01] MEDS: HYDROmorphone *PCA* 10MG/50ML DISP.SYRIN PCA SCH (15:23)
[2018-03-01] MEDS ORDERED: hydrALAZINE HCL 20 MG/ML VIAL ONE (15:42)
[2018-03-01] MEDS: LACTATED RINGERS SOLUTION 1,000 ML IV SCH ×2 (18:00→18:45)
[2018-03-01] MEDS ORDERED: ceFAZolin SODIUM 1 GM VIAL ONE (18:07)
[2018-03-01] MEDS: CEFAZOLIN 2 GM/D5W 2 GM/50 ML ML IVPB SCH (18:46)
[2018-03-01] MEDS ORDERED: PT OWN MED DRAWER 7, Y5N ONE ×2 (21:11→21:33)
[2018-03-01] MEDS: ALVIMOPAN 12 MG CAP PO SCH (22:33)
[2018-03-02] MEDS: CEFAZOLIN 2 GM/D5W 2 GM/50 ML ML IVPB SCH (02:18)
[2018-03-02] MEDS: LACTATED RINGERS SOLUTION 1,000 ML IV SCH ×2 (06:14→21:20)
[2018-03-02 06:46] LABS: BASO % 0.2 % (0-2.0); HEMATOCRIT 36.2 % (35.4-49); HEMOGLOBIN 12.1 GM/dL (11.7-16.9); LYMPH % 3.3 % (8-40); MCH 28.3 pg (25.7-33.7); MCHC 33.5 g/dl (32.0-35.9); MEAN CELL VOLUME 84.5 fl (80-96); MEAN PLT VOLUME 9.3 fl (7.5-11.1); NEUT % 92.5 % (42.8-82.8); PLATELET COUNT 171 K/MM3 (134-434); RBC 4.28 M/mm3 (4.00-5.60); RDW 14.6 % (11.9-15.9); WHITE BLOOD COUNT 13.7 K/mm3 (4.0-10.0)
[2018-03-02 09:08] LABS: ANION GAP 9 MMOL/L (8-16); BLOOD UREA NITROGEN 18 mg/dL (7-18); CALCIUM 9.1 mg/dL (8.5-10.1); CHLORIDE 106 mmol/L (98-107); CO2 26 mmol/L (21-32); CREATININE 1.4 mg/dL (0.55-1.3); GLUCOSE,RANDOM 104 mg/dL (74-106); SODIUM 141 mmol/L (136-145)
[2018-03-02 09:46] LABS: ANISOCYTOSIS 0; HELMET CELLS 0; HOWELL-JOLLY BODIES 0; MACROCYTOSIS 0; OVALOCYTE 0; PLATELET ESTIMATE NORMAL; ROULEAU 0; SICKELED CELLS 0; TARGET CELLS 0; TEAR DROP CELLS 0; TOXIC GRANULATION 0
[2018-03-02] MEDS ORDERED: PT OWN MED DRAWER 7, Y5N ONE ×2 (09:54→21:07)
[2018-03-02] MEDS: ENOXAPARIN NA (PORCINE) 40 MG/0.4 ML DISP.SYRIN SQ SCH (10:26)
[2018-03-02] MEDS: ALVIMOPAN 12 MG CAP PO SCH ×2 (10:26→21:21)
--- NOTE | 2018-03-02 10:38 | PN ---
Progress Note (short form) - Note Progress Note: POD#1 Pt without any complaints. No CP, SOB, nausea or vomiting. OOB to chair this am. Vital Signs Period Temp Pulse Resp BP Sys/Medina Pulse Ox Last 24 Hr 96.8 F-98.6 F 69-99 10-27 126-164/70-113 98-100 GEN: A&0x3, NAD, OOB to chair CV: RRR Lungs: CTA b/l ABD: Mid line incision c/d/i with intermittent diomedes. No purulent drainage. Ostomy site, fascia intact with no drainage. LE: no calf tenderness or swelling noted b/l CBC, BMP 01/17/19 06:20 01/17/19 06:20 A/P: 52 yo male s/p hartmans reversal, POD#1 Pt npo/iv hydration OOB to chair DVT ppx with heparin SQ/SCDs/ambulation Pain managment with UROLOGY NURSE CBC/chem in the am Ostomy care daily with wet to dry, VNS as outpt, pt seen with Dr. Stratton
[2018-03-02] MEDS: HYDROmorphone *PCA* 10MG/50ML DISP.SYRIN PCA SCH (11:29)
--- NOTE | 2018-03-02 12:31 | PROC ---
Procedure Note Procedure: Anesthesia post op and CARGO AGENT note POD#1, S/P kanu procedure. GA. CARGO AGENT. Pain 4-8. No apparent post anesthesia complications. Continue CARGO AGENT. Will Follow up.
[2018-03-03] MEDS: HYDROmorphone *PCA* 10MG/50ML DISP.SYRIN PCA SCH (05:38)
[2018-03-03 07:41] LABS: BASO % 0.5 % (0-2.0); EOS % 0.3 % (0-4.5); HEMATOCRIT 32.9 % (35.4-49); HEMOGLOBIN 11.1 GM/dL (11.7-16.9); MCH 28.6 pg (25.7-33.7); MCHC 33.7 g/dl (32.0-35.9); MEAN CELL VOLUME 84.7 fl (80-96); MONO % 4.7 % (3.8-10.2); NEUT % 90.5 % (42.8-82.8); PLATELET COUNT 157 K/MM3 (134-434); RBC 3.88 M/mm3 (4.00-5.60); RDW 14.6 % (11.9-15.9); WHITE BLOOD COUNT 11.9 K/mm3 (4.0-10.0)
[2018-03-03 08:29] LABS: ANION GAP 9 MMOL/L (8-16); BLOOD UREA NITROGEN 21 mg/dL (7-18); CALCIUM 8.4 mg/dL (8.5-10.1); CHLORIDE 108 mmol/L (98-107); CO2 29 mmol/L (21-32); CREATININE 1.2 mg/dL (0.55-1.3); GLUCOSE,RANDOM 80 mg/dL (74-106); POTASSIUM 4.2 mmol/L (3.5-5.1); SODIUM 145 mmol/L (136-145)
[2018-03-03] MEDS ORDERED: PT OWN MED DRAWER 7, Y5N ONE (10:49)
[2018-03-03] MEDS: ENOXAPARIN NA (PORCINE) 40 MG/0.4 ML DISP.SYRIN SQ SCH (10:51)
[2018-03-03] MEDS: ALVIMOPAN 12 MG CAP PO SCH (10:51)
[2018-03-03] MEDS: ACETAMINOPHEN 325 MG TABLET (FP) PO SCH ×3 (10:51→22:18)
[2018-03-03] MEDS: LACTATED RINGERS SOLUTION 1,000 ML IV SCH (10:59)
--- NOTE | 2018-03-03 11:06 | PN ---
Progress Note (short form) - Note Progress Note: POD#2 Pt without any flatus. No nausea or emesis. Vital Signs Period Temp Pulse Resp BP Sys/Medina Pulse Ox Last 24 Hr 97.2 F-99.3 F 69-95 18-20 125-160/67-96 98 KEYA-100ml bloody Holt-600ml GEN: A&0x3, NA ABD: soft, non-distended, inc tenderness. Dressing changed today, bleeding from skin edges noted. Previous ostomy site is clean/fascia intact. Midline incision has few diomedes(intermittent) with no drainage. LE: no calf tenderness to b/l LE CBC, BMP 01/18/19 06:30 01/18/19 06:30 A/P: 52 yo male s/p hartmans reversal, POD#2 Continue npo/iv hydration Chem in the am OOB ambulate TOV today Disctoninue TELEVISION SERVICER, IV morphine/tylenol for pain D/w Dr. Stratton
--- NOTE | 2018-03-03 12:07 | PN ---
Progress Note (short form) - Note Progress Note: [employer] follow up It is discontinued by the surgeon. Plan is to take oral pain meds. A/P Rest of the care is upon surgeons decisions. Rhona Yeh MD.
[2018-03-03] MEDS: morphine SULFATE 4 MG/ML VIAL IVPUSH PRN ×2 (16:24→20:40)
[2018-03-04] MEDS: LACTATED RINGERS SOLUTION 1,000 ML IV SCH ×2 (02:32→14:59)
[2018-03-04] MEDS: ACETAMINOPHEN 325 MG TABLET (FP) PO SCH ×3 (05:50→15:00)
[2018-03-04] MEDS: ALVIMOPAN 12 MG CAP PO SCH (05:53)
--- NOTE | 2018-03-04 09:43 | PN ---
Progress Note (short form) - Note Progress Note: Attending Surgeon POD #3 No c/o; had some BM's and is passing flatus; ambulating and voiding VSS AF abdo-soft; wound healing; KEYA serous IMP: doing well PLAN: d/c Entereg; clear liquid diet; cont same tx. Michael Stratton MD FACS
[2018-03-04 09:48] LABS: ANION GAP 10 MMOL/L (8-16); BLOOD UREA NITROGEN 21 mg/dL (7-18); CALCIUM 8.7 mg/dL (8.5-10.1); CHLORIDE 108 mmol/L (98-107); CO2 24 mmol/L (21-32); CREATININE 1.1 mg/dL (0.55-1.3); GLUCOSE,RANDOM 68 mg/dL (74-106); SODIUM 141 mmol/L (136-145)
[2018-03-04] MEDS: ENOXAPARIN NA (PORCINE) 40 MG/0.4 ML DISP.SYRIN SQ SCH (10:12)
[2018-03-05] MEDS: morphine SULFATE 4 MG/ML VIAL IVPUSH PRN ×3 (01:02→23:07)
[2018-03-05] MEDS: ENOXAPARIN NA (PORCINE) 40 MG/0.4 ML DISP.SYRIN SQ SCH (09:35)
--- NOTE | 2018-03-05 11:14 | PN ---
Progress Note (short form) - Note Progress Note: Attending Surgeon POD#4 No c/o; having BM's and passing flatus; tolerated clear liquid diet VSS AF abdo-soft; incisional tenderness only; incisions open and clean and healing; diomedes intact around the umbilicus; drain serous. IMP: doing well PLAN: Advance to soft diet; d/c IVF; OOB; wound care; labs tomorrow. Michael Stratton MD FACS
[2018-03-06 07:32] LABS: HEMATOCRIT 33.9 % (35.4-49); HEMOGLOBIN 11.5 GM/dL (11.7-16.9); MCH 28.5 pg (25.7-33.7); MCHC 33.9 g/dl (32.0-35.9); MEAN CELL VOLUME 83.9 fl (80-96); MEAN PLT VOLUME 8.4 fl (7.5-11.1); PLATELET COUNT 195 K/MM3 (134-434); RBC 4.04 M/mm3 (4.00-5.60); RDW 14.9 % (11.9-15.9); WHITE BLOOD COUNT 7.8 K/mm3 (4.0-10.0)
[2018-03-06 08:10] LABS: ANION GAP 6 MMOL/L (8-16); BLOOD UREA NITROGEN 11 mg/dL (7-18); CALCIUM 8.5 mg/dL (8.5-10.1); CHLORIDE 105 mmol/L (98-107); CO2 28 mmol/L (21-32); CREATININE 1.2 mg/dL (0.55-1.3); GLUCOSE,RANDOM 86 mg/dL (74-106); SODIUM 140 mmol/L (136-145)
[2018-03-06] MEDS: ENOXAPARIN NA (PORCINE) 40 MG/0.4 ML DISP.SYRIN SQ SCH (09:44)
--- NOTE | 2018-03-06 13:24 | OP ---
DATE OF OPERATION: 03/01/2018 PREOPERATIVE DIAGNOSIS: Status post perforated diverticulitis and Lamb procedure. POSTOPERATIVE DIAGNOSIS: Status post perforated diverticulitis and Lamb procedure. PROCEDURE: Exam under anesthesia and rigid proctosigmoidoscopy and reversal of Lamb procedure (colocolostomy). SURGEON: Michael Stratton MD GROUND SUPPORT EQUIPMENT MECHANIC: Jesse Story PA-C ANESTHESIA: General. OPERATIVE FINDINGS: There were adhesions from previous surgery. There was a long distal rectosigmoid stump. The rest of the findings were unremarkable. PROCEDURE: The patient was placed on the operating room table in supine position and after the induction of general anesthesia and placement of a Frankel catheter the patient's legs were put up into the dorsal lithotomy position and the abdomen, genitalia, and perineum were prepped with ChloraPrep. Prior to this rigid proctosigmoidoscopy was carried out, after a timeout, to about 18 cm and was unremarkable. Next, the patient was draped in sterile fashion, and the peritoneal cavity was entered by excising the previous skin scar with a scalpel and entering the peritoneal cavity under direct vision. The previously noted findings were observed which were adhesions which were taken down using a combination of blunt and sharp dissection. The distal stump was identified and mobilized. Throughout the dissection, the left ureter was identified and preserved. The colostomy was taken down by excising an ellipse of skin around the colostomy down to the subcutaneous tissue and delivering the colostomy into the peritoneal cavity. Next, it was decided that anastomosis would be done in an end-to-side fashion. A pursestring suture device was placed on the distal stump and the previous staple line excised, and a 28-mm anvil was placed in the stump and the pursestring suture tied. Next, the nonviable skin and colostomy and a portion of the proximal left colon were excised. A 28 EEA stapler was placed in the opened end of the proximal colon and then an end-to-side anastomosis created between the colon and the distal rectal stump using the EEA stapling device. Two donuts were retrieved which were grossly unremarkable upon exam in the operating room. The open end of the proximal colon was then closed with a TA-60 stapling device. Prior to this, patency of the anastomosis was verified as well as no adverse bleeding. There was no tension at the completion of the anastomosis. Next copious irrigation was carried out of the peritoneal cavity until the return was clear and again the left ureter was identified and preserved. A 10-mm Merrick Morrissey drain was placed in the sacral hollow and secured to the skin with 2-0 silk suture. The colostomy site was then closed from within with multiple 0 Prolene [id number] sutures, and then the anterior abdominal wall fascia was closed in a similar fashion. Next the instrument, needle, and sponge count were verified as correct, and gown, gloves, and instruments were changed, and the midline incision was closed with 0 Maxon continuous locked suture. Again, the needle, instrument, and sponge count were verified as correct. The subcutaneous tissue was irrigated, and the skin edges around the umbilicus were approximated with surgical diomedes. Half-inch Iodoform packing was placed in the old colostomy site and the midline wound above and below the umbilicus. Dry sterile dressings were placed. The drain was connected to bulb self-suction and the patient aroused from general anesthesia and transferred to the postanesthesia care unit in stable condition awake and alert. ESTIMATED BLOOD LOSS: 100 mL. REPLACEMENTS: Crystalloid. DRAINS: One 10-mm Merrick Morrissey. URINE OUTPUT: 400 mL of clear urine. I, Michael Stratton MD, was physically present in the operating room from the time the patient was placed on the operating room table until he was transferred to the postanesthesia care unit in my accompaniment. MD MILLY Vuong/[id number] MTDD
[2018-03-06 14:01] VITALS: BP 142/89; PULSE 78; TEMP 98.2
--- NOTE | 2018-03-06 17:33 | PATH ---
Surgical Pathology Report Patient Name: SOFIA JUÁREZ [facility]. Rec. #: [id number] /Age/Gender: 1965 (Age: 52) / M Account: [id number] Location: [address] [place] [address]/[facility] Taken: 03/01/2018 Received: 03/02/2018 Reported: 03/06/2018 Physicians: Michael Stratton MD Specimen(s) Received PORTION OF RECTAL SIGMOID Clinical History Status post perforated diverticulitis Final Diagnosis PORTION OF RECTAL SIGMOID AND OSTOMY, RESECTION: SEGMENT OF COLON SHOWING NONSPECIFIC CHRONIC, FOCALLY MILD ACUTE INFLAMMATION, AND FIBROSIS IN THE LAMINA PROPRIA. FOCAL ACUTE SEROSITIS WITH HEMORRHAGE. SEPARATE COLOSTOMY SPECIMEN SHOWING CHRONIC NONSPECIFIC INFLAMMATION. VIABLE MARGINS. Electronically Signed Karla Powell M.D. Gross Description Received in formalin labeled "portion of rectal sigmoid and ostomy," is a 5.0 x 2.5 cm pedersen-brown, elliptical portion of skin with a central os. There is a 3.8 cm in length portion of colon attached to the os. The colon displays an open mucosal margin. Separately received within the same container is a 7 cm in length portion of colon with one stapled and one open mucosal margin. The serosa is pedersen-lu with a focal defect. The mucosa is pedersen with normal folds. No mucosal masses are identified. Frog Shaker sections are submitted in 7 cassettes as follows: 1-colostomy site; 2-open mucosal margin from separately received bowel; 3-stapled mucosal margin from separately received bowel; 4-8-udssquxd from defect; 7-uninvolved labor union business representative bowel. /03/02/201803/02/2018
[2018-03-07] MEDS ORDERED: RANITIDINE HCL 150 MG TABLET (FP) PO SCH (10:00)
== END 2018-03-06 17:06 | disposition home or self-care (01) | DRG 221 ==
LOC: JSAMEDAYSX 03-01 04:52 → J6S 03-01 18:43
PROVIDERS: ADMIT Surgery; ATTEND Surgery
PROC: 0DBP0ZZ Excision of Rectum, Open Approach (ICD-10-PCS; 2018-03-01)
PROC: 0DBN0ZZ Excision of Sigmoid Colon, Open Approach (ICD-10-PCS; 2018-03-01)
PROC: 0DNW0ZZ Release Peritoneum, Open Approach (ICD-10-PCS; 2018-03-01)
PROC: 0DJD8ZZ Inspection of Lower Intestinal Tract, Via Natural or Artificial Opening Endoscopic (ICD-10-PCS; principal; 2018-03-01 08:00)
DX: Z43.3 Encounter for attention to colostomy (principal); K66.0 Peritoneal adhesions (postprocedural) (postinfection); I10 Essential (primary) hypertension; K21.9 Gastro-esophageal reflux disease without esophagitis
CPT/HCPCS: 36415; 80048; 85025; 85027; 86850; 86900; 86901; 88307-TC; 94010; 94760; J0131

== ENCOUNTER 2018-05-16 08:46 | Day surgery (SDC) | payer OTHER ==
[2018-05-15 11:05] VITALS: BMI 25.8
[2018-05-16 11:20] VITALS: TEMP 97.4
[2018-05-16 12:43] VITALS: BP 142/98; PULSE 69
--- NOTE | 2018-05-17 16:57 | PATH ---
Surgical Pathology Report Patient Name: SOFIA JUÁREZ [facility]. Rec. #: [id number] /Age/Gender: 1965 (Age: 52) / M Account: [id number] Location: [facility]-ENDOSCOPY Taken: 05/16/2018 Received: 05/16/2018 Reported: 05/17/2018 Physicians: Dickson Feliz D.O. Specimen(s) Received A: COLON ANASTOMOSIS SITE AT 25CM B: POLYP SIGMOID Clinical History History of diverticulitis, colon cancer screening Postoperative diagnosis: Diverticulosis, polyp, hemorrhoids, colon anastomosis Final Diagnosis A. COLON ANASTOMOSIS SITE AT 25 CM, BIOPSY: COLONIC MUCOSA WITH ULCERATION, ACTIVE CHRONIC INFLAMMATION, AND EPITHELIAL HYPERPLASTIC CHANGE. B. SIGMOID POLYP, BIOPSY: POLYPOID COLONIC MUCOSA WITH MILD NONSPECIFIC CHRONIC INFLAMMATION. Electronically Signed Karla Powell M.D. Gross Description A. Received in formalin, labeled "biopsy colon anastomosis site at 25 cm" is a pedersen, irregular portion of soft tissue measuring 0.4 cm. in greatest dimension. The specimen is submitted in toto in one cassette. B. Received in formalin, labeled "biopsy sigmoid polyp" is a pedersen, irregular portion of soft tissue measuring 0.2 cm. in greatest dimension. The specimen is submitted in toto in one cassette. 05/16/201805/16/2018
== END 2018-05-16 12:10 | disposition home or self-care (01) ==
LOC: JASU-ENDO 08:46
PROVIDERS: ATTEND Internal Medicine Gastroenterology
PROC: 0DBN8ZX Excision of Sigmoid Colon, Via Natural or Artificial Opening Endoscopic, Diagnostic (ICD-10-PCS; principal; 2018-05-16 09:45)
DX: Z12.11 Encounter for screening for malignant neoplasm of colon (principal); D12.5 Benign neoplasm of sigmoid colon; K57.30 Diverticulosis of large intestine without perforation or abscess without bleeding; Z98.0 Intestinal bypass and anastomosis status; K64.8 Other hemorrhoids
CPT/HCPCS: 88305-TC

== ENCOUNTER 2018-05-23 09:39 | Day surgery (SDC) | payer OTHER ==
[2018-05-23 09:53] VITALS: BMI 25.8
[2018-05-23 11:18] VITALS: TEMP 97.8
[2018-05-23 12:12] VITALS: BP 134/81; PULSE 61
--- NOTE | 2018-05-24 17:42 | PATH ---
Surgical Pathology Report Patient Name: SOFIA JUÁREZ [facility]. Rec. #: [id number] /Age/Gender: 1965 (Age: 53) / M Account: [id number] Location: [facility] Taken: 05/23/2018 Received: 05/23/2018 Reported: 05/24/2018 Physicians: Dickson Feliz D.O. Specimen(s) Received A: 2ND PORTION DUODENUM B: ANTRUM C: ANTRUM AND BODY D: BODY E: GE JUNCTION Clinical History GERD Postoperative diagnosis: Gastric polyps Final Diagnosis A. DUODENUM, SECOND PORTION, BIOPSY: DUODENAL MUCOSA WITHOUT SIGNIFICANT PATHOLOGIC FINDINGS. B. ANTRUM POLYP, BIOPSY: POLYPOID GASTRIC ANTRAL MUCOSA WITH MILD CHRONIC GASTRITIS. IMMUNOHISTOCHEMICAL STAIN FOR H. PYLORI IS NEGATIVE. C. ANTRUM AND BODY, BIOPSY: GASTRIC MUCOSA WITH MILD CHRONIC GASTRITIS. IMMUNOHISTOCHEMICAL STAIN FOR H. PYLORI IS NEGATIVE. D. GASTRIC POLYP, BIOPSY: FUNDIC GLAND POLYP. IMMUNOHISTOCHEMICAL STAIN FOR H. PYLORI IS NEGATIVE. E. GE JUNCTION, BIOPSY: SQUAMOCOLUMNAR MUCOSA WITH MODERATE TO SEVERE CHRONIC FOCAL ACTIVE INFLAMMATION AND CHANGES OF MODERATE REFLUX ESOPHAGITIS. NO INTESTINAL METAPLASIA OR DYSPLASIA IDENTIFIED. Electronically Signed Adalgisa Romeo M.D. Gross Description A. Received in formalin, labeled "biopsy second portion of duodenum" are 2 pedersen, irregular portions of soft tissue measuring 0.3 and 0.5 cm. in greatest dimension. The specimens are submitted in toto in one cassette. B. Received in formalin, labeled "biopsy antrum polyp" are 2 pedersen, irregular portions of soft tissue measuring 0.1 and 0.3 cm. in greatest dimension. The specimens are submitted in toto in one cassette. C. Received in formalin, labeled "biopsy antrum and body" are 2 pedersen, irregular portions of soft tissue measuring 0.2 and 0.5 cm. in greatest dimension. The specimens are submitted in toto in one cassette. D. Received in formalin, labeled "biopsy gastric polyp" is a pedersen, irregular portion of soft tissue measuring 0.5 cm. in greatest dimension. The specimen is submitted in toto in one cassette. E. Received in formalin, labeled "biopsy GE junction" is a pedersen, irregular portion of soft tissue measuring 0.5 cm. in greatest dimension. The specimen is submitted in toto in one cassette. DL/05/23/2018 saudi05/23/2018
== END 2018-05-23 12:12 | disposition home or self-care (01) ==
LOC: JASU-ENDO 09:39
PROVIDERS: ATTEND Internal Medicine Gastroenterology
PROC: 0DB68ZX Excision of Stomach, Via Natural or Artificial Opening Endoscopic, Diagnostic (ICD-10-PCS; 2018-05-23)
PROC: 0DB48ZX Excision of Esophagogastric Junction, Via Natural or Artificial Opening Endoscopic, Diagnostic (ICD-10-PCS; principal; 2018-05-23 10:30)
DX: K31.7 Polyp of stomach and duodenum (principal); K29.50 Unspecified chronic gastritis without bleeding
CPT/HCPCS: 88305-TC; 88342-TC

== ENCOUNTER 2018-09-08 07:31 | Emergency (ER) | payer OTHER ==
[2018-09-08 07:45] VITALS: TEMP 98; BMI 26.6
[2018-09-08] MEDS ORDERED: PANTOPRAZOLE SODIUM 40 MG in SODIUM CHLORIDE 100 ML IVPB ONE (08:14)
--- NOTE | 2018-09-08 09:20 | PDOC ---
History of Present Illness - General Chief Complaint: Pain, Acute Stated Complaint: ABD PAIN Time Seen by Provider: 09/08/18 08:04 History Source: Patient Exam Limitations: No Limitations - History of Present Illness Travel History: No Initial Comments: 09/08/18 08:20 53-year-old male with history of GERD presents to the ED for evaluation of upper abdominal pain since last night unrelieved with his Zantac which normally does alleviate his symptoms. Patient denies radiation of pain to his chest or lower abdomen and denies any recent illness or recent travel. Patient denies change in bowel pattern urine pattern, or abdominal distention. Timing/Duration: reports: constant Quality: reports: mild, aching Abdominal Pain Onset Location: reports: epigastric Pain Radiation: reports: no radiation Activities at Onset: reports: none Alleviating Factors: improves with: None Past History - Travel Traveled outside of the country in the last 30 days: No Close contact w/someone who was outside of country & ill: No - Past Medical History Allergies/Adverse Reactions: Allergies Allergy/AdvReac Type Severity Reaction Status Date / Time No Known Allergies Allergy Verified 09/08/18 07:38 Home Medications: Ambulatory Orders Ranitidine HCl [Zantac] 150 mg PO DAILY 11/27/16 Anemia: No Asthma: No Cancer: No Cardiac Disorders: No CVA: No COPD: No CHF: No Dementia: No Diabetes: No GI Disorders: Yes (GERD,DIVERTICULITIS,DIVERTICULOSIS,GERD) Disorders: No HTN: No Hypercholesterolemia: No Liver Disease: No Seizures: No Thyroid Disease: No - Surgical History Abdominal Surgery: Yes (HEMICOLECTOMY/HARTMANNS PROCEDURE 11/2016, REVERSAL HARTSMANN 02/2018) Appendectomy: No Cardiac Surgery: No Cholecystectomy: No Lung Surgery: No Neurologic Surgery: No Orthopedic Surgery: Yes (KNEE RIGHT 1995) - Immunization History Immunization Up to Date: Yes - Suicide/Smoking/Psychosocial Hx Smoking History: Never smoked Have you smoked in the past 12 months: No 'Breaking Loose' booklet given: 02/24/18 Hx Alcohol Use: Yes ("SOCIALLY") Drug/Substance Use Hx: No Substance Use Type: None Hx Substance Use Treatment: No Patient Lives Alone: No Lives with/in: parents Abd/GI Specific PMHX - Complaint Specific PMHX GERD: Yes Review of Systems - Review of Systems Able to Perform ROS?: Yes Constitutional: No: Symptoms Reported HEENTM: No: Symptoms Reported Respiratory: No: Symptoms reported Cardiac (ROS): No: Symptoms Reported ABD/GI: Yes: Indigestion. No: Nausea : No: Symptoms Reported Musculoskeletal: No: Symptoms Reported Integumentary: No: Symptoms Reported Neurological: No: Symptoms reported Endocrine: No: Symptoms Reported Hematologic/Lymphatic: No: Symptoms Reported *Physical Exam - Vital Signs Last Vital Signs Temp Pulse Resp BP Pulse Ox 98.0 F 62 16 115/73 98 09/08/18 07:34 09/08/18 07:34 09/08/18 07:34 09/08/18 07:34 09/08/18 07:34 - Physical Exam General Appearance: Yes: Nourished, Appropriately Dressed. No: Apparent Distress Neck: positive: Supple Respiratory/Chest: positive: Lungs Clear, Normal Breath Sounds. negative: Respiratory Distress, Accessory Muscle Use Cardiovascular: positive: Regular Rhythm, Regular Rate. negative: Murmur Gastrointestinal/Abdominal: positive: Normal Bowel Sounds, Soft. negative: Distended, Guarding, Rebound, Tenderness Extremity: positive: Normal Capillary Refill Integumentary: positive: Normal Color, Warm, Moist Neurologic: positive: Motor Strength 5/5 (ambulatory) Heart Score/ECG Review - ECG Intrepretation Rhythm: Regular Rhythm (Normal sinus rhythm at 62. No ST elevation or depression.) ED Treatment Course - LABORATORY CBC & Chemistry Diagram: 09/08/18 09:16 09/08/18 09:16 - RADIOLOGY Radiology Studies Ordered: Category Date Time Status KUB (KID UR & BLAD) [RAD] Stat Radiology 09/08/18 08:17 Ordered Medical Decision Making - Medical Decision Making 09/08/18 08:45 chief complaint: Epigastric aching/burning since last night, relieved with Zantac which normally alleviate symptoms. Patient followed by Dr. mancilla and had a perforated diverticulum earlier this year but denies any pain to area distention, change in bowel pattern Exam no reproducible pain no distention bowel sounds present 4 vital signs stable Plan EKG to to age history and location of discomfort, labs including lipase IV Protonix, KUB, and will reevaluate 09/08/18 09:47 Laboratory Tests 09/08/18 09:16 WBC 7.2 Hgb 13.9 Neutrophils % 86.8 H Nucleated RBC % 0 Abdominal x-ray shows fecal retention without obstruction. No free air identified 09/08/18 10:17 Laboratory Tests 09/08/18 09:16 Sodium 143 Potassium 4.9 Chloride 110 H Anion Gap 3 L BUN 13.8 Creatinine 1.3 Est GFR (CKD-EPI)AfAm 72.20 Random Glucose 96 Calcium 10.0 Magnesium 2.5 H Total Bilirubin 1.3 H AST 12 L ALT 13 Alkaline Phosphatase 73 Total Protein 7.7 Albumin 4.2 09/08/18 10:18 Pt states feeling better *DC/Admit/Observation/Transfer Diagnosis at time of Disposition: Abdominal pain - Discharge Dispostion Disposition: HOME Condition at time of disposition: Improved - Referrals Referrals: Roman Feliz MD [Primary Care Provider] - - Patient Instructions Printed Discharge Instructions: DI for Abdominal Pain-Adult Additional Instructions: I recommend to increase the Zantac to twice a day to see if symptoms have completely resolved. But if the symptoms do not improve I do recommend following up with your property management specialist to discuss other options. Alos avoid spicy, acidy, or greasy foods. - Post Discharge Activity
[2018-09-08] MEDS ORDERED: PANTOPRAZOLE SODIUM 40 MG VIAL ONE (09:23)
[2018-09-08 09:34] LABS: BASO % 0.5 % (0-2.0); EOS % 0.3 % (0-4.5); HEMATOCRIT 42.1 % (35.4-49); HEMOGLOBIN 13.9 GM/dL (11.7-16.9); LYMPH % 8.7 % (8-40); MCH 27.8 pg (25.7-33.7); MCHC 33.1 g/dl (32.0-35.9); MEAN CELL VOLUME 84.1 fl (80-96); MEAN PLT VOLUME 8.8 fl (7.5-11.1); MONO % 3.7 % (3.8-10.2); NEUT % 86.8 % (42.8-82.8); PLATELET COUNT 235 K/MM3 (134-434); RBC 5.01 M/mm3 (4.00-5.60); RDW 15.9 % (11.9-15.9); WHITE BLOOD COUNT 7.2 K/mm3 (4.0-10.0)
[2018-09-08 10:04] LABS: ALBUMIN 4.2 g/dl (3.4-5.0); BILIRUBIN,TOTAL 1.3 mg/dL (0.2-1); BLOOD UREA NITROGEN 13.8 mg/dL (7-18); CREATININE 1.3 mg/dL (0.55-1.3); MAGNESIUM 2.5 mg/dL (1.8-2.4); POTASSIUM 4.9 mmol/L (3.5-5.1); TOT PROT 7.7 g/dl (6.4-8.2)
[2018-09-08 11:26] VITALS: BP 141/91; PULSE 70
--- NOTE | 2018-09-10 10:51 | EKG ---
Test Reason : Blood Pressure : / mmHG Vent. Rate : 062 BPM Atrial Rate : 062 BPM P-R Int : 144 ms QRS Dur : 074 ms QT Int : 410 ms P-R-T Axes : 066 046 -16 degrees QTc Int : 416 ms NORMAL SINUS RHYTHM NONSPECIFIC T WAVE ABNORMALITY ABNORMAL ECG WHEN COMPARED WITH ECG OF 27-NOV-2016 20:20, ABERRANT CONDUCTION IS NO LONGER PRESENT INVERTED T WAVES HAVE REPLACED NONSPECIFIC T WAVE ABNORMALITY IN INFERIOR LEADS T WAVE INVERSION NOW EVIDENT IN LATERAL LEADS Confirmed by ROMY VEGA MD ([id number]) on 09/10/2018 10:50:28 AM Referred By: Confirmed By:ROMY VEGA MD
== END 2018-09-08 11:25 | disposition home or self-care (01) ==
LOC: JER 07:31
PROC: 3E033GC Introduction of Other Therapeutic Substance into Peripheral Vein, Percutaneous Approach (ICD-10-PCS; principal; 2018-09-08)
DX: R10.13 Epigastric pain (principal)
CPT/HCPCS: 36415; 74018-TC-FY; 80053; 83690; 83735; 85025; 93005; 93010; 96365; 99285-25

== ENCOUNTER 2019-04-24 09:34 | Emergency (ER) | payer OTHER ==
[2019-04-24 09:52] VITALS: BMI 27.3
--- NOTE | 2019-04-24 10:46 | PDOC ---
History of Present Illness - General Chief Complaint: Pain Stated Complaint: ABD DISCOMFORT Time Seen by Provider: 04/24/19 10:43 - History of Present Illness Initial Comments: Nic Loja is a 53yo man with a PMH of perforated diverticulitis s/p Jo Ann's (2016) s/p reversal (02/2018), frequent GERD/gastritis who presents with LUQ pain. He states that he "cheated" with his food choices on evening, and he has had left upper abdominal discomfort since that time. He has also had 4x episodes of NBNB vomiting over the past 3-4 days as well. He denies any chest pain, difficulty breathing, lower abdominal pain, fever, or diarrhea. He endorses mild constipation but states that he did not eat any solid food over the weekend; he is still passing flatus. His current symptoms are worse than his typical gastritis symptoms as he generally feels better after a day or two. Mr Loja reports that he used to take zantac, which worked well for his symptoms, but he switched to Nexium as he has not been able to find the Zantac anymore. He does not feel this works as well. He previously saw Dr Ferrer but has not seen him in several years. Past History - Past Medical History Allergies/Adverse Reactions: Allergies Allergy/AdvReac Type Severity Reaction Status Date / Time No Known Allergies Allergy Verified 09/08/18 07:38 Home Medications: Ambulatory Orders NK [No Known Home Medication] 04/24/19 Anemia: No Asthma: No Cancer: No Cardiac Disorders: No CVA: No COPD: No CHF: No Dementia: No Diabetes: No GI Disorders: Yes (GERD,DIVERTICULITIS,DIVERTICULOSIS,GERD) Disorders: No HTN: No Hypercholesterolemia: No Liver Disease: No Seizures: No Thyroid Disease: No - Surgical History Abdominal Surgery: Yes (HEMICOLECTOMY/HARTMANNS PROCEDURE 11/2016, REVERSAL HARTSMANN 02/2018) Appendectomy: No Cardiac Surgery: No Cholecystectomy: No Lung Surgery: No Neurologic Surgery: No Orthopedic Surgery: Yes (KNEE RIGHT 1994) - Immunization History Immunization Up to Date: Yes - Psycho Social/Smoking Cessation Hx Smoking History: Current every day smoker Have you smoked in the past 12 months: Yes Information on smoking cessation initiated: No 'Breaking Loose' booklet given: 02/24/18 Hx Alcohol Use: No Drug/Substance Use Hx: No Substance Use Type: None Hx Substance Use Treatment: No Review of Systems - Review of Systems Comments:: General: No fevers, no chills, no weight or appetite change, no malaise HEENT: No changes in vision, no changes in hearing, no congestion, no sore throat CV: No chest pain, no palpitations, no LE edema Pulm: No SOB, no cough, no wheezing GI: See HPI : No frequency, no urgency, no dysuria Musc: No back pain, no joint swelling, no recent injury Skin: No rash, no lesions, no erythema Endo: No excessive thirst, no heat/cold intolerance Heme: No unusual bruising or bleeding, no swollen glands Neuro: No syncope, no numbness/tingling, no focal weakness Vasc: No claudication Psych: No recent change in mood, no SI or HI *Physical Exam - Vital Signs Last Vital Signs Temp Pulse Resp BP Pulse Ox 98.5 F 68 16 106/66 100 04/24/19 09:48 04/24/19 09:48 04/24/19 09:48 04/24/19 09:48 04/24/19 09:48 - Physical Exam General: Comfortable, no acute distress HEENT: PERRL, EOMI, MMM, voice normal, normal neck ROM Cards: RRR, no murmur appreciated Pulm: Comfortable on room air, clear to auscultation bilaterally Abd: Soft, Minimal tenderness in LUQ with deep palpation, nondistended, no rigidity, no guarding : No CVA tenderness Ext: Atraumatic. No LE edema. ROM intact. Strength 5/5 and equal bilaterally Vasc: Extremities WWP Skin: Normal color, no rashes or lesions Neuro: A&Ox3, CN grossly intact, normal speech, motor/sensory grossly intact and symmetric Psych: Mood appropriate to situation ED Treatment Course - LABORATORY CBC & Chemistry Diagram: 04/24/19 11:30 04/24/19 16:20 Medical Decision Making - Medical Decision Making 04/24/19 10:46 Nic Loja is a 53yo man with a PMH of perforated diverticulitis s/p Ursula berger's (2017) s/p reversal (02/2018), frequent GERD/gastritis who presents with LUQ pain since , 4x NBNB vomiting, and poor PO intake. - Most likely known GERD/gastritis, but given history of multiple abdominal surgeries, constipation, and [id number] symptoms, could have partial bowel obstruction. Unlikely complete obstruction as he is passing flatus. Pancreatitis possible though no known risk factors - Maalox/lidocaine, famotidine, acetaminophen, IVF for symptoms - CBC, CMP, lipase. CT abd/pelvis with PO contrast 04/24/19 12:46 - Labs reviewed. Notable from Cr 2.1 from baseline 1.2-1.3 - Pt has completed PO contrast, will take for CT when available - Feeling improved after medications 04/24/19 15:25 - CT abd/pelvis without concerning abnormalities. No obstruction - Pt reports that his pain has completely resolved - Was able to tolerate PO contrast in 500cc water without any vomiting - Will give additional 1L IVF and recheck Cr prior to discharge 04/24/19 17:40 - Repeat creatinine decreased to 1.7 - Will d/c home. Advised patient to follow up with his primary doctor within the next 2-3 days for repeat blood tests; he should increase his PO fluid intake at home as well. Will refer to follow up with nephrology. Discussed with Dr Jonny Bowers PGY2 Discharge - Discharge Information Problems reviewed: Yes Clinical Impression/Diagnosis: Gastritis Qualifiers: Gastritis type: unspecified gastritis Chronicity: acute Gastritis bleeding: without bleeding Qualified Code(s): K29.00 - Acute gastritis without bleeding Condition: Stable Disposition: HOME - Admission No - Follow up/Referral Referrals: Johnna Gardner MD [Staff Physician] - [facility] [place] [facility] [Provider Group] Marshall Williamson MD [Staff Physician] - - Patient Discharge Instructions Patient Printed Discharge Instructions: DI for Gastritis Additional Instructions: Discharge Instructions: You were seen in the emergency department for abdominal pain. This is most likely due to your known gastritis (acid reflux). Your blood tests showed that your kidney function was slightly abnormal. This is probably due to dehydration. Make sure you are drinking plenty of fluids over the next few days. Please continue to take all of your regular home medications. If you do not feel that Nexium is helping, you may try adding Pepcid (famotidine) once per day as well. Try Maalox or Mylanta as needed for continued symptoms. You may take Tylenol (acetaminophen) for pain, but do not take ibuprofen (Advil) or naproxen (Aleve). Avoid spicy or greasy foods, alcohol, caffeine, or anything that irritates your stomach. Make an appointment to follow up with a GI doctor (Dr Williamson) and with a kidney doctor (Dr Gardner) within the next week. Seek immediate care for worsening symptoms, inability to eat, dehydration, if you stop urinating, or if you have any other medical emergency. - Post Discharge Activity
[2019-04-24] MEDS ORDERED: LIDOCAINE VISCOUS 2% ORAL/TOP 20 ML UNIT-DOSE CUP MM ONE (10:48)
[2019-04-24] MEDS ORDERED: MAG HYDROX/AL HYDROX/SIMETH 30 ML UNIT-DOSE CUP PO ONE (10:48)
[2019-04-24] MEDS ORDERED: FAMOTIDINE 20 MG/50 ML IVPB 20 MG/50 ML MG IVPB ONE ×2 (10:55→11:17)
[2019-04-24] MEDS ORDERED: ACETAMINOPHEN 1000 MG/100 ML VIAL (NON FORMULARY) IVPB ONE (10:55)
[2019-04-24] MEDS ORDERED: SODIUM CHLORIDE 0.9% 500 ML INFUS.BAG IV ONE (10:55)
[2019-04-24] MEDS ORDERED: ONDANSETRON 4 MG/2 ML VIAL IVPUSH ONE (10:55)
[2019-04-24] MEDS ORDERED: MAG HYDROX/AL HYDROX/SIMETH 30 ML UNIT-DOSE CUP ONE (10:56)
[2019-04-24] MEDS ORDERED: LIDOCAINE VISCOUS 2% ORAL/TOP 20 ML UNIT-DOSE CUP ONE (10:56)
[2019-04-24] MEDS ORDERED: ONDANSETRON 4 MG/2 ML VIAL ONE (11:17)
[2019-04-24] MEDS ORDERED: ACETAMINOPHEN INJECTION 100 ML IVPB ONE (11:17)
[2019-04-24 11:51] LABS: BASO % 0.8 % (0-2.0); EOS % 1.3 % (0-4.5); HEMATOCRIT 44.7 % (35.4-49); HEMOGLOBIN 14.9 GM/dL (11.7-16.9); LYMPH % 18.3 % (8-40); MCH 28.1 pg (25.7-33.7); MCHC 33.3 g/dl (32.0-35.9); MEAN CELL VOLUME 84.6 fl (80-96); MEAN PLT VOLUME 8.6 fl (7.5-11.1); NEUT % 70.6 % (42.8-82.8); PLATELET COUNT 233 K/MM3 (134-434); RBC 5.28 M/mm3 (4.00-5.60); RDW 14.5 % (11.9-15.9); WHITE BLOOD COUNT 5.7 K/mm3 (4.0-10.0)
[2019-04-24 12:19] LABS: ALBUMIN 4.3 g/dl (3.4-5.0); BILIRUBIN,TOTAL 1.1 mg/dL (0.2-1); BLOOD UREA NITROGEN 42.2 mg/dL (7-18); CALCIUM 9.5 mg/dL (8.5-10.1); CREATININE 2.1 mg/dL (0.55-1.3); TOT PROT 7.7 g/dl (6.4-8.2)
[2019-04-24] MEDS ORDERED: SODIUM CHLORIDE 0.9% 1000 ML INFUS.BAG IV ONE (14:52)
--- NOTE | 2019-04-24 15:01 | PDOC ---
Documentation entered by Andrew Butler SCRIBE, acting as scribe for Ronaldo Fuller MD. Ronaldo Fuller MD: This documentation has been prepared by the Carrie buckley Nirvannie, SCRIBE, under my direction and personally reviewed by me in its entirety. I confirm that the documentation accurately reflects all work, treatment, procedures, and medical decision making performed by me. Attending Attestation - Resident Resident Name: RobinsonYara - ED Attending Attestation I have performed the following: I have examined & evaluated the patient, The case was reviewed & discussed with the resident, I agree w/resident's findings & plan, Exceptions are as noted - HPI HPI: 04/24/19 12:12 The patient is a 53 year old male, with a significant past medical history of GERD and s/p perforated diverticulitis, who presents to the emergency department with 3 days of abdominal pain and vomiting. Allergies: NKDA - Physicial Exam PE: 04/24/19 15:03 Vitals: Triage Vital signs reviewed General Appearance: No acute distress, well nourished well developed, Head: Atraumatic, Cardiac: Regular rate and rhythym, no murmurs, no rubs, no gallops, Lungs: Clear to auscultation bilateral, good air movement bilaterally, Abdomen: Soft, non distended, normal bowel sounds, Mild epigastric tenderness to palpation midline scar status post surgery Extremities: Full range of motion to all extremities, no cyanosis, clubbing, or edema Skin: Warm and dry, no rashes or lesions, no rash, no petechiae Psych: Normal mood, normal affect - Medical Decision Making 04/24/19 12:12 53 year old male, with a significant past medical history of GERD and s/p perforated diverticulitis, who presents to the emergency department with 3 days of abdominal pain and vomiting. Plan is: CMP Lipase Mylanta Pepcid Ofirmev Viscous Lidocaine Fluids Abdomen and Pelvis CT with contrast 04/24/19 15:04 Multiple abdominal surgeries, with nausea vomiting difficulty tolerating food and diffuse abdominal pain CAT scan demonstrates no acute obstruction Kidney function is mildly elevated Will hydrate and recheck labs patient feels better at this time Kidney function baseline 1.3 up to 2.1 today down to 1.7 after hydration Case discussed with nephrology patient safe for outpatient follow-up with aggressive hydration and close follow-up patient states he will follow-up within a few days with nephrology Findings, the need for follow-up and strict return instructions discussed with patient.
[2019-04-24 17:24] LABS: BLOOD UREA NITROGEN 37.4 mg/dL (7-18); CALCIUM 8.4 mg/dL (8.5-10.1); CREATININE 1.7 mg/dL (0.55-1.3); POTASSIUM 3.7 mmol/L (3.5-5.1)
[2019-04-24 18:05] VITALS: BP 119/68; PULSE 69; TEMP 98.1
== END 2019-04-24 18:05 | disposition home or self-care (01) ==
LOC: JER 09:34
PROC: 3E033GC Introduction of Other Therapeutic Substance into Peripheral Vein, Percutaneous Approach (ICD-10-PCS; principal; 2019-04-24)
PROC: 3E033NZ Introduction of Analgesics, Hypnotics, Sedatives into Peripheral Vein, Percutaneous Approach (ICD-10-PCS; 2019-04-24)
PROC: 3E033GC Introduction of Other Therapeutic Substance into Peripheral Vein, Percutaneous Approach (ICD-10-PCS; 2019-04-24)
DX: K29.00 Acute gastritis without bleeding (principal); Z87.19 Personal history of other diseases of the digestive system; F17.210 Nicotine dependence, cigarettes, uncomplicated; Z90.49 Acquired absence of other specified parts of digestive tract
CPT/HCPCS: 36415; 74176-TC; 80048; 80053; 83690; 85025; 99285-25; J0131; J7030; Q9967

== ENCOUNTER 2019-09-19 18:14 | Emergency (ER) | payer OTHER ==
[2019-09-19 18:28] VITALS: BMI 25.8
[2019-09-19] MEDS ORDERED: SODIUM CHLORIDE 0.9% 500 ML INFUS.BAG IV ONE ×2 (19:11→21:06)
[2019-09-19] MEDS ORDERED: FAMOTIDINE 20 MG/50 ML IVPB 20 MG/50 ML MG IVPB ONE ×2 (19:11→19:54)
[2019-09-19] MEDS ORDERED: ONDANSETRON 4 MG/2 ML VIAL IVPUSH ONE (19:11)
--- NOTE | 2019-09-19 19:25 | PDOC ---
History of Present Illness - General Chief Complaint: Pain Stated Complaint: ABD PAIN Time Seen by Provider: 09/19/19 18:45 History Source: Patient Exam Limitations: No Limitations - History of Present Illness Initial Comments: Nic Loja is a 54 Y M with PMH of Perforated Diverticulitis s/p Jo Ann's procedure(2016) s/p reversal in(2018), GERD/Gastritis, present to ER with 1D of abdominal pain, Nausea, vomiting. Patient reports that since Tuesday he had GERD and did not want to eat. He ate last night after about 24 hrs of not eating. This morning he had a solid bowel movement. On his way to work he started to feel abdominal discomfort, nausea, and vomited x1, clear watery with mucus, and dry heaves. He reports that he had EGD and colonoscopy 2 years ago w/o any abno rmalities. 09/19/19 19:17 Past History - Travel History Traveled outside of the country in the last 30 days: No - Medical History Allergies/Adverse Reactions: Allergies Allergy/AdvReac Type Severity Reaction Status Date / Time No Known Allergies Allergy Verified 09/19/19 18:27 Home Medications: Ambulatory Orders Ondansetron [Zofran *Odt*] 4 mg SL BID 4 Days #8 od.tablet 09/19/19 Anemia: No Asthma: No Cancer: No Cardiac Disorders: No CVA: No COPD: No CHF: No Dementia: No Diabetes: No GI Disorders: Yes (GERD,DIVERTICULITIS,DIVERTICULOSIS,GERD) Disorders: No HTN: No Hypercholesterolemia: No Liver Disease: No Seizures: No Thyroid Disease: No - Surgical History Abdominal Surgery: Yes (HEMICOLECTOMY/HARTMANNS PROCEDURE 11/2016, REVERSAL HARTSMANN 02/2018) Appendectomy: No Cardiac Surgery: No Cholecystectomy: No Lung Surgery: No Neurologic Surgery: No Orthopedic Surgery: Yes (KNEE RIGHT 1994) - Immunization History Immunization Up to Date: Yes - Psycho-Social/Smoking History Smoking History: Never smoked Have you smoked in the past 12 months: No Information on smoking cessation initiated: No 'Breaking Loose' booklet given: 02/24/18 - Substance Abuse Hx (Audit-C & DAST Scrn) How often the patient has a drink containing alcohol: Monthly or less Number of drinks the patient has on a typical day: 1 or 2 How often the patient has six or more drinks on one occasion: Never Score: In Men: 4 or > Positive; In Women: 3 or > Positive: 1 Screen Result (Pos requires Nsg. Audit-10AR): Negative In the last yr the pt used illegal drug/Rx for NonMed reason: No Score: Yes response is considered Positive: 0 Screen Result (Positive result requires Nsg. DAST-10): Negative Review of Systems - Review of Systems Able to Perform ROS?: Yes Is the patient limited Greenlandic proficient: No Constitutional: Yes: Loss of Appetite, Weakness. No: Chills, Fever, Night Sweats HEENTM: No: Blurred Vision, Nose Congestion, Throat Pain, Throat Swelling, Difficulty Swallowing Respiratory: No: Cough, Shortness of Breath Cardiac (ROS): No: Chest Pain, Edema, Lightheadedness, Palpitations ABD/GI: Yes: Nausea, Poor Appetite. No: Abdominal Distended, Constipated, Diarrhea, Difficulty Swallowing, Poor Fluid Intake, Vomiting, Indigestion, Abdominal cramping, Tarry Stools : No: Burning, Dysuria, Frequency, Flank Pain, Incontinence, Urgency Musculoskeletal: No: Back Pain, Muscle Weakness, Joint Stiffness Neurological: No: Headache, Numbness Psychiatric: No: Anxiety *Physical Exam - Vital Signs Last Vital Signs Temp Pulse Resp BP Pulse Ox 98.4 F 88 17 120/77 100 09/19/19 18:15 09/19/19 18:15 09/19/19 18:15 09/19/19 18:15 09/19/19 18:15 - Physical Exam General Appearance: Yes: Appropriately Dressed. No: Apparent Distress HEENT: positive: EOMI, ANABELLA. negative: Nasal Congestion, Rhinorrhea Neck: positive: Supple. negative: Tender, Rigid, Carotid bruit Respiratory/Chest: positive: Lungs Clear, Normal Breath Sounds. negative: Chest Tender, Respiratory Distress, Crackles, Rales, Rhonchi Cardiovascular: positive: Regular Rhythm, Regular Rate, S1, S2. negative: Edema, JVD, Murmur Vascular Pulses: Carotid (R): 2+, Carotid (L): 2+, Dorsalis-Pedis (R): 2+, Doralis-Pedis (L): 2+ Gastrointestinal/Abdominal: positive: Normal Bowel Sounds, Flat, Soft, Other (Midline surgical scar + LLQ surgical scar). negative: Tender, Distended, Guarding, Rebound, Tenderness, Mass Extremity: negative: Pedal Edema, Calf Tenderness Integumentary: positive: Dry, Warm, Moist Neurologic: positive: plow holder II-XII NML intact, Fully Oriented, Alert, Motor Strength 06/18 ED Treatment Course - LABORATORY CBC & Chemistry Diagram: 09/19/19 19:50 09/19/19 19:50 - RADIOLOGY Radiology Studies Ordered: Category Date Time Status ABDOMEN & PELVIS CT W/O CONTR [CT] Stat CT Scan 09/19/19 19:13 Ordered Medical Decision Making - Medical Decision Making 54 Y M with PMH of Perforated Diverticulitis s/p Jo Ann's procedure(2017) s/p reversal in(2019), GERD/Gastritis, present to ER with 1D of abdominal pain, Nausea, vomiting x 1, and dry heaves. - Most likely GERD/Gastritis exacerbation, fasted for 24 hrs before meal last night - CTAB w/ contrast, to r/o partial obstruction- hx of multiple abdominal surgeries, acute onset, had a solid BM this morning, unlikely complete obs truction - Pepcid and Zofran for nausea/abdominal discomfort - CBC, CMP, lipase 09/19/19 19:32 09/19/19 19:38 Discharge - Discharge Information Problems reviewed: Yes Clinical Impression/Diagnosis: Abdominal pain, Gastritis, Nausea & vomiting Condition: Stable Disposition: HOME - Additional Discharge Information Prescriptions: Ondansetron [Zofran *Odt*] 4 mg SL BID 4 Days #8 od.tablet - Follow up/Referral Referrals: Roman Feliz MD [Primary Care Provider] - - Patient Discharge Instructions Patient Printed Discharge Instructions: DI for Abdominal Pain-Adult, DI for Vomiting -- Adult Additional Instructions: Your CT scan of the abdomen did not show any bowel obstruction. Your work up in the emergency room did not show that you were having a medical emergency at this time. Please make a follow up appointment with your primary care doctor (referral provided here). Please take Zofran as needed twice a day for your nausea and vomiting. If you experience any new, worsening, or concerning symptoms, including worsening nausea/vomiting, severe abdominal pain, fever, chills, blood in the vo maren or stool, or any other concerns, please return to the emergency department. - Post Discharge Activity
[2019-09-19] MEDS ORDERED: ACETAMINOPHEN 1000 MG/100 ML VIAL (NON FORMULARY) IVPB ONE (19:47)
[2019-09-19] MEDS ORDERED: ACETAMINOPHEN INJECTION 100 ML IVPB ONE (20:19)
[2019-09-19 20:36] LABS: BASO % 0.2 % (0-2.0); EOS % 0.1 % (0-4.5); HEMATOCRIT 44.7 % (35.4-49); HEMOGLOBIN 14.6 GM/dL (11.7-16.9); LYMPH % 8.7 % (8-40); MCH 27.9 pg (25.7-33.7); MCHC 32.7 g/dl (32.0-35.9); MEAN CELL VOLUME 85.3 fl (80-96); MEAN PLT VOLUME 9.1 fl (7.5-11.1); MONO % 6.1 % (3.8-10.2); NEUT % 84.9 % (42.8-82.8); PLATELET COUNT 176 K/MM3 (134-434); RBC 5.25 M/mm3 (4.00-5.60); RDW 14.3 % (11.9-15.9); WHITE BLOOD COUNT 7.1 K/mm3 (4.0-10.0)
[2019-09-19] MEDS ORDERED: METOCLOPRAMIDE HCL INJECTION 10 MG/2 ML VIAL IVPUSH ONE (20:43)
--- NOTE | 2019-09-19 20:47 | PDOC ---
Documentation entered by Lea Sherman SCRIBE, acting as scribe for Lakesha Oreilly DO. Lakesha Oreilly DO: This documentation has been prepared by the Lane buckley Sydney, SCRIBE, under my direction and personally reviewed by me in its entirety. I confirm that the documentation accurately reflects all work, treatment, procedures, and medical decision making performed by me. Attending Attestation - Resident Resident Name: Deion Lazo - ED Attending Attestation I have performed the following: I have examined & evaluated the patient, The case was reviewed & discussed with the resident, I agree w/resident's findings & plan, Exceptions are as noted - HPI HPI: 09/19/19 19:18 Patient is a 54 year old male with a significant past medical history of diverticulitis, GERD, gastritis who presents to the ED with one day of abdominal discomfort, nausea, and vomiting. As per patient, he ate chicken last night after not eating for 24 hours secondary to GERD exacerbation on Tuesday and Tuesday. Patient notes he woke up this morning, ate breakfast, and suddenly felt abdominal discomfort and nausea on his way to work. Denies headache, fever, chills, chest pain, shortness of breath, diarrhea, constipation, or urinary changes. Allergies: NKDA PCP: Dr. Feliz - Physicial Exam PE: 09/19/19 20:29 Gen: aaox3, uncomfortable heart: +s1s2 reg lungs: cta b/l abd: soft, well healed abd incision ex lap and l abd incision, no hernia palpated, nondistended, no ttp exT: no c/c/e - Medical Decision Making 09/19/19 20:29 a/p: 54yo male with n/v and abd pain today -hx of diverticulitis w perf with ex lap and reversal in the last 2 years -will send labs, ct abd/pelvis--concern for sbo, partial sbo, gastritis, diverticulitis -will medicate for nausea and pain -will monitor and reassess -Dr. Stratton was surgery 09/19/19 23:[address] no acute intraabd pathology labs reviewed and stable will re-eval and po challenge 09/19/19 23:16 discussed labs and imaging pt states pain and nausea resolved pt given crackers and water for po challenge 09/19/19 23:59 pt tolerated po feeling better stable for dc to home Discharge - Discharge Information Problems reviewed: Yes Clinical Impression/Diagnosis: Abdominal pain, Gastritis, Nausea & vomiting Condition: Stable Disposition: HOME - Admission No - Follow up/Referral Referrals: Roman Feliz MD [Primary Care Provider] - - Patient Discharge Instructions Patient Printed Discharge Instructions: DI for Abdominal Pain-Adult, DI for Vomiting -- Adult Additional Instructions: Your CT scan of the abdomen did not show any bowel obstruction. Your work up in the emergency room did not show that you were having a medical emergency at this time. Please make a follow up appointment with your primary care doctor (referral provided here). If you experience any new, worsening, or concerning symptoms, including worsening nausea/vomiting, severe abdominal pain, fever, chills, blood in the vomit or stool, or any other concerns, please return to the emergency department. - Post Discharge Activity
[2019-09-19 20:57] LABS: ALBUMIN 4.4 g/dl (3.4-5.0); BILIRUBIN,TOTAL 1.3 mg/dL (0.2-1); BLOOD UREA NITROGEN 17.8 mg/dL (7-18); CALCIUM 10.1 mg/dL (8.5-10.1); CREATININE 1.6 mg/dL (0.55-1.3); POTASSIUM 3.9 mmol/L (3.5-5.1); TOT PROT 7.6 g/dl (6.4-8.2)
[2019-09-19] MEDS ORDERED: METOCLOPRAMIDE HCL INJECTION 10 MG/2 ML VIAL ONE (21:24)
--- NOTE | 2019-09-19 22:05 | PDOC ---
*Physical Exam - Vital Signs Last Vital Signs Temp Pulse Resp BP Pulse Ox 98.4 F 88 17 120/77 100 09/19/19 18:15 09/19/19 18:15 09/19/19 18:15 09/19/19 18:15 09/19/19 18:15 ED Treatment Course - LABORATORY CBC & Chemistry Diagram: 09/19/19 19:50 09/19/19 19:50 - ADDITIONAL ORDERS Additional order review: Laboratory Results 09/19/19 19:50 Sodium 141 Potassium 3.9 Chloride 104 Carbon Dioxide 27 Anion Gap 10 BUN 17.8 Creatinine 1.6 H Est GFR (CKD-EPI)AfAm 55.78 Est GFR (CKD-EPI)NonAf 48.13 Random Glucose 89 Calcium 10.1 Total Bilirubin 1.3 H AST 15 ALT 17 Alkaline Phosphatase 62 Total Protein 7.6 Albumin 4.4 Lipase 79 09/19/19 19:50 RBC 5.25 MCV 85.3 MCHC 32.7 RDW 14.3 MPV 9.1 Neutrophils % 84.9 H D Lymphocytes % 8.7 D Monocytes % 6.1 Eosinophils % 0.1 D Basophils % 0.2 - Medications Given in the ED: ED Medications Discontinued Medications Generic Name Dose Route Start Last Admin Trade Name Freq PRN Reason Stop Dose Admin Acetaminophen 1,000 mg 09/19/19 19:47 09/19/19 20:23 Ofirmev Injection - IVPB 09/19/19 19:48 1,000 mg ONCE ONE Administration Famotidine/Sodium Chloride 20 mg in 50 mls @ 100 mls/hr 09/19/19 19:11 09/19/19 20:10 Pepcid 20 Mg Premixed Ivpb - IVPB 09/19/19 19:40 100 mls/hr ONCE ONE Administration Metoclopramide HCl 10 mg 09/19/19 20:43 09/19/19 21:33 Reglan Injection - IVPUSH 09/19/19 20:44 10 mg ONCE ONE Administration Ondansetron HCl 4 mg 09/19/19 19:11 09/19/19 20:10 Zofran Injection IVPUSH 09/19/19 19:12 4 mg ONCE ONE Administration Sodium Chloride 1,000 ml 09/19/19 19:11 09/19/19 20:10 Normal Saline - IV 09/19/19 19:12 1,000 ml ONCE ONE Administration Medical Decision Making - Medical Decision Making 09/19/19 22:02 Pt received on s/o from Dr. Lazo. 54M hx of perforated diverticulitis, s/p Jo Ann's 2017, s/p reversal 2019, GERD, gastritis, here for 1 day of nausea and vomiting x1 NBNB. Reports abdominal discomfort. Abdomen soft and non tender. DDx includes GERD vs gastritis vs r/o SBO. ED course: zofran, reglan, acetaminophen Pending CT abdomen/pelv. 09/19/19 23:08 CT abd shows small hiatal hernia, no signs of bowel obstruction. 09/19/19 23:17 Pt reassessed. Reports improvement in pain/nausea/vomiting. Will PO challenge. 09/20/19 00:00 Pt reassessed. Tolerating PO. Plan to d/c home with PCP f/u and zofran prn for nausea/vomiting. All questions answered. Return precautions given. Pt verbalized understanding and agreement with plan. Discharge - Discharge Information Problems reviewed: Yes Clinical Impression/Diagnosis: Abdominal pain, Gastritis, Nausea & vomiting Condition: Stable Disposition: HOME - Admission No - Additional Discharge Information Prescriptions: Ondansetron [Zofran *Odt*] 4 mg SL BID 4 Days #8 od.tablet - Follow up/Referral Referrals: Roman Feliz MD [Primary Care Provider] - Michael Stratton MD [Staff Physician] - - Patient Discharge Instructions Patient Printed Discharge Instructions: DI for Abdominal Pain-Adult, DI for Vomiting -- Adult Additional Instructions: Your CT scan of the abdomen did not show any bowel obstruction. Your work up in the emergency room did not show that you were having a medical emergency at this time. Please make a follow up appointment with your primary care doctor (referral provided here). Please take Zofran as needed twice a day for your nausea and vomiting. If you experience any new, worsening, or concerning symptoms, including worsening nausea/vomiting, severe abdominal pain, fever, chills, blood in the vomit or stool, or any other concerns, please return to the emergency department. - Post Discharge Activity
[2019-09-20 01:02] VITALS: BP 125/75; PULSE 78; TEMP 98
--- NOTE | 2019-09-20 10:43 | EKG ---
Test Reason : Blood Pressure : / mmHG Vent. Rate : 078 BPM Atrial Rate : 078 BPM P-R Int : 156 ms QRS Dur : 070 ms QT Int : 398 ms P-R-T Axes : 070 047 027 degrees QTc Int : 453 ms NORMAL SINUS RHYTHM RIGHT ATRIAL ENLARGEMENT BORDERLINE ECG WHEN COMPARED WITH ECG OF 08-SEP-2018 08:18, NONSPECIFIC T WAVE ABNORMALITY HAS REPLACED INVERTED T WAVES IN LATERAL LEADS Confirmed by SONY CUMMINS, CHARLENE ([id number]) on 09/20/2019 10:43:19 AM Referred By: Confirmed By:CHARLENE CARDOZA MD
== END 2019-09-20 01:06 | disposition home or self-care (01) ==
LOC: JER 18:14
PROC: 3E033GC Introduction of Other Therapeutic Substance into Peripheral Vein, Percutaneous Approach (ICD-10-PCS; principal; 2019-09-19)
DX: K29.70 Gastritis, unspecified, without bleeding (principal)
CPT/HCPCS: 36415; 74176-TC; 80053; 83690; 85025; 93005; 93010; 99285-25; J0131

== ENCOUNTER 2019-12-07 21:14 | Inpatient (IN) | payer OTHER ==
[2019-12-07] MEDS ORDERED: PANTOPRAZOLE SODIUM 40 MG VIAL IVPUSH ONE (21:44)
[2019-12-07] MEDS ORDERED: ONDANSETRON 4 MG/2 ML VIAL IVPUSH ONE (21:44)
[2019-12-07] MEDS ORDERED: SODIUM CHLORIDE 0.9% 500 ML INFUS.BAG IV ONE (21:44)
[2019-12-07] MEDS ORDERED: morphine CARPU-JECT 2 MG/1 ML DISP.SYRIN IVPUSH ONE (21:44)
[2019-12-07] MEDS ORDERED: KETOROLAC TROMETHAMINE 30 MG/1 ML VIAL IVPUSH ONE (21:48)
[2019-12-07] MEDS ORDERED: KETOROLAC TROMETHAMINE 30 MG/1 ML VIAL ONE (22:06)
[2019-12-07] MEDS ORDERED: PANTOPRAZOLE SODIUM 40 MG VIAL ONE (22:06)
[2019-12-07] MEDS ORDERED: MORPHINE SULFATE 2 MG/ML VIAL ONE (22:06)
[2019-12-07] MEDS ORDERED: morphine CARPU-JECT 4 MG/1 ML DISP.SYRIN IVPUSH ONE (23:48)
[2019-12-08] MEDS ORDERED: morphine SULFATE 4 MG/ML VIAL ONE (00:22)
[2019-12-08 00:26] LABS: BASO % 0.6 % (0-2.0); EOS % 1.3 % (0-4.5); HEMATOCRIT 48.6 % (35.4-49); HEMOGLOBIN 16.1 GM/dL (11.7-16.9); LYMPH % 7.1 % (8-40); MCH 28.8 pg (25.7-33.7); MCHC 33.2 g/dl (32.0-35.9); MEAN CELL VOLUME 86.9 fl (80-96); MEAN PLT VOLUME 10.2 fl (7.5-11.1); MONO % 6.3 % (3.8-10.2); NEUT % 84.7 % (42.8-82.8); PLATELET COUNT 214 K/MM3 (134-434); RBC 5.59 M/mm3 (4.00-5.60); RDW 15.2 % (11.9-15.9); WHITE BLOOD COUNT 8.7 K/mm3 (4.0-10.0)
[2019-12-08 00:52] LABS: ALBUMIN 4.7 g/dl (3.4-5.0); BLOOD UREA NITROGEN 41.3 mg/dL (7-18); CALCIUM 10.7 mg/dL (8.5-10.1)
[2019-12-08 00:55] LABS: CREATININE 2.6 mg/dL (0.55-1.3)
[2019-12-08 00:57] LABS: BILIRUBIN,TOTAL 1.6 mg/dL (0.2-1); TOT PROT 8.4 g/dl (6.4-8.2)
[2019-12-08] MEDS ORDERED: SODIUM CHLORIDE 1,000 ML IV SCH ×3 (04:15→20:45)
[2019-12-08] MEDS ORDERED: PANTOPRAZOLE 40 MG TABLET ONE (04:26)
[2019-12-08] MEDS ORDERED: MORPHINE SULFATE 2 MG/ML VIAL IVPUSH PRN (06:03)
[2019-12-08] MEDS ORDERED: PANTOPRAZOLE 40 MG TABLET PO SCH (07:00)
[2019-12-08 07:13] LABS: HEMATOCRIT 43.1 % (35.4-49); HEMOGLOBIN 14.1 GM/dL (11.7-16.9); MCH 28.1 pg (25.7-33.7); MCHC 32.8 g/dl (32.0-35.9); MEAN CELL VOLUME 85.5 fl (80-96); MEAN PLT VOLUME 9.5 fl (7.5-11.1); PLATELET COUNT 178 K/MM3 (134-434); RBC 5.04 M/mm3 (4.00-5.60); RDW 15.1 % (11.9-15.9); WHITE BLOOD COUNT 6.8 K/mm3 (4.0-10.0)
[2019-12-08 07:35] LABS: CHLORIDE 98 mmol/L (98-107); POTASSIUM 4.4 mmol/L (3.5-5.1); SODIUM 136 mmol/L (136-145)
[2019-12-08 07:38] LABS: ANION GAP 9 MMOL/L (8-16); BLOOD UREA NITROGEN 45.2 mg/dL (7-18); CALCIUM 9.6 mg/dL (8.5-10.1); CO2 29 mmol/L (21-32); GLUCOSE,RANDOM 84 mg/dL (74-106); LIPASE 143 U/L (73-393); MAGNESIUM 3.2 mg/dL (1.8-2.4)
[2019-12-08 07:40] LABS: CREATININE 2.4 mg/dL (0.55-1.3); SGOT/AST 12 U/L (15-37); SGPT/ALT 17 U/L (13-61)
[2019-12-08 07:41] LABS: PHOSPHOROUS 6.5 mg/dL (2.5-4.9)
[2019-12-08 07:42] LABS: BILIRUBIN,TOTAL 1.3 mg/dL (0.2-1); TOT PROT 7.1 g/dl (6.4-8.2)
[2019-12-08 07:43] LABS: ALK PHOS 62 U/L (45-117)
[2019-12-08] MEDS: HEPARIN NA (PORCINE) 5,000 UNITS/ML 1ML VIAL SQ SCH ×3 (09:37→21:31)
[2019-12-08] MEDS: PANTOPRAZOLE SODIUM 40 MG VIAL IVPUSH SCH (09:37)
[2019-12-08] MEDS ORDERED: ENOXAPARIN NA (PORCINE) 40 MG/0.4 ML DISP.SYRIN SQ SCH (10:00)
[2019-12-08 13:04] VITALS: BMI 23.6
[2019-12-08 14:34] LABS: URINE APPEARANCE CLEAR; URINE BILIRUBIN NEGATIVE (NEGATIVE); URINE COLOR YELLOW; URINE GLUCOSE (UA) NEGATIVE (NEGATIVE); URINE KETONE TRACE (NEGATIVE); URINE LEUK ESTERASE NEGATIVE (NEGATIVE); URINE NITRITE NEGATIVE (NEGATIVE); URINE PROTEIN NEGATIVE (NEGATIVE); URINE UROBILINOGEN 0.2 mg/dL (0.2-1.0)
[2019-12-08 14:53] LABS: PHENCYCLIDINE,URINE NEGATIVE ng/ml (CUTOFF=25); URINE BARBITURATES NEGATIVE ng/ml (CUTOFF=200)
[2019-12-08] MEDS ORDERED: FLU VACCINE (FLULAVAL) PF 60 MCG/0.5 ML SYRINGE 2020-2021 IM ONE (15:00)
[2019-12-08 15:06] LABS: METHADONE, UR NEGATIVE ng/ml (CUTOFF=300); URINE AMPHETAMINES NEGATIVE ng/ml (CUTOFF=500); URINE BENZODIAZEPINES NEGATIVE ng/ml (CUTOFF=200)
[2019-12-08 15:08] LABS: COCAINE, UR POSITIVE ng/ml (CUTOFF=300); OPIATES, URI POSITIVE ng/ml (CUTOFF=300)
[2019-12-08 18:59] LABS: PH,URINE 5.5 (5.0-8.0); URINE APPEARANCE CLEAR; URINE BILIRUBIN NEGATIVE (NEGATIVE); URINE COLOR YELLOW; URINE GLUCOSE (UA) NEGATIVE (NEGATIVE); URINE KETONE TRACE (NEGATIVE); URINE LEUK ESTERASE NEGATIVE (NEGATIVE); URINE NITRITE NEGATIVE (NEGATIVE); URINE PROTEIN NEGATIVE (NEGATIVE); URINE UROBILINOGEN 0.2 mg/dL (0.2-1.0)
[2019-12-09] MEDS: HEPARIN NA (PORCINE) 5,000 UNITS/ML 1ML VIAL SQ SCH (05:32)
[2019-12-09] MEDS ORDERED: TAMSULOSIN HCL 0.4 MG CAP PO SCH (08:30)
[2019-12-09] MEDS: PANTOPRAZOLE SODIUM 40 MG VIAL IVPUSH SCH (09:08)
[2019-12-09 09:47] LABS: POTASSIUM 4.3 mmol/L (3.5-5.1)
[2019-12-09 09:49] LABS: CALCIUM 8.7 mg/dL (8.5-10.1)
[2019-12-09 09:50] LABS: BLOOD UREA NITROGEN 23.7 mg/dL (7-18)
[2019-12-09 09:53] LABS: CREATININE 1.4 mg/dL (0.55-1.3)
[2019-12-09 10:30] VITALS: BP 126/74; PULSE 66; TEMP 97.7
[2019-12-10] MEDS ORDERED: PANTOPRAZOLE 20 MG TABLET PO SCH (10:00)
[2019-12-11 21:08] LABS: HEP B CORE AB, TOT Negative (Negative)
== END 2019-12-09 12:11 | disposition home or self-care (01) | DRG 469 ==
LOC: JER 21:14 → JERBED 12-08 03:17 → J5S 12-08 06:46
PROVIDERS: ADMIT Internal Medicine; ATTEND Internal Medicine
DX: N17.9 Acute kidney failure, unspecified (principal); N18.9 Chronic kidney disease, unspecified; E83.52 Hypercalcemia; K21.9 Gastro-esophageal reflux disease without esophagitis; N13.30 Unspecified hydronephrosis; R10.84 Generalized abdominal pain; R11.2 Nausea with vomiting, unspecified; R00.0 Tachycardia, unspecified; E86.0 Dehydration
CPT/HCPCS: 36415; 71046-TC-FY; 74176-TC; 76775-TC; 80048; 80053; 80307; 81003; 82306; 82436; 82550; 82553; 82565; 83605; 83690; 83735; 84100; 84300; 84443; 85025; 85027; 86704; 86706; 86707; 86708; 86709; 87340; 87902; 99285-25; C9803; G0008; Q2036; U0003

== ENCOUNTER 2021-01-27 00:17 | Emergency (ER) | payer OTHER ==
[2021-01-27 01:07] VITALS: BMI 21.4
[2021-01-27] MEDS ORDERED: FAMOTIDINE 20 MG/50 ML IVPB 20 MG/50 ML MG IVPB ONE ×2 (01:41→02:04)
[2021-01-27] MEDS ORDERED: ACETAMINOPHEN 1000 MG/100 ML VIAL IVPB ONE (01:41)
[2021-01-27] MEDS ORDERED: ACETAMINOPHEN INJECTION 100 ML IVPB ONE (02:04)
[2021-01-27 02:55] LABS: BASO % 0.6 % (0-2.0); EOS % 0.6 % (0-4.5); HEMATOCRIT 44.2 % (35.4-49); LYMPH % 10.6 % (8-40); MCH 29.2 pg (25.7-33.7); MCHC 33.9 g/dl (32.0-35.9); MEAN CELL VOLUME 86.1 fl (80-96); MONO % 9.6 % (3.8-10.2); NEUT % 78.6 % (42.8-82.8); PLATELET COUNT 192 10^3/uL (134-434); RBC 5.13 M/mm3 (4.00-5.60); RDW 13.5 % (11.9-15.9); WHITE BLOOD COUNT 7.4 K/mm3 (4.0-10.0)
[2021-01-27 03:13] LABS: CHLORIDE 90 mmol/L (98-107); SODIUM 133 mmol/L (136-145)
[2021-01-27 03:15] LABS: CALCIUM 9.6 mg/dL (8.5-10.1)
[2021-01-27 03:16] LABS: ALBUMIN 4.1 g/dl (3.4-5.0); ANION GAP 10 MMOL/L (8-16); BLOOD UREA NITROGEN 53.3 mg/dL (7-18); CO2 33 mmol/L (21-32); GLUCOSE,RANDOM 92 mg/dL (74-106); LIPASE 90 U/L (73-393); MAGNESIUM 4.2 mg/dL (1.8-2.4)
[2021-01-27 03:20] LABS: CREATININE 2.3 mg/dL (0.55-1.3); SGOT/AST 16 U/L (15-37); SGPT/ALT 16 U/L (13-61)
[2021-01-27 03:21] LABS: BILIRUBIN,TOTAL 1.2 mg/dL (0.2-1)
[2021-01-27 03:22] LABS: ALK PHOS 69 U/L (45-117)
[2021-01-27] MEDS ORDERED: SODIUM CHLORIDE 0.9% 500 ML INFUS.BAG IV ONE (03:39)
[2021-01-27] MEDS ORDERED: LACTATED RINGERS SOLUTION 1,000 ML/1,000 ML INFUS.BAG IV STA (03:43)
[2021-01-27 06:15] VITALS: BP 121/76; PULSE 63; TEMP 97.7
== END 2021-01-27 07:33 | disposition home or self-care (01) ==
LOC: JER 00:17
PROC: 3E033GC Introduction of Other Therapeutic Substance into Peripheral Vein, Percutaneous Approach (ICD-10-PCS; principal; 2021-01-27)
DX: R10.13 Epigastric pain (principal); N17.9 Acute kidney failure, unspecified
CPT/HCPCS: 36415; 74176-TC; 80053; 83605; 83690; 83735; 84484; 85025; 93005; 93010; 99285-25; J0131

== ENCOUNTER 2022-02-07 14:28 | Inpatient (IN) | payer OTHER ==
[2022-02-07 14:32] VITALS: BMI 24.3
[2022-02-07] MEDS ORDERED: SODIUM CHLORIDE 500 ML IV STA (16:22)
[2022-02-07] MEDS ORDERED: ONDANSETRON 4 MG/2 ML VIAL IVPUSH ONE (16:22)
[2022-02-07] MEDS ORDERED: FAMOTIDINE 20 MG/50 ML IVPB 20 MG/50 ML MG IVPB ONE ×2 (16:23→16:32)
[2022-02-07] MEDS ORDERED: ACETAMINOPHEN 1000 MG/100 ML BAG IVPB ONE (16:23)
[2022-02-07] MEDS ORDERED: ONDANSETRON 4 MG/2 ML VIAL ONE (16:32)
[2022-02-07] MEDS ORDERED: ACETAMINOPHEN INJECTION 100 ML IVPB ONE (16:32)
[2022-02-07 16:40] LABS: BASO % 2.5 % (0-2.0); HEMATOCRIT 48.9 % (35.4-49); HEMOGLOBIN 16.1 GM/dL (11.7-16.9); LYMPH % 7.9 % (8-40); MCH 27.7 pg (25.7-33.7); MCHC 32.9 g/dl (32.0-35.9); MEAN CELL VOLUME 84.1 fl (80-96); MEAN PLT VOLUME 8.5 fl (7.5-11.1); MONO % 9.1 % (3.8-10.2); NEUT % 79.5 % (42.8-82.8); PLATELET COUNT 227 10^3/uL (134-434); RBC 5.81 M/mm3 (4.00-5.60); RDW 13.9 % (11.9-15.9); WHITE BLOOD COUNT 8.3 K/mm3 (4.0-10.0)
[2022-02-07 17:03] LABS: CALCIUM 9.8 mg/dL (8.5-10.1)
[2022-02-07 17:05] LABS: ALBUMIN 4.4 g/dl (3.4-5.0); BLOOD UREA NITROGEN 46.7 mg/dL (7-18)
[2022-02-07 17:09] LABS: TOT PROT 8.1 g/dl (6.4-8.2)
[2022-02-07 17:10] LABS: BILIRUBIN,TOTAL 1.4 mg/dL (0.2-1)
[2022-02-07 17:12] LABS: CREATININE 2.4 mg/dL (0.55-1.3)
[2022-02-07 17:25] LABS: ANISOCYTOSIS 1+; PLATELET ESTIMATE ADEQUATE; TEAR DROP CELLS 1+
[2022-02-07] MEDS ORDERED: CIPROFLOXACIN 500 MG TABLET (RESTRICTED TO ID) PO ONE (22:32)
[2022-02-07] MEDS ORDERED: KETOROLAC TROMETHAMINE 15 MG/ML VIAL IVPUSH ONE (22:34)
[2022-02-07] MEDS ORDERED: KETOROLAC TROMETHAMINE 15 MG/ML VIAL ONE (22:57)
[2022-02-08] MEDS: SODIUM CHLORIDE 1,000 ML IV SCH ×2 (03:04→23:51)
[2022-02-08] MEDS: HEPARIN NA (PORCINE) 5,000 UNITS/ML 1ML VIAL SQ SCH ×3 (05:10→21:55)
[2022-02-08 08:20] LABS: HEMATOCRIT 43.7 % (35.4-49); HEMOGLOBIN 14.1 GM/dL (11.7-16.9); MCH 27.5 pg (25.7-33.7); MCHC 32.4 g/dl (32.0-35.9); MEAN CELL VOLUME 85.1 fl (80-96); PLATELET COUNT 196 10^3/uL (134-434); RBC 5.13 M/mm3 (4.00-5.60); RDW 13.8 % (11.9-15.9); WHITE BLOOD COUNT 7.7 K/mm3 (4.0-10.0)
[2022-02-08 08:46] LABS: ALBUMIN 3.6 g/dl (3.4-5.0); BLOOD UREA NITROGEN 47.5 mg/dL (7-18)
[2022-02-08 08:49] LABS: CREATININE 2.1 mg/dL (0.55-1.3)
[2022-02-08 08:50] LABS: TOT PROT 6.6 g/dl (6.4-8.2)
[2022-02-08 08:51] LABS: BILIRUBIN,TOTAL 1.5 mg/dL (0.2-1)
[2022-02-08] MEDS: CEFTRIAXONE 1 GM in DEXTROSE 5%-WATER - 50 ML IVPB SCH (10:05)
[2022-02-08 18:30] LABS: URINE APPEARANCE CLOUDY; URINE BILIRUBIN NEGATIVE (NEGATIVE); URINE COLOR YELLOW; URINE GLUCOSE (UA) NEGATIVE (NEGATIVE); URINE KETONE TRACE (NEGATIVE); URINE LEUK ESTERASE NEGATIVE (NEGATIVE); URINE NITRITE NEGATIVE (NEGATIVE); URINE PROTEIN NEGATIVE (NEGATIVE); URINE UROBILINOGEN 0.2 mg/dL (0.2-1.0)
[2022-02-08] MEDS: metroNIDAZOLE 250 MG TABLET PO SCH (21:55)
[2022-02-08] MEDS ORDERED: ONDANSETRON 4 MG/2 ML VIAL IVPUSH PRN (23:58)
[2022-02-09] MEDS: metroNIDAZOLE 250 MG TABLET PO SCH ×2 (06:26→14:28)
[2022-02-09] MEDS: HEPARIN NA (PORCINE) 5,000 UNITS/ML 1ML VIAL SQ SCH ×2 (06:27→14:28)
[2022-02-09] MEDS ORDERED: TAMSULOSIN HCL 0.4 MG CAP PO SCH (08:30)
[2022-02-09] MEDS: CEFTRIAXONE 1 GM in DEXTROSE 5%-WATER - 50 ML IVPB SCH (10:32)
[2022-02-09 11:56] LABS: ALBUMIN 3.2 g/dl (3.4-5.0); BLOOD UREA NITROGEN 23.5 mg/dL (7-18); CALCIUM 8.7 mg/dL (8.5-10.1)
[2022-02-09 12:00] LABS: CREATININE 1.5 mg/dL (0.55-1.3)
[2022-02-09 12:01] LABS: BILIRUBIN,TOTAL 1.2 mg/dL (0.2-1); TOT PROT 5.9 g/dl (6.4-8.2)
[2022-02-09 16:49] VITALS: BP 111/71; PULSE 69; RESP 18; TEMP 100
== END 2022-02-09 18:17 | disposition home or self-care (01) | DRG 249 ==
LOC: JER 14:28 → INTOOBSV 22:52 → OBSVTOIN 22:52 → JERBED 22:52 → UNDOADMOB 22:52 → OBSVTOIN 23:57 → JERBED 23:57 → J6W 02-08 02:37
PROVIDERS: ADMIT Internal Medicine; ATTEND Internal Medicine
DX: A09 Infectious gastroenteritis and colitis, unspecified (principal); N17.9 Acute kidney failure, unspecified; K21.9 Gastro-esophageal reflux disease without esophagitis; F17.210 Nicotine dependence, cigarettes, uncomplicated; N18.9 Chronic kidney disease, unspecified; E80.6 Other disorders of bilirubin metabolism; M62.82 Rhabdomyolysis; N13.2 Hydronephrosis with renal and ureteral calculous obstruction
CPT/HCPCS: 0241U-QW; 36415; 74176-TC; 76775-TC; 80053; 81003; 82248; 82436; 82550; 82553; 83690; 84300; 84484; 85025; 85027; 93005; 93010; 99285-25; J1644

== ENCOUNTER 2022-12-18 06:43 | Emergency (ER) | payer OTHER ==
[2022-12-18 06:56] VITALS: BMI 25.8
[2022-12-18] MEDS ORDERED: ACETAMINOPHEN 1000 MG/100 ML BAG IVPB ONE (07:51)
[2022-12-18] MEDS ORDERED: FAMOTIDINE 20 MG/50 ML IVPB 20 MG/50 ML MG IVPB ONE ×2 (07:51→08:24)
[2022-12-18] MEDS ORDERED: MAG HYDROX/AL HYDROX/SIMETH 30 ML UNIT-DOSE CUP PO ONE (07:52)
[2022-12-18] MEDS ORDERED: ACETAMINOPHEN INJECTION 100 ML IVPB ONE (08:24)
[2022-12-18] MEDS ORDERED: MAG HYDROX/AL HYDROX/SIMETH 30 ML UNIT-DOSE CUP ONE (08:24)
[2022-12-18 08:40] LABS: HEMATOCRIT 46.1 % (35.4-49); MCH 29.1 pg (25.7-33.7); MCHC 34.6 g/dl (32.0-35.9); MEAN CELL VOLUME 84.1 fl (80-96); MEAN PLT VOLUME 8.3 fl (7.5-11.1); PLATELET COUNT 220 10^3/uL (134-434); RBC 5.48 M/mm3 (4.00-5.60); RDW 14.1 % (11.9-15.9); WHITE BLOOD COUNT 8.3 K/mm3 (4.0-10.0)
[2022-12-18] MEDS ORDERED: LACTATED RINGERS SOLUTION 1,000 ML/1,000 ML INFUS.BAG IV STA (08:40)
[2022-12-18 08:47] LABS: POTASSIUM 3.9 mmol/L (3.5-5.1)
[2022-12-18 08:51] LABS: CALCIUM 9.6 mg/dL (8.5-10.1)
[2022-12-18 08:52] LABS: ALBUMIN 4.2 g/dl (3.4-5.0); BLOOD UREA NITROGEN 22.4 mg/dL (7-18)
[2022-12-18 08:55] LABS: CREATININE 1.4 mg/dL (0.55-1.3)
[2022-12-18 08:57] LABS: BILIRUBIN,TOTAL 1.1 mg/dL (0.2-1); TOT PROT 7.8 g/dl (6.4-8.2)
[2022-12-18 10:33] LABS: PLATELET ESTIMATE ADEQUATE
[2022-12-18] MEDS ORDERED: SUCRALFATE 1 GM TABLET (FP) PO ONE (13:52)
[2022-12-18] MEDS ORDERED: SUCRALFATE 1 GM TABLET (FP) ONE (14:05)
[2022-12-18 14:23] VITALS: BP 135/90; PULSE 68; RESP 20; TEMP 98.2
== END 2022-12-18 15:23 | disposition home or self-care (01) ==
LOC: JER 06:43
PROC: 3E033GC Introduction of Other Therapeutic Substance into Peripheral Vein, Percutaneous Approach (ICD-10-PCS; principal; 2022-12-18)
PROC: 3E033NZ Introduction of Analgesics, Hypnotics, Sedatives into Peripheral Vein, Percutaneous Approach (ICD-10-PCS; 2022-12-18)
PROC: 3E0337Z Introduction of Electrolytic and Water Balance Substance into Peripheral Vein, Percutaneous Approach (ICD-10-PCS; 2022-12-18)
DX: R10.9 Unspecified abdominal pain (principal); K21.9 Gastro-esophageal reflux disease without esophagitis
CPT/HCPCS: 36415; 70450-TC; 71045-TC-FY; 74177-TC; 80053; 83690; 84484; 85025; 93005; 93010; 99285-25

== ENCOUNTER 2023-08-14 10:20 | Observation (INO) | payer OTHER ==
[2023-08-14 10:26] VITALS: BMI 24.3
[2023-08-14] MEDS ORDERED: ONDANSETRON 4 MG/2 ML VIAL ONE ×2 (12:04→19:07)
[2023-08-14] MEDS ORDERED: MAG HYDROX/AL HYDROX/SIMETH 30 ML UNIT-DOSE CUP ONE (12:04)
[2023-08-14] MEDS ORDERED: ACETAMINOPHEN INJECTION 100 ML IVPB ONE (12:04)
[2023-08-14] MEDS ORDERED: FAMOTIDINE 20 MG/50 ML IVPB 20 MG/50 ML MG IVPB ONE (12:04)
[2023-08-14 12:06] LABS: BASO % 0.6 % (0-2.0); EOS % 0.8 % (0-4.5); HEMATOCRIT 46.3 % (35.4-49); HEMOGLOBIN 15.4 GM/dL (11.7-16.9); LYMPH % 11.8 % (8-40); MCH 28.3 pg (25.7-33.7); MCHC 33.2 g/dl (32.0-35.9); MEAN CELL VOLUME 85.2 fl (80-96); MEAN PLT VOLUME 8.6 fl (7.5-11.1); NEUT % 78.8 % (42.8-82.8); PLATELET COUNT 207 10^3/uL (134-434); RBC 5.43 M/mm3 (4.00-5.60); RDW 14.6 % (11.9-15.9); WHITE BLOOD COUNT 8.3 K/mm3 (4.0-10.0)
[2023-08-14] MEDS: MAG HYDROX/AL HYDROX/SIMETH 30 ML UNIT-DOSE CUP PO ONE (12:14)
[2023-08-14] MEDS: SODIUM CHLORIDE 0.9% 500 ML INFUS.BAG IV ONE (12:15)
[2023-08-14] MEDS: ONDANSETRON 4 MG/2 ML VIAL IVPUSH ONE (12:15)
[2023-08-14] MEDS: FAMOTIDINE 20 MG/50 ML IVPB 20 MG/50 ML MG IVPB ONE (12:15)
[2023-08-14] MEDS: ACETAMINOPHEN 1000 MG/100 ML BAG IVPB ONE (12:15)
[2023-08-14 12:27] LABS: POTASSIUM 3.9 mmol/L (3.5-5.1)
[2023-08-14 12:29] LABS: ALBUMIN 4.4 g/dl (3.4-5.0)
[2023-08-14 12:30] LABS: BLOOD UREA NITROGEN 38.2 mg/dL (7-18)
[2023-08-14 12:32] LABS: CREATININE 2.3 mg/dL (0.55-1.3)
[2023-08-14 12:34] LABS: BILIRUBIN,TOTAL 1.6 mg/dL (0.2-1); TOT PROT 7.6 g/dl (6.4-8.2)
[2023-08-14] MEDS: DEXTROSE 5%-0.45% SALINE 1,000 ML IV SCH (17:08)
[2023-08-14] MEDS ORDERED: ACETAMINOPHEN 325 MG TABLET (FP) ONE (19:07)
[2023-08-14] MEDS: ACETAMINOPHEN 325 MG TABLET (FP) PO PRN (19:13)
[2023-08-14] MEDS: ONDANSETRON 4 MG/2 ML VIAL IVPUSH PRN (19:13)
[2023-08-14] MEDS ORDERED: HEPARIN NA (PORCINE) 5,000 UNITS/ML 1ML VIAL ONE (22:05)
[2023-08-14] MEDS: HEPARIN NA (PORCINE) 5,000 UNITS/ML 1ML VIAL SQ SCH (22:11)
[2023-08-15 07:24] LABS: BASO % 0.5 % (0-2.0); EOS % 1.6 % (0-4.5); HEMATOCRIT 39.5 % (35.4-49); HEMOGLOBIN 13.7 GM/dL (11.7-16.9); LYMPH % 15.3 % (8-40); MCH 29.6 pg (25.7-33.7); MCHC 34.7 g/dl (32.0-35.9); MEAN CELL VOLUME 85.4 fl (80-96); MEAN PLT VOLUME 9.2 fl (7.5-11.1); NEUT % 73.6 % (42.8-82.8); PLATELET COUNT 184 10^3/uL (134-434); RBC 4.62 M/mm3 (4.00-5.60); RDW 14.1 % (11.9-15.9); WHITE BLOOD COUNT 6.3 K/mm3 (4.0-10.0)
[2023-08-15 07:41] LABS: POTASSIUM 3.8 mmol/L (3.5-5.1)
[2023-08-15 07:43] LABS: ALBUMIN 3.8 g/dl (3.4-5.0); CALCIUM 8.8 mg/dL (8.5-10.1)
[2023-08-15 07:44] LABS: BLOOD UREA NITROGEN 24.7 mg/dL (7-18)
[2023-08-15 07:46] LABS: CREATININE 1.6 mg/dL (0.55-1.3)
[2023-08-15 07:48] LABS: BILIRUBIN,TOTAL 1.6 mg/dL (0.2-1); TOT PROT 6.3 g/dl (6.4-8.2)
[2023-08-15] MEDS: PANTOPRAZOLE SODIUM 40 MG VIAL IVPUSH SCH (10:15)
[2023-08-15 11:43] LABS: URINE BENZODIAZEPINES NEGATIVE (NEGATIVE)
[2023-08-15 11:44] LABS: METHADONE, UR NEGATIVE (NEGATIVE); OPIATES, URI NEGATIVE (NEGATIVE); URINE AMPHETAMINES NEGATIVE (NEGATIVE); URINE BARBITURATES NEGATIVE (NEGATIVE)
[2023-08-15 11:45] LABS: PHENCYCLIDINE,URINE NEGATIVE (NEGATIVE)
[2023-08-15 11:48] LABS: COCAINE, UR POSITIVE (NEGATIVE)
[2023-08-15 13:41] LABS: BILIRUBIN,DIRECT 0.3 mg/dL (0.0-0.2)
[2023-08-15] MEDS ORDERED: LORazepam 2 MG/ML SDV VIAL IVPUSH PRN (15:35)
[2023-08-16 06:37] LABS: BASO % 0.5 % (0-2.0); HEMATOCRIT 40.9 % (35.4-49); HEMOGLOBIN 13.7 GM/dL (11.7-16.9); LYMPH % 13.9 % (8-40); MCH 29.2 pg (25.7-33.7); MCHC 33.6 g/dl (32.0-35.9); MEAN CELL VOLUME 86.8 fl (80-96); MEAN PLT VOLUME 9.2 fl (7.5-11.1); MONO % 7.6 % (3.8-10.2); PLATELET COUNT 177 10^3/uL (134-434); RBC 4.71 M/mm3 (4.00-5.60); WHITE BLOOD COUNT 8.1 K/mm3 (4.0-10.0)
[2023-08-16 07:01] LABS: POTASSIUM 3.8 mmol/L (3.5-5.1)
[2023-08-16 07:06] LABS: CALCIUM 8.9 mg/dL (8.5-10.1)
[2023-08-16 07:07] LABS: ALBUMIN 3.6 g/dl (3.4-5.0); BLOOD UREA NITROGEN 15.4 mg/dL (7-18)
[2023-08-16 07:10] LABS: CREATININE 1.2 mg/dL (0.55-1.3)
[2023-08-16 07:11] LABS: BILIRUBIN,TOTAL 1.6 mg/dL (0.2-1); TOT PROT 6.4 g/dl (6.4-8.2)
[2023-08-16] MEDS: PANTOPRAZOLE 20 MG TABLET PO SCH (09:09)
[2023-08-16 13:08] VITALS: BP 127/82; PULSE 78; RESP 16; TEMP 99.3
== END 2023-08-16 15:42 | disposition home or self-care (01) ==
LOC: JER 10:20 → JERBED 15:09 → J7W 08-15 02:51
PROVIDERS: ADMIT Internal Medicine; ATTEND Internal Medicine
PROC: 3E033NZ Introduction of Analgesics, Hypnotics, Sedatives into Peripheral Vein, Percutaneous Approach (ICD-10-PCS; principal; 2023-08-14)
PROC: 3E033GC Introduction of Other Therapeutic Substance into Peripheral Vein, Percutaneous Approach (ICD-10-PCS; 2023-08-14)
PROC: 3E0337Z Introduction of Electrolytic and Water Balance Substance into Peripheral Vein, Percutaneous Approach (ICD-10-PCS; 2023-08-14)
PROC: 3E033NZ Introduction of Analgesics, Hypnotics, Sedatives into Peripheral Vein, Percutaneous Approach (ICD-10-PCS; 2023-08-14)
DX: N17.9 Acute kidney failure, unspecified (principal); R10.13 Epigastric pain; K21.9 Gastro-esophageal reflux disease without esophagitis; E86.0 Dehydration; K57.90 Diverticulosis of intestine, part unspecified, without perforation or abscess without bleeding; R11.2 Nausea with vomiting, unspecified
CPT/HCPCS: 36415; 74176-TC; 74240-TC-FY; 76775-TC; 80053; 80307; 82248; 83690; 84484; 85025; 93005; 93010; 96365; 96366; 96367; 96368; 96375; 99285-25; G0378; J0131; J1644